=== PATIENT | female | born 1940 | race Caucasian/White ===

== ENCOUNTER → 2018-05-08 10:16 | Outpatient (CLI) | payer OTHER, SELFPAY ==
--- NOTE | 2018-05-08 | DI.MG.S_ITS ---
BILATERAL DIGITAL SCREENING MAMMOGRAM 3D/2D WITH CAD: 05/08/2018 CLINICAL: Routine screening. Comparison is made to exams dated: 04/05/2017 mammogram, 02/11/2016 mammogram, and 01/26/2016 mammogram - . The tissue of both breasts is heterogeneously dense. This may lower the sensitivity of mammography. Current study was also evaluated with a Computer Aided Detection (CAD) system. No significant masses, calcifications, or other findings are seen in either breast. There has been no significant interval change. IMPRESSION: NEGATIVE There is no mammographic evidence of malignancy. A 1 year screening mammogram is recommended. This exam was interpreted at Station ID: [id number]. NOTE: For mammograms, a report in lay terms will be sent to the patient. Approximately 15% of breast malignancies will not be visualized mammographically. In the management of a palpable breast mass, a negative mammogram must not discourage biopsy of a clinically suspicious lesion. Electronically Signed By: Parveen cabrera/richi:05/08/2018 16:49:49 letter sent: Normal Exam ACR BI-RADS Category 1: Negative [id number]
== END ==
PROVIDERS: PCP Physician Assistant; Visit Provider Physician Assistant
DX: Z12.31 Encounter for screening mammogram for malignant neoplasm of breast (principal)
CPT/HCPCS: 77063; 77067

== ENCOUNTER → 2019-05-15 11:31 | Outpatient (CLI) | payer OTHER, SELFPAY ==
--- NOTE | 2019-05-15 | DI.MG.S_ITS ---
BILATERAL DIGITAL SCREENING MAMMOGRAM 3D/2D WITH CAD: 05/15/2019 CLINICAL: Routine screening. Comparison is made to exams dated: 05/08/2018 mammogram, 04/05/2017 mammogram, 02/11/2016 mammogram, and 01/26/2016 mammogram - [facility]. The tissue of both breasts is heterogeneously dense. This may lower the sensitivity of mammography. Current study was also evaluated with a Computer Aided Detection (CAD) system. No significant masses, calcifications, or other findings are seen in either breast. There has been no significant interval change. IMPRESSION: NEGATIVE There is no mammographic evidence of malignancy. A 1 year screening mammogram is recommended. This exam was interpreted at Station ID: [id number]. NOTE: For mammograms, a report in lay terms will be sent to the patient. Approximately 15% of breast malignancies will not be visualized mammographically. In the management of a palpable breast mass, a negative mammogram must not discourage biopsy of a clinically suspicious lesion. Electronically Signed By: Marquise peterson/richi:05/15/2019 12:22:23 letter sent: Normal Exam ACR BI-RADS Category 1: Negative [id number]
== END ==
PROVIDERS: PCP Physician Assistant; Visit Provider Physician Assistant
DX: Z12.31 Encounter for screening mammogram for malignant neoplasm of breast (principal)
CPT/HCPCS: 77063; 77067

== ENCOUNTER → 2020-06-15 13:09 | Outpatient (CLI) | payer OTHER, SELFPAY | PROVIDERS: PCP Registered Nurse; Referring Provider Registered Nurse; Visit Provider Registered Nurse | DX: M85.851 Other specified disorders of bone density and structure, right thigh (principal); Z78.0 Asymptomatic menopausal state | CPT/HCPCS: 77080 ==

== ENCOUNTER → 2020-06-16 16:12 | Outpatient (CLI) | payer OTHER, SELFPAY ==
--- NOTE | 2020-06-16 16:15 | DI.MG.S_ITS ---
BILATERAL DIGITAL SCREENING MAMMOGRAM 3D/2D WITH CAD: 06/16/2020 CLINICAL: Routine screening. Comparison is made to exams dated: 05/15/2019 mammogram, 05/08/2018 mammogram, and 04/05/2017 mammogram - [facility]. There are scattered fibroglandular elements in both breasts. Current study was also evaluated with a Computer Aided Detection (CAD) system. No significant masses, calcifications, or other findings are seen in either breast. There has been no significant interval change. IMPRESSION: NEGATIVE There is no mammographic evidence of malignancy. A 1 year screening mammogram is recommended. This exam was interpreted at Station ID: [id number]. NOTE: For mammograms, a report in lay terms will be sent to the patient. Approximately 15% of breast malignancies will not be visualized mammographically. In the management of a palpable breast mass, a negative mammogram must not discourage biopsy of a clinically suspicious lesion. Electronically Signed By: Parveen cabrera/richi:06/16/2020 16:56:21 letter sent: Normal Exam ACR BI-RADS Category 1: Negative [id number]
== END ==
PROVIDERS: PCP Registered Nurse; Referring Provider Registered Nurse; Visit Provider Nurse Practitioner
DX: Z12.31 Encounter for screening mammogram for malignant neoplasm of breast (principal)
CPT/HCPCS: 77063; 77067

== ENCOUNTER → 2020-06-17 09:41 | Outpatient (CLI) | payer OTHER, SELFPAY ==
[2020-06-17 11:03] LABS: Add Manual Diff / Slide Review NO; Basophils Absolute Auto 100 /uL (0-100); Eosinophils Absolute Auto 300 /uL (0-450); Eosinophils Percent Auto 4.9 % (2-4); Hematocrit 40.2 % (36-46); Hemoglobin 13.8 g/dL (12.0-16.0); Lymphocytes Absolute Auto 1200 /uL (1100-4500); Lymphocytes Percent Auto 19.8 % (25-40); Mean Corpuscular HGB Conc 34.4 % (30-36); Mean Corpuscular Hemoglobin 30.3 PG (26-34); Monocytes Absolute Auto 500 /uL (0-900); Monocytes Percent Auto 8.4 % (3-14); Neutrophils Absolute Auto 4100 /uL (1500-7000); Neutrophils Percent Auto 65.9 % (50-75); Platelet Count 235 X10^3/uL (150-400); Red Blood Cell Count 4.56 X10^6/uL (4.0-5.2); Red Cell Distribution Width 13.5 % (11.6-14.8); White Blood Cell Count 6.2 X10^3/uL (4.5-11.0)
[2020-06-17 11:16] LABS: Alanine Aminotransferase 17 IU/L (<35); Albumin 4.2 g/dL (3.5-5.0); Albumin Globulin Ratio 1.3 (1.0-2.8); Alkaline Phosphatase 62 U/L (38-126); Aspartate Aminotransferase 25 IU/L (14-36); BUN Creatinine Ratio 19.2 (6-22); Bilirubin Total 0.5 mg/dL (0.2-1.3); Blood Urea Nitrogen 14 mg/dL (7-17); Carbon Dioxide 29 mmol/L (22-32); Chloride 104 mmol/L (98-107); Cholesterol 222 mg/dL (140-199); Estimated Glomerular Filt Rate > 60.0 mL/min (>60); Globulin 3.2 g/dL (1.7-4.1); Glucose 90 mg/dL (80-110); HDL Cholesterol 45 mg/dL (40-60); HEMOLYSIS < 15 (0-50); LDL Cholesterol Calculated 154 mg/dL (<100); Potassium 3.9 mmol/L (3.4-5.1); Sodium 140 mmol/L (137-145); Total Protein 7.4 g/dL (6.3-8.2); Triglycerides 114 mg/dL (35-150)
[2020-06-17 12:02] LABS: Vitamin D 25 Hydroxy (D3) 23.5 ng/mL (30.0-100.0)
[2020-06-17 16:47] LABS: Appearance Urine UA SL CLOUDY; Bilirubin Urine UA NEGATIVE (NEGATIVE); Color Urine UA YELLOW; Glucose Urine UA NEGATIVE (Negative); Ketones Urine UA NEGATIVE (NEGATIVE); Leukocyte Esterase Urine UA TRACE (NEGATIVE); Nitrite Urine UA NEGATIVE (Negative); Occult Blood Urine UA NEGATIVE (Negative); Protein Urine UA NEGATIVE (Negative); Specific Gravity Urine UA 1.015 (1.000-1.035); Urobilinogen Urine UA 0.2 E.U./dL (0.2)
[2020-06-17 16:49] LABS: pH Urine UA 7.5 (4.5-8.0)
[2020-06-17 17:00] LABS: Bacteria Urine Moderate (10-30); Culture Indicated Urine Specimen Cultured; RBC Urine 0-1/HPF (0-5/HPF); Squamous Epithelial Cell Urine 0-1 /HPF (0-5/HPF); WBC Urine 10-30/HPF (0-5/HPF)
== END ==
PROVIDERS: PCP Registered Nurse; Referring Provider Registered Nurse; Visit Provider Registered Nurse
DX: Z00.00 Encounter for general adult medical examination without abnormal findings (principal)
CPT/HCPCS: 36415; 80053; 80061; 81003; 81015; 82306; 85025; 87077; 87086

== ENCOUNTER → 2020-06-21 14:39 | Outpatient (CLI) | payer OTHER, SELFPAY ==
[2020-06-22 14:12] LABS: Fecal Immunochemical Test Negative (Negative)
== END ==
PROVIDERS: PCP Registered Nurse; Referring Provider Registered Nurse; Visit Provider Registered Nurse
DX: Z12.11 Encounter for screening for malignant neoplasm of colon (principal)
CPT/HCPCS: 82274

== ENCOUNTER → 2020-07-24 14:32 | Outpatient (CLI) | payer OTHER, SELFPAY ==
[2020-07-26 02:22] LABS: COVID19 Sendout Not Detected (Not Detect)
== END ==
PROVIDERS: PCP Registered Nurse; Visit Provider Nurse Practitioner
DX: Z11.59 Encounter for screening for other viral diseases (principal)
CPT/HCPCS: 87635

== ENCOUNTER 2020-07-27 06:58 | Day surgery (SDC) | payer OTHER, SELFPAY ==
[2020-07-27] MEDS: PROPARACAINE 0.5% OPHTH SOL 2 DROPS EYE-OP (07:30)
[2020-07-27 07:39] VITALS: BP 135/77; PULSE 75; RESP 14; TEMP 36.4; O2SAT 99; BMI 25.3
[2020-07-27] MEDS: CATARACT EYE COMPOUND (10 DROPS/SYRINGE) 3 DROPS EYE-OP (07:47)
--- NOTE | 2020-07-27 08:35 | P.OP_ITS ---
Operative Date/Time/Diagnoses Pre-op diagnosis: Nuclear Cataract Left eye Post-op diagnosis: same Procedure & Clinicians Same procedure as scheduled: Yes Surgeon: Rod Alaniz Anesthesia Type: MAC +/- and Sedation Operative Notes Procedure in detail: Patient brought to the operating suite. Tetracaine drops placed in the left eye. Patient was prepped and draped in sterile manner. Wire lid speculum was placed in the eye. Betadine drops were placed on the eye. This was irrigated. Lidocaine jelly was placed on the eye. A paracentesis port was created with a side-port blade. 0.1 mL 1% preservative free lidocaine was injected into the anterior chamber. The anterior chamber was deepened with viscoelastic. 2.6 mm keratome was used to create a temporal clear corneal incision. Cystotome and Utrata forceps were used to create continuous tear capsulorrhexis. Balanced salt solution was used to hydro dissect the nucleus. The phacoemulsification handpiece was inserted and the nucleus was removed using the stop and chop technique. The irrigation aspiration handpiece was inserted and the remaining cortex was removed. Anterior chamber was deepened with viscoe lastic. An Lin ZCB00 intraocular lens with a power of 24.0 was injected into the capsular bag. Irrigation aspiration handpiece was inserted and the remaining viscoelastic was removed. Incision was hydrated with balanced salt solution and found to be leak free with pressure with Weck-Sandy sponges. 0.1 mL Vigamox injected anterior chamber. 0.3 mL Kenalog 10 mg was injected subconjunctivally. Lid speculum was removed. The patient left the operating room in excellent condition. Complications: none Post-operative Condition: stable Disposition: same day surgery
--- NOTE | 2020-07-27 08:35 | PM.PREOP ---
Pre-operative Note Interval Note History & Physical reviewed/Exam performed by Physician: Yes Changes to H&P: No
--- NOTE | 2020-07-27 08:39 | SUR.OPER ---
Supine on eye stretcher, head on extension cradle secured with tape. Arms tucked at sides with blanket. Pillow under knees.
[2020-07-27] MEDS: BALANCED SALT IRRIG SOLN NO.2 500 ML, EPINEPHrine 1 MG IRR (08:45)
[2020-07-27] MEDS: TETRACAINE 0.5% OPHTH DROPS 4 ML 2 DROPS EYE-OP (08:46)
[2020-07-27] MEDS: LIDOCAINE JELLY 2% 5 ML 1 APPLIC TOP (08:47)
[2020-07-27] MEDS: CHONDROIDTIN/SOD HYALURONATE 1.05 ML SYRINGE INTRAOCULA (08:48)
[2020-07-27] MEDS: TRIAMCINOLONE 50 MG/5 ML VIAL INJ (08:48)
[2020-07-27] MEDS: MOXIFLOXACIN INJ 5 MG/ML VIAL EYE-OP (08:49)
[2020-07-27] MEDS: PHENYLEPHRINE/LIDOCAINE VIAL (OR) 0.2 ML EYE-OP (08:49)
[2020-07-27 09:06] VITALS: BP 114/68; PULSE 67; RESP 16; TEMP 36.3; O2SAT 98
[2020-07-27 09:20] VITALS: BP 122/68; PULSE 66; RESP 16; TEMP 36.6; O2SAT 96
== END 2020-07-27 09:30 | disposition home or self-care (01) ==
PROVIDERS: PCP Registered Nurse; Referring Provider Registered Nurse; Visit Provider Ophthalmology
PROC: (CPT 66984; principal; 2020-07-27 08:45)
DX: H25.12 Age-related nuclear cataract, left eye (principal)
CPT/HCPCS: 66984; J0171; J2250; J3301

== ENCOUNTER → 2020-08-07 09:42 | Outpatient (CLI) | payer OTHER, SELFPAY ==
[2020-08-07 10:39] LABS: COVID19 -Nasal RAPID Negative (Negative)
== END ==
PROVIDERS: PCP Registered Nurse; Visit Provider Physician Assistant
DX: Z11.59 Encounter for screening for other viral diseases (principal)
CPT/HCPCS: 87635

== ENCOUNTER 2020-08-10 08:03 | Day surgery (SDC) | payer OTHER, SELFPAY ==
[2020-08-10 08:29] VITALS: BP 148/74; PULSE 73; RESP 16; TEMP 36.1; O2SAT 95; BMI 25.7
[2020-08-10] MEDS: PROPARACAINE 0.5% OPHTH SOL 2 DROPS EYE-OP (08:35)
[2020-08-10] MEDS: CATARACT EYE COMPOUND (10 DROPS/SYRINGE) 3 DROPS EYE-OP (08:36)
--- NOTE | 2020-08-10 09:26 | PM.PREOP ---
Pre-operative Note Interval Note History & Physical reviewed/Exam performed by Physician: Yes Changes to H&P: No
--- NOTE | 2020-08-10 09:26 | PM.OP.1 ---
Operative Date/Time/Diagnoses Pre-op diagnosis: Nuclear cataract right eye Procedure & Clinicians Procedure: Cataract Surgery Same procedure as scheduled: Yes Surgeon: Rod Alaniz Anesthesia Type: MAC +/- and Sedation Operative Notes Procedure in detail: Patient brought to the operating suite. Tetracaine drops placed in the right eye. Patient was prepped and draped in sterile manner. Wire lid speculum was placed in the eye. Betadine drops were placed on the eye. This was irrigated. Lidocaine jelly was placed on the eye. A paracentesis port was created with a side-port blade. 0.1 mL 1% preservative free lidocaine was injected into the anterior chamber. The anterior chamber was deepened with viscoelastic. 2.6 mm keratome was used to create a temporal clear corneal incision. Cystotome and Utrata forceps were used to create continuous tear capsulorrhexis. Balanced salt solution was used to hydro dissect the nucleus. The phacoemulsification handpiece was inserted and the nucleus was removed using the stop and chop technique. The irrigation aspiration handpiece was inserted and the remaining cortex was removed. Anterior chamber was deepened with viscoelastic. An Lin ZCB00 intraocular lens with a power of 23.0 was injected into the capsular bag. Irrigation aspiration handpiece was inserted and the remaining viscoelastic was removed. Incision was hydrated with balanced salt solution and found to be leak free with pressure with Weck-Sandy sponges. 0.1 mL Vigamox injected anterior chamber. 0.3 mL Kenalog 10 mg was injected subconjunctivally. Lid speculum was removed. The patient left the operating room in excellent condition. Complications: none Post-operative Condition: stable Disposition: same day surgery
[2020-08-10] MEDS: PHENYLEPHRINE/LIDOCAINE VIAL (OR) 0.2 ML EYE-OP (09:46)
[2020-08-10] MEDS: LIDOCAINE JELLY 2% 5 ML 1 APPLIC TOP (09:47)
[2020-08-10] MEDS: CHONDROIDTIN/SOD HYALURONATE 1.05 ML SYRINGE INTRAOCULA (09:47)
[2020-08-10] MEDS: TRIAMCINOLONE 50 MG/5 ML VIAL INJ (09:47)
[2020-08-10] MEDS: MOXIFLOXACIN INJ 5 MG/ML VIAL EYE-OP (09:47)
[2020-08-10] MEDS: BALANCED SALT IRRIG SOLN NO.2 500 ML, EPINEPHrine 1 MG IRR (09:48)
[2020-08-10] MEDS: TETRACAINE 0.5% OPHTH DROPS 4 ML 2 DROPS EYE-OP (09:48)
[2020-08-10 10:00] VITALS: BP 123/76; PULSE 68; RESP 15; TEMP 36.2; O2SAT 96
[2020-08-10 10:19] VITALS: BP 122/72; PULSE 65; RESP 17; TEMP 36.1; O2SAT 95
== END 2020-08-10 10:20 | disposition home or self-care (01) ==
PROVIDERS: PCP Registered Nurse; Referring Provider Registered Nurse; Visit Provider Ophthalmology
PROC: (CPT 66984; principal; 2020-08-10 09:45)
DX: H25.11 Age-related nuclear cataract, right eye (principal)
CPT/HCPCS: 66984; J0171; J2250; J3301

== ENCOUNTER 2020-12-04 18:19 | Observation (INO) | payer OTHER, SELFPAY ==
[2020-12-04] VITALS (11 sets, daily range): BP systolic 124–215; BP diastolic 60–97; PULSE 63–74; RESP 14–28; TEMP 36.1; O2SAT 94–97; BMI 24.3
--- NOTE | 2020-12-04 18:31 | DI.CT.S_ITS ---
PROCEDURE: CT HEAD/BRAIN WO CON INDICATIONS: new onset confusion TECHNIQUE: Noncontrast 4.5 mm thick angled axial sections acquired from the foramen magnum to the vertex, with coronal and sagittal reformats. For radiation dose reduction, the following was used: automated exposure control, adjustment of mA and/or kV according to patient size. COMPARISON: [facility], CT, HEAD WITHOUT CONTRAST, 10/10/2017, 11:50. FINDINGS: Image quality: Excellent. CSF spaces: Basal cisterns are patent. No extra-axial fluid collections. The ventricles are symmetric in size and shape. Brain: No intracranial bleeds or masses. There is cerebral volume loss for age, with resultant ventricular and sulcal prominence. There are periventricular and deep white matter chronic small vessel ischemic changes. There is intracranial internal carotid artery atherosclerosis. Skull and face: Calvarium and visualized facial bones appear intact, without suspicious lesions. Sinuses: Visualized sinuses demonstrate minimal right maxillary sinus mucosal thickening. IMPRESSION: 1. No acute intracranial process. 2. Moderate atrophy and chronic microvascular ischemic changes. Dictated by: Leonie Luna M.D. on 12/04/2020 at 19:01 Approved by: Leonie Luna M.D. on 12/04/2020 at 19:02
--- NOTE | 2020-12-04 18:34 | DI.RAD.S_ITS ---
PROCEDURE: XR CHEST 1V INDICATIONS: altered mental status TECHNIQUE: One view of the chest was acquired. COMPARISON: None. FINDINGS: Surgical changes and devices: None. Lungs and pleura: Minimal appearance of increased vascularity. No pleural effusions or pneumothorax. Mediastinum: Mediastinal contours appear normal. Heart size is mildly prominent. Bones and chest wall: No suspicious bony lesions. Overlying soft tissues appear unremarkable. IMPRESSION: Minimal appearance of increased vascularity suggestive of edema. No consolidations. Dictated by: Leonie Luna M.D. on 12/04/2020 at 19:00 Approved by: Leonie Luna M.D. on 12/04/2020 at 19:01
[2020-12-04 18:48] LABS: Bacteria Urine None Seen; WBC Urine None Seen (0-5/HPF)
[2020-12-04 18:53] LABS: Appearance Urine UA CLEAR; Bilirubin Urine UA NEGATIVE (NEGATIVE); Color Urine UA YELLOW; Glucose Urine UA NEGATIVE (Negative); Ketones Urine UA NEGATIVE (NEGATIVE); Leukocyte Esterase Urine UA NEGATIVE (NEGATIVE); Nitrite Urine UA NEGATIVE (Negative); Occult Blood Urine UA TRACE-LYSED (Negative); Protein Urine UA NEGATIVE (Negative); Specific Gravity Urine UA 1.015 (1.000-1.035); Urobilinogen Urine UA 0.2 E.U./dL (0.2)
[2020-12-04 18:58] LABS: Add Manual Diff / Slide Review NO; Basophils Absolute Auto 100 /uL (0-100); Basophils Percent Auto 1.4 % (0-2); Eosinophils Absolute Auto 500 /uL (0-450); Eosinophils Percent Auto 7.2 % (2-4); Hematocrit 41.2 % (36-46); Hemoglobin 13.9 g/dL (12.0-16.0); Lymphocytes Absolute Auto 1900 /uL (1100-4500); Lymphocytes Percent Auto 28.3 % (25-40); Mean Corpuscular HGB Conc 33.9 % (30-36); Mean Corpuscular Hemoglobin 30.1 PG (26-34); Monocytes Absolute Auto 700 /uL (0-900); Monocytes Percent Auto 10.3 % (3-14); Neutrophils Absolute Auto 3500 /uL (1500-7000); Neutrophils Percent Auto 52.8 % (50-75); Platelet Count 254 X10^3/uL (150-400); Red Blood Cell Count 4.63 X10^6/uL (4.0-5.2); Red Cell Distribution Width 13.1 % (11.6-14.8); White Blood Cell Count 6.6 X10^3/uL (4.5-11.0)
[2020-12-04 19:02] LABS: Culture Indicated Urine Cult Not Indicated; RBC Urine 0-1/HPF (0-5/HPF); Ur Creatinine Normal (Normal); Ur Specific Gravity Normal (Normal); Urine pH Normal (Normal); pH Urine UA 6.5 (4.5-8.0)
[2020-12-04 19:03] LABS: UR Morphine/Opiate cutoff 300 Negative (Negative); Urine Amphetamines Negative (Negative); Urine Barbiturates Negative (Negative); Urine Benzodiazepines Negative (Negative); Urine Cocaine Negative (Negative); Urine MDMA Negative (Negative); Urine Methadone Negative (Negative); Urine Methamphetamines Negative (Negative); Urine Oxycodone Negative (Negative); Urine Phencyclidine Negative (Negative); Urine Tetrahydrocannabinol Negative (Negative); Urine Tricyclic Antidepressant Negative (Negative)
[2020-12-04 19:14] LABS: Alanine Aminotransferase 23 IU/L (<35); Albumin 4.8 g/dL (3.5-5.0); Albumin Globulin Ratio 1.5 (1.0-2.8); Alkaline Phosphatase 60 U/L (38-126); Ammonia (NH3) < 9 umol/L (9-30); Aspartate Aminotransferase 38 IU/L (14-36); Bilirubin Total 0.3 mg/dL (0.2-1.3); Blood Urea Nitrogen 17 mg/dL (7-17); Calcium 9.4 mg/dL (8.4-10.2); Carbon Dioxide 28 mmol/L (22-32); Chloride 105 mmol/L (98-107); Estimated Glomerular Filt Rate > 60.0 mL/min (>60); Globulin 3.2 g/dL (1.7-4.1); Glucose 99 mg/dL (80-110); Potassium 3.9 mmol/L (3.4-5.1); Sodium 138 mmol/L (137-145)
[2020-12-04 19:17] LABS: HEMOLYSIS 53 (0-50)
--- NOTE | 2020-12-04 19:41 | ED.GENADULT ---
HPI - General Adult General Chief complaint: Altered Mental Status Stated complaint: new onset confusion, nausea Time Seen by Provider: 12/04/20 19:41 History of Present Illness HPI narrative: 80-year-old remarkably healthy woman recently started on atorvastatin was working in her garden not using any chemicals this evening and came and sat in the living room and was acutely disoriented. There is no stroke-like findings, no fever no cough, no chills, no chest pain no abdominal pain, no headache. She is able to move and walk without difficulty or limitation. She has significant retrograde amnesia was unable to remember her name the date or the president but had no difficulty at all with distant events. She has never had similar findings and has been in her excellent health until this event. Related Data Home Medications Medication Instructions Recorded Confirmed [Calcium] 2 tab PO QDAY #0 06/20/11 08/10/20 [Vitamin D3] PO QDAY #0 06/20/11 05/24/20 multivitamin [Multiple Vitamins] 1 tab PO QDAY #0 05/15/17 08/10/20 [CRANBERRY] 2 tab PO QDAY #0 10/10/17 08/10/20 Previous Rx's Medication Instructions Recorded varicella-zoster [id number] (PF) 0.5 ml IM X1 #1 ea 01/08/18 [Shingrix (PF)] atorvastatin 20 mg tablet See Rx Instructions .ROUTE 11/23/20 .COMPLEX #30 tab Allergies Allergy/AdvReac Type Severity Reaction Status Date / Time Sulfa (Sulfonamide Allergy Mild SENSITIVITY Verified 07/27/20 07:36 Antibiotics) TO MED/ Nausea Review of Systems Review of Systems ROS Unobtainable: All systems reviewed & are unremarkable except as noted in HPI and below Patient History Medical History Eczema Hyperlipidemia Impaired hearing Urinary incontinence Surgical History History of History of cataract surgery History of cholecystectomy History of ureter stent Family History Father No significant medical problems Mother No significant medical problems Brother Cancer Sister No significant medical problems Social History household members: spouse Smoking Status: Never smoker Smoking Status: Never smoker alcohol intake frequency: holidays/special occasions only Substance Use Type: does not use Exam Narrative Exam Narrative: General: Healthy appearing, in no acute distress. Able to give a complete and coherent history. Well-nourished well-developed HEENT: Moist mucous membranes, normal sclera with reactive pupils, Neck: No JVD, supple Respiratory: Lungs are clear to auscultation, no wheezing no rales no rhonchi. Full and symmetrical air movement Cardiac: Regular rate and rhythm no murmurs no bruits Abdomen: Soft, nontender, good bowel tones, no flank pain Skin: Warm and dry, no rashes Neurologic: Minor retrograde amnesia and some perseverating questions but otherwise Grossly neurologically intact with no obvious asymmetries or abnormalities Extremities: No trauma, well perfused Psych: Cooperative, appropriate affect, fluent speech Initial Vital Signs Initial Vital Signs: Vital Signs Temperature 96.9 F L 12/04/20 18:24 Pulse Rate 73 12/04/20 18:24 Respiratory Rate 16 12/04/20 18:24 Blood Pressure 215/97 H 12/04/20 18:24 Pulse Oximetry 97 12/04/20 18:24 Course Orders Ordered: Acetaminophen (Acetaminophen 325 Mg Tablet) 650 mg PO Q6HR PRN PRN Reason: Fever/Mild Pain (1-3) Al Hydrox/Mg Hydrox/Simethicone (Mag Hydrox/Alum/Simeth 30 Ml Udc) 30 ml PO Q6HR PRN PRN Reason: Dyspepsia Aspirin (Aspirin Ec 81 Mg Tablet) 81 mg PO DAILY [facility] Atorvastatin Calcium (Atorvastatin 20 Mg Tablet) 20 mg PO BEDTIME PRISCILA Calcium Carbonate (Calcium Carbonate 500 Mg Tab) 1,000 mg PO Q4HR PRN PRN Reason: Dyspepsia Naloxone HCl (Naloxone 0.4 Mg/Ml Vial) 0.2 mg IV Q2MIN PRN PRN Reason: Opiate Reversal Ondansetron HCl (Ondansetron 4 Mg/2 Ml Inj) 4 mg IV Q8HR PRN PRN Reason: Nausea And Vomiting Sodium Chloride (Sodium Chloride 0.9% Flush) 10 ml IV PRN PRN PRN Reason: Flush Sodium Chloride (Sodium Chloride 0.9% Flush) 10 ml IV BID PRISCILA Discontinued Medications Methylprednisolone (Methylprednisolone 125 Mg/2 Ml Vial) 60 mg IV NOW ONE Stop: 12/04/20 19:56 Last Admin: 12/04/20 20:48 Dose: 60 mg Documented by: RUBY Ondansetron HCl (Ondansetron 4 Mg/2 Ml Inj) 4 mg IV NOW ONE Stop: 12/04/20 20:30 Last Admin: 12/04/20 20:48 Dose: 4 mg Documented by: RUBY Vital Signs Vital signs: Vital Signs - 8 hr 12/04/20 23:00 12/04/20 23:30 12/05/20 00:00 Pulse Rate 66 70 68 Respiratory Rate 23 17 20 Blood Pressure 124/60 137/72 139/67 Pulse Oximetry 94 94 93 Medical Decision Making Medical Records Medical records reviewed: Yes I reviewed the patient's medical records. Lab Data Lab results reviewed: Yes I reviewed the patient's lab results. Result diagrams: 12/04/20 18:45 12/05/20 04:35 Labs: Lab Results 12/04/20 12/04/20 12/04/20 Range/Units 18:42 18:42 18:45 WBC 6.6 (4.5-11.0) X10^3/uL RBC 4.63 (4.0-5.2) X10^6/uL Hgb 13.9 (12.0-16.0) g/dL Hct 41.2 (36-46) % MCV 89.0 (80-100) fL MCH 30.1 (26-34) PG MCHC 33.9 (30-36) % RDW 13.1 (11.6-14.8) % Plt Count 254 (150-400) X10^3/uL Neut % (Auto) 52.8 (50-75) % Lymph % (Auto) 28.3 (25-40) % Trego % (Auto) 10.3 (3-14) % Eos % (Auto) 7.2 H (2-4) % Baso % (Auto) 1.4 (0-2) % Neut # (Auto) 3500 (6243-9436) /uL Lymph # (Auto) 1900 (1496-5427) /uL Trego # (Auto) 700 (0-900) /uL Eos # (Auto) 500 H (0-450) /uL Baso # (Auto) 100 (0-100) /uL Sodium (137-145) mmol/L Potassium (3.4-5.1) mmol/L Chloride (98-107) mmol/L Carbon Dioxide (22-32) mmol/L BUN (7-17) mg/dL Creatinine (0.52-1.04) mg/dL Estimated GFR (>60) mL/min BUN/Creatinine Ratio (6-22) Glucose (80-110) mg/dL Calcium (8.4-10.2) mg/dL Magnesium (1.6-2.3) mg/dL Total Bilirubin (0.2-1.3) mg/dL AST (14-36) IU/L ALT (<35) IU/L Alkaline Phosphatase (38-126) U/L Ammonia (9-30) umol/L NT-Pro-B Natriuret Pep (<450) pg/mL Total Protein (6.3-8.2) g/dL Albumin (3.5-5.0) g/dL Globulin (1.7-4.1) g/dL Albumin/Globulin Ratio (1.0-2.8) Urine Color Yellow Urine Appearance Clear Urine pH 6.5 (4.5-8.0) Ur Specific Limestone 1.015 (1.000-1.035) Urine Protein Negative (Negative) Urine Glucose (UA) Negative (Negative) g/dL Urine Ketones Negative (NEGATIVE) Urine Occult Blood Trace-lysed (Negative) Urine Nitrate Negative (Negative) Urine Bilirubin Negative (NEGATIVE) Urine Urobilinogen 0.2 (0.2) E.U./dL Ur Leukocyte Esterase Negative (NEGATIVE) Urine RBC 0-1/hpf (0-5/HPF) Urine WBC None seen (0-5/HPF) Urine Bacteria None seen (None) Ur Culture Indicated? Cult not indicated U Opiates 300ng/mL cut Negative (Negative) Ur Oxycodone Screen Negative (Negative) Urine Methadone Screen Negative (Negative) Ur Barbiturates Screen Negative (Negative) U Tricyclic Antidepress Negative (Negative) Ur Phencyclidine Scrn Negative (Negative) Ur Amphetamines Screen Negative (Negative) U Methamphetamines Scrn Negative (Negative) Ur MDMA Scrn (Ecstasy) Negative (Negative) U Benzodiazepines Scrn Negative (Negative) Urine Cocaine Screen Negative (Negative) U Marijuana (THC) Screen Negative (Negative) SARS-CoV-2 (PCR) (Negative) 12/04/20 12/04/20 12/04/20 Range/Units 18:45 18:45 18:45 WBC (4.5-11.0) X10^3/uL RBC (4.0-5.2) X10^6/uL Hgb (12.0-16.0) g/dL Hct (36-46) % MCV (80-100) fL MCH (26-34) PG MCHC (30-36) % RDW (11.6-14.8) % Plt Count (150-400) X10^3/uL Neut % (Auto) (50-75) % Lymph % (Auto) (25-40) % Trego % (Auto) (3-14) % Eos % (Auto) (2-4) % Baso % (Auto) (0-2) % Neut # (Auto) (3219-9265) /uL Lymph # (Auto) (7652-2258) /uL Trego # (Auto) (0-900) /uL Eos # (Auto) (0-450) /uL Baso # (Auto) (0-100) /uL Sodium 138 (137-145) mmol/L Potassium 3.9 (3.4-5.1) mmol/L Chloride 105 (98-107) mmol/L Carbon Dioxide 28 (22-32) mmol/L BUN 17 (7-17) mg/dL Creatinine 0.74 (0.52-1.04) mg/dL Estimated GFR > 60.0 (>60) mL/min BUN/Creatinine Ratio 23.0 H (6-22) Glucose 99 (80-110) mg/dL Calcium 9.4 (8.4-10.2) mg/dL Magnesium 2.4 H (1.6-2.3) mg/dL Total Bilirubin 0.3 (0.2-1.3) mg/dL AST 38 H (14-36) IU/L ALT 23 (<35) IU/L Alkaline Phosphatase 60 (38-126) U/L Ammonia < 9 L (9-30) umol/L NT-Pro-B Natriuret Pep (<450) pg/mL Total Protein 8.0 (6.3-8.2) g/dL Albumin 4.8 (3.5-5.0) g/dL Globulin 3.2 (1.7-4.1) g/dL Albumin/Globulin Ratio 1.5 (1.0-2.8) Urine Color Urine Appearance Urine pH (4.5-8.0) Ur Specific Limestone (1.000-1.035) Urine Protein (Negative) Urine Glucose (UA) (Negative) g/dL Urine Ketones (NEGATIVE) Urine Occult Blood (Negative) Urine Nitrate (Negative) Urine Bilirubin (NEGATIVE) Urine Urobilinogen (0.2) E.U./dL Ur Leukocyte Esterase (NEGATIVE) Urine RBC (0-5/HPF) Urine WBC (0-5/HPF) Urine Bacteria (None) Ur Culture Indicated? U Opiates 300ng/mL cut (Negative) Ur Oxycodone Screen (Negative) Urine Methadone Screen (Negative) Ur Barbiturates Screen (Negative) U Tricyclic Antidepress (Negative) Ur Phencyclidine Scrn (Negative) Ur Amphetamines Screen (Negative) U Methamphetamines Scrn (Negative) Ur MDMA Scrn (Ecstasy) (Negative) U Benzodiazepines Scrn (Negative) Urine Cocaine Screen (Negative) U Marijuana (THC) Screen (Negative) SARS-CoV-2 (PCR) (Negative) 12/04/20 12/04/20 Range/Units 18:45 20:47 WBC (4.5-11.0) X10^3/uL RBC (4.0-5.2) X10^6/uL Hgb (12.0-16.0) g/dL Hct (36-46) % MCV (80-100) fL MCH (26-34) PG MCHC (30-36) % RDW (11.6-14.8) % Plt Count (150-400) X10^3/uL Neut % (Auto) (50-75) % Lymph % (Auto) (25-40) % Trego % (Auto) (3-14) % Eos % (Auto) (2-4) % Baso % (Auto) (0-2) % Neut # (Auto) (6117-0934) /uL Lymph # (Auto) (7114-1086) /uL Trego # (Auto) (0-900) /uL Eos # (Auto) (0-450) /uL Baso # (Auto) (0-100) /uL Sodium (137-145) mmol/L Potassium (3.4-5.1) mmol/L Chloride (98-107) mmol/L Carbon Dioxide (22-32) mmol/L BUN (7-17) mg/dL Creatinine (0.52-1.04) mg/dL Estimated GFR (>60) mL/min BUN/Creatinine Ratio (6-22) Glucose (80-110) mg/dL Calcium (8.4-10.2) mg/dL Magnesium (1.6-2.3) mg/dL Total Bilirubin (0.2-1.3) mg/dL AST (14-36) IU/L ALT (<35) IU/L Alkaline Phosphatase (38-126) U/L Ammonia (9-30) umol/L NT-Pro-B Natriuret Pep 88 (<450) pg/mL Total Protein (6.3-8.2) g/dL Albumin (3.5-5.0) g/dL Globulin (1.7-4.1) g/dL Albumin/Globulin Ratio (1.0-2.8) Urine Color Urine Appearance Urine pH (4.5-8.0) Ur Specific Limestone (1.000-1.035) Urine Protein (Negative) Urine Glucose (UA) (Negative) g/dL Urine Ketones (NEGATIVE) Urine Occult Blood (Negative) Urine Nitrate (Negative) Urine Bilirubin (NEGATIVE) Urine Urobilinogen (0.2) E.U./dL Ur Leukocyte Esterase (NEGATIVE) Urine RBC (0-5/HPF) Urine WBC (0-5/HPF) Urine Bacteria (None) Ur Culture Indicated? U Opiates 300ng/mL cut (Negative) Ur Oxycodone Screen (Negative) Urine Methadone Screen (Negative) Ur Barbiturates Screen (Negative) U Tricyclic Antidepress (Negative) Ur Phencyclidine Scrn (Negative) Ur Amphetamines Screen (Negative) U Methamphetamines Scrn (Negative) Ur MDMA Scrn (Ecstasy) (Negative) U Benzodiazepines Scrn (Negative) Urine Cocaine Screen (Negative) U Marijuana (THC) Screen (Negative) SARS-CoV-2 (PCR) Negative (Negative) Imaging Data CT scan - head: Radiologist's Impression: FINDINGS: Image quality: Excellent. CSF spaces: Basal cisterns are patent. No extra-axial fluid collections. The ventricles are symmetric in size and shape. Brain: No intracranial bleeds or masses. There is cerebral volume loss for age, with resultant ventricular and sulcal prominence. There are periventricular and deep white matter chronic small vessel ischemic changes. There is intracranial internal carotid artery atherosclerosis. Skull and face: Calvarium and visualized facial bones appear intact, without suspicious lesions. Sinuses: Visualized sinuses demonstrate minimal right maxillary sinus mucosal thickening. IMPRESSION: 1. No acute intracranial process. 2. Moderate atrophy and chronic microvascular ischemic changes. Dictated by: Leonie Luna M.D. on 12/04/2020 at 19:01 Chest x-ray: Radiologist's Impression: FINDINGS: Surgical changes and devices: None. Lungs and pleura: Minimal appearance of increased vascularity. No pleural effusions or pneumothorax. Mediastinum: Mediastinal contours appear normal. Heart size is mildly prominent. Bones and chest wall: No suspicious bony lesions. Overlying soft tissues appear unremarkable. IMPRESSION: Minimal appearance of increased vascularity suggestive of edema. No consolidations. Dictated by: Leonie Luna M.D. on 12/04/2020 at 19:00 ECG Data Interpretation: Sinus rhythm at a rate of 72 Slight left axis deviation Right bundle branch block No acute ischemic changes MDM Narrative Medical decision making narrative: Pleasant 80-year-old woman with acute onset amnesia. No other focal neurologic findings. CT scan is unremarkable, lab workup is reassuring COVID testing is negative. There is no evidence of toxidrome or other exposure concerns. No obvious trauma and no suggestion of infection. Most likely explanation at this point is transient global amnesia however possibility of TIA is entertained. In discussion with patient and her daughter both were agreeable hospital admission overnight given her age and acute findings of unexplained altered mental status. Midnight: Patient is re-examined. Still some minor amnesia issues but clearly improving. Will contact hospitalist service. Discharge Plan Departure Patient Disposition: Admitted as Observation Clinical Impression: Acute alteration in mental status Admit Date/Time: 12/05/20 00:22 Admit Provider: Garry Bermeo
[2020-12-04] MEDS: methylPREDNISolone 125 MG/2 ML VIAL 60 MG IV (20:48)
[2020-12-04] MEDS: ONDANSETRON 4 MG/2 ML INJ IV (20:48)
--- NOTE | 2020-12-04 22:55 | PC.NURSE ---
Pt resting in room with daughter. appears to be more talkative. not as confused as when assessed at triage. aware of person place and time. no complaints at this time. states her nausea is resolved. thirsty--given water to drink without issue.
[2020-12-04 23:05] LABS: COVID19 - ADMIT (NP swab/PCR) Negative (Negative)
[2020-12-05] VITALS: BP 139/67; PULSE 68; RESP 20; O2SAT 93
[2020-12-05 00:30] VITALS: BP 132/70; PULSE 72; RESP 20; O2SAT 93
--- NOTE | 2020-12-05 01:16 | DI.MRI.S_ITS ---
PROCEDURE: MR STROKE Pre- and post-contrast brain MRI, non-contrast brain MR angiogram, pre- and postcontrast neck MR angiogram INDICATIONS: Acute altered mental status TECHNIQUE: Brain: Noncontrast axial T1 spin echo, axial T2 fast spin echo, sagittal and axial FLAIR, coronal T2 fast spin echo, axial gradient echo, axial diffusion and ADC through the brain. After the administration of contrast, axial 3D VIBE of the cranial vasculature and brain. Brain MRA: Non-contrast 3-D time of flight MR angiogram, with multiple tymcbbq-zrjozmkug-uulvymwtdr (MIP) reformats performed. Neck MRA: Axial and sagittal TruFISP through the neck. Coronal dynamic MR angiogram during administration of contrast in the arterial and venous phases, with 3-dimenstional afhcajc-jemmovzru-suxiyyguuu (MIP) reformats constructed from subtraction images. COMPARISON: [facility], CT, CT HEAD/BRAIN WO CON, 12/04/2020, 18:38. FINDINGS: Image quality: Excellent. BRAIN: CSF spaces: Ventricles are normal in size and shape. Basal cisterns are patent. No extra-axial fluid collections. Brain: No intracranial bleeds or mass effects. Leiva-white matter interface is normal. Age-related volume loss and moderate small vessel ischemic change. Diffusion weighted images show no acute ischemic insults. Brainstem appears normal. Normal intravascular flow voids are present. No abnormal intracranial enhancement. Skull and face: Calvarial marrow signal is normal. Orbits appear normal. Sinuses: Sinuses and mastoids are clear. BRAIN MR ANGIOGRAM: Anterior circulation: Intracranial internal carotid arteries are normal in size and enhancement. The flow within the paired anterior cerebral arteries is normal and symmetric. The flow within the middle cerebral arteries is normal and symmetric. The anterior communicating artery is seen. No stenoses, occlusions, or aneurysms. There is origin of the right posterior cerebral artery off the anterior circulation. Posterior circulation: The visualized portions of the vertebral arteries demonstrate normal caliber, and join to form a normal appearing basilar artery. The flow within the posterior cerebral arteries is normal and symmetric. No stenoses, occlusions, or aneurysms. NECK MR ANGIOGRAM: Carotids: Great vessels demonstrate a conventional anatomy as they arise from the aortic arch. The origins of the common carotid arteries appear patent. The calibers and courses of both common carotid arteries are normal. The bifurcation regions appear normal bilaterally. The internal carotid arteries demonstrate normal course and caliber. Posterior circulation: The origins of the vertebral arteries appear patent. More superior portions of both vertebral arteries demonstrate normal course and caliber, and join to form a normal appearing basilar artery. Miscellaneous: Subclavian arteries appear patent. Pre-contrast images through the neck show no soft tissue abnormalities. IMPRESSION: BRAIN MRI: 1. Age-related volume loss and small vessel ischemic change. 2. No evidence acute stroke, hemorrhage, mass. BRAIN MR ANGIOGRAM: Unremarkable. No stenosis, occlusion, or aneurysm. NECK MR ANGIOGRAM: Unremarkable. Widely patent internal carotids. Dictated by: Quang Khalil M.D. on 12/05/2020 at 7:58 Approved by: Quang Khalil M.D. on 12/05/2020 at 8:03
[2020-12-05 01:24] VITALS: BMI 24.3
--- NOTE | 2020-12-05 01:32 | PM.HP.1 ---
History of Present Illness History of Present Illness Date Patient Seen: 12/05/20 Time Patient Seen: 01:10 Chief complaint: new onset confusion, nausea Narrative: Ms. Nara Candelario is an 80-year-old female with a past medical history only eczema, urinary incontinence and hearing loss who presents to the ER with acutely altered mentation and disorientation. The patient was in her yard gardening, reaching up in trimming bushes. Apparently the family found the patient sitting endorse disoriented and confused. The patient has had no previous episodes of neurologic problems has had no seizure activity or antecedent complaints. She has had no toxic exposures or trauma. The patient brought to the ER by family and upon arrival the patient could not recall her name date or the president but could recall remote events including the fact that the ER provider was previously in her primary care physician. The patient denies complaints of headaches or dizziness, reports no visual changes. She denies numbness and tingling or extremity weakness and presents with a steady gait. She has had no recent fevers or chills, denies chest pain or palpitations, no shortness of breath cough or wheezing. She denies epigastric or abdominal pain. She does endorse mild nausea but denies vomiting. She reports no changes in bowel habits and has a history urinary incontinence but no complaints of hematuria, urgency, frequency or burning. The patient is normally active and independent in ADLs. Upon arrival to the ER patient is afebrile with a temperature 96.9? his heart rate of 65. Blood pressure is markedly elevated to 115/97, her respiratory rate of 16 saturating 97% on room air. A CT of the head was obtained which finds no acute intracranial processes, moderate atrophy with chronic microvascular ischemic changes. Chest x-ray notes increased vascularity without consolidation. Twelve lead EKG reveals sinus rhythm with Marjan axis deviation and right bundle branch block, no ectopy, ST or T-wave changes. On laboratory analysis her CBC is unremarkable as well as her chemistries with a BUN of 17 and creatinine 0.74 and a nonfasting glucose 99. She has a total bilirubin 0.3 and slightly elevated AST at 38, ALT of 23 and alkaline phosphatase of 60. Ammonia is less than 9. Her urinalysis is unremarkable in COVID-19 screening is negative. In the ER the patient received methylprednisolone 60 mg IV and Zofran. The patient is admitted to the medicine service for acute alteration in mentation of unclear etiology. Patient History Medical History (Updated 12/05/20 @ 01:49 by HAYDEE Machado) Eczema Hyperlipidemia Impaired hearing Urinary incontinence Surgical History (Updated 12/05/20 @ 01:49 by HAYEDE Machado) History of History of cataract surgery History of cholecystectomy History of ureter stent Family & Social History Family History (Updated 12/05/20 @ 01:50 by HAYDEE Machado) Father No significant medical problems Mother No significant medical problems Brother Cancer Sister No significant medical problems Social History: household members spouse Safety & Behavioral: Feels Safe in Current Yes Environment Been Physically Hurt or No Threatened By a Person Tobacco & Substance use: Smoking Status Never smoker alcohol intake frequency holiday/special occasion Substance Use Type does not use Meds Home Medications and Allergies Home Medications Medication Instructions Recorded Confirmed Type [Calcium] 2 tab PO QDAY #0 06/20/11 08/10/20 History [Vitamin D3] PO QDAY #0 06/20/11 05/24/20 History multivitamin [Multiple Vitamins] 1 tab PO QDAY #0 05/15/17 08/10/20 History [CRANBERRY] 2 tab PO QDAY #0 10/10/17 08/10/20 History varicella-zoster [id number] (PF) 0.5 ml IM X1 #1 ea 01/08/18 05/24/20 Rx [Shingrix (PF)] atorvastatin 20 mg tablet See Rx Instructions .ROUTE 11/23/20 Rx .COMPLEX #30 tab Allergies Allergy/AdvReac Type Severity Reaction Status Date / Time Sulfa (Sulfonamide Allergy Mild SENSITIVITY Verified 07/27/20 07:36 Antibiotics) TO MED/ Nausea Review of Systems Review of Systems ROS: Yes All systems reviewed with the patient and are negative except as otherwise documented Exam Vital Signs (past 8 hours): - 12/04/20 18:24 12/04/20 19:03 12/04/20 19:30 Temperature 96.9 F L Pulse Rate 73 74 71 Respiratory Rate 16 19 23 Blood Pressure 215/97 H 180/84 H Pulse Oximetry 97 96 95 12/04/20 20:00 12/04/20 20:30 12/04/20 21:00 Temperature Pulse Rate 70 67 64 Respiratory Rate 14 17 19 Blood Pressure 167/79 H 152/79 H 141/65 H Pulse Oximetry 96 94 94 12/04/20 21:30 12/04/20 22:00 12/04/20 22:30 Temperature Pulse Rate 63 65 66 Respiratory Rate 28 H 14 17 Blood Pressure 132/66 136/65 135/67 Pulse Oximetry 96 95 95 12/04/20 23:00 12/04/20 23:30 12/05/20 00:00 Temperature Pulse Rate 66 70 68 Respiratory Rate 23 17 20 Blood Pressure 124/60 137/72 139/67 Pulse Oximetry 94 94 93 12/05/20 00:30 Temperature Pulse Rate 72 Respiratory Rate 20 Blood Pressure 132/70 Pulse Oximetry 93 Oxygen Delivery Method Room Air Narrative Exam Narrative: GENERAL APPEARANCE: well developed, well nourished, sitting up in bed in no acute distress. HEENT: Atraumatic, symmetrical facies, PERRLA, conjunctiva clear, sclera anicteric, EOMs intact without nystagmus, no sinus tenderness to percussion, no rhinorrhea, mucous membranes are moist and pink without lesions or exudate. NECK/THYROID: neck supple, no JVD, no carotid bruit, no thyromegaly, trachea midline. LYMPH NODES: no cervical or supraclavicular lymphadenopathy. SKIN: [place], warm and dry, flat red rash on back HEART: regular rate and rhythm, S1-S2, no murmur, no rubs or gallops, brisk capillary refill, no edema LUNGS: clear to auscultation bilaterally, no coarseness crackles or wheezing, no cough present CHEST: Symmetrical movement, no accessory muscle use, good tidal volume, no pain on AP lateral compression. ABDOMEN: Soft, no distention, no abdominal tenderness, no guarding or peritoneal signs, no organomegaly, no flank or suprapubic tenderness, active bowel tones. BACK: Normal curvature, nontender to palpation. EXTREMITIES: moves all extremities, strength is 5/5 and symmetrical, no deformities or joint effusions, no cyanosis or clubbing. NEUROLOGIC: AAO x4, patient does recall gardening in the ER but does not recall coming into the house, she recalls events in the ER, NIH score is 0, cranial nerves II-XII grossly intact, sensation intact to light touch, impaired hearing using hearing aids. PSYCH: Alert and briskly responsive, linear thought processes, cooperative, stable behavior. Objective Labs Result Diagrams: 12/04/20 18:45 12/04/20 18:45 Labs: Laboratory Results - last 24 hr 12/04/20 12/04/20 12/04/20 18:42 18:42 18:45 WBC 6.6 RBC 4.63 Hgb 13.9 Hct 41.2 MCV 89.0 MCH 30.1 MCHC 33.9 RDW 13.1 Plt Count 254 Neut % (Auto) 52.8 Lymph % (Auto) 28.3 [place] % (Auto) 10.3 Eos % (Auto) 7.2 H Baso % (Auto) 1.4 Neut # (Auto) 3500 Lymph # (Auto) 1900 [place] # (Auto) 700 Eos # (Auto) 500 H Baso # (Auto) 100 Sodium Potassium Chloride Carbon Dioxide BUN Creatinine Estimated GFR BUN/Creatinine Ratio Glucose Calcium Total Bilirubin AST ALT Alkaline Phosphatase Ammonia Total Protein Albumin Globulin Albumin/Globulin Ratio Urine Color Yellow Urine Appearance Clear Urine pH 6.5 Ur Specific [place] 1.015 Urine Protein Negative Urine Glucose (UA) Negative Urine Ketones Negative Urine Occult Blood Trace-lysed Urine Nitrate Negative Urine Bilirubin Negative Urine Urobilinogen 0.2 Ur Leukocyte Esterase Negative Urine RBC 0-1/hpf Urine WBC None seen Urine Bacteria None seen Ur Culture Indicated? Cult not indicated U Opiates 300ng/mL cut Negative Ur Oxycodone Screen Negative Urine Methadone Screen Negative Ur Barbiturates Screen Negative U Tricyclic Antidepress Negative Ur Phencyclidine Scrn Negative Ur Amphetamines Screen Negative U Methamphetamines Scrn Negative Ur MDMA Scrn (Ecstasy) Negative U Benzodiazepines Scrn Negative Urine Cocaine Screen Negative U Marijuana (THC) Screen Negative SARS-CoV-2 (PCR) 12/04/20 12/04/20 12/04/20 18:45 18:45 20:47 WBC RBC Hgb Hct MCV MCH MCHC RDW Plt Count Neut % (Auto) Lymph % (Auto) [place] % (Auto) Eos % (Auto) Baso % (Auto) Neut # (Auto) Lymph # (Auto) [place] # (Auto) Eos # (Auto) Baso # (Auto) Sodium 138 Potassium 3.9 Chloride 105 Carbon Dioxide 28 BUN 17 Creatinine 0.74 Estimated GFR > 60.0 BUN/Creatinine Ratio 23.0 H Glucose 99 Calcium 9.4 Total Bilirubin 0.3 AST 38 H ALT 23 Alkaline Phosphatase 60 Ammonia < 9 L Total Protein 8.0 Albumin 4.8 Globulin 3.2 Albumin/Globulin Ratio 1.5 Urine Color Urine Appearance Urine pH Ur Specific [place] Urine Protein Urine Glucose (UA) Urine Ketones Urine Occult Blood Urine Nitrate Urine Bilirubin Urine Urobilinogen Ur Leukocyte Esterase Urine RBC Urine WBC Urine Bacteria Ur Culture Indicated? U Opiates 300ng/mL cut Ur Oxycodone Screen Urine Methadone Screen Ur Barbiturates Screen U Tricyclic Antidepress Ur Phencyclidine Scrn Ur Amphetamines Screen U Methamphetamines Scrn Ur MDMA Scrn (Ecstasy) U Benzodiazepines Scrn Urine Cocaine Screen U Marijuana (THC) Screen SARS-CoV-2 (PCR) Negative Assessment & Plan Assessment & Plan narrative: This is an 80-year-old female with a benign past medical history only for hearing loss, urinary incontinence and eczema presents with an acute onset of confusion and disorientation and impaired recall following gardening in the ER. The patient has had no antecedent complaints, seizure activity, toxic exposures or trauma. 1. Acute altered status with acute disorientation and impaired recall present upon arrival, active. -patient has experienced no prior neurological deficits and at baseline is alert communicative and oriented. -CT of the head finds no acute processes, laboratory studies are unremarkable. -differential diagnosis: Hypertensive cephalopathy-blood pressure upon arrival is 215/97 clearing with reduced blood pressure of 171/79 on admission to acute care TIA-abrupt in onset, impaired cognition without aphasia or lateralizing symptoms. Global transient amnesia-retrograde, without antecedent precipitating events. Seizure-no abnormal motor activity, no nystagmus, no incontinence, bruising or oral trauma, prolonged confusional state less likely postictal. -upon admission to the acute care, the patient is a AAOx3 with no identified neurological deficits, she still cannot recall coming into the house and has scattered recall events prior to and in the ER. -ordered aspirin 81 mg daily. -neurochecks every 4 hours -telemetry -MRI stroke protocol in the morning. -consult to PT and OT to evaluate and treat. 2. Hyperlipidemia, stable. -patient was started on atorvastatin 20 mg 3 months ago. There are case reports and small studies identifying cognitive impairment with delayed onset following initiation of statin therapy and appears to be dose dependent. -this time will continue atorvastatin 20 mg daily. -will obtain lipid panel VTE prophylaxis: Enoxaparin IV fluid: Saline lock Diet: Heart healthy Code status: Full code. Patient designates her daughter to be her surrogate decision maker The patient is admitted to the hospital due to the severity of her impairment requiring further monitoring and evaluation. The patient is admitted to the hospital as observation status with expected length of stay to be less than 2 midnights. COVID-19 COVID-19 status: Negative Result date/Date tested (Pos, Neg/Pending): 12/05/20 Scores ABCD2 Age >= 60 years: yes Initial BP. Either SBP >= 140 or DBP >= 90.: yes Clinical features of the TIA: other symptoms (Confusion disorientation) Duration of symptoms: 10-59 minutes History of diabetes: no ABCD2 Score: 3 NIHSS Level of Conciousness: Alert, keenly responsive Ask month/age: Answers both questions correctly. Open/close eyes, close hand: Performs both tasks correctly Best gaze horizontal: Normal Visual up: No visual loss Facial palsy: Normal symetrical movement Left arm drift: No drift for full 10 sec Right arm drift: No drift for full 10 sec Left leg drift: No drift for full 5 sec Right leg drift: No drift for full 5 sec Limb ataxia: Absent Sensory on face/arms/legs: Normal, no sensory loss Best language: No aphasia, normal Dysarthria: Normal Extinction or inattention: No abnormality Total NIH Stroke scale score: 0
[2020-12-05 01:35] VITALS: BP 171/79; PULSE 77; RESP 20; TEMP 36.3; O2SAT 93
--- NOTE | 2020-12-05 01:45 | PC.NURSE ---
0100- Admit to room 226. Patient MRSA swab sent. Patient is [facility] uses hearing aides which are charging at bedside. Patient is alert and cooperative with care. Flu vaccine and Covid vaccine current. No distress. Oriented to room and verbalizes understanding. Advised to call for assist to bathroom. Tele box 1 applied per order. Neuro checks WNL at time of admit. REYNOLD Bermeo has seen patient and written orders. Will monitor.
[2020-12-05 03:11] LABS: Magnesium 2.4 mg/dL (1.6-2.3)
[2020-12-05 03:20] LABS: NT-proBNP (BNP-Adult 18+) 88 pg/mL (<450)
[2020-12-05 05:21] VITALS: BP 115/59; PULSE 79; RESP 16; TEMP 35.9; O2SAT 93
[2020-12-05 05:34] LABS: Alanine Aminotransferase 21 IU/L (<35); Albumin 4.3 g/dL (3.5-5.0); Albumin Globulin Ratio 1.5 (1.0-2.8); Alkaline Phosphatase 55 U/L (38-126); Aspartate Aminotransferase 27 IU/L (14-36); BUN Creatinine Ratio 21.1 (6-22); Bilirubin Total 0.2 mg/dL (0.2-1.3); Blood Urea Nitrogen 15 mg/dL (7-17); Calcium 9.2 mg/dL (8.4-10.2); Carbon Dioxide 27 mmol/L (22-32); Chloride 107 mmol/L (98-107); Cholesterol 151 mg/dL (140-199); Estimated Glomerular Filt Rate > 60.0 mL/min (>60); Globulin 2.9 g/dL (1.7-4.1); Glucose 186 mg/dL (80-110); HDL Cholesterol 54 mg/dL (40-60); HEMOLYSIS < 15 (0-50); LDL Cholesterol Calculated 91 mg/dL (<100); Potassium 3.7 mmol/L (3.4-5.1); Sodium 138 mmol/L (137-145); Total Protein 7.2 g/dL (6.3-8.2); Triglycerides 28 mg/dL (35-150)
--- NOTE | 2020-12-05 08:44 | CM.DANOTE ---
DCP: Case received, EMR reviewed and met with patient. Introduced self and role. Was able to obtain information from patient regarding her baseline activity status prior to hospitalization, as well as her current living situation. DCP assessment completed with information currently available. Patient is an 80 year old female who admitted early this morning to the care of the hospitalist team. PCP: HAYDEE Garza. Payer: confirmed: [facility]. Patient came to the hospital via private vehicle secondary to having a lapse in memory loss. She had been gardening outside, and became disoriented. She was diagnosed with acute onset amnesia. Patient currently holds diagnosis of TIA, but having MRI. Met with patient in her room. She is pleasant. She was sitting up in bed having breakfast. She resides here in [place] with her spouse, Jason. She also indicated that her daughter, Arleth, also is living with them, she is a nurse. Patient stated, she was gardening, didn't remember much after that, she found herself in the house, didn't remember how she got there. Patient indicated, she is feeling better now.Patient is independent at her baseline, drives, and uses no DME. P: DCP to continue to follow. Patient should be able to go home when she is medically stable, and after all her testing is complete. Nazia Nick RN/Wireline Operator
[2020-12-05 09:00] VITALS: BP 126/62; PULSE 76; RESP 18; TEMP 36.4; O2SAT 93
--- NOTE | 2020-12-05 10:10 | PM.DS.1 ---
History of Present Illness History of Present Illness Chief complaint: new onset confusion, nausea Narrative: Ms. Nara Candelario is an 80-year-old female with a past medical history only eczema, urinary incontinence and hearing loss who presents to the ER with acutely altered mentation and disorientation. The patient was in her yard gardening, reaching up in trimming bushes. Apparently the family found the patient sitting endorse disoriented and confused. The patient has had no previous episodes of neurologic problems has had no seizure activity or antecedent complaints. She has had no toxic exposures or trauma. The patient brought to the ER by family and upon arrival the patient could not recall her name date or the president but could recall remote events including the fact that the ER provider was previously in her primary care physician. The patient denies complaints of headaches or dizziness, reports no visual changes. She denies numbness and tingling or extremity weakness and presents with a steady gait. She has had no recent fevers or chills, denies chest pain or palpitations, no shortness of breath cough or wheezing. She denies epigastric or abdominal pain. She does endorse mild nausea but denies vomiting. She reports no changes in bowel habits and has a history urinary incontinence but no complaints of hematuria, urgency, frequency or burning. The patient is normally active and independent in ADLs. Upon arrival to the ER patient is afebrile with a temperature 96.9? his heart rate of 65. Blood pressure is markedly elevated to 115/97, her respiratory rate of 16 saturating 97% on room air. A CT of the head was obtained which finds no acute intracranial processes, moderate atrophy with chronic microvascular ischemic changes. Chest x-ray notes increased vascularity without consolidation. Twelve lead EKG reveals sinus rhythm with Marjan axis deviation and right bundle branch block, no ectopy, ST or T-wave changes. On laboratory analysis her CBC is unremarkable as well as her chemistries with a BUN of 17 and creatinine 0.74 and a nonfasting glucose 99. She has a total bilirubin 0.3 and slightly elevated AST at 38, ALT of 23 and alkaline phosphatase of 60. Ammonia is less than 9. Her urinalysis is unremarkable in COVID-19 screening is negative. In the ER the patient received methylprednisolone 60 mg IV and Zofran for unclear reason. The patient is admitted to the medicine service for acute alteration in mentation of unclear etiology. Discharge Providers Provider Date of admission: 12/05/20 00:22 Discharge Date: 12/05/20 Primary care physician: HAYDEE Waldron Consults: 12/05/20 01:16 Consult to Discharge Planning Routine Comment: Discharge provider: Gabriele Owens MD Summary Hospital Course Discharge Diagnosis: 1. Transient global amnesia 2. Acute hypertension, resolved Patient was admitted for overnight observation due to sudden onset anterograde amnesia. Symptoms have fully resolved. MRI stroke protocol showed no evidence of acute stroke, old stroke, brain lesions and MRA portion showed no narrowing of the cerebral or carotid vasculature. Her presentation is consistent with transient global amnesia. She was initially severely hypertensive but blood pressures have come down to normal range without specific intervention and she has no history of chronic hypertension. I do not think symptoms are related to hypertensive encephalopathy. Status at Discharge Cognitive/behavioral status at discharge: oriented Functional status at discharge: independent ambulation Overall status at discharge: patient is back to baseline Exam Vital Signs (past 8 hours): - 12/05/20 01:35 12/05/20 05:21 12/05/20 09:00 Temperature 97.4 F L 96.6 F L 97.5 F L Pulse Rate 77 79 76 Respiratory Rate 20 16 18 Blood Pressure 171/79 H 115/59 L 126/62 Pulse Oximetry 93 93 93 Oxygen Delivery Method Room Air Objective Labs Result Diagrams: 12/04/20 18:45 12/05/20 04:35 Labs: Laboratory Results - last 24 hr 12/04/20 12/04/20 12/04/20 18:42 18:42 18:45 WBC 6.6 RBC 4.63 Hgb 13.9 Hct 41.2 MCV 89.0 MCH 30.1 MCHC 33.9 RDW 13.1 Plt Count 254 Neut % (Auto) 52.8 Lymph % (Auto) 28.3 [place] % (Auto) 10.3 Eos % (Auto) 7.2 H Baso % (Auto) 1.4 Neut # (Auto) 3500 Lymph # (Auto) 1900 [place] # (Auto) 700 Eos # (Auto) 500 H Baso # (Auto) 100 Sodium Potassium Chloride Carbon Dioxide BUN Creatinine Estimated GFR BUN/Creatinine Ratio Glucose Calcium Magnesium Total Bilirubin AST ALT Alkaline Phosphatase Ammonia NT-Pro-B Natriuret Pep Total Protein Albumin Globulin Albumin/Globulin Ratio Triglycerides Cholesterol LDL Cholesterol, Calc HDL Cholesterol Urine Color Yellow Urine Appearance Clear Urine pH 6.5 Ur Specific [place] 1.015 Urine Protein Negative Urine Glucose (UA) Negative Urine Ketones Negative Urine Occult Blood Trace-lysed Urine Nitrate Negative Urine Bilirubin Negative Urine Urobilinogen 0.2 Ur Leukocyte Esterase Negative Urine RBC 0-1/hpf Urine WBC None seen Urine Bacteria None seen Ur Culture Indicated? Cult not indicated Nasal Screen MRSA (PCR) U Opiates 300ng/mL cut Negative Ur Oxycodone Screen Negative Urine Methadone Screen Negative Ur Barbiturates Screen Negative U Tricyclic Antidepress Negative Ur Phencyclidine Scrn Negative Ur Amphetamines Screen Negative U Methamphetamines Scrn Negative Ur MDMA Scrn (Ecstasy) Negative U Benzodiazepines Scrn Negative Urine Cocaine Screen Negative U Marijuana (THC) Screen Negative SARS-CoV-2 (PCR) 12/04/20 12/04/20 12/04/20 18:45 18:45 18:45 WBC RBC Hgb Hct MCV MCH MCHC RDW Plt Count Neut % (Auto) Lymph % (Auto) [place] % (Auto) Eos % (Auto) Baso % (Auto) Neut # (Auto) Lymph # (Auto) [place] # (Auto) Eos # (Auto) Baso # (Auto) Sodium 138 Potassium 3.9 Chloride 105 Carbon Dioxide 28 BUN 17 Creatinine 0.74 Estimated GFR > 60.0 BUN/Creatinine Ratio 23.0 H Glucose 99 Calcium 9.4 Magnesium 2.4 H Total Bilirubin 0.3 AST 38 H ALT 23 Alkaline Phosphatase 60 Ammonia < 9 L NT-Pro-B Natriuret Pep Total Protein 8.0 Albumin 4.8 Globulin 3.2 Albumin/Globulin Ratio 1.5 Triglycerides Cholesterol LDL Cholesterol, Calc HDL Cholesterol Urine Color Urine Appearance Urine pH Ur Specific [place] Urine Protein Urine Glucose (UA) Urine Ketones Urine Occult Blood Urine Nitrate Urine Bilirubin Urine Urobilinogen Ur Leukocyte Esterase Urine RBC Urine WBC Urine Bacteria Ur Culture Indicated? Nasal Screen MRSA (PCR) U Opiates 300ng/mL cut Ur Oxycodone Screen Urine Methadone Screen Ur Barbiturates Screen U Tricyclic Antidepress Ur Phencyclidine Scrn Ur Amphetamines Screen U Methamphetamines Scrn Ur MDMA Scrn (Ecstasy) U Benzodiazepines Scrn Urine Cocaine Screen U Marijuana (THC) Screen SARS-CoV-2 (PCR) 12/04/20 12/04/20 12/05/20 18:45 20:47 01:00 WBC RBC Hgb Hct MCV MCH MCHC RDW Plt Count Neut % (Auto) Lymph % (Auto) [place] % (Auto) Eos % (Auto) Baso % (Auto) Neut # (Auto) Lymph # (Auto) [place] # (Auto) Eos # (Auto) Baso # (Auto) Sodium Potassium Chloride Carbon Dioxide BUN Creatinine Estimated GFR BUN/Creatinine Ratio Glucose Calcium Magnesium Total Bilirubin AST ALT Alkaline Phosphatase Ammonia NT-Pro-B Natriuret Pep 88 Total Protein Albumin Globulin Albumin/Globulin Ratio Triglycerides Cholesterol LDL Cholesterol, Calc HDL Cholesterol Urine Color Urine Appearance Urine pH Ur Specific [place] Urine Protein Urine Glucose (UA) Urine Ketones Urine Occult Blood Urine Nitrate Urine Bilirubin Urine Urobilinogen Ur Leukocyte Esterase Urine RBC Urine WBC Urine Bacteria Ur Culture Indicated? Nasal Screen MRSA (PCR) Negative for mrsa U Opiates 300ng/mL cut Ur Oxycodone Screen Urine Methadone Screen Ur Barbiturates Screen U Tricyclic Antidepress Ur Phencyclidine Scrn Ur Amphetamines Screen U Methamphetamines Scrn Ur MDMA Scrn (Ecstasy) U Benzodiazepines Scrn Urine Cocaine Screen U Marijuana (THC) Screen SARS-CoV-2 (PCR) Negative 12/05/20 04:35 WBC RBC Hgb Hct MCV MCH MCHC RDW Plt Count Neut % (Auto) Lymph % (Auto) [place] % (Auto) Eos % (Auto) Baso % (Auto) Neut # (Auto) Lymph # (Auto) [place] # (Auto) Eos # (Auto) Baso # (Auto) Sodium 138 Potassium 3.7 Chloride 107 Carbon Dioxide 27 BUN 15 Creatinine 0.71 Estimated GFR > 60.0 BUN/Creatinine Ratio 21.1 Glucose 186 H Calcium 9.2 Magnesium Total Bilirubin 0.2 AST 27 ALT 21 Alkaline Phosphatase 55 Ammonia NT-Pro-B Natriuret Pep Total Protein 7.2 Albumin 4.3 Globulin 2.9 Albumin/Globulin Ratio 1.5 Triglycerides 28 L Cholesterol 151 LDL Cholesterol, Calc 91 HDL Cholesterol 54 Urine Color Urine Appearance Urine pH Ur Specific [place] Urine Protein Urine Glucose (UA) Urine Ketones Urine Occult Blood Urine Nitrate Urine Bilirubin Urine Urobilinogen Ur Leukocyte Esterase Urine RBC Urine WBC Urine Bacteria Ur Culture Indicated? Nasal Screen MRSA (PCR) U Opiates 300ng/mL cut Ur Oxycodone Screen Urine Methadone Screen Ur Barbiturates Screen U Tricyclic Antidepress Ur Phencyclidine Scrn Ur Amphetamines Screen U Methamphetamines Scrn Ur MDMA Scrn (Ecstasy) U Benzodiazepines Scrn Urine Cocaine Screen U Marijuana (THC) Screen SARS-CoV-2 (PCR) PFSH Medical History Eczema Hyperlipidemia Impaired hearing Urinary incontinence Surgical History History of History of cataract surgery History of cholecystectomy History of ureter stent Family History Father No significant medical problems Mother No significant medical problems Brother Cancer Sister No significant medical problems Social History household members: spouse Smoking Status: Never smoker Discharge Plan Discharge Plan Patient Disposition: Home Provider Discharge Comment: Your presentation is most consistent with Transient Global Amnesia. There was no evidence of stroke on MRI. We do not know what causes this syndrome but symptoms resolve within 24 hours and there is a low chance of recurrence. You do not need further work up but see neurologist if symptoms recur. Discharge orders & Medications Prescriptions: Continued [Calcium] 2 tab PO QDAY Qty: 0 RF: 0 [Vitamin D3] PO QDAY Qty: 0 RF: 0 multivitamin [Multiple Vitamins] 1 EACH tablet 1 tab PO QDAY Qty: 0 RF: 0 [CRANBERRY] 2 tab PO QDAY Qty: 0 RF: 0 varicella-zoster [id number] (PF) [Shingrix (PF)] 50 MCG/0.5 ML suspension for reconstitution 0.5 ml IM X1 Qty: 1 RF: 1 atorvastatin 20 mg tablet See Rx Instructions .ROUTE .COMPLEX Qty: 30 RF: 1 Follow up/Referrals: Janes Mark ARNP [Primary Care Provider] - Diet/Activity/Treatments Diet: Regular Visit Report/Discharge Packet Instructions: DI for Transient Global Amnesia Discharge Data Primary Care Provider: Janes Mark Attending Provider: Garry Bermeo
--- NOTE | 2020-12-05 11:07 | PC.NURSE ---
PT DENIES PAIN AND NO REMAINING SYMPTOMS OF PREVIOUS DAY- ASSESSMENT NEGATIVE - NO ECTOPY PER TELE AND SHOWS NSR - NO EDEMA, MRI NEGATIVE FOR CVA- DISCHARGED AT THIS TIME TO HOME NO NEW RX
== END 2020-12-05 11:09 | disposition home or self-care (01) ==
LOC: ED 12-05 00:02 → AC 12-05 00:23 → ICU 12-05 01:09
PROVIDERS: Admitting Provider Nurse Practitioner Adult Health; Emergency Provider Emergency Medicine; PCP Registered Nurse; Referring Provider Emergency Medicine; Visit Provider Nurse Practitioner Adult Health
DX: G45.4 Transient global amnesia (principal); R41.82 Altered mental status, unspecified; Z20.822 Contact with and (suspected) exposure to COVID-19; R11.0 Nausea; R32 Unspecified urinary incontinence; E78.5 Hyperlipidemia, unspecified; I10 Essential (primary) hypertension
CPT/HCPCS: 36415; 70450; 70548; 70553; 71045; 80053; 80061; 80305; 81001; 82140; 83735; 83880; 85025; 87635; 87797; 93005; 96374; 96375; 99284; G0378; A9579; J2405; J2930

== ENCOUNTER → 2020-12-14 15:58 | Outpatient (CLI) | payer OTHER, SELFPAY ==
[2020-12-14 15:51] VITALS: BMI 24.3
[2020-12-14 17:22] LABS: Free T3, Triiodothyronine Free 3.03 pg/mL (2.77-5.27); Free T4, Direct Thyroxine 0.88 ng/dL (0.78-2.19)
[2020-12-14 17:36] LABS: Thyroid Stimulating Hormone 2.17 uIU/mL (0.47-4.68)
== END ==
PROVIDERS: PCP Registered Nurse; Referring Provider Nurse Practitioner; Visit Provider Nurse Practitioner
DX: E78.5 Hyperlipidemia, unspecified (principal); R03.0 Elevated blood-pressure reading, without diagnosis of hypertension; R53.83 Other fatigue
CPT/HCPCS: 36415; 84439; 84443; 84481

== ENCOUNTER → 2021-04-01 10:13 | Outpatient (CLI) | payer OTHER, SELFPAY ==
[2020-12-14 15:51] VITALS: BMI 24.3
[2021-04-01 12:21] LABS: Cholesterol 201 mg/dL (140-199); HDL Cholesterol 43 mg/dL (40-60); LDL Cholesterol Calculated 135 mg/dL (<100); Triglycerides 115 mg/dL (35-150)
== END ==
PROVIDERS: PCP Registered Nurse; Referring Provider Nurse Practitioner; Visit Provider Nurse Practitioner
DX: E78.41 Elevated Lipoprotein(a) (principal)
CPT/HCPCS: 36415; 80061

== ENCOUNTER → 2021-06-17 16:49 | Outpatient (CLI) | payer OTHER, SELFPAY ==
[2020-12-14 15:51] VITALS: BMI 24.3
--- NOTE | 2021-06-17 | DI.MG.S_ITS ---
BILATERAL DIGITAL SCREENING MAMMOGRAM 3D/2D WITH CAD: 06/17/2021 CLINICAL: Routine screening. Comparison is made to exams dated: 06/16/2020 mammogram, 05/15/2019 mammogram, and 05/08/2018 mammogram - [facility]. There are scattered fibroglandular elements in both breasts. Current study was also evaluated with a Computer Aided Detection (CAD) system. No significant masses, calcifications, or other findings are seen in either breast. There has been no significant interval change. IMPRESSION: NEGATIVE There is no mammographic evidence of malignancy. A 1 year screening mammogram is recommended. This exam was interpreted at Station ID: [id number]. NOTE: For mammograms, a report in lay terms will be sent to the patient. Approximately 15% of breast malignancies will not be visualized mammographically. In the management of a palpable breast mass, a negative mammogram must not discourage biopsy of a clinically suspicious lesion. Electronically Signed By: Parveen cabrera/richi:06/29/2021 08:08:35 letter sent: Normal Exam ACR BI-RADS Category 1: Negative 3341F
== END ==
PROVIDERS: PCP Nurse Practitioner; Referring Provider Nurse Practitioner; Visit Provider Nurse Practitioner
CPT/HCPCS: 77063; 77067

== ENCOUNTER → 2022-05-30 10:17 | Outpatient (CLI) | payer OTHER, SELFPAY ==
[2020-12-14 15:51] VITALS: BMI 24.3
[2022-05-30 11:20] LABS: Hemoglobin A1C% w Est Avg Glu 5.3 % (4.0-6.0)
[2022-05-30 11:24] LABS: Alanine Aminotransferase 15 IU/L (<35); Albumin 4.1 g/dL (3.5-5.0); Albumin Globulin Ratio 1.2 (1.0-2.8); Alkaline Phosphatase 53 U/L (38-126); Aspartate Aminotransferase 26 IU/L (14-36); BUN Creatinine Ratio 23.9 (6-22); Bilirubin Total 0.5 mg/dL (0.2-1.3); Blood Urea Nitrogen 17 mg/dL (7-17); Calcium 8.9 mg/dL (8.4-10.2); Carbon Dioxide 28 mmol/L (22-32); Chloride 104 mmol/L (98-107); Cholesterol 218 mg/dL (140-199); Estimated Glomerular Filt Rate > 60 mL/min (>60); Globulin 3.3 g/dL (1.7-4.1); Glucose 88 mg/dL (80-110); HDL Cholesterol 42 mg/dL (40-60); HEMOLYSIS < 15 (0-50); LDL Cholesterol Calculated 156 mg/dL (<100); Potassium 4.2 mmol/L (3.4-5.1); Sodium 138 mmol/L (137-145); Total Protein 7.4 g/dL (6.3-8.2); Triglycerides 99 mg/dL (35-150)
== END ==
PROVIDERS: PCP Nurse Practitioner; Referring Provider Nurse Practitioner; Visit Provider Nurse Practitioner
DX: R73.01 Impaired fasting glucose (principal); E78.41 Elevated Lipoprotein(a)
CPT/HCPCS: 36415; 80053; 80061; 83036

== ENCOUNTER 2022-06-07 22:17 | Emergency (ER) | payer OTHER, SELFPAY ==
[2020-12-14 15:51] VITALS: BMI 24.3
[2022-06-07 22:26] VITALS: BP 175/84; PULSE 73; RESP 18; TEMP 36.4; O2SAT 99
--- NOTE | 2022-06-07 22:41 | DI.RAD.S_ITS ---
PROCEDURE: XR CHEST 1V INDICATIONS: chest pain TECHNIQUE: One view of the chest was acquired. COMPARISON: [facility], CR, XR CHEST 1V, 12/04/2020, 18:47. FINDINGS: Surgical changes and devices: None. Lungs and pleura: Lungs are clear. No pleural effusions or pneumothorax. Mediastinum: Mediastinal contours appear normal. Heart size is normal. Bones and chest wall: No suspicious bony lesions. Overlying soft tissues appear unremarkable. IMPRESSION: 1. No acute cardiopulmonary disease. Dictated by: Parveen Hidalgo M.D. on 06/08/2022 at 0:44 Approved by: Parveen Hidalgo M.D. on 06/08/2022 at 0:44
[2022-06-07] MEDS: diphenhydrAMINE 50 MG/ML VIAL 25 MG IV (22:57)
[2022-06-07] MEDS: methylPREDNISolone 125 MG/2 ML VIAL IV (22:57)
[2022-06-07 23:19] LABS: Alanine Aminotransferase 17 IU/L (<35); Albumin 4.7 g/dL (3.5-5.0); Albumin Globulin Ratio 1.4 (1.0-2.8); Alkaline Phosphatase 62 U/L (38-126); Aspartate Aminotransferase 26 IU/L (14-36); BUN Creatinine Ratio 21.3 (6-22); Bilirubin Total 0.7 mg/dL (0.2-1.3); Blood Urea Nitrogen 16 mg/dL (7-17); Calcium 10.3 mg/dL (8.4-10.2); Carbon Dioxide 28 mmol/L (22-32); Chloride 101 mmol/L (98-107); Creatine Kinase 84 U/L (30-135); Estimated Glomerular Filt Rate > 60 mL/min (>60); Globulin 3.3 g/dL (1.7-4.1); Glucose 110 mg/dL (80-110); HEMOLYSIS < 15 (0-50); Lipase 238 U/L (23-300); Magnesium 2.4 mg/dL (1.6-2.3); Potassium 3.7 mmol/L (3.4-5.1); Sodium 141 mmol/L (137-145)
[2022-06-07 23:26] LABS: Add Manual Diff / Slide Review NO; Basophils Absolute Auto 100 /uL (0-100); Basophils Percent Auto 0.7 % (0-2); Eosinophils Absolute Auto 200 /uL (0-450); Eosinophils Percent Auto 2.3 % (2-4); Hematocrit 41.2 % (36-46); Hemoglobin 14.3 g/dL (12.0-16.0); Lymphocytes Absolute Auto 2000 /uL (1100-4500); Lymphocytes Percent Auto 21.6 % (25-40); Mean Corpuscular HGB Conc 34.7 % (30-36); Mean Corpuscular Hemoglobin 30.3 PG (26-34); Mean Corpuscular Volume 87.3 fL (80-100); Monocytes Absolute Auto 700 /uL (0-900); Monocytes Percent Auto 7.4 % (3-14); Neutrophils Absolute Auto 6400 /uL (1500-7000); Platelet Count 239 X10^3/uL (150-400); Red Blood Cell Count 4.71 X10^6/uL (4.0-5.2); Red Cell Distribution Width 13.5 % (11.6-14.8); White Blood Cell Count 9.4 X10^3/uL (4.5-11.0)
[2022-06-07 23:30] LABS: Troponin I < 0.012 ng/mL (0.01-0.034)
--- NOTE | 2022-06-08 01:34 | ED.ALLEREA ---
HPI - Allergic Reaction General Chief complaint: Allergic Reaction Stated complaint: Allergic reaction to pills Time Seen by Provider: 06/08/22 01:34 Source: patient Mode of arrival: Ambulatory History of Present Illness HPI narrative: This is a pleasant 81-year-old with history of elevated blood pressure, dyslipidemia. Patient took her 2nd dose of niacin today. She became red and flushed, she was not sweaty, she got chest pressure felt little short of breath she states symptoms resolved after she received Benadryl and Solu-Medrol here in the emergency department over about 20 minutes. Patient states she would appreciate swelling of her lips or airway. She did not have any syncope. No vomiting but she is nauseated. Patient denies any other GI or urinary symptoms. She is allergic to statins which cause ?memory lost? and sulfa. Related Data Home Medications Medication Instructions Recorded Confirmed [Calcium] 2 tab PO QDAY ##0 06/20/11 12/27/20 [Vitamin D3] PO QDAY ##0 06/20/11 12/27/20 multivitamin (Multiple Vitamins 1 tab PO QDAY ##0 05/15/17 12/27/20 tablet) Previous Rx's Medication Instructions Recorded betamethasone dipropionate 0.05 % 1 applic topical BID PRN skin 06/05/22 topical cream irritation #15 grams niacin 500 mg tablet 500 mg PO BEDTIME #90 tabs 06/05/22 Allergies Allergy/AdvReac Type Severity Reaction Status Date / Time Sulfa (Sulfonamide Allergy Mild SENSITIVITY Verified 06/05/22 09:18 Antibiotics) TO MED/ Nausea Yerpezj-[id number] Reductase AdvReac Intermediate memory loss Verified 06/05/22 09:18 Inhibitor [Rbchreu-Fiz-Dlz Reductase Inhibitor] Review of Systems Review of Systems ROS Unobtainable: All systems reviewed & are unremarkable except as noted in HPI and below Patient History Medical History Altered level of consciousness Anterograde amnesia Eczema Elevated fasting glucose Hyperlipidemia Impaired hearing Urinary incontinence Surgical History History of History of cataract surgery History of cholecystectomy History of ureter stent Family History Father No significant medical problems Mother No significant medical problems Brother Cancer Sister No significant medical problems Social History household members: spouse Smoking Status: Never smoker Smoking Status: Never smoker alcohol intake frequency: holidays/special occasions only Substance Use Type: does not use Exam Narrative Exam Narrative: GEN: well nourished, well appearing female, alert and oriented x 3, patient appears to be in mild distress. HEENT: Atraumatic, pupils are equal round reactive to light, extraocular movements are intact, nares are clear, Throat is clear without any exudates, erythema, tonsillar enlargement or uvular deviation HEART: Regular rate and rhythm without murmur, clicks, rubs. LUNGS:Lungs clear to auscultation, no wheezes, rales, crackles, chest moves symmetrically ABD:bowel sounds normal, soft, non-tender, no guarding, rebound, rigidity, no masses noted, no hepatosplenomegaly :No CVA tenderness MSCL: Non-tender, no muscle atrophy, muscles strength 5/5 upper and lower extremities, full range of motion, normal gait NEURO:CN 2-12 intact, sensation normal SKIN: No erythema, hives or skin changes currently. Patient seen sometime after receiving medications Initial Vital Signs Initial Vital Signs: Vital Signs Temperature 97.6 F 06/07/22 22:26 Pulse Rate 73 06/07/22 22:26 Respiratory Rate 18 06/07/22 22:26 Blood Pressure 175/84 H 06/07/22 22:26 Pulse Oximetry 99 06/07/22 22:26 Oxygen Delivery Method 06/07/22 22:26 Course Orders Ordered: ED Orders 06/07/22 22:41 XR chest 1V Stat 06/07/22 22:55 Complete Blood Count AUTO DIFF Stat Comprehensive Metabolic Panel Stat Lipase Stat Magnesium Stat Troponin & CK Cardiac Panel Stat 06/07/22 23:12 EKG-12 Lead Stat Discontinued Medications Diphenhydramine HCl (Diphenhydramine 50 Mg/Ml Vial) 25 mg IV NOW ONE Stop: 06/07/22 22:38 Last Admin: 06/07/22 22:57 Dose: 25 mg Documented By: MARI Methylprednisolone (Methylprednisolone 125 Mg/2 Ml Vial) 125 mg IV NOW ONE Stop: 06/07/22 22:38 Last Admin: 06/07/22 22:57 Dose: 125 mg Documented By: ADK Vital Signs Vital signs: Vital Signs - 8 hr 06/07/22 22:26 06/08/22 01:57 Temperature 97.6 F Pulse Rate 73 75 Respiratory Rate 18 18 Blood Pressure 175/84 H 149/81 H Pulse Oximetry 99 98 Oxygen Delivery Method Room Air Room Air MDM - Allergic Reaction Lab Data Result diagrams: 06/07/22 22:55 06/07/22 22:55 Labs: Lab Results 06/07/22 06/07/22 Range/Units 22:55 22:55 WBC 9.4 (4.5-11.0) X10^3/uL RBC 4.71 (4.0-5.2) X10^6/uL Hgb 14.3 (12.0-16.0) g/dL Hct 41.2 (36-46) % MCV 87.3 (80-100) fL MCH 30.3 (26-34) PG MCHC 34.7 (30-36) % RDW 13.5 (11.6-14.8) % Plt Count 239 (150-400) X10^3/uL Neut % (Auto) 68.0 (50-75) % Lymph % (Auto) 21.6 L (25-40) % [place] % (Auto) 7.4 (3-14) % Eos % (Auto) 2.3 (2-4) % Baso % (Auto) 0.7 (0-2) % Neut # (Auto) 6400 (2002-7785) /uL Lymph # (Auto) 2000 (6273-8638) /uL [place] # (Auto) 700 (0-900) /uL Eos # (Auto) 200 (0-450) /uL Baso # (Auto) 100 (0-100) /uL Sodium 141 (137-145) mmol/L Potassium 3.7 (3.4-5.1) mmol/L Chloride 101 (98-107) mmol/L Carbon Dioxide 28 (22-32) mmol/L BUN 16 (7-17) mg/dL Creatinine 0.75 (0.52-1.04) mg/dL Estimated GFR > 60 (>60) mL/min BUN/Creatinine Ratio 21.3 (6-22) Glucose 110 (80-110) mg/dL Calcium 10.3 H (8.4-10.2) mg/dL Magnesium 2.4 H (1.6-2.3) mg/dL Total Bilirubin 0.7 (0.2-1.3) mg/dL AST 26 (14-36) IU/L ALT 17 (<35) IU/L Alkaline Phosphatase 62 (38-126) U/L Total Creatine Kinase 84 (30-135) U/L CK-MB (CK-2) TNP CK-MB (CK-2) Rel Index TNP Troponin I < 0.012 (0.01-0.034) ng/mL Total Protein 8.0 (6.3-8.2) g/dL Albumin 4.7 (3.5-5.0) g/dL Globulin 3.3 (1.7-4.1) g/dL Albumin/Globulin Ratio 1.4 (1.0-2.8) Lipase 238 (23-300) U/L Imaging Data Chest x-ray: Radiologist's Impression: [address] [address] XRay Report Signed Patient: Nara Candelario MR#: [id number] : 1940 Acct:[id number] Age/Sex: 81 / F Date of Service: 06/07/22 Loc: ED Accession Number: [id number] ?? Procedure: XR chest 1V Ordering Provider: Dory Diamond D.O. PROCEDURE:? XR CHEST 1V ? INDICATIONS:? chest pain ? TECHNIQUE:? One view of the chest was acquired.? ? COMPARISON:? [facility], , XR CHEST 1V, 12/04/2020, 18:47. ? FINDINGS:? ? Surgical changes and devices:? None.? ? Lungs and pleura:? Lungs are clear.? No pleural effusions or pneumothorax.? ? Mediastinum:? Mediastinal contours appear normal.? Heart size is normal.? ? Bones and chest wall:? No suspicious bony lesions.? Overlying soft tissues appear unremarkable.? ? IMPRESSION:? ? 1.? No acute cardiopulmonary disease. ? ? ? Dictated by: Parveen Hidalgo M.D. on 06/08/2022 at 0:44 ? ? Approved by: Parveen Hidalgo M.D. on 06/08/2022 at 0:44?? ECG Data Attestation: I personally reviewed and interpreted this ECG as follows: Prior ECG tracings: available for review Interpretation: Sinus rhythm, right bundle-branch block, rate of 64 UT 146 QRS of [address] QTC 451[address] No acute ST changes. Patient has prior from 12/04/2020 which appears similar. MDM Narrative Medical decision making narrative: This is an 81-year-old female who presents with complaint of flushing, redness, chest pain shortness of breath after taking her 2nd dose of niacin. Discussed some patients can have flushing quite frequently with niacin. Chest pressure and shortness of breath seems less likely. EKG shows no change on comparison to prior and labs show no acute change today. Patient's symptoms resolve 20 minutes after Benadryl and Solu-Medrol. Discussed possible adverse reaction, normal flushing versus allergic reaction to discuss with her physician about whether not she needs to continue this medication. Discharge Plan Departure Patient Disposition: Home Clinical Impression: Adverse reaction to niacin Instructions: DI for Adverse Drug Reaction -- Allergic Activity Restrictions/Additional Instructions: Follow-up with your physician to see if you should continue your niacin. Niacin can cause flushing and redness but should not cause chest pain or shortness of breath. Hold your niacin for the short term until you talk with your physician about whether or not to continue this medication. You can take Benadryl 1-2 tabs every 6 hours as needed. Please return for new or worsening symptoms, recurrent rash, shortness of breath, swelling of your airway, tongue, lips, passing out, new chest pain or shortness of breath or other new or concerning symptoms. Prescriptions: No Action [Calcium] 2 tab PO QDAY Qty: 0 [Vitamin D3] PO QDAY Qty: 0 multivitamin [Multiple Vitamins] 1 EACH tablet 1 tab PO QDAY Qty: 0 niacin 500 mg tablet 500 mg PO BEDTIME Qty: 90 1RF Rx Instructions: Take 1 tab at bedtime daily betamethasone dipropionate 0.05 % cream 1 applic topical BID PRN (Reason: skin irritation) Qty: 15 3RF Rx Instructions: Apply to areas of psoriasis on scalp twice daily as needed. Referrals: Edyta Miller ARNP [Primary Care Provider] - Visit Report Forms: Patient Portal/API
[2022-06-08 01:57] VITALS: BP 149/81; PULSE 75; RESP 18; O2SAT 98
== END 2022-06-08 01:57 | disposition home or self-care (01) ==
PROVIDERS: Emergency Provider Emergency Medicine; PCP Nurse Practitioner
DX: R07.9 Chest pain, unspecified (principal); R06.02 Shortness of breath; T46.7X5A Adverse effect of peripheral vasodilators, initial encounter
CPT/HCPCS: 71045; 80053; 82550; 82553; 83690; 83735; 84484; 85025; 93005; 96374; 96375; 99283; 99284; J1200; J2930

== ENCOUNTER → 2022-06-20 11:47 | Outpatient (CLI) | payer OTHER, SELFPAY ==
[2020-12-14 15:51] VITALS: BMI 24.3
--- NOTE | 2022-06-20 11:48 | DI.MG.S_ITS ---
BILATERAL DIGITAL SCREENING MAMMOGRAM 3D/2D WITH CAD: 06/20/2022 CLINICAL: Routine screening. Comparison is made to exams dated: 06/17/2021 mammogram, 06/16/2020 mammogram, 05/15/2019 mammogram, 05/08/2018 mammogram, and 04/05/2017 mammogram - [facility]. There are scattered areas of fibroglandular density in both breasts (category b / 25%-50% glandular tissue). Current study was also evaluated with a Computer Aided Detection (CAD) system. No significant masses, calcifications, or other findings are seen in either breast. There has been no significant interval change. IMPRESSION: NEGATIVE There is no mammographic evidence of malignancy. A 1 year screening mammogram is recommended. Based on the Tyrer Cuzick model (a risk assessment model) the patient's lifetime risk is 1.0% and her 10 year risk is 0.0%. According to the ACR, ACS, and NCCN guidelines, an annual breast MRI exam along with mammogram is recommended if the patient's lifetime risk is 20% or greater. This exam was interpreted at Station ID: [id number]. NOTE: For mammograms, a report in lay terms will be sent to the patient. Approximately 15% of breast malignancies will not be visualized mammographically. In the management of a palpable breast mass, a negative mammogram must not discourage biopsy of a clinically suspicious lesion. Electronically Signed By: Valdemar roberts/richi:06/20/2022 14:29:12 letter sent: Normal Exam ACR BI-RADS Category 1: Negative 3341F
== END ==
PROVIDERS: PCP Nurse Practitioner; Referring Provider Nurse Practitioner; Visit Provider Nurse Practitioner
DX: Z12.31 Encounter for screening mammogram for malignant neoplasm of breast; Z13.820 Encounter for screening for osteoporosis; Z78.0 Asymptomatic menopausal state; M85.851 Other specified disorders of bone density and structure, right thigh
CPT/HCPCS: 77063; 77067; 77080

== ENCOUNTER → 2022-09-21 09:44 | Outpatient (CLI) | payer OTHER, SELFPAY ==
[2020-12-14 15:51] VITALS: BMI 24.3
[2022-09-21 11:08] LABS: Cholesterol 204 mg/dL (140-199); HDL Cholesterol 59 mg/dL (40-60); LDL Cholesterol Calculated 118 mg/dL (<100); Triglycerides 135 mg/dL (35-150)
== END ==
PROVIDERS: PCP Nurse Practitioner; Referring Provider Nurse Practitioner; Visit Provider Nurse Practitioner
DX: E78.41 Elevated Lipoprotein(a) (principal); Z79.899 Other long term (current) drug therapy
CPT/HCPCS: 36415; 80061

== ENCOUNTER 2022-12-28 10:21 | Emergency (ER) | payer OTHER, SELFPAY ==
[2020-12-14 15:51] VITALS: BMI 24.3
[2022-12-28 10:22] VITALS: BP 164/78; PULSE 89; RESP 15; TEMP 36.7; O2SAT 98; BMI 25.0
--- NOTE | 2022-12-28 10:54 | ED.SKABFB ---
HPI - Skin/Abscess/Foreign Bdy General Chief complaint: Skin/Abscess/Foreign Body Stated complaint: sent from [facility] lump on LT side of face Time Seen by Provider: 12/28/22 10:53 Source: patient Mode of arrival: Ambulatory Limitations: no limitations History of Present Illness HPI narrative: This is a 82 year old female with history of dyslipidemia with complaint of a lump on the left side of her face over the mandible for 3 weeks. Patient states she had a fall she landed on the side she developed swelling immediately thereafter. She states she had difficulty opening her mouth and had to take very small bites. This is about 3 weeks ago. She denies any other injury she states it was red afterwards but she never appreciate a lot of bruising or other skin changes. It has not enlarged has not gotten more red or had any other new skin changes. Patient states pain has been improving is still present she can not open her mouth and eat normally. She did see the dentist she states they did not really comment on it that was for regular dental cleaning. Patient denies fevers or chills. No ear pain, no neck pain, note swelling or pain in other areas. No difficulty with breathing. Patient states she takes medication for cholesterol, denies any other daily medications. She is accompanied by her daughter. Edyta miller as her primary care. Related Data Home Medications Medication Instructions Recorded Confirmed [Calcium] 2 tab PO QDAY ##0 06/20/11 09/26/22 [Vitamin D3] PO QDAY ##0 06/20/11 09/26/22 multivitamin (Multiple Vitamins 1 tab PO QDAY ##0 05/15/17 09/26/22 tablet) Previous Rx's Medication Instructions Recorded betamethasone dipropionate 0.05 % 1 applic topical BID PRN skin 06/05/22 topical cream irritation #15 grams ezetimibe 10 mg tablet 10 mg PO DAILY #90 tabs 09/26/22 nirmatrelvir 300 mg (150 mg See Rx Instructions PO .COMPLEX 11/15/22 x2)-ritonavir 100 mg tablet,dose #30 ea pack(EUA) (Paxlovid) Allergies Allergy/AdvReac Type Severity Reaction Status Date / Time inositol niacinate Allergy Severe SOB Verified 12/28/22 10:27 [From Niacin No Flush] niacin [From Niacin No Flush] Allergy Severe SOB Verified 12/28/22 10:27 Sulfa (Sulfonamide Allergy Mild SENSITIVITY Verified 12/28/22 10:27 Antibiotics) TO MED/ Nausea [id number]-[id number] Reductase AdvReac Intermediate memory loss Verified 12/28/22 10:27 Inhibitor [Zftpzln-Rgr-Xir Reductase Inhibitor] Review of Systems Review of Systems ROS Unobtainable: All systems reviewed & are unremarkable except as noted in HPI and below Patient History Medical History Altered level of consciousness Anterograde amnesia Eczema Elevated fasting glucose Hyperlipidemia Impaired hearing Osteopenia Urinary incontinence Surgical History History of History of cataract surgery History of cholecystectomy History of ureter stent Family History Father No significant medical problems Mother No significant medical problems Brother Cancer Sister No significant medical problems Social History household members: spouse Smoking Status: Never smoker Smoking Status: Never smoker alcohol intake frequency: holidays/special occasions only Substance Use Type: does not use Exam Narrative Exam Narrative: GEN: well nourished, well appearing female, alert and oriented x 3, patient appears to be in mild distress. HEENT: Atraumatic, pupils are equal round reactive to light, extraocular movements are intact, nares are clear, there is no conjunctival pallor. Throat is clear without any exudates, erythema, tonsillar enlargement or uvular deviation, patient does not have any facial bony tenderness. She has full range of motion she is able to open her mouth fully. I am able to see swelling in the inside of the mouth but the tissue is pink without any changes. Dentition appears intact, no cracks or injury appreciated. HEART: Regular rate and rhythm without murmur, clicks, rubs. No carotid bruits, pulses are equal in upper and lower extremities LUNGS:Lungs clear to auscultation, no wheezes, rales, crackles, chest moves symmetrically ABD:bowel sounds normal, soft, non-tender, no guarding, rebound, rigidity, no masses noted, no hepatosplenomegaly MSCL: Non-tender, no muscle atrophy, muscles strength 5/5 upper and lower extremities, full range of motion, normal gait NEURO:CN 2-12 intact, sensation normal SKIN: There is some slight erythema over the left mandible. No ecchymosis. No discoloration otherwise extending beyond the site. Initial Vital Signs Initial Vital Signs: Vital Signs Temperature 98.0 F 12/28/22 10:22 Pulse Rate 89 12/28/22 10:22 Respiratory Rate 15 12/28/22 10:22 Blood Pressure 164/78 H 12/28/22 10:22 Pulse Oximetry 98 12/28/22 10:22 Oxygen Delivery Method Room Air 12/28/22 10:22 Course Orders Ordered: ED Orders 12/28/22 12:01 CT facial bones wo con Stat Vital Signs Vital signs: Vital Signs - 8 hr 12/28/22 10:22 12/28/22 12:52 Temperature 98.0 F Pulse Rate 89 76 Respiratory Rate 15 Blood Pressure 164/78 H 146/69 H Pulse Oximetry 98 94 Oxygen Delivery Method Room Air Room Air MDM - Skin/Abscess/Foreign Bdy MDM Narrative Medical decision making narrative: This is an 82-year-old female suspected to have a hematoma secondary to recent traumatic injury although there is not significant ecchymosis there is some slight erythema but does not appear infected appears hard. Patient had quite a bit of pain and difficulty with opening her mouth initially I suspect that she may have had fracture of the bone. Spoke with the I will try to get CT facial bones with soft tissue windows to more fully evaluate the area. Patient has not had any changes that would be consistent with spreading cellulitis or infection currently. CT facial bones does not show any fracture. Initial read as no change to the soft tissue but I spoke with Dr. Escobar, radiology who reviewed films who does not appreciate change most likely consistent with hematoma. He will contact Dr. Dietz for addendum. Patient and I discussed if it is growing in size or becoming more painful than repeat imaging with contrast would be appropriate next steps but is felt to be hematoma at this point based on history, examination and imaging. Discharge Plan Departure Patient Disposition: Home Clinical Impression: Traumatic hematoma of face Instructions: DI for Hematoma (Bruise) Activity Restrictions/Additional Instructions: Your imaging today does not show any breaks or fractures in the bones of her face. The changes they are most consistent with a hematoma underneath the skin. If you develop increasing redness, swelling, pain if it continues to persist for several more weeks or you are having any other new changes please return or follow-up with your physician for repeat evaluation and CT imaging with contrast. You can try warm compresses to the area to see if this is helpful. Please return to the ER if you are having fevers, increasing swelling, redness, difficulty swallowing, changes to your voice, or other new or concerning changes. Prescriptions: No Action [Calcium] 2 tab PO QDAY Qty: 0 [Vitamin D3] PO QDAY Qty: 0 multivitamin [Multiple Vitamins] 1 EACH tablet 1 tab PO QDAY Qty: 0 Paxlovid (EUA) 300 mg (150 mg x 2)-100 mg tablets,dose pack See Rx Instructions PO .COMPLEX Qty: 30 0RF Rx Instructions: take TWO 150 mg tablets of nirmatrelvir with ONE 100 mg tablet of ritonavir twice daily for 5 days PO betamethasone dipropionate 0.05 % cream 1 applic topical BID PRN (Reason: skin irritation) Qty: 15 3RF Rx Instructions: Apply to areas of psoriasis on scalp twice daily as needed. ezetimibe 10 mg tablet 10 mg PO DAILY Qty: 90 3RF Rx Instructions: Take 1 tab at bedtime daily Referrals: Edyta Miller ARNP [Primary Care Provider] - Stand Alone Forms: Patient Portal/API
--- NOTE | 2022-12-28 12:01 | DI.CT.S_ITS ---
PROCEDURE: CT FACIAL BONES WO CON INDICATIONS: fall, pain and lump left mandible x 3 weeks. TECHNIQUE: Noncontrast 2.5 mm thick axial images acquired from the mandible through the frontal sinuses, with coronal and sagittal reformatting. For radiation dose reduction, the following was used: automated exposure control, adjustment of mA and/or kV according to patient size. COMPARISON: None. FINDINGS: Image quality: Excellent. Bones and teeth: Orbital colbert are intact. Sinus colbert show no fracture or deformity. Nasal bones and septum are intact. Visualized portions of the mandible demonstrate no fractures or subluxation. Zygomatic arches are intact. Pterygoid plates are intact. Visualized portions of the skull base and auditory canals are intact. Sinuses: Paranasal sinuses are aerated, without fluid levels. Left sphenoid sinus mucosal thickening. Bilateral maxillary sinus mucous retention cyst. Mild bilateral maxillary sinus mucosal thickening. Mastoid air cells are aerated. Soft tissues: No edema, masses, or fluid collections. No enlarged lymph nodes. No soft tissue lacerations or debris. Vascular: Visualized vascular structures appear normal in the absence of contrast. Bony vascular foramina and canals are intact. IMPRESSION: No evidence of displaced facial bone fracture or mandibular fracture. Mild chronic sinus disease. Dictated by: Quang Khalil M.D. on 12/28/2022 at 12:22 Approved by: Quang Khalil M.D. on 12/28/2022 at 12:25
[2022-12-28 12:52] VITALS: BP 146/69; PULSE 76; O2SAT 94
== END 2022-12-28 12:53 | disposition home or self-care (01) ==
PROVIDERS: Emergency Provider Emergency Medicine; PCP Nurse Practitioner
DX: S00.83XA Contusion of other part of head, initial encounter (principal); W18.30XA Fall on same level, unspecified, initial encounter
CPT/HCPCS: 70486; 99281; 99284

== ENCOUNTER → 2023-06-26 12:44 | Outpatient (CLI) | payer OTHER, SELFPAY ==
[2020-12-14 15:51] VITALS: BMI 24.3
--- NOTE | 2023-06-26 | DI.MG.S_ITS ---
BILATERAL DIGITAL SCREENING MAMMOGRAM 3D/2D WITH CAD: 06/26/2023 CLINICAL: Routine screening. Comparison is made to exams dated: 06/20/2022 mammogram, 06/17/2021 mammogram, and 06/16/2020 mammogram - [facility]. There are scattered areas of fibroglandular density in both breasts (category b / 25%-50% glandular tissue). Current study was also evaluated with a Computer Aided Detection (CAD) system. No significant masses, calcifications, or other findings are seen in either breast. There has been no significant interval change. IMPRESSION: NEGATIVE There is no mammographic evidence of malignancy. A 1 year screening mammogram is recommended. Based on the Tyrer Cuzick model (a risk assessment model) the patient's lifetime risk is 0.8% and her 10 year risk is 0.0%. According to the ACR, ACS, and NCCN guidelines, an annual breast MRI exam along with mammogram is recommended if the patient's lifetime risk is 20% or greater. This exam was interpreted at Station ID: [id number]. NOTE: For mammograms, a report in lay terms will be sent to the patient. Approximately 15% of breast malignancies will not be visualized mammographically. In the management of a palpable breast mass, a negative mammogram must not discourage biopsy of a clinically suspicious lesion. Electronically Signed By: Gege pagan/richi:06/26/2023 17:24:14 letter sent: Normal Exam ACR BI-RADS Category 1: Negative [id number]
== END ==
PROVIDERS: PCP Nurse Practitioner; Referring Provider Nurse Practitioner; Visit Provider Nurse Practitioner
DX: Z12.31 Encounter for screening mammogram for malignant neoplasm of breast (principal)
CPT/HCPCS: 77063; 77067

== ENCOUNTER → 2023-08-17 08:07 | Outpatient (CLI) | payer OTHER, SELFPAY ==
[2020-12-14 15:51] VITALS: BMI 24.3
[2023-08-17 10:16] LABS: Alanine Aminotransferase 22 IU/L (<35); Albumin 4.1 g/dL (3.5-5.0); Albumin Globulin Ratio 1.5 (1.0-2.8); Alkaline Phosphatase 48 U/L (38-126); Aspartate Aminotransferase 27 IU/L (14-36); BUN Creatinine Ratio 18.6 (6-22); Bilirubin Total 0.4 mg/dL (0.2-1.3); Blood Urea Nitrogen 13 mg/dL (7-17); Calcium 9.3 mg/dL (8.4-10.2); Carbon Dioxide 28 mmol/L (22-32); Chloride 104 mmol/L (98-107); Cholesterol 152 mg/dL (140-199); Estimated Glomerular Filt Rate > 60 mL/min (>60); Globulin 2.7 g/dL (1.7-4.1); Glucose 95 mg/dL (80-110); HDL Cholesterol 51 mg/dL (40-60); HEMOLYSIS < 15 (0-50); LDL Cholesterol Calculated 89 mg/dL (<100); Potassium 4.4 mmol/L (3.4-5.1); Sodium 138 mmol/L (137-145); Total Protein 6.8 g/dL (6.3-8.2); Triglycerides 61 mg/dL (35-150)
[2023-08-17 10:29] LABS: Free T3, Triiodothyronine Free 2.78 pg/mL (2.77-5.27); Free T4, Direct Thyroxine 0.91 ng/dL (0.78-2.19)
[2023-08-17 10:43] LABS: Thyroid Stimulating Hormone 2.56 uIU/mL (0.47-4.68)
== END ==
PROVIDERS: PCP Nurse Practitioner; Referring Provider Nurse Practitioner; Visit Provider Nurse Practitioner
DX: E78.41 Elevated Lipoprotein(a) (principal); M85.851 Other specified disorders of bone density and structure, right thigh; Z79.899 Other long term (current) drug therapy
CPT/HCPCS: 36415; 80053; 80061; 84439; 84443; 84481

== ENCOUNTER → 2023-08-28 15:10 | Outpatient (CLI) | payer OTHER, SELFPAY ==
[2020-12-14 15:51] VITALS: BMI 24.3
--- NOTE | 2023-08-28 15:11 | DI.RAD.S_ITS ---
PROCEDURE: XR KNEE LT 3V INDICATIONS: left medial knee pain TECHNIQUE: 3 views of the knee were acquired. COMPARISON: None. FINDINGS: Bones: No fractures or dislocations. The tricompartmental osteoarthritic changes of the left knee with tricompartmental spurring and moderate medial joint space narrowing. No suspicious bony lesions. Soft tissues: Small joint effusion. No suspicious soft tissue calcifications. 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 Dictated by: Martinez Buckner M.D. on 08/28/2023 at 17:19 Approved by: Martinez Buckner M.D. on 08/28/2023 at 17:20
== END ==
PROVIDERS: PCP Nurse Practitioner; Referring Provider Nurse Practitioner; Visit Provider Nurse Practitioner
DX: M25.562 Pain in left knee (principal)
CPT/HCPCS: 73562

== ENCOUNTER 2024-01-14 19:38 | Emergency (ER) | payer OTHER, SELFPAY ==
[2020-12-14 15:51] VITALS: BMI 24.3
[2024-01-14 19:42] VITALS: BP 156/76; PULSE 80; RESP 20; TEMP 36.6; O2SAT 96; BMI 24.3
--- NOTE | 2024-01-14 20:14 | DI.CT.S_ITS ---
PROCEDURE: CT SOFT TISSUE NECK W CON INDICATIONS: Swelling post dental work TECHNIQUE: After the administration of intravenous contrast, 3.0 mm axial sections acquired from the sella to the aortic arch. Additional oblique axial 3.0 mm sections acquired through the pharynx. 3 mm thick coronal and sagittal reformats were generated. For radiation dose reduction, the following was used: automated exposure control. COMPARISON: None. FINDINGS: Image quality: Diagnostic Lymph nodes: No enlarged lymph nodes seen throughout the neck. Vessels: Visualized vasculature appears patent. Neck spaces: The oropharynx, nasopharynx, and pharynx demonstrate no mucosal lesions. The vocal cords, false vocal cords, pyriform sinuses, epiglottis, vallecula, and tongue base all appear normal. Extramucosal spaces appear unremarkable. Glands: The parotid and submandibular glands appear normal. Thyroid gland is unremarkable without suspicious thyroid nodules meeting consensus criteria for further evaluation. Miscellaneous: Visualized brain and orbits appear normal. Lung apices appear clear. Superficial soft tissues appear normal. Bilateral maxillary sinus mucosal thickening. No air-fluid levels identified. Bones: No suspicious bony lesions. Visualized sinuses and mastoids appear unremarkable. No acute fractures or dislocations. No acute compression fractures of the vertebral bodies. Craniocervical junction is intact. C1-C2 relationship is preserved. Visualized superior ribs are intact. Multilevel cervical spondylosis most severe at C5-6 through C7-T1. There are extensive metallic hardware from dental procedures which causes significant beam hardening artifact and limits evaluation of the adjacent osseous and soft tissue structures. There is loss of the premolar teeth of the left mandible. No osseous erosion. No surrounding fluid collections identified there is however, left perimandibular soft tissue edema. Findings are likely related to tooth extraction. IMPRESSION: Extensive dental hardware resulting in moderate beam hardening artifact which limits evaluation of the adjacent osseous and soft tissue structures. Within these limitations, there appears to be soft tissue swelling in the left perimandibular region without evidence for organized fluid collection seen. There is adjacent missing teeth of the left mandibular premolars likely related to tooth extraction. Otherwise, no acute abnormalities identified in the imaged neck. Dictated by: Marquise Radford M.D. on 01/14/2024 at 22:20 Approved by: Marquise Radford M.D. on 01/14/2024 at 22:27
[2024-01-14 20:35] LABS: Add Manual Diff / Slide Review NO; Basophils Absolute Auto 0 /uL (0-100); Basophils Percent Auto 0.7 % (0-2); Eosinophils Absolute Auto 400 /uL (0-450); Eosinophils Percent Auto 6.3 % (2-4); Hematocrit 36.2 % (36-46); Hemoglobin 12.4 g/dL (12.0-16.0); Lymphocytes Absolute Auto 1700 /uL (1100-4500); Mean Corpuscular HGB Conc 34.4 % (30-36); Mean Corpuscular Hemoglobin 30.5 PG (26-34); Mean Corpuscular Volume 88.6 fL (80-100); Monocytes Absolute Auto 800 /uL (0-900); Monocytes Percent Auto 11.6 % (3-14); Neutrophils Absolute Auto 3800 /uL (1500-7000); Neutrophils Percent Auto 56.4 % (50-75); Platelet Count 267 X10^3/uL (150-400); Red Blood Cell Count 4.09 X10^6/uL (4.0-5.2); Red Cell Distribution Width 13.2 % (11.6-14.8); White Blood Cell Count 6.7 X10^3/uL (4.5-11.0)
[2024-01-14 20:45] LABS: HEMOLYSIS < 15 (0-50); INR 1.1 (0.9-1.3)
[2024-01-14 20:47] LABS: PTT Partial Thromboplastin Tim 39 SECONDS (25.1-36.5)
[2024-01-14 20:50] LABS: Lactate (Lactic Acid) 1.5 mmol/L (0.7-2.1)
[2024-01-14 20:51] LABS: Alanine Aminotransferase 23 IU/L (<35); Albumin 4.5 g/dL (3.5-5.0); Albumin Globulin Ratio 1.7 (1.0-2.8); Alkaline Phosphatase 57 U/L (38-126); Aspartate Aminotransferase 29 IU/L (14-36); Bilirubin Total 0.4 mg/dL (0.2-1.3); Blood Urea Nitrogen 13 mg/dL (7-17); Calcium 9.3 mg/dL (8.4-10.2); Carbon Dioxide 26 mmol/L (22-32); Chloride 103 mmol/L (98-107); Estimated Glomerular Filt Rate > 60 mL/min (>60); Globulin 2.7 g/dL (1.7-4.1); Glucose 108 mg/dL (80-110); Lipase 181 U/L (23-300); Potassium 3.9 mmol/L (3.4-5.1); Sodium 135 mmol/L (137-145); Total Protein 7.2 g/dL (6.3-8.2)
[2024-01-14 21:09] LABS: Procalcitonin 0.05 ng/mL (<0.5)
[2024-01-14 22:01] VITALS: BP 184/85; PULSE 71; RESP 20; O2SAT 98
[2024-01-14 22:30] VITALS: PULSE 69; O2SAT 96
[2024-01-14 22:31] VITALS: BP 157/75; PULSE 69; O2SAT 96
--- NOTE | 2024-01-14 22:45 | ED.DENTAL ---
HPI - Dental/Oral General Chief complaint: Dental/Oral Stated complaint: indira infection, sent by Dr Dong Time Seen by Provider: 01/14/24 22:00 Source: patient Mode of arrival: Ambulatory History of Present Illness HPI Narrative: 83-year-old female presents for evaluation left-sided facial swelling. Patient had a dental filling on 12/31. She was experiencing pain and 2 days ago the patient had a left mandibular tooth pulled by her dentist. Patient has been on Augmentin for the last 2 days. She was advised by her ENT doctor to go to the emergency department for IV antibiotics and possible imaging. Patient states that the left side of her face is swollen compared to the right side. Earlier in the day she felt like the swelling had progressed to her neck, however that has decreased since she has arrived to the emergency department. Reports redness of the neck earlier in the day as well. Denies fevers. Related Data Home Medications Medication Instructions Recorded Confirmed [Calcium] 2 tab PO QDAY ##0 06/20/11 08/28/23 [Vitamin D3] PO QDAY ##0 06/20/11 08/28/23 multivitamin (Multiple Vitamins 1 tab PO QDAY ##0 05/15/17 08/28/23 tablet) Previous Rx's Medication Instructions Recorded betamethasone dipropionate 0.05 % 1 applic topical BID PRN skin 06/05/22 topical cream irritation #15 grams ezetimibe 10 mg tablet 10 mg PO DAILY #90 tabs 08/28/23 salon pas #1 ea 08/28/23 clindamycin HCl 150 mg capsule 450 mg (3 x 150 mg) PO TID 10 days 01/14/24 #90 caps hydrocodone 5 mg-acetaminophen 325 1 tab PO Q8H PRN pain #10 tabs 01/14/24 mg tablet Allergies Allergy/AdvReac Type Severity Reaction Status Date / Time inositol niacinate Allergy Severe SOB Verified 01/14/24 19:49 [From Niacin No Flush] niacin [From Niacin No Flush] Allergy Severe SOB Verified 01/14/24 19:49 Sulfa (Sulfonamide Allergy Mild SENSITIVITY Verified 01/14/24 19:49 Antibiotics) TO MED/ Nausea Xrlcdep-CTZ-DxH Reductase AdvReac Intermediate memory loss Verified 01/14/24 19:49 Inhibitor [Ysghjav-Vzl-Pce Reductase Inhibitor] Review of Systems Review of Systems Narrative: see HPI Patient History Medical History Osteopenia Elevated fasting glucose Altered level of consciousness Anterograde amnesia Eczema Impaired hearing Urinary incontinence Hyperlipidemia Surgical History History of ureter stent History of cholecystectomy History of History of cataract surgery Family History Father No significant medical problems Mother No significant medical problems Brother Cancer Sister No significant medical problems Social History household members: spouse Smoking Status: Never smoker Smoking Status: Never smoker alcohol intake frequency: holidays/special occasions only Substance Use Type: does not use Exam Initial Vital Signs Initial Vital Signs: Vital Signs Temperature 97.8 F 01/14/24 19:42 Pulse Rate 80 01/14/24 19:42 Respiratory Rate 20 01/14/24 19:42 Blood Pressure 156/76 H 01/14/24 19:42 Pulse Oximetry 96 01/14/24 19:42 Oxygen Delivery Method Room Air 01/14/24 19:42 Const: Awake, alert, no acute distress, nontoxic appearing Mouth: patent, no trismus, pulled L mandibular tooth. Quarter-sized area of induration on L mandible Cardiac: regular rate, regular rhythm RESP: unlabored, clear bilaterally, no wheezing Skin: Warm, Dry, intact, no rashes, no erythema Neuro: AO x3, CN II-XII grossly intact, moves all extremities Course Orders Ordered: ED Orders 01/14/24 22:46 Blood Culture Stat Discontinued Medications Hydrocodone Bitart/Acetaminophen (Hydrocodone/Acet 5/325 Prepack) 1 bottle MISC DIRECTED ONE Stop: 01/14/24 23:59 Last Admin: 01/15/24 00:17 Dose: 1 bottle Documented By: AB Ampicillin Sodium/Sulbactam (Sodium 3 gm/ Sodium Chloride) 100 mls @ 200 mls/hr IV NOW ONE Stop: 01/14/24 22:46 Last Infusion: 01/14/24 23:56 Dose: Infused Documented By: Admin: 01/14/24 23:16 Dose: 200 mls/hr Documented By: OW Morphine Sulfate (Morphine 4 Mg/Ml Inj) 4 mg IV NOW ONE Stop: 01/14/24 22:49 Last Admin: 01/14/24 23:16 Dose: 4 mg Documented By: OW Ondansetron HCl (Ondansetron 4 Mg/2 Ml Inj) 4 mg IV NOW PRN PRN Reason: Nausea And Vomiting Last Admin: 01/14/24 23:11 Dose: 4 mg Documented By: OW Ondansetron HCl (Ondansetron 4 Mg Odt) 4 mg SL NOW PRN PRN Reason: Nausea And Vomiting Vital Signs Vital signs: Vital Signs - 8 hr 01/14/24 22:01 01/14/24 22:30 01/14/24 22:31 Pulse Rate 71 69 69 Respiratory Rate 20 Blood Pressure 184/85 H Pulse Oximetry 98 96 96 Oxygen Delivery Method Room Air 01/14/24 22:31 01/14/24 23:00 01/14/24 23:00 Pulse Rate 69 Respiratory Rate Blood Pressure 157/75 H 175/85 H Pulse Oximetry 95 Oxygen Delivery Method 01/14/24 23:59 01/15/24 00:00 01/15/24 00:02 Pulse Rate 72 72 69 Respiratory Rate Blood Pressure Pulse Oximetry 97 98 97 Oxygen Delivery Method 01/15/24 00:02 Pulse Rate Respiratory Rate Blood Pressure 152/73 H Pulse Oximetry Oxygen Delivery Method MDM - Dental/Oral Differential Diagnosis Differential diagnosis: Likely gingival abscess, dental caries and toothache Lab Data 01/14/24 20:25 01/14/24 20:25 Labs: Lab Results 01/14/24 Range/Units 20:25 WBC 6.7 (4.5-11.0) X10^3/uL RBC 4.09 (4.0-5.2) X10^6/uL Hgb 12.4 (12.0-16.0) g/dL Hct 36.2 (36-46) % MCV 88.6 (80-100) fL MCH 30.5 (26-34) PG MCHC 34.4 (30-36) % RDW 13.2 (11.6-14.8) % Plt Count 267 (150-400) X10^3/uL Neut % (Auto) 56.4 (50-75) % Lymph % (Auto) 25.0 (25-40) % Williamson % (Auto) 11.6 (3-14) % Eos % (Auto) 6.3 H (2-4) % Baso % (Auto) 0.7 (0-2) % Neut # (Auto) 3800 (5315-7277) /uL Lymph # (Auto) 1700 (6725-4717) /uL Williamson # (Auto) 800 (0-900) /uL Eos # (Auto) 400 (0-450) /uL Baso # (Auto) 0 (0-100) /uL PT 13.0 H (9.4-12.5) SECONDS INR 1.1 (0.9-1.3) APTT 39 H (25.1-36.5) SECONDS Sodium 135 L (137-145) mmol/L Potassium 3.9 (3.4-5.1) mmol/L Chloride 103 (98-107) mmol/L Carbon Dioxide 26 (22-32) mmol/L BUN 13 (7-17) mg/dL Creatinine 0.59 (0.52-1.04) mg/dL Estimated GFR > 60 (>60) mL/min BUN/Creatinine Ratio 22.0 (6-22) Glucose 108 (80-110) mg/dL Lactate 1.5 (0.7-2.1) mmol/L Calcium 9.3 (8.4-10.2) mg/dL Total Bilirubin 0.4 (0.2-1.3) mg/dL AST 29 (14-36) IU/L ALT 23 (<35) IU/L Alkaline Phosphatase 57 (38-126) U/L Total Protein 7.2 (6.3-8.2) g/dL Albumin 4.5 (3.5-5.0) g/dL Globulin 2.7 (1.7-4.1) g/dL Albumin/Globulin Ratio 1.7 (1.0-2.8) Lipase 181 (23-300) U/L Procalcitonin 0.05 (<0.5) ng/mL Urine Dip Bedside Urine Glucose Negative Bedside Urine Bilirubin - Negative Bedside Urine Ketone - Negative Urine Specific [place] 1.010 Bedside Urine Occult Blood - Negative Bedside Urine pH 6.5 Bedside Urine Protein - Negative Bedside Urine Urobilinogen - Negative Bedside Urine Nitrite - Negative Bedside Urine Leukocytes - Negative Esterase Imaging Data CT - cervical spine: Radiologist's Impression: PROCEDURE: CT SOFT TISSUE NECK W CON INDICATIONS: Swelling post dental work TECHNIQUE: After the administration of intravenous contrast, 3.0 mm axial sections acquired from the sella to the aortic arch. Additional oblique axial 3.0 mm sections acquired through the pharynx. 3 mm thick coronal and sagittal reformats were generated. For radiation dose reduction, the following was used: automated exposure control. COMPARISON: None. FINDINGS: Image quality: Diagnostic Lymph nodes: No enlarged lymph nodes seen throughout the neck. Vessels: Visualized vasculature appears patent. Neck spaces: The oropharynx, nasopharynx, and pharynx demonstrate no mucosal lesions. The vocal cords, false vocal cords, pyriform sinuses, epiglottis, vallecula, and tongue base all appear normal. Extramucosal spaces appear unremarkable. Glands: The parotid and submandibular glands appear normal. Thyroid gland is unremarkable without suspicious thyroid nodules meeting consensus criteria for further evaluation. Miscellaneous: Visualized brain and orbits appear normal. Lung apices appear clear. Superficial soft tissues appear normal. Bilateral maxillary sinus mucosal thickening. No air-fluid levels identified. Bones: No suspicious bony lesions. Visualized sinuses and mastoids appear unremarkable. No acute fractures or dislocations. No acute compression fractures of the vertebral bodies. Craniocervical junction is intact. C1-C2 relationship is preserved. Visualized superior ribs are intact. Multilevel cervical spondylosis most severe at C5-6 through C7-T1. There are extensive metallic hardware from dental procedures which causes significant beam hardening artifact and limits evaluation of the adjacent osseous and soft tissue structures. There is loss of the premolar teeth of the left mandible. No osseous erosion. No surrounding fluid collections identified there is however, left perimandibular soft tissue edema. Findings are likely related to tooth extraction. IMPRESSION: Extensive dental hardware resulting in moderate beam hardening artifact which limits evaluation of the adjacent osseous and soft tissue structures. Within these limitations, there appears to be soft tissue swelling in the left perimandibular region without evidence for organized fluid collection seen. There is adjacent missing teeth of the left mandibular premolars likely related to tooth extraction. Otherwise, no acute abnormalities identified in the imaged neck. Dictated by: Marquise Radford M.D. on 01/14/2024 at 22:20 Approved by: Marquise Radford M.D. on 01/14/2024 at 22:27 [facility] Narrative Medical decision making narrative: Sent in by ENT for worsening dental infection despite being on 2 days of antibiotic therapy. Patient states that the front of her neck seemed red and slightly swollen earlier in the day, on my exam I see absolutely no erythema, induration, warmth, or swelling of the anterior neck. No evidence of Reid's angina. There is a minimal amount of swelling on the left lateral mandible, no fluctuance to indicate abscess. Laboratory work is reviewed, no acute abnormalities identified. CT neck soft tissue shows some soft tissue swelling without evidence of abscess. With normal labs and fairly unremarkable CT I do not see strong evidence that patient absolutely must be admitted for IV antibiotics at this time. Shared decision-making was performed with patient and her daughter at bedside, I offered to admit the patient for IV antibiotics or we could try to change the antibiotics to clindamycin and trial an outpatient basis. Patient and her daughter stated that they would prefer to try treating this at home. Patient was given a dose of Unasyn in the emergency department and discharged on clindamycin. Strict ED return precautions discussed at bedside. Patient and her daughter state that they will return immediately if they notice worsening of her symptoms. Discharge Plan Departure Patient Disposition: Home Clinical Impression: Dental infection Instructions: Tooth Abscess Activity Restrictions/Additional Instructions: Please return to the emergency department if you notice worsening in your swelling. Stopped taking the Augmentin and take the clindamycin instead. Prescriptions: New clindamycin HCl 150 mg capsule 450 mg PO TID 10 Days Qty: 90 0RF hydrocodone-acetaminophen 5-325 mg tablet 1 tab PO Q8H PRN (Reason: pain) Qty: 10 0RF No Action [Calcium] 2 tab PO QDAY Qty: 0 [Vitamin D3] PO QDAY Qty: 0 multivitamin [Multiple Vitamins] 1 EACH tablet 1 tab PO QDAY Qty: 0 betamethasone dipropionate 0.05 % cream 1 applic topical BID PRN (Reason: skin irritation) Qty: 15 3RF Rx Instructions: Apply to areas of psoriasis on scalp twice daily as needed. (DME) salon pas patch See Rx Instructions .ROUTE .MEDSUPPLY Qty: 1 0RF Rx Instructions: Apply to knee over painful area daily x12 hours, remove x12 hours PRN; ezetimibe 10 mg tablet 10 mg PO DAILY Qty: 90 3RF Rx Instructions: Take 1 tab at bedtime daily Referrals: Edyta Miller ARNP [Primary Care Provider] - Stand Alone Forms: Patient Portal/API
[2024-01-14 23:00] VITALS: BP 175/85; PULSE 69; O2SAT 95
[2024-01-14] MEDS: ONDANSETRON 4 MG/2 ML INJ IV (23:11)
[2024-01-14] MEDS: MORPHINE 4 MG/ML INJ IV (23:16)
[2024-01-14] MEDS: AMPICILLIN/SULBACTAM 3 GM 3 GM in SODIUM CHLORIDE 0.9% 100 ML IV (23:16)
[2024-01-14 23:59] VITALS: PULSE 72; O2SAT 97
[2024-01-15] VITALS: PULSE 72; O2SAT 98
[2024-01-15 00:02] VITALS: BP 152/73; PULSE 69; O2SAT 97
[2024-01-15] MEDS: HYDROCODONE/ACET 5/325 PREPACK 1 BOTTLE MISC (00:17)
--- NOTE | 2024-01-15 00:26 | PC.NURSE ---
Pt seen by ENT today and was sent to ER for CT scan and IV antibiotic therapy.
== END 2024-01-15 00:30 | disposition home or self-care (01) ==
PROVIDERS: Emergency Provider Emergency Medicine; Family Provider Nurse Practitioner; PCP Nurse Practitioner
DX: K04.7 Periapical abscess without sinus (principal)
CPT/HCPCS: 36415; 70491; 80053; 81003; 83605; 83690; 84145; 85025; 85610; 85730; 87040; 96365; 96375; 99284; J0295; J2270; J2405; Q9967

== ENCOUNTER 2024-06-24 09:00 | Outpatient (RCR) | payer OTHER, SELFPAY ==
[2020-12-14 15:51] VITALS: BMI 24.3
--- NOTE | 2024-03-13 16:33 | PT.OIE ---
Current Diagnoses Unilateral primary osteoarthritis, left knee (03/13/24) Encounter for other preprocedural examination (03/13/24) Past Medical History (Last Reviewed 01/15/24 @ 01:16 by Dory Batista MD) Altered level of consciousness Anterograde amnesia Eczema Elevated fasting glucose Hyperlipidemia Impaired hearing Osteopenia Urinary incontinence Past Surgical History (Last Reviewed 01/15/24 @ 01:16 by Dory Batista MD) History of History of cataract surgery History of cholecystectomy History of ureter stent Visit Care Team Role Provider Type HAYDEE Beckford Family Provider Advanced Publicity Writer Primary Care Provider Specialty: Family Practice Address: [address] [place] [address], [id number] Email: [email or web address] Jose Castillo DO Attending Provider Non-Staff Referring Provider Specialty: Orthopedics Address: [address] [place] [address], [id number] Email: Physical Therapy Initial Evaluation PT-OP-A Visit Information Start: 03/07/24 18:38 Freq: Status: Active Protocol: Document 03/13/24 08:16 LRN (Rec: 03/13/24 09:37 LRN [id number]) Out-Patient Physical Therapy Visit Information Visit Information Visit Type Initial Evaluation Visit Start Time 08:16 Visit Stop Time 09:10 Visit Number 1 Evaluation Information Evaluation Date 03/13/24 Precautions Precautions Back surgery (for ruptured disc) -30 yrs ago, hand surgery (carpal tunnel and trigger finger bilaterallly) 10 yrs ago. PT-OP-B Current Condition Start: 03/07/24 18:38 Freq: Status: Active Protocol: Document 03/13/24 08:16 LRN (Rec: 03/13/24 09:37 LRN [id number]) Current Condition History of Current Condition Onset Date Aug 2023 Current Complaints Needing pre-op instructions, pain in L medial knee History of Current Condition Pt is being seen pre- operatively for an elective L partial medial knee replacement on 03/18/24. Referral is for PT, and rehab starting 1 wk post-op. Pt has several appts currently scheduled. Gets out of bed on the R side at home. Will be using bedroom on entry level drafter ( bed is normally on the 2nd level). Pt has several steps going into home. Pt brings in a borrowed front wheeled walker, stating she has never used a walker before. Lives with spouse who can help and DA who is a nurse will be able to stay with her a few days after surgery. Treatment Goals Patient/Caregiver Goals Pt goal is I/S in how to use walker, get in/out of bathtub and amb stairs when getting home. Current Functional Impairments (Reported) Functional Limitations- ADL's Walks [place], soft ground daily ~40 minutes. Personal Factors Other Personal Factors That May Effect 3 steps to get in/out of Therapy/Recovery house. PT-OP-C Subjective Start: 03/07/24 18:38 Freq: Status: Active Protocol: Document 03/13/24 08:16 LRN (Rec: 03/13/24 09:37 LRN [id number]) Patient Questionnaires Lower Extremity Functional Scale LEFS Score 59 LEFS Impairment 20 to 39% Impaired (Score 48- 62) OP-PT Pain Assessment Pain Assessment Grid Paper Pain Assessment Grid Completed Yes Location Medial L knee Pain Location Details Medial side of L knee Intensity 4 Scale Used Numeric (0 - 10) PT-OP-E Functional Tests Start: 03/07/24 18:38 Freq: Status: Active Protocol: Document 03/13/24 08:16 LRN (Rec: 03/13/24 09:37 LRN [id number]) Functional Tests Timed Up and Go (TUG) Score 13 Comments Webbed chair, no use of hands TUG Impairment Rating 20 to <40% Impaired (Score 12- 13) PT-OP-G Mobility & Gait Start: 03/07/24 18:38 Freq: Status: Active Protocol: Document 03/13/24 08:16 LRN (Rec: 03/13/24 09:37 LRN [id number]) OP Mobility Evaluation Bed Mobility Supine to and from Sit Independent Transfers Sit to Stand Independent w/o use of hands OP Gait Assessment Gait Gait Assistance Required: Independent Assistive Devices Assistive Device None Gait Deviations General Gait Pattern Flexed Trunk,Lateral Trunk Lean Comments Gait Comments Mild antalgic gait, postural trunk lean Stair Climbing Evaluation Evaluation Level of Assist On Stairs Independent Devices Stair Climbing Assistive Devices Left Railing,Right Railing Technique/Endurance Stair Climbing Direction Ascend and Descend Stair Climbing Technique Step Over Step PT-OP-J Posture/Palpation/Skin Start: 03/07/24 18:38 Freq: Status: Active Protocol: Document 03/13/24 08:16 LRN (Rec: 03/13/24 09:37 LRN [id number]) Posture Evaluation Position Standing Head/C-Spine Posture Forward Head T-Spine Posture Increased Kyphosis L-Spine Posture Decreased Lordosis Shoulder Posture (L) Elevated Scapula Posture (L) Elevated Arm Posture (L) Internally Rotated,(R) Internally Rotated Pelvis Posture Anteriorly Tilted Weight Distribution Balanced Hip Posture (L) Flexed,(R) Flexed Knee Posture (L) Genu Varus,(L) Excess Flexion,(R) Excess Flexion Comments Posture Comments Hips/knees flexed 15 degs. C-curve of spine with apex on left. Palpation Assessment Location L knee Palpation Location Pain at medial left knee Palpation Findings Tenderness PT-OP-K Range of Motion Start: 03/07/24 18:38 Freq: Status: Active Protocol: Document 03/13/24 08:16 LRN (Rec: 03/13/24 09:37 LRN [id number]) Knee Goniometric Range of Motion Knee Right Patient Position Supine Flexion Active (degrees) 112 Extension Active (degrees) 12 Comments Sitting knee ext is 10 deg's Left Patient Position Supine Flexion Active (degrees) 105 Extension Active (degrees) 10 Comments Sitting knee ext is 10 deg's PT-OP-M Strength Start: 03/07/24 18:38 Freq: Status: Active Protocol: Document 03/13/24 08:16 LRN (Rec: 03/13/24 09:37 LRN [id number]) Knee Strength Knee Manual Muscle Testing Right Flexion (S2) 5 Normal Extension (L3) 5 Normal Left Flexion (S2) 4 Good Extension (L3) 5 Normal PT-OP-Q Treatments Start: 03/07/24 18:38 Freq: Status: Active Protocol: Document 03/13/24 08:16 LRN (Rec: 03/13/24 09:37 LRN [id number]) Therapeutic Exercises Supine Exercises SLR Side left Reps/Minutes 3-4x Comments Review for HEP Glut set Side bilateral Reps/Minutes 3x Comments Review for HEP QS Side left Reps/Minutes 3 SH x 3 Comments Review for HEP heel slides Side left Reps/Minutes 3x Comments Review for HEP ankle pumps Side left Reps/Minutes 3x Comments Review for HEP Sitting Exercises Knee ext Sitting Exercise Name Active knee flex/ext Side left Reps/Minutes 3x Comments Review for HEP Therapeutic Activity Therapeutic Activity Transfer training Name Transfer in/out of bed from right/left side. Reps/Minutes 6' Comments Pt bed is set up to enter/exit on R side, but it was encouraged to switch head placement to end of bed to be able to exit/enter from left side. Gait Training Gait Activity Stair ambuation Description Stair ambulation Device Used 2 railing Level of Assistance Much verbal cuing Distance/Duration 3' Treatment Focus Correct gait as if s/p surgery . Walker use Description Gait training with FWW after correct adjustment for posture . Device Used FWW Level of Assistance Much verbal and physical cuing Surface Level Distance/Duration 8' Treatment Focus Correct use of walker as if s/ p surgery. Comments Handout issued & reviewed Self-Care/Home Management Treatment Education Other Education Discussed results of evaluation, goals, and plan of care (POC) with pt, discussed attendance/cx/dns policy; pt agreeable to goals, attendance /cx/dns policy and POC. Activities Self-Care/Home Management Activities Issued HEP of knee ex's after surgery and for proper gait on level and stairs. PT-OP-T Assessment and Plan Start: 03/07/24 18:38 Freq: Status: Active Protocol: Document 03/13/24 08:16 LRN (Rec: 03/13/24 09:37 LRN [id number]) Physical Therapy Assessment Rehab Potential Rehabilitation Potential Good Evaluation Complexity Number of Personal Factors/Comorbidities 1-2 Number of Body Systems Impaired 4 or More Clinical Presentation at Evaluation Evolving Impairments Impairments Edema,Gait,Pain,Posture,ROM, Strength,Transfers Goals Five Impairment Decreased L knee AROM Impairment L knee AROM: sup is lacking 10-105 deg's; sitting ext is lacking 10 deg's. R knee AROM: sup is lacking 12 -112 deg's Short Term Goal (STG) Pt will improve L knee AROM to pre-surgical range. STG Duration 4 wks-04/10/24 Senior Care Goal (LTG) Pt will improve L knee AROM to minimal 10 - 112 deg's with pt able to ambulate stairs with use of railing and step over step gait. LTG Duration 9 wks-05/15/24 Four Impairment Decreased function per TUG score 13 Impairment TUG 13 (20<40% impaired, score 12-13) Continuous Churn Buttermaker Goal (LTG) Improve stability of gait per improved TUG score of 11-12 or less. LTG Duration 9 wks-05/15/24 Three Impairment Decreased L knee strength Impairment L knee flex 4/5, ext 5/5 R knee flex/ext is 5/5. Continuous Churn Buttermaker Goal (LTG) Improve L knee strength to 5/5 with pt able to return to walking trails 30 min/day. LTG Duration 9 wks-05/15/24 Two Impairment Lacks knowledge for proper use of FWW and stair amb if painful L knee Short Term Goal (STG) Pt will be educated in proper use of walker and stair ambulation with use of railing and transfers getting in/out of bed as if s/p surgery. STG Duration 03/13/24 (03/13/24: MET GOAL) Senior Care Goal (LTG) Pt will be able to demonstrate proper use of FWW with gait. 03/13/24: Pt walker adjusted for posture and gait training given with phys & v cuing needed. LTG Duration 4 wks-04/10/24 progressed One Impairment Pt lacks appropriate self care HEP. Impairment Pt will be educated in log roll transfers, proper body mechanics for ADLs, proper sitting/standing posture. LTG : Pt will be independent in an effective self care HEP for core/hip strengthening and mobility ex's. Short Term Goal (STG) Pt will be educated and be able to perform L knee post op TKA ex's. STG Duration 03/13/24 (03/13/24: MET GOAL) Senior Care Goal (LTG) Pt will be independent in self care HEP of L knee ROM and strengthening ex's to promote functional use of the L knee and return her to trail walking with use of assist device for pain. LTG Duration 9 wks-05/15/24 Assessment Summary Assessment Pt is an 83 yo female who presents with L knee mechanical joint pain and soft tissue pain on palpation, who is waiting for an elective partial L medial knee arthroplasty, planned 03/18/24 . Pt primary goal today is to be trained in use of the walker and for post op care. The pt was been given a HEP to progress L knee ROM and strength for pre and post op care, educated in proper use of a FWW and stair ambulation that will be applicable to post op care. The pt will benefit from skilled physical therapy to achieve the above stated goals, pre and post operatively. Physical Therapy Plan Frequency and Duration Frequency of Treatment 2x/Week Duration of treatment (weeks) 9 Plan of Care Start Date 03/13/24 Plan of Care End Date 05/15/24 Therapeutic Interventions Therapeutic Interventions Balance Training,Gait Training ,Home Exercise Program,Joint Mobilizations,Manual Therapy, Neuromuscular Re-education, Self-Care/Home Management,Soft Tissue Mobilization,Taping, Therapeutic Activities, Therapeutic Exercises Modalities Cold Pack/Ice Massage,Electric Stimulation,Hot Packs Next Visit Focus/Plan Next Note Type Treatment Note Next Visit Plan Next: Re-evaluation for updated POC, post-op care, update of goals as needed. POC: s/p L partial knee arthroplasty; Edema management, ROM, strengthening , gait & stair training progressing to gait without assistive device and balance training for stability/safety with gait.
--- NOTE | 2024-03-13 16:34 | PT.OPPOC ---
Physical, Occupational & Speech Therapy At [facility] Current Diagnoses Unilateral primary osteoarthritis, left knee (03/13/24) Encounter for other preprocedural examination (03/13/24) Visit Care Team Role Provider Type HAYDEE Beckford Family Provider Advanced Classification Officer Primary Care Provider Specialty: Family Practice Address: [address] [place] [address], [id number] Email: [email or web address] Jose Castillo DO Attending Provider Non-Staff Referring Provider Specialty: Orthopedics Address: [address] [place] [address], [id number] Email: Plan Of Care PT-OP-T Assessment and Plan Start: 03/07/24 18:38 Freq: Status: Active Protocol: Document 03/13/24 08:16 LRN (Rec: 03/13/24 09:37 LRN [id number]) Physical Therapy Assessment Rehab Potential Rehabilitation Potential Good Evaluation Complexity Number of Personal Factors/Comorbidities 1-2 Number of Body Systems Impaired 4 or More Clinical Presentation at Evaluation Evolving Impairments Impairments Edema,Gait,Pain,Posture,ROM, Strength,Transfers Goals Five Impairment Decreased L knee AROM Impairment L knee AROM: sup is lacking 10-105 deg's; sitting ext is lacking 10 deg's. R knee AROM: sup is lacking 12 -112 deg's Short Term Goal (STG) Pt will improve L knee AROM to pre-surgical range. STG Duration 4 wks-04/10/24 Procurement Accountant Goal (LTG) Pt will improve L knee AROM to minimal 10 - 112 deg's with pt able to ambulate stairs with use of railing and step over step gait. LTG Duration 9 wks-05/15/24 Four Impairment Decreased function per TUG score 13 Impairment TUG 13 (20<40% impaired, score 12-13) Procurement Accountant Goal (LTG) Improve stability of gait per improved TUG score of 11-12 or less. LTG Duration 9 wks-05/15/24 Three Impairment Decreased L knee strength Impairment L knee flex 4/5, ext 5/5 R knee flex/ext is 5/5. Fdc Goal (LTG) Improve L knee strength to 5/5 with pt able to return to walking trails 30 min/day. LTG Duration 9 wks-05/15/24 Two Impairment Lacks knowledge for proper use of FWW and stair amb if painful L knee Short Term Goal (STG) Pt will be educated in proper use of walker and stair ambulation with use of railing and transfers getting in/out of bed as if s/p surgery. STG Duration 03/13/24 (03/13/24: MET GOAL) Procurement Accountant Goal (LTG) Pt will be able to demonstrate proper use of FWW with gait. 03/13/24: Pt walker adjusted for posture and gait training given with phys & v cuing needed. LTG Duration 4 wks-04/10/24 progressed One Impairment Pt lacks appropriate self care HEP. Impairment Pt will be educated in log roll transfers, proper body mechanics for ADLs, proper sitting/standing posture. LTG : Pt will be independent in an effective self care HEP for core/hip strengthening and mobility ex's. Short Term Goal (STG) Pt will be educated and be able to perform L knee post op TKA ex's. STG Duration 03/13/24 (03/13/24: MET GOAL) Fdc Goal (LTG) Pt will be independent in self care HEP of L knee ROM and strengthening ex's to promote functional use of the L knee and return her to trail walking with use of assist device for pain. LTG Duration 9 wks-05/15/24 Assessment Summary Assessment Pt is an 83 yo female who presents with L knee mechanical joint pain and soft tissue pain on palpation, who is waiting for an elective partial L medial knee arthroplasty, planned 03/18/24 . Pt primary goal today is to be trained in use of the walker and for post op care. The pt was been given a HEP to progress L knee ROM and strength for pre and post op care, educated in proper use of a FWW and stair ambulation that will be applicable to post op care. The pt will benefit from skilled physical therapy to achieve the above stated goals, pre and post operatively. Physical Therapy Plan Frequency and Duration Frequency of Treatment 2x/Week Duration of treatment (weeks) 9 Plan of Care Start Date 03/13/24 Plan of Care End Date 05/15/24 Therapeutic Interventions Therapeutic Interventions Balance Training,Gait Training ,Home Exercise Program,Joint Mobilizations,Manual Therapy, Neuromuscular Re-education, Self-Care/Home Management,Soft Tissue Mobilization,Taping, Therapeutic Activities, Therapeutic Exercises Modalities Cold Pack/Ice Massage,Electric Stimulation,Hot Packs Next Visit Focus/Plan Next Note Type Treatment Note Next Visit Plan Next: Re-evaluation for updated POC, post-op care, update of goals as needed. POC: s/p L partial knee arthroplasty; Edema management, ROM, strengthening , gait & stair training progressing to gait without assistive device and balance training for stability/safety with gait. Plan of Care Dates Plan of Care Start Date 03/13/24 Plan of Care End Date 05/15/24 Electronically Signed by: Hollie Harmon, PT 03/13/24 1957 If you are in agreement with this Plan of Care, please return a signed and dated copy. I have reviewed this Plan of Care and certify that the skilled therapy services above are required to meet the patient?s needs. Physician Signature Date Printed Name and Credentials Clinical Instructor Signature Printed Name and Credentials
--- NOTE | 2024-03-24 16:31 | PT-OP ANOTE ---
Phoned patient and left message with clinic phone number regarding patient is scheduled for a treatment and if she did have the surgery scheduled for 03/18/2024 she needs to be seen for and evaluation.
--- NOTE | 2024-03-25 18:30 | PT.OTRE ---
Current Diagnoses Unilateral primary osteoarthritis, left knee (03/25/24) Pain in left knee (03/25/24) Muscle weakness (generalized) (03/25/24) Other abnormalities of gait and mobility (03/25/24) Encounter for other preprocedural examination (03/25/24) Past Medical History (Last Reviewed 01/15/24 @ 01:16 by Dory Batista MD) Altered level of consciousness Anterograde amnesia Eczema Elevated fasting glucose Hyperlipidemia Impaired hearing Osteopenia Urinary incontinence Surgical History (Last Reviewed 01/15/24 @ 01:16 by Dory Batista MD) History of History of cataract surgery History of cholecystectomy History of ureter stent Visit Care Team Role Provider Type HAYDEE Beckford Family Provider Advanced Assistant Producer Primary Care Provider Specialty: Family Practice Address: [address] [place] [address], [id number] Email: [email or web address] Jose Castillo DO Attending Provider Non-Staff Referring Provider Specialty: Orthopedics Address: [address] [place] [address], [id number] Email: Physical Therapy Re-Evaluation PT-OP-A Visit Information Start: 03/07/24 18:38 Freq: Status: Active Protocol: Document 03/25/24 09:54 LRN (Rec: 03/25/24 10:39 LRN [id number]) Out-Patient Physical Therapy Visit Information Visit Information Visit Type Re-Evaluation Visit Note Parial L knee arthroplasty . Pt daughter was present throughout therapy. Visit Start Time 09:54 Visit Stop Time 10:34 Visit Number 2 Evaluation Information Evaluation Date 03/13/24 Precautions Precautions Back surgery (for ruptured disc) -30 yrs ago, hand surgery (carpal tunnel and trigger finger bilaterallly) 10 yrs ago. PT-OP-B Current Condition Start: 03/07/24 18:38 Freq: Status: Active Protocol: Document 03/25/24 09:54 LRN (Rec: 03/25/24 17:35 LRN [id number]) Current Condition History of Current Condition Onset Date 03/18/24 Current Complaints L knee pain, not able to walk on trails, using walker to walk History of Current Condition Pt returns after having an elective L medial knee arthroplasty 03/18/24. The pt has been home 1 wk and has been doing her HEP with her daughter, who is a PACU nurse at . Pt walks in with FWW. Transfer on/off plinth with a little help to her LLE, but is mostly independent. Pt reports she needs help getting her stockings and shoes on, which her daughter or helps her with. Prior Treatments and Tests Pre-op physical therapy visit 03/13/24. Treatment Goals Patient/Caregiver Goals Pt goal is: - to be able to walk w/o a walker, -to be able to return to walking on [place] as previously, 30-40 minutes, - to be able to ambulate stairs with a normal gait. Personal Factors Other Personal Factors That May Effect 3 steps to get in/out of Therapy/Recovery house. PT-OP-C Subjective Start: 03/07/24 18:38 Freq: Status: Active Protocol: Document 03/25/24 09:54 LRN (Rec: 03/25/24 10:39 LRN [id number]) OP-PT Subjective Patient Comments Patient Comments Pt surgery 03/18/24, partial L knee. Has been home 1 wk and has been doing HEP with daughter who is a PACU nurse at . Pt walks in with FWW. Transfer independently. A little help lifting leg and icing. Needs help getting stockings on and shoes. Patient Questionnaires Lower Extremity Functional Scale LEFS Score 13 LEFS Impairment 80 to 99% Impaired (Score 1-16 ) OP-PT Pain Assessment Pain Assessment Grid Paper Pain Assessment Grid Completed Yes Location Medial L knee Pain Location Details Medial side of L knee Intensity 5 Scale Used Numeric (0 - 10) PT-OP-E Functional Tests Start: 03/07/24 18:38 Freq: Status: Active Protocol: Document 03/13/24 08:16 LRN (Rec: 03/13/24 09:37 LRN [id number]) Functional Tests Timed Up and Go (TUG) Score 13 Comments Webbed chair, no use of hands TUG Impairment Rating 20 to <40% Impaired (Score 12- 13) PT-OP-G Mobility & Gait Start: 03/07/24 18:38 Freq: Status: Active Protocol: Document 03/25/24 09:54 LRN (Rec: 03/25/24 17:41 LRN [id number]) OP Mobility Evaluation Bed Mobility Supine to and from Sit Pt transfer by partially sidelying onto plinth. SBA transfer with a little help to LLE. Transfers Sit to Stand Independent. Daughter reports she sometimes needs help. OP Gait Assessment Gait Gait Assistance Required: Independent Distance (Feet) 70 Assistive Devices Assistive Device Front Wheeled Walker Gait Deviations General Gait Pattern Antalgic,Decreased Stride Length,Flexed Trunk,Narrow Based Gait Comments Gait Comments Pt mildly unsteady with intial start of gait; therefore not yet appropriate for single point cane. Stair Climbing Evaluation Evaluation Level of Assist On Stairs Standby Assistance Devices Stair Climbing Assistive Devices Straight Cane,Left Railing, Right Railing Technique/Endurance Stair Climbing Direction Ascend and Descend Stair Climbing Technique Step to Step Number of Steps Climbed 4 Stair Climbing Set # Repetitions (reps) 1 PT-OP-J Posture/Palpation/Skin Start: 03/07/24 18:38 Freq: Status: Active Protocol: Document 03/25/24 09:54 LRN (Rec: 03/25/24 17:46 LRN [id number]) Posture Evaluation Position Standing Head/C-Spine Posture Forward Head T-Spine Posture Increased Kyphosis L-Spine Posture Decreased Lordosis Arm Posture (L) Internally Rotated,(R) Internally Rotated Pelvis Posture Anteriorly Tilted Weight Distribution Weight Shifted Right Hip Posture (L) Flexed,(R) Flexed Knee Posture (L) Excess Flexion,(R) Excess Flexion Palpation Assessment Location L knee Palpation Location Pain at medial left knee Palpation Findings Tenderness Palpation Details Palpation over support hose. Bandage covering incision. PT-OP-K Range of Motion Start: 03/07/24 18:38 Freq: Status: Active Protocol: Document 03/25/24 09:54 LRN (Rec: 03/25/24 10:39 LRN [id number]) Knee Goniometric Range of Motion Knee Measured in Degrees Right Knee ROM WFL Yes Patient Position Sitting Flexion Active (degrees) 113 Extension Active (degrees) 3 Comments Sitting knee AROM: 3-113 Left Knee ROM WFL No Patient Position Sitting Flexion Active (degrees) 88 Extension Active (degrees) 20 Comments Sitting knee AROM: 20-88 PT-OP-M Strength Start: 03/07/24 18:38 Freq: Status: Active Protocol: Document 03/25/24 09:54 LRN (Rec: 03/25/24 17:41 LRN [id number]) Knee Strength Knee Manual Muscle Testing Right Flexion (S2) 5 Normal Extension (L3) 5 Normal Left Flexion (S2) 2+ Poor+ Extension (L3) 2+ Poor+ Comments Quad lag of 20 deg's PT-OP-Q Treatments Start: 03/07/24 18:38 Freq: Status: Active Protocol: Document 03/25/24 09:54 LRN (Rec: 03/25/24 10:39 LRN [id number]) Therapeutic Exercises Supine Exercises SAQ Side left Reps/Minutes 5 SH x 10 SLR Side left Reps/Minutes 10x Comments Review of HEP Glut set Side bilateral Reps/Minutes 5 SH x 10 Comments Review for HEP QS Side left Equipment Used Folded towel under knee for proprioception to blind escort knee Reps/Minutes 5 SH x 10 Comments Review for HEP heel slides Side left Reps/Minutes 15x Comments Review for HEP ankle pumps Side left Reps/Minutes 15x Comments Review of HEP Therapeutic Activity Therapeutic Activity Transfer training Name Transfer in/out of bed from right side. Reps/Minutes 12' Comments Pt bed set to enter/exit from R side. Gait Training Gait Activity Stair ambuation Description Stair ambulation Device Used 1 railing/cane Level of Assistance Much verbal cuing Distance/Duration 5' Treatment Focus Correct Step to gait with railing/cane Walker use Description Gait training with FWW after correct adjustment for posture . Device Used FWW Level of Assistance Much verbal and physical cuing Surface Level Distance/Duration 3' Treatment Focus Correct Step to gait with railing/cane Self-Care/Home Management Treatment Activities Self-Care/Home Management Activities I/S pt to continue using FWW for now with gait. Pt can start sitting knee flexion AROM. Encouraged pt to focus on improving ROM vs walking endurance and distance. PT-OP-T Assessment and Plan Start: 03/07/24 18:38 Freq: Status: Active Protocol: Document 03/25/24 09:54 LRN (Rec: 03/25/24 10:39 LRN [id number]) Physical Therapy Assessment Rehab Potential Rehabilitation Potential Good Evaluation Complexity Number of Personal Factors/Comorbidities 1-2 Number of Body Systems Impaired 4 or More Clinical Presentation at Evaluation Evolving Impairments Impairments Activity Tolerance,Balance, Edema,Functional Mobility,Gait ,Pain,Posture,ROM,Soft Tissue Mobility,Strength,Transfers Other Impairments Functional mobility-dressing socks and shoes Goals Five Impairment Decreased L knee AROM Impairment L knee AROM (pre-op): sup is lacking 10-105 deg's; sitting ext is lacking 10 deg's. L knee AROM (post-op): sitting is 20-88 deg's R knee AROM: sup is lacking 12 -112 deg's Short Term Goal (STG) Pt will improve L knee AROM to pre-surgical range (10-105 deg's) to improve sitting tolerance with L leg dependent w/o increased knee pain. STG Duration 6 wks-05/09/24 Wildland Fire Fighter Goal (LTG) Pt will improve L knee AROM to minimal 3 - 120 deg's with pt able to ambulate stairs with use of 1 railing and step over step gait. LTG Duration 12 wks-06/20/24 Four Impairment Decreased function per TUG score 13 Impairment TUG 13 (20<40% impaired, score 12-13) Wildland Fire Fighter Goal (LTG) Improve stability of gait per improved TUG score of 11-12 or less. LTG Duration 12 wks-06/20/24 Three Impairment Decreased L knee strength Impairment L knee (pre-op) flex 4/5, ext 5/5 L knee (post-op) flex 2+/5, ext 2+/5 R knee flex/ext is 5/5. Short Term Goal (STG) Improve L knee strength 1/2 grade with pt able to safely walk w/o walker. STG Duration 6 wks-05/09/24 Care Home Goal (LTG) Improve L knee strength to 5/5 with pt able to return to walking trails 30-40 min/day. LTG Duration 12 wks-06/20/24 Two Impairment L knee pain and assist needed for transfers sit<>supine Care Home Goal (LTG) Improve function with pt able to transfer sit<>supine w/on pain and independently. LTG Duration 12 wks-06/20/24 One Impairment Pt lacks appropriate self care HEP. Short Term Goal (STG) Pt will be educated and be able to perform L knee post op TKA ex's independently. STG Duration 2 wks-04/11/24 Care Home Goal (LTG) Pt will be independent in self care HEP of L knee ROM and strengthening ex's to promote functional use of the L knee and return her to trail walking. LTG Duration 12 wks-06/20/24 Assessment Summary Assessment Pt is an 83 yo female who is 7 days post-op L partial medial knee arthroplasty on 03/18/24. She presents with L knee mechanical and soft tissue pain with ROM and palpation. The pt attends with daughter, who is a PACU nurse, present throughout therapy. The pt has been doing her previously issued HEP and shows good tolerance to exercise, and appears to have a high pain tolerance. She might have difficulty performing PROM ex at home due to pain, but she has help of her daughter and is expected to do well, although pre surgery she was limted with AROM of the knee. She shows good use of FWW with ambulation, but is not ready to walk with just a cane at this time due to visible pain presentation with gait with walker. She is functionally limited with stair ambulation due to lack of ROM and pain. The pt is expected to do well with therapy, but because one of her goal's is to be able to walk the local trails 30-40 minutes, her rehab time is expected to be prolonged. The pt will benefit from skilled physical therapy to achieve the above stated goals. Physical Therapy Plan Frequency and Duration Frequency of Treatment 2x/Week Duration of treatment (weeks) 12 Plan of Care Start Date 03/25/24 Plan of Care End Date 06/20/24 Therapeutic Interventions Therapeutic Interventions Balance Training,Gait Training ,Home Exercise Program,Joint Mobilizations,Manual Therapy, Neuromuscular Re-education, Self-Care/Home Management,Soft Tissue Mobilization, Therapeutic Activities, Therapeutic Exercises Modalities Cold Pack/Ice Massage,Hot Packs Next Visit Focus/Plan Next Note Type Treatment Note Next Visit Plan Next: Assess TUG and if bandages of L knee removed, assess scar and edema. Progress L knee ROM and might try recumbent bike or stepper if it appears pt could tolerate. POC: s/p L partial knee arthroplasty; Edema management, ROM, strengthening , gait & stair training progressing to gait without assistive device and balance training for stability/safety with gait on level and for trail walking.
--- NOTE | 2024-04-01 11:24 | PT.OTN ---
Current Diagnoses Unilateral primary osteoarthritis, left knee (04/01/24) Pain in left knee (04/01/24) Muscle weakness (generalized) (04/01/24) Other abnormalities of gait and mobility (04/01/24) Encounter for other preprocedural examination (04/01/24) Physical Therapy Treatment Note PT-OP-A Visit Information Start: 03/07/24 18:38 Freq: Status: Active Protocol: Document 04/01/24 10:36 SP (Rec: 04/01/24 16:13 SP [id number]) Out-Patient Physical Therapy Visit Information Visit Information Visit Type Treatment Note Visit Note Parial L knee arthroplasty . Visit Start Time 10:36 Visit Stop Time 11:24 Visit Number 3 Number of OWNER MANAGER Visits 1 Evaluation Information Evaluation Date 03/13/24 Precautions Precautions Back surgery (for ruptured disc) -30 yrs ago, hand surgery (carpal tunnel and trigger finger bilaterallly) 10 yrs ago. PT-OP-B Current Condition Start: 03/07/24 18:38 Freq: Status: Active Protocol: Document 03/25/24 09:54 LRN (Rec: 03/25/24 17:35 LRN [id number]) Current Condition History of Current Condition Onset Date 03/18/24 Current Complaints L knee pain, not able to walk on trails, using walker to walk History of Current Condition Pt returns after having an elective L medial knee arthroplasty 03/18/24. The pt has been home 1 wk and has been doing her HEP with her daughter, who is a PACU nurse at . Pt walks in with FWW. Transfer on/off plinth with a little help to her LLE, but is mostly independent. Pt reports she needs help getting her stockings and shoes on, which her daughter or helps her with. Prior Treatments and Tests Pre-op physical therapy visit 03/13/24. Treatment Goals Patient/Caregiver Goals Pt goal is: - to be able to walk w/o a walker, -to be able to return to [place], 30-40 minutes, - to be able to ambulate stairs with a normal gait. Personal Factors Other Personal Factors That May Effect 3 steps to get in/out of Therapy/Recovery house. PT-OP-C Subjective Start: 03/07/24 18:38 Freq: Status: Active Protocol: Document 04/01/24 10:36 SP (Rec: 04/01/24 16:13 SP [id number]) OP-PT Subjective Patient Comments Patient Comments Pt reports Ortho pleased with ROM L knee. Arrived using FWW, L hip hike,limited knee ROM, Brian PHILIP stockings donned /c gauze under stockenette reduce friction. PT-OP-E Functional Tests Start: 03/07/24 18:38 Freq: Status: Active Protocol: Document 03/13/24 08:16 LRN (Rec: 03/13/24 09:37 LRN [id number]) Functional Tests Timed Up and Go (TUG) Score 13 Comments Webbed chair, no use of hands TUG Impairment Rating 20 to <40% Impaired (Score 12- 13) PT-OP-G Mobility & Gait Start: 03/07/24 18:38 Freq: Status: Active Protocol: Document 03/25/24 09:54 LRN (Rec: 03/25/24 17:41 LRN [id number]) OP Mobility Evaluation Bed Mobility Supine to and from Sit Pt transfer by partially sidelying onto plinth. SBA transfer with a little help to LLE. Transfers Sit to Stand Independent. Daughter reports she sometimes needs help. OP Gait Assessment Gait Gait Assistance Required: Independent Distance (Feet) 70 Assistive Devices Assistive Device Front Wheeled Walker Gait Deviations General Gait Pattern Antalgic,Decreased Stride Length,Flexed Trunk,Narrow Based Gait Comments Gait Comments Pt mildly unsteady with intial start of gait; therefore not yet appropriate for single point cane. Stair Climbing Evaluation Evaluation Level of Assist On Stairs Standby Assistance Devices Stair Climbing Assistive Devices Straight Cane,Left Railing, Right Railing Technique/Endurance Stair Climbing Direction Ascend and Descend Stair Climbing Technique Step to Step Number of Steps Climbed 4 Stair Climbing Set # Repetitions (reps) 1 PT-OP-J Posture/Palpation/Skin Start: 03/07/24 18:38 Freq: Status: Active Protocol: Document 03/25/24 09:54 LRN (Rec: 03/25/24 17:46 LRN [id number]) Posture Evaluation Position Standing Head/C-Spine Posture Forward Head T-Spine Posture Increased Kyphosis L-Spine Posture Decreased Lordosis Arm Posture (L) Internally Rotated,(R) Internally Rotated Pelvis Posture Anteriorly Tilted Weight Distribution Weight Shifted Right Hip Posture (L) Flexed,(R) Flexed Knee Posture (L) Excess Flexion,(R) Excess Flexion Palpation Assessment Location L knee Palpation Location Pain at medial left knee Palpation Findings Tenderness Palpation Details Palpation over support hose. Bandage covering incision. PT-OP-K Range of Motion Start: 03/07/24 18:38 Freq: Status: Active Protocol: Document 03/25/24 09:54 LRN (Rec: 03/25/24 10:39 LRN [id number]) Knee Goniometric Range of Motion Knee Right Knee ROM WFL Yes Patient Position Sitting Flexion Active (degrees) 113 Extension Active (degrees) 3 Comments Sitting knee AROM: 3-113 Left Knee ROM WFL No Patient Position Sitting Flexion Active (degrees) 88 Extension Active (degrees) 20 Comments Sitting knee AROM: 20-88 PT-OP-M Strength Start: 03/07/24 18:38 Freq: Status: Active Protocol: Document 03/25/24 09:54 LRN (Rec: 03/25/24 17:41 LRN [id number]) Knee Strength Knee Manual Muscle Testing Right Flexion (S2) 5 Normal Extension (L3) 5 Normal Left Flexion (S2) 2+ Poor+ Extension (L3) 2+ Poor+ Comments Quad lag of 20 deg's PT-OP-Q Treatments Start: 03/07/24 18:38 Freq: Status: Active Protocol: Document 04/01/24 10:36 SP (Rec: 04/01/24 16:13 SP [id number]) Cardio Equipment Recumbent Elliptical ([employer]) Duration (Minutes) 6 Resistance 1 Seat Position see 7 Other BUEs& BLEs Therapeutic Exercises Supine Exercises SLR Supine Exercise Name Review of HEP Side left Reps/Minutes 8 reps, small lag Comments cued TKE each rep QS Supine Exercise Name Review for HEP Side left Equipment Used Folded towel under knee for proprioception to tube station attendant knee Reps/Minutes 5 SH x 10 heel slides Supine Exercise Name Review for HEP Side left Resistance 9-99 deg AROM Reps/Minutes 15x Comments 1. AROM assess ROM, 2. use strap then AROM reassess 103 deg Sitting Exercises Knee ext Sitting Exercise Name Active knee flex/ext Side left Resistance AROM Reps/Minutes 8 reps Comments Review for HEP Therapeutic Activity Therapeutic Activity Transfer training Name Transfer in/out of bed from right side. Reps/Minutes 2 reps Comments Pt bed set to enter/exit from R side. Gait Training Gait Activity Walker use Description Gait training with FWW after correct adjustment for posture . Device Used FWW Level of Assistance Much verbal and physical cuing Surface Level Distance/Duration across clinic 80 ft, 5 9ft, 80 ft Treatment Focus increase stride, heel toe, knee& hip flexion Comments cued increase L hip flexion, TA /c level pelvis improved ed and post bike and HEP. Manual Therapy Treatment Soft Tissue Mobilization scar mobility Body Location L knee Mobilization Type Other Body Position Supine Comments fair mobility, still few francisco scabs left. Self-Care/Home Management Treatment Education Other Education GOod use of Philip hose for edema mgt, continues to use circulating cryocuff home borrowed, and HEP. Making gains in ROM. PT-OP-R Modalities Start: 03/07/24 18:38 Freq: Status: Active Protocol: Document 04/01/24 10:36 SP (Rec: 04/01/24 16:13 SP [id number]) Hot Pack/Cold Pack Treatment CP L knee Location L knee Patient Position Supine Patient Tolerance Good Comments ant/post knee PT-OP-T Assessment and Plan Start: 03/07/24 18:38 Freq: Status: Active Protocol: Document 04/01/24 10:36 SP (Rec: 04/01/24 16:13 SP [id number]) Physical Therapy Assessment Goals Five Impairment Decreased L knee AROM Impairment L knee AROM (pre-op): sup is lacking 10-105 deg's; sitting ext is lacking 10 deg's. L knee AROM (post-op): sitting is 20-88 deg's R knee AROM: sup is lacking 12 -112 deg's Short Term Goal (STG) Pt will improve L knee AROM to pre-surgical range (10-105 deg's) to improve sitting tolerance with L leg dependent w/o increased knee pain. 04/01/24: progressin-99 deg AROM, 103 /c strap assist after heel slide. STG Duration 6 wks-05/09/24 progressing 04/01 Care Home Goal (LTG) Pt will improve L knee AROM to minimal 3 - 120 deg's with pt able to ambulate stairs with use of 1 railing and step over step gait. 04/01/24: progressin-99 deg AROM, 103 /c strap assist after heel slide. LTG Duration 12 wks-06/20/24 progressing 04/01/24 Four Impairment Decreased function per TUG score 13 Impairment TUG 13 (20<40% impaired, score 12-13) Care Home Goal (LTG) Improve stability of gait per improved TUG score of 11-12 or less. LTG Duration 12 wks-06/20/24 Three Impairment Decreased L knee strength Impairment L knee (pre-op) flex 4/5, ext 5/5 L knee (post-op) flex 2+/5, ext 2+/5 R knee flex/ext is 5/5. Short Term Goal (STG) Improve L knee strength 1/2 grade with pt able to safely walk w/o walker. STG Duration 6 wks-05/09/24 Tail Dogger Goal (LTG) Improve L knee strength to 5/5 with pt able to return to walking trails 30-40 min/day. LTG Duration 12 wks-06/20/24 Two Impairment L knee pain and assist needed for transfers sit<>supine Care Home Goal (LTG) Improve function with pt able to transfer sit<>supine w/on pain and independently. LTG Duration 12 wks-06/20/24 One Impairment Pt lacks appropriate self care HEP. Impairment Pt will be educated in log roll transfers, proper body mechanics for ADLs, proper sitting/standing posture. LTG : Pt will be independent in an effective self care HEP for core/hip strengthening and mobility ex's. Short Term Goal (STG) Pt will be educated and be able to perform L knee post op TKA ex's independently. STG Duration 2 wks-04/11/24 Tail Dogger Goal (LTG) Pt will be independent in self care HEP of L knee ROM and strengthening ex's to promote functional use of the L knee and return her to trail walking. LTG Duration 12 wks-06/20/24 Assessment Summary Assessment Pt making gains in AROM 9-99 post bike, 103 deg post assisted heel slides. Improved quad contraction, cues for TKE pre each LE SLR to minimize lag. Improved L knee & hip flexion mechanics post ed during gait and ROM with ther ex. Better performance by end tx. Physical Therapy Plan Frequency and Duration Frequency of Treatment 2x/Week Duration of treatment (weeks) 12 Plan of Care Start Date 03/25/24 Plan of Care End Date 06/20/24 Therapeutic Interventions Therapeutic Interventions Balance Training,Gait Training ,Home Exercise Program,Joint Mobilizations,Manual Therapy, Neuromuscular Re-education, Self-Care/Home Management,Soft Tissue Mobilization, Therapeutic Activities, Therapeutic Exercises Modalities Cold Pack/Ice Massage,Hot Packs Next Visit Focus/Plan Next Note Type Treatment Note Next Visit Plan Next: Assess TUG, retro grade and assess scar mobility ed self performance self instruction and edema. Progress L knee ROM, biodex at this time then progress to recumbent bike. POC: s/p L partial knee arthroplasty; Edema management, ROM, strengthening , gait & stair training progressing to gait without assistive device and balance training for stability/safety with gait on level and for trail walking.
--- NOTE | 2024-04-03 09:27 | PT.OTN ---
Current Diagnoses Unilateral primary osteoarthritis, left knee (04/03/24) Pain in left knee (04/03/24) Muscle weakness (generalized) (04/03/24) Other abnormalities of gait and mobility (04/03/24) Encounter for other preprocedural examination (04/03/24) Physical Therapy Treatment Note PT-OP-A Visit Information Start: 03/07/24 18:38 Freq: Status: Active Protocol: Document 04/03/24 08:09 AB (Rec: 04/03/24 09:27 AB [id number]) Out-Patient Physical Therapy Visit Information Visit Information Visit Type Treatment Note Visit Note Parial L knee arthroplasty . Visit Start Time 08:18 Visit Stop Time 09:05 Visit Number 4 Number of ASSEMBLY LINE WORKER Visits 2 Evaluation Information Evaluation Date 03/13/24 Precautions Precautions Back surgery (for ruptured disc) -30 yrs ago, hand surgery (carpal tunnel and trigger finger bilaterallly) 10 yrs ago. PT-OP-B Current Condition Start: 03/07/24 18:38 Freq: Status: Active Protocol: Document 03/25/24 09:54 LRN (Rec: 03/25/24 17:35 LRN [id number]) Current Condition History of Current Condition Onset Date 03/18/24 Current Complaints L knee pain, not able to walk on trails, using walker to walk History of Current Condition Pt returns after having an elective L medial knee arthroplasty 03/18/24. The pt has been home 1 wk and has been doing her HEP with her daughter, who is a PACU nurse at . Pt walks in with FWW. Transfer on/off plinth with a little help to her LLE, but is mostly independent. Pt reports she needs help getting her stockings and shoes on, which her daughter or helps her with. Prior Treatments and Tests Pre-op physical therapy visit 03/13/24. Treatment Goals Patient/Caregiver Goals Pt goal is: - to be able to walk w/o a walker, -to be able to return to [place], 30-40 minutes, - to be able to ambulate stairs with a normal gait. Personal Factors Other Personal Factors That May Effect 3 steps to get in/out of Therapy/Recovery house. PT-OP-C Subjective Start: 03/07/24 18:38 Freq: Status: Active Protocol: Document 04/03/24 08:09 AB (Rec: 04/03/24 09:27 AB [id number]) OP-PT Subjective Patient Comments Patient Comments Patient reports she has no pain right now, comments sometimes she gets a sharp pain. Patient reports she doesn't always use the FWW in the kitchen and sometimes she forgets. Bandage is now off, but patient has gauze covering incision. SLS without UE use 1 sec left LE with reports of a little pain. TUG performed with FWW. Stand to sit with UE use and extends left. TUG 31 .86 sec with one UE for sit to stand 2 for stand to sit and uses FWW. Incision healing well, no redness, few small scabs left knee. lacking 10 deg ext to 101 deg flexion AROM left knee start of session. PT-OP-E Functional Tests Start: 03/07/24 18:38 Freq: Status: Active Protocol: Document 03/13/24 08:16 LRN (Rec: 03/13/24 09:37 LRN [id number]) Functional Tests Timed Up and Go (TUG) Score 13 Comments Webbed chair, no use of hands TUG Impairment Rating 20 to <40% Impaired (Score 12- 13) PT-OP-G Mobility & Gait Start: 03/07/24 18:38 Freq: Status: Active Protocol: Document 03/25/24 09:54 LRN (Rec: 03/25/24 17:41 LRN [id number]) OP Mobility Evaluation Bed Mobility Supine to and from Sit Pt transfer by partially sidelying onto plinth. SBA transfer with a little help to LLE. Transfers Sit to Stand Independent. Daughter reports she sometimes needs help. OP Gait Assessment Gait Gait Assistance Required: Independent Distance (Feet) 70 Assistive Devices Assistive Device Front Wheeled Walker Gait Deviations General Gait Pattern Antalgic,Decreased Stride Length,Flexed Trunk,Narrow Based Gait Comments Gait Comments Pt mildly unsteady with intial start of gait; therefore not yet appropriate for single point cane. Stair Climbing Evaluation Evaluation Level of Assist On Stairs Standby Assistance Devices Stair Climbing Assistive Devices Straight Cane,Left Railing, Right Railing Technique/Endurance Stair Climbing Direction Ascend and Descend Stair Climbing Technique Step to Step Number of Steps Climbed 4 Stair Climbing Set # Repetitions (reps) 1 PT-OP-J Posture/Palpation/Skin Start: 03/07/24 18:38 Freq: Status: Active Protocol: Document 03/25/24 09:54 LRN (Rec: 03/25/24 17:46 LRN [id number]) Posture Evaluation Position Standing Head/C-Spine Posture Forward Head T-Spine Posture Increased Kyphosis L-Spine Posture Decreased Lordosis Arm Posture (L) Internally Rotated,(R) Internally Rotated Pelvis Posture Anteriorly Tilted Weight Distribution Weight Shifted Right Hip Posture (L) Flexed,(R) Flexed Knee Posture (L) Excess Flexion,(R) Excess Flexion Palpation Assessment Location L knee Palpation Location Pain at medial left knee Palpation Findings Tenderness Palpation Details Palpation over support hose. Bandage covering incision. PT-OP-K Range of Motion Start: 03/07/24 18:38 Freq: Status: Active Protocol: Document 03/25/24 09:54 LRN (Rec: 03/25/24 10:39 LRN [id number]) Knee Goniometric Range of Motion Knee Right Knee ROM WFL Yes Patient Position Sitting Flexion Active (degrees) 113 Extension Active (degrees) 3 Comments Sitting knee AROM: 3-113 Left Knee ROM WFL No Patient Position Sitting Flexion Active (degrees) 88 Extension Active (degrees) 20 Comments Sitting knee AROM: 20-88 PT-OP-M Strength Start: 03/07/24 18:38 Freq: Status: Active Protocol: Document 03/25/24 09:54 LRN (Rec: 03/25/24 17:41 LRN [id number]) Knee Strength Knee Manual Muscle Testing Right Flexion (S2) 5 Normal Extension (L3) 5 Normal Left Flexion (S2) 2+ Poor+ Extension (L3) 2+ Poor+ Comments Quad lag of 20 deg's PT-OP-Q Treatments Start: 03/07/24 18:38 Freq: Status: Active Protocol: Document 04/03/24 08:09 AB (Rec: 04/03/24 09:27 AB [id number]) Therapeutic Exercises Supine Exercises knee flexion with feet on ball Side bilateral Reps/Minutes 2 min Comments verbal cues to fully flex and extend hamstring stretch from hooklying Supine Exercise Name holding behind knee with a towel Side left Reps/Minutes one minute X 2 Comments verbal cues SAQ Side left Reps/Minutes X10 Comments post manual therapy SLR Supine Exercise Name Review of HEP Comments post manual QS Side left Reps/Minutes X5 Comments tactile cues heel slides Supine Exercise Name Review for HEP AROM Side left Reps/Minutes X8 Comments post manual Sitting Exercises Knee ext Sitting Exercise Name LAQ Side left Resistance AROM Reps/Minutes X15 Therapeutic Activity Therapeutic Activity sit to stand Name with UE use Reps/Minutes X3 throughout session Comments Patient ed mechanics of sit to stand/importance of knee just past 90 deg to decrease forces on lumbar spine ie excessive momentum Manual Therapy Treatment Soft Tissue Mobilization left knee Body Location for swelling and Hamstring stiffness Mobilization Type Cross-Friction,Rolling,Other Intensity/Depth Moderate Body Position Hooklying Comments upward strokes to back and sides of knee, patient ed to perform seated prior to exercise, cross friction and rolling to HS scar mobility Body Location L knee Mobilization Type Myofascial Release Body Position Hooklying Comments avoiding directly over incision and scabs Self-Care/Home Management Treatment Education Other Education Patient ed use of upward strokes to sides and back of knee to decrease swelling and to perform pre exercise. PT-OP-R Modalities Start: 03/07/24 18:38 Freq: Status: Active Protocol: Document 04/01/24 10:36 SP (Rec: 04/01/24 16:13 SP [id number]) Hot Pack/Cold Pack Treatment CP L knee Location L knee Patient Position Supine Patient Tolerance Good Comments ant/post knee PT-OP-T Assessment and Plan Start: 03/07/24 18:38 Freq: Status: Active Protocol: Document 04/03/24 08:09 AB (Rec: 04/03/24 09:27 AB [id number]) Physical Therapy Assessment Goals Five Impairment Decreased L knee AROM Impairment L knee AROM (pre-op): sup is lacking 10-105 deg's; sitting ext is lacking 10 deg's. L knee AROM (post-op): sitting is 20-88 deg's R knee AROM: sup is lacking 12 -112 deg's Short Term Goal (STG) Pt will improve L knee AROM to pre-surgical range (10-105 deg's) to improve sitting tolerance with L leg dependent w/o increased knee pain. 04/01/24: progressin-99 deg AROM, 103 /c strap assist after heel slide. 04/03/2024 AROM left knee lacking 8 to 104 deg post manual therapy and exercise. STG Duration 6 wks-05/09/24 progressing 04/01 Surveillance Operator Goal (LTG) Pt will improve L knee AROM to minimal 3 - 120 deg's with pt able to ambulate stairs with use of 1 railing and step over step gait. 04/01/24: progressin-99 deg AROM, 103 /c strap assist after heel slide. LTG Duration 12 wks-06/20/24 progressing 04/01/24 Four Impairment Decreased function per TUG score 13 Impairment TUG 13 (20<40% impaired, score 12-13) Surveillance Operator Goal (LTG) Improve stability of gait per improved TUG score of 11-12 or less. 04/03/2024 TUG with FWW, UE use for sit to and from stand 31. 86 sec. ( FWW use due to 1 sec single leg stance left LE without UE use and reports of some increase in pain with trial ) LTG Duration 12 wks-06/20/24 Three Impairment Decreased L knee strength Impairment L knee (pre-op) flex 4/5, ext 5/5 L knee (post-op) flex 2+/5, ext 2+/5 R knee flex/ext is 5/5. Short Term Goal (STG) Improve L knee strength 1/2 grade with pt able to safely walk w/o walker. STG Duration 6 wks-05/09/24 [facility] Goal (LTG) Improve L knee strength to 5/5 with pt able to return to walking trails 30-40 min/day. LTG Duration 12 wks-06/20/24 Two Impairment L knee pain and assist needed for transfers sit<>supine [facility] Goal (LTG) Improve function with pt able to transfer sit<>supine w/on pain and independently. LTG Duration 12 wks-06/20/24 One Impairment Pt lacks appropriate self care HEP. Impairment Pt will be educated in log roll transfers, proper body mechanics for ADLs, proper sitting/standing posture. LTG : Pt will be independent in an effective self care HEP for core/hip strengthening and mobility ex's. Short Term Goal (STG) Pt will be educated and be able to perform L knee post op TKA ex's independently. STG Duration 2 wks-04/11/24 Surveillance Operator Goal (LTG) Pt will be independent in self care HEP of L knee ROM and strengthening ex's to promote functional use of the L knee and return her to trail walking. LTG Duration 12 wks-06/20/24 Assessment Summary Assessment Patient 2 weeks and 2 days post op. End of session lacking 8 deg extension to 104 deg flexion AROM left knee. No new exercises to HEP this session; patient ed upward strokes to back and sides of knee for swelling and improved mechanics with sit to stand with patient transferring sit to stand with increased left knee flexion end of session compared to start of session ( performed with UE use.) Physical Therapy Plan Frequency and Duration Frequency of Treatment 2x/Week Duration of treatment (weeks) 12 Plan of Care Start Date 03/25/24 Plan of Care End Date 06/20/24 Next Visit Focus/Plan Next Note Type Treatment Note Next Visit Plan Next: Assess retro grade Progress L knee ROM, biodex at this time then progress to recumbent bike. POC: s/p L partial knee arthroplasty; Edema management, ROM, strengthening , gait & stair training progressing to gait without assistive device and balance training for stability/safety with gait on level and for trail walking.
--- NOTE | 2024-04-08 16:04 | PT.OTN ---
Current Diagnoses Unilateral primary osteoarthritis, left knee (04/08/24) Pain in left knee (04/08/24) Muscle weakness (generalized) (04/08/24) Other abnormalities of gait and mobility (04/08/24) Encounter for other preprocedural examination (04/08/24) Physical Therapy Treatment Note PT-OP-A Visit Information Start: 03/07/24 18:38 Freq: Status: Active Protocol: Document 04/08/24 08:08 AB (Rec: 04/08/24 09:47 AB [id number]) Out-Patient Physical Therapy Visit Information Visit Information Visit Type Treatment Note Visit Note Parial L knee arthroplasty . Visit [email or web address] Access Code: [email or web address] Visit Start Time 09:02 Visit Stop Time 09:46 Visit Number 5 Number of FIREFIGHTER Visits 3 Evaluation Information Evaluation Date 03/13/24 Precautions Precautions Back surgery (for ruptured disc) -30 yrs ago, hand surgery (carpal tunnel and trigger finger bilaterallly) 10 yrs ago. PT-OP-B Current Condition Start: 03/07/24 18:38 Freq: Status: Active Protocol: Document 03/25/24 09:54 LRN (Rec: 03/25/24 17:35 LRN [id number]) Current Condition History of Current Condition Onset Date 03/18/24 Current Complaints L knee pain, not able to walk on trails, using walker to walk History of Current Condition Pt returns after having an elective L medial knee arthroplasty 03/18/24. The pt has been home 1 wk and has been doing her HEP with her daughter, who is a PACU nurse at . Pt walks in with FWW. Transfer on/off plinth with a little help to her LLE, but is mostly independent. Pt reports she needs help getting her stockings and shoes on, which her daughter or helps her with. Prior Treatments and Tests Pre-op physical therapy visit 03/13/24. Treatment Goals Patient/Caregiver Goals Pt goal is: - to be able to walk w/o a walker, -to be able to return to [place] previously, 30-40 minutes, - to be able to ambulate stairs with a normal gait. Personal Factors Other Personal Factors That May Effect 3 steps to get in/out of Therapy/Recovery house. PT-OP-C Subjective Start: 03/07/24 18:38 Freq: Status: Active Protocol: Document 04/08/24 08:08 AB (Rec: 04/08/24 09:47 AB [id number]) OP-PT Subjective Patient Comments Patient Comments Patient reports she is doing the exercies, c/o pain with bending the knee . Lacking 15 deg extension to 101 deg flexion start of session. PT-OP-E Functional Tests Start: 03/07/24 18:38 Freq: Status: Active Protocol: Document 03/13/24 08:16 LRN (Rec: 03/13/24 09:37 LRN [id number]) Functional Tests Timed Up and Go (TUG) Score 13 Comments Webbed chair, no use of hands TUG Impairment Rating 20 to <40% Impaired (Score 12- 13) PT-OP-G Mobility & Gait Start: 03/07/24 18:38 Freq: Status: Active Protocol: Document 03/25/24 09:54 LRN (Rec: 03/25/24 17:41 LRN [id number]) OP Mobility Evaluation Bed Mobility Supine to and from Sit Pt transfer by partially sidelying onto plinth. SBA transfer with a little help to LLE. Transfers Sit to Stand Independent. Daughter reports she sometimes needs help. OP Gait Assessment Gait Gait Assistance Required: Independent Distance (Feet) 70 Assistive Devices Assistive Device Front Wheeled Walker Gait Deviations General Gait Pattern Antalgic,Decreased Stride Length,Flexed Trunk,Narrow Based Gait Comments Gait Comments Pt mildly unsteady with intial start of gait; therefore not yet appropriate for single point cane. Stair Climbing Evaluation Evaluation Level of Assist On Stairs Standby Assistance Devices Stair Climbing Assistive Devices Straight Cane,Left Railing, Right Railing Technique/Endurance Stair Climbing Direction Ascend and Descend Stair Climbing Technique Step to Step Number of Steps Climbed 4 Stair Climbing Set # Repetitions (reps) 1 PT-OP-J Posture/Palpation/Skin Start: 03/07/24 18:38 Freq: Status: Active Protocol: Document 03/25/24 09:54 LRN (Rec: 03/25/24 17:46 LRN [id number]) Posture Evaluation Position Standing Head/C-Spine Posture Forward Head T-Spine Posture Increased Kyphosis L-Spine Posture Decreased Lordosis Arm Posture (L) Internally Rotated,(R) Internally Rotated Pelvis Posture Anteriorly Tilted Weight Distribution Weight Shifted Right Hip Posture (L) Flexed,(R) Flexed Knee Posture (L) Excess Flexion,(R) Excess Flexion Palpation Assessment Location L knee Palpation Location Pain at medial left knee Palpation Findings Tenderness Palpation Details Palpation over support hose. Bandage covering incision. PT-OP-K Range of Motion Start: 03/07/24 18:38 Freq: Status: Active Protocol: Document 03/25/24 09:54 LRN (Rec: 03/25/24 10:39 LRN [id number]) Knee Goniometric Range of Motion Knee Right Knee ROM WFL Yes Patient Position Sitting Flexion Active (degrees) 113 Extension Active (degrees) 3 Comments Sitting knee AROM: 3-113 Left Knee ROM WFL No Patient Position Sitting Flexion Active (degrees) 88 Extension Active (degrees) 20 Comments Sitting knee AROM: 20-88 PT-OP-M Strength Start: 03/07/24 18:38 Freq: Status: Active Protocol: Document 03/25/24 09:54 LRN (Rec: 03/25/24 17:41 LRN [id number]) Knee Strength Knee Manual Muscle Testing Right Flexion (S2) 5 Normal Extension (L3) 5 Normal Left Flexion (S2) 2+ Poor+ Extension (L3) 2+ Poor+ Comments Quad lag of 20 deg's PT-OP-Q Treatments Start: 03/07/24 18:38 Freq: Status: Active Protocol: Document 04/08/24 08:08 AB (Rec: 04/08/24 09:47 AB [id number]) Therapeutic Exercises Supine Exercises knee flexion with feet on ball Side bilateral Reps/Minutes 2 min Comments verbal cues to fully flex and extend Sitting Exercises quad sets Sitting Exercise Name in knee extension stretch seated and with heel on floor Side left Reps/Minutes X10 X 2 Knee ext Sitting Exercise Name 1. Seated knee ext stretch ( initiated supine) 2. LAQ HEP Side left Resistance AROM Reps/Minutes 1. 1 min and 4 min(seated) 2. X 15 Standing Exercises terminal knee extension Standing Exercise Name Pt holding FWW Side left Resistance level 2 band Reps/Minutes X10 Comments FWW standing quad set with FWW Side bilateral Reps/Minutes X5 alternating ie X 5 each Comments verbal cues sit to stand Standing Exercise Name HEP Side bilateral Reps/Minutes X1 X 2 then X 10 Comments VC for foot pos, weight shift, and to increase knee ext when upright Manual Therapy Treatment Soft Tissue Mobilization left knee Body Location for swelling and Hamstring stiffness Mobilization Type Cross-Friction,Rolling,Other Intensity/Depth Moderate Body Position Hooklying Comments upward strokes to back and sides of knee, cross friction and rolling to hamstring Self-Care/Home Management Treatment Education Other Education Patient ed to avoid sleeping with pillow under the knee due to AROM knee ext lacking 15 deg compared to previous session of lacking 10 and patient reports sleeping with pillow under LE when questioned. PT-OP-R Modalities Start: 03/07/24 18:38 Freq: Status: Active Protocol: Document 04/01/24 10:36 SP (Rec: 04/01/24 16:13 SP [id number]) Hot Pack/Cold Pack Treatment CP L knee Location L knee Patient Position Supine Patient Tolerance Good Comments ant/post knee PT-OP-T Assessment and Plan Start: 03/07/24 18:38 Freq: Status: Active Protocol: Document 04/08/24 08:08 AB (Rec: 04/08/24 09:47 AB [id number]) Physical Therapy Assessment Goals Five Impairment Decreased L knee AROM Impairment L knee AROM (pre-op): sup is lacking 10-105 deg's; sitting ext is lacking 10 deg's. L knee AROM (post-op): sitting is 20-88 deg's R knee AROM: sup is lacking 12 -112 deg's Short Term Goal (STG) Pt will improve L knee AROM to pre-surgical range (10-105 deg's) to improve sitting tolerance with L leg dependent w/o increased knee pain. 04/01/24: progressin-99 deg AROM, 103 /c strap assist after heel slide. 04/03/2024 AROM left knee lacking 8 to 104 deg post manual therapy and exercise. 04/08/2024 Patient ed to avoid sleeping with pillow under the knee due to AROM knee ext lacking 15 deg compared to previous session of lacking 10 and patient reports sleeping with pillow under LE when questioned. STG Duration 6 wks-05/09/24 progressing 04/01 Chief Deputy Coroner Goal (LTG) Pt will improve L knee AROM to minimal 3 - 120 deg's with pt able to ambulate stairs with use of 1 railing and step over step gait. 04/01/24: progressin-99 deg AROM, 103 /c strap assist after heel slide. LTG Duration 12 wks-06/20/24 progressing 04/01/24 Four Impairment Decreased function per TUG score 13 Impairment TUG 13 (20<40% impaired, score 12-13) Shelter Goal (LTG) Improve stability of gait per improved TUG score of 11-12 or less. 04/03/2024 TUG with FWW, UE use for sit to and from stand 31. 86 sec. ( FWW use due to 1 sec single leg stance left LE without UE use and reports of some increase in pain with trial ) LTG Duration 12 wks-06/20/24 Three Impairment Decreased L knee strength Impairment L knee (pre-op) flex 4/5, ext 5/5 L knee (post-op) flex 2+/5, ext 2+/5 R knee flex/ext is 5/5. Short Term Goal (STG) Improve L knee strength 1/2 grade with pt able to safely walk w/o walker. STG Duration 6 wks-05/09/24 Chief Deputy Coroner Goal (LTG) Improve L knee strength to 5/5 with pt able to return to walking trails 30-40 min/day. LTG Duration 12 wks-06/20/24 Two Impairment L knee pain and assist needed for transfers sit<>supine Shelter Goal (LTG) Improve function with pt able to transfer sit<>supine w/on pain and independently. 04/08/2024 Patient transfers supine to and from sit without UE use in clinic this session LTG Duration 12 wks-06/20/24 One Impairment Pt lacks appropriate self care HEP. Impairment Pt will be educated in log roll transfers, proper body mechanics for ADLs, proper sitting/standing posture. LTG : Pt will be independent in an effective self care HEP for core/hip strengthening and mobility ex's. Short Term Goal (STG) Pt will be educated and be able to perform L knee post op TKA ex's independent 04/08/2024 1. Patient ed rationale of seated knee ext stretch one hour over course of day for functional outcome ( 10 min X 6 or 15 min X 4)2. Pt ed to avoid positioning a pillow under LE when sleeping. 3. LAQ and sit to stand with focus on equal weight shift, LE position prior to sit to stand and to stand with knee straight prior to sitting dowl slowly. STG Duration 2 wks-04/11/24 Shelter Goal (LTG) Pt will be independent in self care HEP of L knee ROM and strengthening ex's to promote functional use of the L knee and return her to trail walking. LTG Duration 12 wks-06/20/24 Assessment Summary Assessment Nara into session lacking 15 deg extension left knee AROM, possibly due to sleeping with pillow under LE. AROM left knee lacking 10 deg extension end of session. Increased emphasis on knee extension this session due to significant decrease in extension compared to previous session. Physical Therapy Plan Frequency and Duration Frequency of Treatment 2x/Week Duration of treatment (weeks) 12 Plan of Care Start Date 03/25/24 Plan of Care End Date 06/20/24 Next Visit Focus/Plan Next Note Type Treatment Note Next Visit Plan Next: Assess retro grade Progress L knee ROM, biodex at this time then progress to recumbent bike. POC: s/p L partial knee arthroplasty; Edema management, ROM, strengthening , gait & stair training progressing to gait without assistive device and balance training for stability/safety with gait on level and for trail walking. Next session: assess knee extension.
--- NOTE | 2024-04-10 15:23 | PT.OTN ---
Current Diagnoses Unilateral primary osteoarthritis, left knee (04/10/24) Pain in left knee (04/10/24) Muscle weakness (generalized) (04/10/24) Other abnormalities of gait and mobility (04/10/24) Encounter for other preprocedural examination (04/10/24) Physical Therapy Treatment Note PT-OP-A Visit Information Start: 03/07/24 18:38 Freq: Status: Active Protocol: Document 04/10/24 14:32 NM (Rec: 04/10/24 15:23 NM [id number]) Out-Patient Physical Therapy Visit Information Visit Information Visit Type Treatment Note Visit Note Partial L knee arthroplasty . Visit Start Time 14:32 Visit Stop Time 15:15 Visit Number 6 Evaluation Information Evaluation Date 03/13/24 Precautions Precautions Back surgery (for ruptured disc) -30 yrs ago, hand surgery (carpal tunnel and trigger finger bilaterallly) 10 yrs ago. PT-OP-B Current Condition Start: 03/07/24 18:38 Freq: Status: Active Protocol: Document 03/25/24 09:54 LRN (Rec: 03/25/24 17:35 LRN [id number]) Current Condition History of Current Condition Onset Date 03/18/24 Current Complaints L knee pain, not able to walk on trails, using walker to walk History of Current Condition Pt returns after having an elective L medial knee arthroplasty 03/18/24. The pt has been home 1 wk and has been doing her HEP with her daughter, who is a PACU nurse at . Pt walks in with FWW. Transfer on/off plinth with a little help to her LLE, but is mostly independent. Pt reports she needs help getting her stockings and shoes on, which her daughter or helps her with. Prior Treatments and Tests Pre-op physical therapy visit 03/13/24. Treatment Goals Patient/Caregiver Goals Pt goal is: - to be able to walk w/o a walker, -to be able to return to [place], 30-40 minutes, - to be able to ambulate stairs with a normal gait. Personal Factors Other Personal Factors That May Effect 3 steps to get in/out of Therapy/Recovery house. PT-OP-C Subjective Start: 03/07/24 18:38 Freq: Status: Active Protocol: Document 04/10/24 14:32 NM (Rec: 04/10/24 15:23 NM [id number]) OP-PT Subjective Patient Comments Patient Comments Pt reports that her L knee feels pretty good today, states the hardest exercise is to bend the knee. She reports both painful and challenging. Has been trying to keep her knee straighter when walking PT-OP-E Functional Tests Start: 03/07/24 18:38 Freq: Status: Active Protocol: Document 03/13/24 08:16 LRN (Rec: 03/13/24 09:37 LRN [id number]) Functional Tests Timed Up and Go (TUG) Score 13 Comments Webbed chair, no use of hands TUG Impairment Rating 20 to <40% Impaired (Score 12- 13) PT-OP-G Mobility & Gait Start: 03/07/24 18:38 Freq: Status: Active Protocol: Document 03/25/24 09:54 LRN (Rec: 03/25/24 17:41 LRN [id number]) OP Mobility Evaluation Bed Mobility Supine to and from Sit Pt transfer by partially sidelying onto plinth. SBA transfer with a little help to LLE. Transfers Sit to Stand Independent. Daughter reports she sometimes needs help. OP Gait Assessment Gait Gait Assistance Required: Independent Distance (Feet) 70 Assistive Devices Assistive Device Front Wheeled Walker Gait Deviations General Gait Pattern Antalgic,Decreased Stride Length,Flexed Trunk,Narrow Based Gait Comments Gait Comments Pt mildly unsteady with intial start of gait; therefore not yet appropriate for single point cane. Stair Climbing Evaluation Evaluation Level of Assist On Stairs Standby Assistance Devices Stair Climbing Assistive Devices Straight Cane,Left Railing, Right Railing Technique/Endurance Stair Climbing Direction Ascend and Descend Stair Climbing Technique Step to Step Number of Steps Climbed 4 Stair Climbing Set # Repetitions (reps) 1 PT-OP-J Posture/Palpation/Skin Start: 03/07/24 18:38 Freq: Status: Active Protocol: Document 03/25/24 09:54 LRN (Rec: 03/25/24 17:46 LRN [id number]) Posture Evaluation Position Standing Head/C-Spine Posture Forward Head T-Spine Posture Increased Kyphosis L-Spine Posture Decreased Lordosis Arm Posture (L) Internally Rotated,(R) Internally Rotated Pelvis Posture Anteriorly Tilted Weight Distribution Weight Shifted Right Hip Posture (L) Flexed,(R) Flexed Knee Posture (L) Excess Flexion,(R) Excess Flexion Palpation Assessment Location L knee Palpation Location Pain at medial left knee Palpation Findings Tenderness Palpation Details Palpation over support hose. Bandage covering incision. PT-OP-K Range of Motion Start: 03/07/24 18:38 Freq: Status: Active Protocol: Document 03/25/24 09:54 LRN (Rec: 03/25/24 10:39 LRN [id number]) Knee Goniometric Range of Motion Knee Right Knee ROM WFL Yes Patient Position Sitting Flexion Active (degrees) 113 Extension Active (degrees) 3 Comments Sitting knee AROM: 3-113 Left Knee ROM WFL No Patient Position Sitting Flexion Active (degrees) 88 Extension Active (degrees) 20 Comments Sitting knee AROM: 20-88 PT-OP-M Strength Start: 03/07/24 18:38 Freq: Status: Active Protocol: Document 03/25/24 09:54 LRN (Rec: 03/25/24 17:41 LRN [id number]) Knee Strength Knee Manual Muscle Testing Right Flexion (S2) 5 Normal Extension (L3) 5 Normal Left Flexion (S2) 2+ Poor+ Extension (L3) 2+ Poor+ Comments Quad lag of 20 deg's PT-OP-Q Treatments Start: 03/07/24 18:38 Freq: Status: Active Protocol: Document 04/10/24 14:32 NM (Rec: 04/10/24 15:23 NM [id number]) Cardio Equipment Recumbent Bicycle Resistance 0 Seat Position 4 minutes Other warm up; 1/2 cycles Therapeutic Exercises Supine Exercises knee flexion with feet on ball Side bilateral Reps/Minutes 2 min Comments verbal cues to fully flex and extend; 106> 110 deg flex SAQ Side left Reps/Minutes 10x3 Comments following manual tx QS Side left Reps/Minutes 10x3 Sitting Exercises Knee ext Sitting Exercise Name 1. Seated knee ext stretch ( initiated supine) 2. LAQ (HEP review) Side left Reps/Minutes 1. 2 minutes supine, 2. 2x10 to PT hand, w/ facilitation @ quad Comments pain free Standing Exercises side steps Side bilateral Resistance AROM Equipment Used no hand support Reps/Minutes 2x10 ft Comments close SBA for balance sit to stand Standing Exercise Name HEP review Side bilateral Reps/Minutes 2x10 Comments cues for weight shift, eccentric control, TKE Manual Therapy Treatment Consent Patient gave verbal consent for manual Yes treatment Soft Tissue Mobilization left knee Body Location for swelling and Hamstring stiffness Mobilization Type Cross-Friction,Rolling,Other Intensity/Depth Moderate Body Position Hooklying Comments upward strokes to back and sides of knee, cross friction and rolling to hamstring scar mobility Body Location L knee Mobilization Type Myofascial Release Body Position Hooklying Comments avoiding directly over incision and scabs PT-OP-R Modalities Start: 03/07/24 18:38 Freq: Status: Active Protocol: Document 04/01/24 10:36 SP (Rec: 04/01/24 16:13 SP [id number]) Hot Pack/Cold Pack Treatment CP L knee Location L knee Patient Position Supine Patient Tolerance Good Comments ant/post knee PT-OP-T Assessment and Plan Start: 03/07/24 18:38 Freq: Status: Active Protocol: Document 04/10/24 14:32 NM (Rec: 04/10/24 15:23 NM [id number]) Physical Therapy Assessment Goals Five Impairment Decreased L knee AROM Impairment L knee AROM (pre-op): sup is lacking 10-105 deg's; sitting ext is lacking 10 deg's. L knee AROM (post-op): sitting is 20-88 deg's R knee AROM: sup is lacking 12 -112 deg's Short Term Goal (STG) Pt will improve L knee AROM to pre-surgical range (10-105 deg's) to improve sitting tolerance with L leg dependent w/o increased knee pain. 04/01/24: progressin-99 deg AROM, 103 /c strap assist after heel slide. 04/03/2024 AROM left knee lacking 8 to 104 deg post manual therapy and exercise. 04/08/2024 Patient ed to avoid sleeping with pillow under the knee due to AROM knee ext lacking 15 deg compared to previous session of lacking 10 and patient reports sleeping with pillow under LE when questioned. STG Duration 6 wks-05/09/24 progressing 04/01 Communications Professor Goal (LTG) Pt will improve L knee AROM to minimal 3 - 120 deg's with pt able to ambulate stairs with use of 1 railing and step over step gait. 04/01/24: progressin-99 deg AROM, 103 /c strap assist after heel slide. LTG Duration 12 wks-06/20/24 progressing 04/01/24 Four Impairment Decreased function per TUG score 13 Impairment TUG 13 (20<40% impaired, score 12-13) Communications Professor Goal (LTG) Improve stability of gait per improved TUG score of 11-12 or less. 04/03/2024 TUG with FWW, UE use for sit to and from stand 31. 86 sec. ( FWW use due to 1 sec single leg stance left LE without UE use and reports of some increase in pain with trial ) LTG Duration 12 wks-06/20/24 Three Impairment Decreased L knee strength Impairment L knee (pre-op) flex 4/5, ext 5/5 L knee (post-op) flex 2+/5, ext 2+/5 R knee flex/ext is 5/5. Short Term Goal (STG) Improve L knee strength 1/2 grade with pt able to safely walk w/o walker. STG Duration 6 wks-05/09/24 Snf Goal (LTG) Improve L knee strength to 5/5 with pt able to return to walking trails 30-40 min/day. LTG Duration 12 wks-06/20/24 Two Impairment L knee pain and assist needed for transfers sit<>supine Snf Goal (LTG) Improve function with pt able to transfer sit<>supine w/on pain and independently. 04/08/2024 Patient transfers supine to and from sit without UE use in clinic this session LTG Duration 12 wks-06/20/24 One Impairment Pt lacks appropriate self care HEP. Impairment Pt will be educated in log roll transfers, proper body mechanics for ADLs, proper sitting/standing posture. LTG : Pt will be independent in an effective self care HEP for core/hip strengthening and mobility ex's. Short Term Goal (STG) Pt will be educated and be able to perform L knee post op TKA ex's independent 04/08/2024 1. Patient ed rationale of seated knee ext stretch one hour over course of day for functional outcome ( 10 min X 6 or 15 min X 4)2. Pt ed to avoid positioning a pillow under LE when sleeping. 3. LAQ and sit to stand with focus on equal weight shift, LE position prior to sit to stand and to stand with knee straight prior to sitting dowl slowly. STG Duration 2 wks-04/11/24 Snf Goal (LTG) Pt will be independent in self care HEP of L knee ROM and strengthening ex's to promote functional use of the L knee and return her to trail walking. LTG Duration 12 wks-06/20/24 Assessment Summary Assessment Pt tolerated session well. Currently 3 weeks 2 days post- op. Pt has medial knee pain over incision with exercise as she fatigues. Currently 106 deg L knee flexion at start of session, 110 deg flexion at end of session; lacking 8 deg of extension at start of session, lacking 5 deg at end of session. Emphasis today on restoring knee AROM. Pt unable to perform full cycles on recumbent bike due to knee flex restrictions. Cued for TKE during stance, gait, and LAQ/SAQ/STS. Pt requires moderate cues for form with STS for control with eccentric lowering, weight shift, and TKE. She is able to perform well from elevated plinth with control during descent when cued to maintain weight shift anterior. Pt would benefit from skilled PT for L knee mobility and strength in order to improve gait, balance, and activity tolerance. Physical Therapy Plan Frequency and Duration Frequency of Treatment 2x/Week Duration of treatment (weeks) 12 Plan of Care Start Date 03/25/24 Plan of Care End Date 06/20/24 Therapeutic Interventions Therapeutic Interventions Balance Training,Gait Training ,Home Exercise Program,Joint Mobilizations,Manual Therapy, Neuromuscular Re-education, Self-Care/Home Management,Soft Tissue Mobilization, Therapeutic Activities, Therapeutic Exercises Modalities Cold Pack/Ice Massage,Hot Packs Next Visit Focus/Plan Next Note Type Treatment Note Next Visit Plan Next: biodex, knee flex on wall or ball, minisquat, STS, TKE wall, side steps/ resistance Progress L knee ROM, biodex at this time then progress to recumbent bike. POC: s/p L partial knee arthroplasty; Edema management, ROM, strengthening , gait & stair training progressing to gait without assistive device and balance training for stability/safety with gait on level and for trail walking. Next session: assess knee extension.
--- NOTE | 2024-04-15 12:47 | PT.OTN ---
Current Diagnoses Unilateral primary osteoarthritis, left knee (04/15/24) Pain in left knee (04/15/24) Muscle weakness (generalized) (04/15/24) Other abnormalities of gait and mobility (04/15/24) Encounter for other preprocedural examination (04/15/24) Physical Therapy Treatment Note PT-OP-A Visit Information Start: 03/07/24 18:38 Freq: Status: Active Protocol: Document 04/15/24 07:25 NM (Rec: 04/15/24 08:18 NM [id number]) Out-Patient Physical Therapy Visit Information Visit Information Visit Type Treatment Note Visit Note Partial L knee arthroplasty . Visit Start Time 07:33 Visit Stop Time 08:15 Visit Number 7 Evaluation Information Evaluation Date 03/13/24 Precautions Precautions Back surgery (for ruptured disc) -30 yrs ago, hand surgery (carpal tunnel and trigger finger bilaterallly) 10 yrs ago. PT-OP-B Current Condition Start: 03/07/24 18:38 Freq: Status: Active Protocol: Document 03/25/24 09:54 LRN (Rec: 03/25/24 17:35 LRN [id number]) Current Condition History of Current Condition Onset Date 03/18/24 Current Complaints L knee pain, not able to walk on trails, using walker to walk History of Current Condition Pt returns after having an elective L medial knee arthroplasty 03/18/24. The pt has been home 1 wk and has been doing her HEP with her daughter, who is a PACU nurse at . Pt walks in with FWW. Transfer on/off plinth with a little help to her LLE, but is mostly independent. Pt reports she needs help getting her stockings and shoes on, which her daughter or helps her with. Prior Treatments and Tests Pre-op physical therapy visit 03/13/24. Treatment Goals Patient/Caregiver Goals Pt goal is: - to be able to walk w/o a walker, -to be able to return to walking [place] previously, 30-40 minutes, - to be able to ambulate stairs with a normal gait. Personal Factors Other Personal Factors That May Effect 3 steps to get in/out of Therapy/Recovery house. PT-OP-C Subjective Start: 03/07/24 18:38 Freq: Status: Active Protocol: Document 04/15/24 07:25 NM (Rec: 04/15/24 08:18 NM [id number]) OP-PT Subjective Patient Comments Patient Comments Pt reports occasional knee pain. States that she was walking outside, states felt so good that she walked too much. Now has a little medial knee pain. Exercises going ok. Not sleeping with pillow under leg PT-OP-E Functional Tests Start: 03/07/24 18:38 Freq: Status: Active Protocol: Document 03/13/24 08:16 LRN (Rec: 03/13/24 09:37 LRN [id number]) Functional Tests Timed Up and Go (TUG) Score 13 Comments Webbed chair, no use of hands TUG Impairment Rating 20 to <40% Impaired (Score 12- 13) PT-OP-G Mobility & Gait Start: 03/07/24 18:38 Freq: Status: Active Protocol: Document 03/25/24 09:54 LRN (Rec: 03/25/24 17:41 LRN [id number]) OP Mobility Evaluation Bed Mobility Supine to and from Sit Pt transfer by partially sidelying onto plinth. SBA transfer with a little help to LLE. Transfers Sit to Stand Independent. Daughter reports she sometimes needs help. OP Gait Assessment Gait Gait Assistance Required: Independent Distance (Feet) 70 Assistive Devices Assistive Device Front Wheeled Walker Gait Deviations General Gait Pattern Antalgic,Decreased Stride Length,Flexed Trunk,Narrow Based Gait Comments Gait Comments Pt mildly unsteady with intial start of gait; therefore not yet appropriate for single point cane. Stair Climbing Evaluation Evaluation Level of Assist On Stairs Standby Assistance Devices Stair Climbing Assistive Devices Straight Cane,Left Railing, Right Railing Technique/Endurance Stair Climbing Direction Ascend and Descend Stair Climbing Technique Step to Step Number of Steps Climbed 4 Stair Climbing Set # Repetitions (reps) 1 PT-OP-J Posture/Palpation/Skin Start: 03/07/24 18:38 Freq: Status: Active Protocol: Document 03/25/24 09:54 LRN (Rec: 03/25/24 17:46 LRN [id number]) Posture Evaluation Position Standing Head/C-Spine Posture Forward Head T-Spine Posture Increased Kyphosis L-Spine Posture Decreased Lordosis Arm Posture (L) Internally Rotated,(R) Internally Rotated Pelvis Posture Anteriorly Tilted Weight Distribution Weight Shifted Right Hip Posture (L) Flexed,(R) Flexed Knee Posture (L) Excess Flexion,(R) Excess Flexion Palpation Assessment Location L knee Palpation Location Pain at medial left knee Palpation Findings Tenderness Palpation Details Palpation over support hose. Bandage covering incision. PT-OP-K Range of Motion Start: 03/07/24 18:38 Freq: Status: Active Protocol: Document 03/25/24 09:54 LRN (Rec: 03/25/24 10:39 LRN [id number]) Knee Goniometric Range of Motion Knee Right Knee ROM WFL Yes Patient Position Sitting Flexion Active (degrees) 113 Extension Active (degrees) 3 Comments Sitting knee AROM: 3-113 Left Knee ROM WFL No Patient Position Sitting Flexion Active (degrees) 88 Extension Active (degrees) 20 Comments Sitting knee AROM: 20-88 PT-OP-M Strength Start: 03/07/24 18:38 Freq: Status: Active Protocol: Document 03/25/24 09:54 LRN (Rec: 03/25/24 17:41 LRN [id number]) Knee Strength Knee Manual Muscle Testing Right Flexion (S2) 5 Normal Extension (L3) 5 Normal Left Flexion (S2) 2+ Poor+ Extension (L3) 2+ Poor+ Comments Quad lag of 20 deg's PT-OP-Q Treatments Start: 03/07/24 18:38 Freq: Status: Active Protocol: Document 04/15/24 07:25 NM (Rec: 04/15/24 08:18 NM [id number]) Cardio Equipment Recumbent Stepper (Sci-Fit) Duration (Minutes) 8 Resistance 0 Seat Position 10>9 Other feels stretch, denies pain Therapeutic Exercises Supine Exercises hamstring stretch from hooklying Supine Exercise Name holding behind knee with a strap Side left Reps/Minutes 2x30 Comments following manual tx SLR Supine Exercise Name Review of HEP Reps/Minutes 10 Comments post manual; feels in glute due to quad lag but good quad contraction QS Side left Equipment Used on 09/25 foam roller Reps/Minutes 5x5 Comments following manual tx; btwn HS stretch; small heel lift Sitting Exercises Knee ext Sitting Exercise Name 1. Seated knee ext stretch ( supine today) 2. LAQ Side left Reps/Minutes 1. 2 minutes supine, 2. 2x10 to PT hand Comments pain free Standing Exercises side steps Comments close SBA for balance terminal knee extension Standing Exercise Name Pt holding FWW Side left Resistance level 2 band Reps/Minutes 2x10 with 3 hold (HEP) Comments FWW; cued quad facilitation sit to stand Side bilateral Reps/Minutes 2x10 with level 2 band at thighs Manual Therapy Treatment Consent Patient gave verbal consent for manual Yes treatment Soft Tissue Mobilization left knee Body Location for swelling and Hamstring stiffness, quad Mobilization Type Cross-Friction,Rolling,Other Intensity/Depth Moderate Body Position Hooklying Comments upward strokes to back and sides of knee, cross friction and rolling to hamstring and quad in addition to peripatellar scar mobility Body Location L knee Mobilization Type Myofascial Release Body Position Hooklying Comments avoiding directly over incision and scabs at distal scar Joint Mobilizations L patellar Direction sup, inf, med, lat Grade II Reps/Duration 10 ea direction Comments limited patellar mobility due to swelling, PT-OP-R Modalities Start: 03/07/24 18:38 Freq: Status: Active Protocol: Document 04/01/24 10:36 SP (Rec: 04/01/24 16:13 SP [id number]) Hot Pack/Cold Pack Treatment CP L knee Location L knee Patient Position Supine Patient Tolerance Good Comments ant/post knee PT-OP-T Assessment and Plan Start: 03/07/24 18:38 Freq: Status: Active Protocol: Document 04/15/24 07:25 NM (Rec: 04/15/24 08:18 NM [id number]) Physical Therapy Assessment Goals Five Impairment Decreased L knee AROM Impairment L knee AROM (pre-op): sup is lacking 10-105 deg's; sitting ext is lacking 10 deg's. L knee AROM (post-op): sitting is 20-88 deg's R knee AROM: sup is lacking 12 -112 deg's Short Term Goal (STG) Pt will improve L knee AROM to pre-surgical range (10-105 deg's) to improve sitting tolerance with L leg dependent w/o increased knee pain. 04/01/24: progressin-99 deg AROM, 103 /c strap assist after heel slide. 04/03/2024 AROM left knee lacking 8 to 104 deg post manual therapy and exercise. 04/08/2024 Patient ed to avoid sleeping with pillow under the knee due to AROM knee ext lacking 15 deg compared to previous session of lacking 10 and patient reports sleeping with pillow under LE when questioned. STG Duration 6 wks-05/09/24 progressing 04/01 Fdc Goal (LTG) Pt will improve L knee AROM to minimal 3 - 120 deg's with pt able to ambulate stairs with use of 1 railing and step over step gait. 04/01/24: progressin-99 deg AROM, 103 /c strap assist after heel slide. LTG Duration 12 wks-06/20/24 progressing 04/01/24 Four Impairment Decreased function per TUG score 13 Impairment TUG 13 (20<40% impaired, score 12-13) Test Analyst Goal (LTG) Improve stability of gait per improved TUG score of 11-12 or less. 04/03/2024 TUG with FWW, UE use for sit to and from stand 31. 86 sec. ( FWW use due to 1 sec single leg stance left LE without UE use and reports of some increase in pain with trial ) LTG Duration 12 wks-06/20/24 Three Impairment Decreased L knee strength Impairment L knee (pre-op) flex 4/5, ext 5/5 L knee (post-op) flex 2+/5, ext 2+/5 R knee flex/ext is 5/5. Short Term Goal (STG) Improve L knee strength 1/2 grade with pt able to safely walk w/o walker. STG Duration 6 wks-05/09/24 Fdc Goal (LTG) Improve L knee strength to 5/5 with pt able to return to walking trails 30-40 min/day. LTG Duration 12 wks-06/20/24 Two Impairment L knee pain and assist needed for transfers sit<>supine Fdc Goal (LTG) Improve function with pt able to transfer sit<>supine w/on pain and independently. 04/08/2024 Patient transfers supine to and from sit without UE use in clinic this session LTG Duration 12 wks-06/20/24 One Impairment Pt lacks appropriate self care HEP. Impairment Pt will be educated in log roll transfers, proper body mechanics for ADLs, proper sitting/standing posture. LTG : Pt will be independent in an effective self care HEP for core/hip strengthening and mobility ex's. Short Term Goal (STG) Pt will be educated and be able to perform L knee post op TKA ex's independent 04/08/2024 1. Patient ed rationale of seated knee ext stretch one hour over course of day for functional outcome ( 10 min X 6 or 15 min X 4)2. Pt ed to avoid positioning a pillow under LE when sleeping. 3. LAQ and sit to stand with focus on equal weight shift, LE position prior to sit to stand and to stand with knee straight prior to sitting dowl slowly. STG Duration 2 wks-04/11/24 Fdc Goal (LTG) Pt will be independent in self care HEP of L knee ROM and strengthening ex's to promote functional use of the L knee and return her to trail walking. LTG Duration 12 wks-06/20/24 Assessment Summary Assessment Pt tolerated session well. Currently 4 weeks post op. Lacking 5 deg extension at end of session in L knee. Educated on heel<>toe mechanics with gait to encourage TKE and improve mechanics. Continued to recommend AD use for balance as pt attempting to discard to side during session when ambulating to biodex or table. Emphasis on TKE during session with gait, STS. Trialed TKE with band and issued to HEP. Improved quad activation during sit to stand , but still lacking end range extension. Pt with 108 deg knee flexion, continues to make progress but reports tightness along anterior knee . Continues to have good response to soft tissue mobilization. Initiated patellar mobilizations to improve patellar mobility during knee flexion/extension; pt lacking patellar mobility in all directions. Pt would benefit from skilled PT for L knee mobility and strengthening in order to normalize mechanics and return to PLOF. Physical Therapy Plan Frequency and Duration Frequency of Treatment 2x/Week Duration of treatment (weeks) 12 Plan of Care Start Date 03/25/24 Plan of Care End Date 06/20/24 Therapeutic Interventions Therapeutic Interventions Balance Training,Gait Training ,Home Exercise Program,Joint Mobilizations,Manual Therapy, Neuromuscular Re-education, Self-Care/Home Management,Soft Tissue Mobilization, Therapeutic Activities, Therapeutic Exercises Modalities Cold Pack/Ice Massage,Hot Packs Next Visit Focus/Plan Next Note Type Treatment Note Next Visit Plan E stim to quad; cont TKE and knee flex; squat with hand support Next: biodex, knee flex on wall or ball, minisquat, STS, TKE wall, side steps/ resistance Progress L knee ROM, biodex at this time then progress to recumbent bike. POC: s/p L partial knee arthroplasty; Edema management, ROM, strengthening , gait & stair training progressing to gait without assistive device and balance training for stability/safety with gait on level and for trail walking. Next session: assess knee extension.
--- NOTE | 2024-04-17 12:49 | PT.OTN ---
Current Diagnoses Unilateral primary osteoarthritis, left knee (04/17/24) Pain in left knee (04/17/24) Muscle weakness (generalized) (04/17/24) Other abnormalities of gait and mobility (04/17/24) Encounter for other preprocedural examination (04/17/24) Physical Therapy Treatment Note PT-OP-A Visit Information Start: 03/07/24 18:38 Freq: Status: Active Protocol: Document 04/17/24 09:36 AB (Rec: 04/17/24 10:12 AB [id number]) Out-Patient Physical Therapy Visit Information Visit Information Visit Type Treatment Note Visit Note Partial L knee arthroplasty . Visit [email or web address] Access Code: [email or web address] Visit Start Time 09:48 Visit Stop Time 10:32 Visit Number 8 Number of NETSUITE DEVELOPER Visits 1 Evaluation Information Evaluation Date 03/13/24 Precautions Precautions Back surgery (for ruptured disc) -30 yrs ago, hand surgery (carpal tunnel and trigger finger bilaterallly) 10 yrs ago. PT-OP-B Current Condition Start: 03/07/24 18:38 Freq: Status: Active Protocol: Document 03/25/24 09:54 LRN (Rec: 03/25/24 17:35 LRN [id number]) Current Condition History of Current Condition Onset Date 03/18/24 Current Complaints L knee pain, not able to walk on trails, using walker to walk History of Current Condition Pt returns after having an elective L medial knee arthroplasty 03/18/24. The pt has been home 1 wk and has been doing her HEP with her daughter, who is a PACU nurse at . Pt walks in with FWW. Transfer on/off plinth with a little help to her LLE, but is mostly independent. Pt reports she needs help getting her stockings and shoes on, which her daughter or helps her with. Prior Treatments and Tests Pre-op physical therapy visit 03/13/24. Treatment Goals Patient/Caregiver Goals Pt goal is: - to be able to walk w/o a walker, -to be able to return to [place], 30-40 minutes, - to be able to ambulate stairs with a normal gait. Personal Factors Other Personal Factors That May Effect 3 steps to get in/out of Therapy/Recovery house. PT-OP-C Subjective Start: 03/07/24 18:38 Freq: Status: Active Protocol: Document 04/17/24 09:36 AB (Rec: 04/17/24 10:12 AB [id number]) OP-PT Subjective Patient Comments Patient Comments Patient reports she has more energy and is walking more. Left quad with decreased activation during quad set start of session. lacking 11 deg extension to 100 deg flexion PT-OP-E Functional Tests Start: 03/07/24 18:38 Freq: Status: Active Protocol: Document 03/13/24 08:16 LRN (Rec: 03/13/24 09:37 LRN [id number]) Functional Tests Timed Up and Go (TUG) Score 13 Comments Webbed chair, no use of hands TUG Impairment Rating 20 to <40% Impaired (Score 12- 13) PT-OP-G Mobility & Gait Start: 03/07/24 18:38 Freq: Status: Active Protocol: Document 03/25/24 09:54 LRN (Rec: 03/25/24 17:41 LRN [id number]) OP Mobility Evaluation Bed Mobility Supine to and from Sit Pt transfer by partially sidelying onto plinth. SBA transfer with a little help to LLE. Transfers Sit to Stand Independent. Daughter reports she sometimes needs help. OP Gait Assessment Gait Gait Assistance Required: Independent Distance (Feet) 70 Assistive Devices Assistive Device Front Wheeled Walker Gait Deviations General Gait Pattern Antalgic,Decreased Stride Length,Flexed Trunk,Narrow Based Gait Comments Gait Comments Pt mildly unsteady with intial start of gait; therefore not yet appropriate for single point cane. Stair Climbing Evaluation Evaluation Level of Assist On Stairs Standby Assistance Devices Stair Climbing Assistive Devices Straight Cane,Left Railing, Right Railing Technique/Endurance Stair Climbing Direction Ascend and Descend Stair Climbing Technique Step to Step Number of Steps Climbed 4 Stair Climbing Set # Repetitions (reps) 1 PT-OP-J Posture/Palpation/Skin Start: 03/07/24 18:38 Freq: Status: Active Protocol: Document 03/25/24 09:54 LRN (Rec: 03/25/24 17:46 LRN [id number]) Posture Evaluation Position Standing Head/C-Spine Posture Forward Head T-Spine Posture Increased Kyphosis L-Spine Posture Decreased Lordosis Arm Posture (L) Internally Rotated,(R) Internally Rotated Pelvis Posture Anteriorly Tilted Weight Distribution Weight Shifted Right Hip Posture (L) Flexed,(R) Flexed Knee Posture (L) Excess Flexion,(R) Excess Flexion Palpation Assessment Location L knee Palpation Location Pain at medial left knee Palpation Findings Tenderness Palpation Details Palpation over support hose. Bandage covering incision. PT-OP-K Range of Motion Start: 03/07/24 18:38 Freq: Status: Active Protocol: Document 03/25/24 09:54 LRN (Rec: 03/25/24 10:39 LRN [id number]) Knee Goniometric Range of Motion Knee Right Knee ROM WFL Yes Patient Position Sitting Flexion Active (degrees) 113 Extension Active (degrees) 3 Comments Sitting knee AROM: 3-113 Left Knee ROM WFL No Patient Position Sitting Flexion Active (degrees) 88 Extension Active (degrees) 20 Comments Sitting knee AROM: 20-88 PT-OP-M Strength Start: 03/07/24 18:38 Freq: Status: Active Protocol: Document 03/25/24 09:54 LRN (Rec: 03/25/24 17:41 LRN [id number]) Knee Strength Knee Manual Muscle Testing Right Flexion (S2) 5 Normal Extension (L3) 5 Normal Left Flexion (S2) 2+ Poor+ Extension (L3) 2+ Poor+ Comments Quad lag of 20 deg's PT-OP-Q Treatments Start: 03/07/24 18:38 Freq: Status: Active Protocol: Document 04/17/24 09:36 AB (Rec: 04/17/24 10:12 AB [id number]) Cardio Equipment Recumbent Elliptical (BiodDomino) Duration (Minutes) 5 Resistance 1 Seat Position seat 7 then 8 Other BUEs& BLEs Therapeutic Exercises Supine Exercises hamstring stretch from hooklying Supine Exercise Name holding behind knee with a strap Side left Reps/Minutes 2x60 Comments following manual tx SLR Supine Exercise Name Review of HEP Reps/Minutes 10 Comments VC to keep knee straight when raising and lowering QS Side left Equipment Used towel roll Reps/Minutes X10x5 Comments following manual tx; btwn HS stretch; Standing Exercises terminal knee extension Standing Exercise Name Pt holding FWW Resistance with ball behind knee Reps/Minutes X15 Manual Therapy Treatment Soft Tissue Mobilization left knee Body Location for swelling and Hamstring stiffness, quad Mobilization Type Cross-Friction,Rolling,Other Intensity/Depth Moderate Body Position Hooklying Comments upward strokes to back and sides of knee, cross friction and rolling to hamstring and quad in addition to peripatellar scar mobility Body Location L knee distal quad areas of dec mobility increased density Mobilization Type Cross-Friction,Myofascial Release Body Position Hooklying Comments avoiding directly over incision and scabs at distal scar Joint Mobilizations L patellar Direction sup, inf, med, lat,CW and CCW Grade III Reps/Duration 16 ea direction Neuro Re-Education Treatment Other Activities tapping to facilitate quad followed by seated QS Details HEP Reps/Duration X10 Comments Verbal and visual cues Self-Care/Home Management Treatment Activities Self-Care/Home Management Activities Patient ed to perform seated knee extension stretch 15 min X 4 a day or 10 min X 6 X a day PT-OP-R Modalities Start: 03/07/24 18:38 Freq: Status: Active Protocol: Document 04/01/24 10:36 SP (Rec: 04/01/24 16:13 SP [id number]) Hot Pack/Cold Pack Treatment CP L knee Location L knee Patient Position Supine Patient Tolerance Good Comments ant/post knee PT-OP-T Assessment and Plan Start: 03/07/24 18:38 Freq: Status: Active Protocol: Document 04/17/24 09:36 AB (Rec: 04/17/24 10:12 AB [id number]) Physical Therapy Assessment Goals Five Impairment Decreased L knee AROM Impairment L knee AROM (pre-op): sup is lacking 10-105 deg's; sitting ext is lacking 10 deg's. L knee AROM (post-op): sitting is 20-88 deg's R knee AROM: sup is lacking 12 -112 deg's Short Term Goal (STG) Pt will improve L knee AROM to pre-surgical range (10-105 deg's) to improve sitting tolerance with L leg dependent w/o increased knee pain. 04/01/24: progressin-99 deg AROM, 103 /c strap assist after heel slide. 04/03/2024 AROM left knee lacking 8 to 104 deg post manual therapy and exercise. 04/08/2024 Patient ed to avoid sleeping with pillow under the knee due to AROM knee ext lacking 15 deg compared to previous session of lacking 10 and patient reports sleeping with pillow under LE when questioned. STG Duration 6 wks-05/09/24 progressing 04/01 Venue Coordinator Goal (LTG) Pt will improve L knee AROM to minimal 3 - 120 deg's with pt able to ambulate stairs with use of 1 railing and step over step gait. 04/01/24: progressin-99 deg AROM, 103 /c strap assist after heel slide. LTG Duration 12 wks-06/20/24 progressing 04/01/24 Four Impairment Decreased function per TUG score 13 Impairment TUG 13 (20<40% impaired, score 12-13) Assisted Goal (LTG) Improve stability of gait per improved TUG score of 11-12 or less. 04/03/2024 TUG with FWW, UE use for sit to and from stand 31. 86 sec. ( FWW use due to 1 sec single leg stance left LE without UE use and reports of some increase in pain with trial ) LTG Duration 12 wks-06/20/24 Three Impairment Decreased L knee strength Impairment L knee (pre-op) flex 4/5, ext 5/5 L knee (post-op) flex 2+/5, ext 2+/5 R knee flex/ext is 5/5. Short Term Goal (STG) Improve L knee strength 1/2 grade with pt able to safely walk w/o walker. STG Duration 6 wks-05/09/24 Venue Coordinator Goal (LTG) Improve L knee strength to 5/5 with pt able to return to walking trails 30-40 min/day. LTG Duration 12 wks-06/20/24 Two Impairment L knee pain and assist needed for transfers sit<>supine Assisted Goal (LTG) Improve function with pt able to transfer sit<>supine w/on pain and independently. 04/08/2024 Patient transfers supine to and from sit without UE use in clinic this session LTG Duration 12 wks-06/20/24 One Impairment Pt lacks appropriate self care HEP. Impairment Pt will be educated in log roll transfers, proper body mechanics for ADLs, proper sitting/standing posture. LTG : Pt will be independent in an effective self care HEP for core/hip strengthening and mobility ex's. Short Term Goal (STG) Pt will be educated and be able to perform L knee post op TKA ex's independent 04/08/2024 1. Patient ed rationale of seated knee ext stretch one hour over course of day for functional outcome ( 10 min X 6 or 15 min X 4)2. Pt ed to avoid positioning a pillow under LE when sleeping. 3. LAQ and sit to stand with focus on equal weight shift, LE position prior to sit to stand and to stand with knee straight prior to sitting dowl slowly. STG Duration 2 wks-04/11/24 Venue Coordinator Goal (LTG) Pt will be independent in self care HEP of L knee ROM and strengthening ex's to promote functional use of the L knee and return her to trail walking. LTG Duration 12 wks-06/20/24 Assessment Summary Assessment AROM left knee post manual therapy and some exercise lacking 9 deg ext to 102 deg flexion. Good return demonstration for tapping to faclitate quad with increased quad activation noted. Physical Therapy Plan Frequency and Duration Frequency of Treatment 2x/Week Duration of treatment (weeks) 12 Plan of Care Start Date 03/25/24 Plan of Care End Date 06/20/24 Therapeutic Interventions Therapeutic Interventions Balance Training,Gait Training ,Home Exercise Program,Joint Mobilizations,Manual Therapy, Neuromuscular Re-education, Self-Care/Home Management,Soft Tissue Mobilization, Therapeutic Activities, Therapeutic Exercises Modalities Cold Pack/Ice Massage,Hot Packs Next Visit Focus/Plan Next Note Type Treatment Note Next Visit Plan cont TKE and knee flex; squat with hand support, revisit tapping to facilitate quad with seated quad set Next: biodex, knee flex on wall or ball, minisquat, STS, TKE wall, side steps/ resistance Progress L knee ROM, biodex at this time then progress to recumbent bike. POC: s/p L partial knee arthroplasty; Edema management, ROM, strengthening , gait & stair training progressing to gait without assistive device and balance training for stability/safety with gait on level and for trail walking. Next session: assess knee extension.
--- NOTE | 2024-04-21 13:00 | PT.OTN ---
Current Diagnoses Unilateral primary osteoarthritis, left knee (04/21/24) Pain in left knee (04/21/24) Muscle weakness (generalized) (04/21/24) Other abnormalities of gait and mobility (04/21/24) Encounter for other preprocedural examination (04/21/24) Physical Therapy Treatment Note PT-OP-A Visit Information Start: 03/07/24 18:38 Freq: Status: Active Protocol: Document 04/21/24 08:07 AB (Rec: 04/21/24 09:50 AB [id number]) Out-Patient Physical Therapy Visit Information Visit Information Visit Type Treatment Note Visit Note Partial L knee arthroplasty . Visit [email or web address] Access Code: [email or web address] Visit Start Time 08:16 Visit Stop Time 09:01 Visit Number 9 Number of CONSTRUCTION SERVICES TECHNICIAN Visits 1 Evaluation Information Evaluation Date 03/13/24 Precautions Precautions Back surgery (for ruptured disc) -30 yrs ago, hand surgery (carpal tunnel and trigger finger bilaterallly) 10 yrs ago. 3 PT-OP-B Current Condition Start: 03/07/24 18:38 Freq: Status: Active Protocol: Document 03/25/24 09:54 LRN (Rec: 03/25/24 17:35 LRN [id number]) Current Condition History of Current Condition Onset Date 03/18/24 Current Complaints L knee pain, not able to walk on trails, using walker to walk History of Current Condition Pt returns after having an elective L medial knee arthroplasty 03/18/24. The pt has been home 1 wk and has been doing her HEP with her daughter, who is a PACU nurse at . Pt walks in with FWW. Transfer on/off plinth with a little help to her LLE, but is mostly independent. Pt reports she needs help getting her stockings and shoes on, which her daughter or helps her with. Prior Treatments and Tests Pre-op physical therapy visit 03/13/24. Treatment Goals Patient/Caregiver Goals Pt goal is: - to be able to walk w/o a walker, -to be able to return to [place], 30-40 minutes, - to be able to ambulate stairs with a normal gait. Personal Factors Other Personal Factors That May Effect 3 steps to get in/out of Therapy/Recovery house. PT-OP-C Subjective Start: 03/07/24 18:38 Freq: Status: Active Protocol: Document 04/21/24 08:07 AB (Rec: 04/21/24 09:50 AB [id number]) OP-PT Subjective Patient Comments Patient Comments Patient reports having medial knee pain this morning left knee, reports she still has this sometimes. AROM lacking 12 deg extension to 102 deg flexion. SLS without UE use left LE 3,3,3 seconds PT-OP-E Functional Tests Start: 03/07/24 18:38 Freq: Status: Active Protocol: Document 03/13/24 08:16 LRN (Rec: 03/13/24 09:37 LRN [id number]) Functional Tests Timed Up and Go (TUG) Score 13 Comments Webbed chair, no use of hands TUG Impairment Rating 20 to <40% Impaired (Score 12- 13) PT-OP-G Mobility & Gait Start: 03/07/24 18:38 Freq: Status: Active Protocol: Document 03/25/24 09:54 LRN (Rec: 03/25/24 17:41 LRN [id number]) OP Mobility Evaluation Bed Mobility Supine to and from Sit Pt transfer by partially sidelying onto plinth. SBA transfer with a little help to LLE. Transfers Sit to Stand Independent. Daughter reports she sometimes needs help. OP Gait Assessment Gait Gait Assistance Required: Independent Distance (Feet) 70 Assistive Devices Assistive Device Front Wheeled Walker Gait Deviations General Gait Pattern Antalgic,Decreased Stride Length,Flexed Trunk,Narrow Based Gait Comments Gait Comments Pt mildly unsteady with intial start of gait; therefore not yet appropriate for single point cane. Stair Climbing Evaluation Evaluation Level of Assist On Stairs Standby Assistance Devices Stair Climbing Assistive Devices Straight Cane,Left Railing, Right Railing Technique/Endurance Stair Climbing Direction Ascend and Descend Stair Climbing Technique Step to Step Number of Steps Climbed 4 Stair Climbing Set # Repetitions (reps) 1 PT-OP-J Posture/Palpation/Skin Start: 03/07/24 18:38 Freq: Status: Active Protocol: Document 03/25/24 09:54 LRN (Rec: 03/25/24 17:46 LRN [id number]) Posture Evaluation Position Standing Head/C-Spine Posture Forward Head T-Spine Posture Increased Kyphosis L-Spine Posture Decreased Lordosis Arm Posture (L) Internally Rotated,(R) Internally Rotated Pelvis Posture Anteriorly Tilted Weight Distribution Weight Shifted Right Hip Posture (L) Flexed,(R) Flexed Knee Posture (L) Excess Flexion,(R) Excess Flexion Palpation Assessment Location L knee Palpation Location Pain at medial left knee Palpation Findings Tenderness Palpation Details Palpation over support hose. Bandage covering incision. PT-OP-K Range of Motion Start: 03/07/24 18:38 Freq: Status: Active Protocol: Document 03/25/24 09:54 LRN (Rec: 03/25/24 10:39 LRN [id number]) Knee Goniometric Range of Motion Knee Right Knee ROM WFL Yes Patient Position Sitting Flexion Active (degrees) 113 Extension Active (degrees) 3 Comments Sitting knee AROM: 3-113 Left Knee ROM WFL No Patient Position Sitting Flexion Active (degrees) 88 Extension Active (degrees) 20 Comments Sitting knee AROM: 20-88 PT-OP-M Strength Start: 03/07/24 18:38 Freq: Status: Active Protocol: Document 03/25/24 09:54 LRN (Rec: 03/25/24 17:41 LRN [id number]) Knee Strength Knee Manual Muscle Testing Right Flexion (S2) 5 Normal Extension (L3) 5 Normal Left Flexion (S2) 2+ Poor+ Extension (L3) 2+ Poor+ Comments Quad lag of 20 deg's PT-OP-Q Treatments Start: 03/07/24 18:38 Freq: Status: Active Protocol: Document 04/21/24 08:07 AB (Rec: 04/21/24 09:50 AB [id number]) Cardio Equipment Recumbent Elliptical (Biodex) Resistance 3 Seat Position 8 Other UE and LE's Therapeutic Exercises Supine Exercises knee flexion with feet on ball Side bilateral Reps/Minutes 2 min Comments verbal cues to fully flex and extend; 106> 110 deg flex hamstring stretch from hooklying Supine Exercise Name holding behind knee with a strap Side left Reps/Minutes 3x60 Comments following manual tx SAQ Side left Reps/Minutes 10 Comments following manual tx, post HS stretch QS Side left Equipment Used towel roll Reps/Minutes X10x5 Comments following manual tx; btwn HS stretch; Sitting Exercises seated hip abd with band Side bilateral Resistance level 3 band Reps/Minutes one min X 1 Manual Therapy Treatment Consent Patient gave verbal consent for manual Yes treatment Soft Tissue Mobilization left knee Body Location for swelling and Hamstring stiffness, quad Mobilization Type Cross-Friction,Rolling,Other Intensity/Depth Moderate Body Position Hooklying Comments increased focus on medial knee , hamstring and area of swelling distal quad scar mobility Body Location L knee distal quad areas of dec mobility increased density Mobilization Type Cross-Friction,Myofascial Release Body Position Hooklying Joint Mobilizations left knee Joint tibia on femur PA Direction PA Grade III Body Position Hooklying Reps/Duration X10 X 3 L patellar Direction sup, inf, med, lat,CW and CCW Grade III Reps/Duration 8 each direction PT-OP-R Modalities Start: 03/07/24 18:38 Freq: Status: Active Protocol: Document 04/01/24 10:36 SP (Rec: 04/01/24 16:13 SP [id number]) Hot Pack/Cold Pack Treatment CP L knee Location L knee Patient Position Supine Patient Tolerance Good Comments ant/post knee PT-OP-T Assessment and Plan Start: 03/07/24 18:38 Freq: Status: Active Protocol: Document 04/21/24 08:07 AB (Rec: 04/21/24 09:50 AB [id number]) Physical Therapy Assessment Goals Five Impairment Decreased L knee AROM Impairment L knee AROM (pre-op): sup is lacking 10-105 deg's; sitting ext is lacking 10 deg's. L knee AROM (post-op): sitting is 20-88 deg's R knee AROM: sup is lacking 12 -112 deg's Short Term Goal (STG) Pt will improve L knee AROM to pre-surgical range (10-105 deg's) to improve sitting tolerance with L leg dependent w/o increased knee pain. 04/01/24: progressin-99 deg AROM, 103 /c strap assist after heel slide. 04/03/2024 AROM left knee lacking 8 to 104 deg post manual therapy and exercise. 04/08/2024 Patient ed to avoid sleeping with pillow under the knee due to AROM knee ext lacking 15 deg compared to previous session of lacking 10 and patient reports sleeping with pillow under LE when questioned. STG Duration 6 wks-05/09/24 progressing 04/01 Senior Capital Markets Specialist Goal (LTG) Pt will improve L knee AROM to minimal 3 - 120 deg's with pt able to ambulate stairs with use of 1 railing and step over step gait. 04/01/24: progressin-99 deg AROM, 103 /c strap assist after heel slide. LTG Duration 12 wks-06/20/24 progressing 04/01/24 Four Impairment Decreased function per TUG score 13 Impairment TUG 13 (20<40% impaired, score 12-13) Group Home Goal (LTG) Improve stability of gait per improved TUG score of 11-12 or less. 04/03/2024 TUG with FWW, UE use for sit to and from stand 31. 86 sec. ( FWW use due to 1 sec single leg stance left LE without UE use and reports of some increase in pain with trial ) LTG Duration 12 wks-06/20/24 Three Impairment Decreased L knee strength Impairment L knee (pre-op) flex 4/5, ext 5/5 L knee (post-op) flex 2+/5, ext 2+/5 R knee flex/ext is 5/5. Short Term Goal (STG) Improve L knee strength 1/2 grade with pt able to safely walk w/o walker. STG Duration 6 wks-05/09/24 Senior Capital Markets Specialist Goal (LTG) Improve L knee strength to 5/5 with pt able to return to walking trails 30-40 min/day. LTG Duration 12 wks-06/20/24 Two Impairment L knee pain and assist needed for transfers sit<>supine Group Home Goal (LTG) Improve function with pt able to transfer sit<>supine w/on pain and independently. 04/08/2024 Patient transfers supine to and from sit without UE use in clinic this session LTG Duration 12 wks-06/20/24 One Impairment Pt lacks appropriate self care HEP. Impairment Pt will be educated in log roll transfers, proper body mechanics for ADLs, proper sitting/standing posture. LTG : Pt will be independent in an effective self care HEP for core/hip strengthening and mobility ex's. Short Term Goal (STG) Pt will be educated and be able to perform L knee post op TKA ex's independent 04/08/2024 1. Patient ed rationale of seated knee ext stretch one hour over course of day for functional outcome ( 10 min X 6 or 15 min X 4)2. Pt ed to avoid positioning a pillow under LE when sleeping. 3. LAQ and sit to stand with focus on equal weight shift, LE position prior to sit to stand and to stand with knee straight prior to sitting dowl slowly. STG Duration 2 wks-04/11/24 Group Home Goal (LTG) Pt will be independent in self care HEP of L knee ROM and strengthening ex's to promote functional use of the L knee and return her to trail walking. LTG Duration 12 wks-06/20/24 Assessment Summary Assessment AROM left knee lacking 10 deg ext to 110 deg flexion post manual therapy and exercise. Patient rates pain 12/01 Physical Therapy Plan Frequency and Duration Frequency of Treatment 2x/Week Duration of treatment (weeks) 12 Plan of Care Start Date 03/25/24 Plan of Care End Date 06/20/24 Next Visit Focus/Plan Next Note Type Treatment Note Next Visit Plan cont TKE and knee flex; squat with hand support, revisit tapping to facilitate quad with seated quad set Next: biodex, knee flex on wall or ball, minisquat, STS, TKE wall, side steps/ resistance Progress L knee ROM, biodex at this time then progress to recumbent bike. POC: s/p L partial knee arthroplasty; Edema management, ROM, strengthening , gait & stair training progressing to gait without assistive device and balance training for stability/safety with gait on level and for trail walking. Next session: assess knee extension.
--- NOTE | 2024-04-25 15:39 | PT.OTN ---
Current Diagnoses Unilateral primary osteoarthritis, left knee (04/25/24) Pain in left knee (04/25/24) Muscle weakness (generalized) (04/25/24) Other abnormalities of gait and mobility (04/25/24) Encounter for other preprocedural examination (04/25/24) Physical Therapy Treatment Note PT-OP-A Visit Information Start: 03/07/24 18:38 Freq: Status: Active Protocol: Document 04/25/24 08:16 NM (Rec: 04/25/24 09:02 NM [id number]) Out-Patient Physical Therapy Visit Information Visit Information Visit Type Progress Note Visit Note Partial L knee arthroplasty . Visit Start Time 08:17 Visit Stop Time 09:00 Visit Number 10 PT-OP-B Current Condition Start: 03/07/24 18:38 Freq: Status: Active Protocol: Document 03/25/24 09:54 LRN (Rec: 03/25/24 17:35 LRN [id number]) Current Condition History of Current Condition Onset Date 03/18/24 Current Complaints L knee pain, not able to walk on trails, using walker to walk History of Current Condition Pt returns after having an elective L medial knee arthroplasty 03/18/24. The pt has been home 1 wk and has been doing her HEP with her daughter, who is a PACU nurse at . Pt walks in with FWW. Transfer on/off plinth with a little help to her LLE, but is mostly independent. Pt reports she needs help getting her stockings and shoes on, which her daughter or helps her with. Prior Treatments and Tests Pre-op physical therapy visit 03/13/24. Treatment Goals Patient/Caregiver Goals Pt goal is: - to be able to walk w/o a walker, -to be able to return to walking [place] previously, 30-40 minutes, - to be able to ambulate stairs with a normal gait. Personal Factors Other Personal Factors That May Effect 3 steps to get in/out of Therapy/Recovery house. PT-OP-C Subjective Start: 03/07/24 18:38 Freq: Status: Active Protocol: Document 04/25/24 08:16 NM (Rec: 04/25/24 09:02 NM [id number]) OP-PT Subjective Patient Comments Patient Comments Pt reports occasional medial L knee pain, sometimes a sharp pain. No pain when ambulating, has been going on walks. Has been compliant with exercises, reports difficulty with knee flexion. PT-OP-E Functional Tests Start: 03/07/24 18:38 Freq: Status: Active Protocol: Document 03/13/24 08:16 LRN (Rec: 03/13/24 09:37 LRN [id number]) Functional Tests Timed Up and Go (TUG) Score 13 Comments Webbed chair, no use of hands TUG Impairment Rating 20 to <40% Impaired (Score 12- 13) PT-OP-G Mobility & Gait Start: 03/07/24 18:38 Freq: Status: Active Protocol: Document 03/25/24 09:54 LRN (Rec: 03/25/24 17:41 LRN [id number]) OP Mobility Evaluation Bed Mobility Supine to and from Sit Pt transfer by partially sidelying onto plinth. SBA transfer with a little help to LLE. Transfers Sit to Stand Independent. Daughter reports she sometimes needs help. OP Gait Assessment Gait Gait Assistance Required: Independent Distance (Feet) 70 Assistive Devices Assistive Device Front Wheeled Walker Gait Deviations General Gait Pattern Antalgic,Decreased Stride Length,Flexed Trunk,Narrow Based Gait Comments Gait Comments Pt mildly unsteady with intial start of gait; therefore not yet appropriate for single point cane. Stair Climbing Evaluation Evaluation Level of Assist On Stairs Standby Assistance Devices Stair Climbing Assistive Devices Straight Cane,Left Railing, Right Railing Technique/Endurance Stair Climbing Direction Ascend and Descend Stair Climbing Technique Step to Step Number of Steps Climbed 4 Stair Climbing Set # Repetitions (reps) 1 PT-OP-J Posture/Palpation/Skin Start: 03/07/24 18:38 Freq: Status: Active Protocol: Document 03/25/24 09:54 LRN (Rec: 03/25/24 17:46 LRN [id number]) Posture Evaluation Position Standing Head/C-Spine Posture Forward Head T-Spine Posture Increased Kyphosis L-Spine Posture Decreased Lordosis Arm Posture (L) Internally Rotated,(R) Internally Rotated Pelvis Posture Anteriorly Tilted Weight Distribution Weight Shifted Right Hip Posture (L) Flexed,(R) Flexed Knee Posture (L) Excess Flexion,(R) Excess Flexion Palpation Assessment Location L knee Palpation Location Pain at medial left knee Palpation Findings Tenderness Palpation Details Palpation over support hose. Bandage covering incision. PT-OP-K Range of Motion Start: 03/07/24 18:38 Freq: Status: Active Protocol: Document 04/25/24 08:16 NM (Rec: 04/25/24 09:02 NM [id number]) Knee Goniometric Range of Motion Knee Left Knee ROM WFL No Patient Position Sitting Flexion Active (degrees) 110 Extension Active (degrees) 5 Comments Sitting knee AROM: 20-88 04/25/24: lacking 5 deg of ext; 110 deg flex PT-OP-M Strength Start: 03/07/24 18:38 Freq: Status: Active Protocol: Document 04/25/24 08:16 NM (Rec: 04/25/24 09:02 NM [id number]) Knee Strength Knee Manual Muscle Testing Left Flexion (S2) 4- Good- Extension (L3) 4- Good- Comments RE: 2+/5 for both; Quad lag of 20 deg's 04/25/24: 4-/5 PT-OP-Q Treatments Start: 03/07/24 18:38 Freq: Status: Active Protocol: Document 04/25/24 08:16 NM (Rec: 04/25/24 09:02 NM [id number]) Therapeutic Exercises Supine Exercises hamstring stretch from hooklying Supine Exercise Name holding behind knee with a strap Side left Reps/Minutes 2x60 Comments following manual tx QS Side left Equipment Used towel roll Reps/Minutes [id number] Comments following manual tx; following HS stretch Sitting Exercises Knee ext Sitting Exercise Name 1. Seated knee ext stretch w/ QS 2. LAQ (HEP w/ band) Side left Reps/Minutes 1. 2 minutes w/ 5 QS throughout, 2. 2x10 w/ lvl 1 band Comments pain free; improved TKE Standing Exercises terminal knee extension Standing Exercise Name PT holding band Resistance level 2 band Reps/Minutes 15 Comments improved TKE Gait Training Gait Activity spc Device Used spc Level of Assistance CGA > close SBA Surface stable Distance/Duration 8 minutes Treatment Focus heel <>toe, sequencing and placement of AD, TKE Comments Initiated gait training with spc today. Fit for AD and educated on fit at home ( recommended pt bring spc to clinic prior to attempting at home). Pt cued for spc placement and sequencing with 2 pt pattern with spc in R hand. Improved sequencing with reps but moderate cues to maintain spc closer to body for stability. Emphasis on heel > toe mechanics, TKE with foot flat and maintain longer stance time. No increased instability of trunk or LLE Manual Therapy Treatment Consent Patient gave verbal consent for manual Yes treatment Soft Tissue Mobilization left knee Body Location for swelling and Hamstring stiffness, quad, adductors Mobilization Type Cross-Friction,Rolling,Other Intensity/Depth Moderate Body Position Hooklying Comments increased focus on adductors and medial knee, hamstring and area of swelling distal quad. Demos slight tenderness along adductors scar mobility Body Location L knee distal quad areas of dec mobility increased density Mobilization Type Cross-Friction,Myofascial Release Body Position Hooklying Comments educated on performing at home . demos slight adhesions to skin especially closer to patella Neuro Re-Education Treatment Balance Activities TUG Comments spc 17 FWW 16 PT-OP-R Modalities Start: 03/07/24 18:38 Freq: Status: Active Protocol: Document 04/01/24 10:36 SP (Rec: 04/01/24 16:13 SP [id number]) Hot Pack/Cold Pack Treatment CP L knee Location L knee Patient Position Supine Patient Tolerance Good Comments ant/post knee PT-OP-T Assessment and Plan Start: 03/07/24 18:38 Freq: Status: Active Protocol: Document 04/25/24 08:16 NM (Rec: 04/25/24 09:02 NM [id number]) Physical Therapy Assessment Goals Five Impairment Decreased L knee AROM Impairment L knee AROM (pre-op): sup is lacking 10-105 deg's; sitting ext is lacking 10 deg's. L knee AROM (post-op): sitting is 20-88 deg's R knee AROM: sup is lacking 12 -112 deg's Short Term Goal (STG) Pt will improve L knee AROM to pre-surgical range (10-105 deg's) to improve sitting tolerance with L leg dependent w/o increased knee pain. 04/01/24: progressin-99 deg AROM, 103 /c strap assist after heel slide. 04/03/2024 AROM left knee lacking 8 to 104 deg post manual therapy and exercise. 04/08/2024 Patient ed to avoid sleeping with pillow under the knee due to AROM knee ext lacking 15 deg compared to previous session of lacking 10 and patient reports sleeping with pillow under LE when questioned. 04/25/24: 5 to 110 AROM STG Duration 6 wks-08/16/24 MET 04/25/24 [facility] Goal (LTG) Pt will improve L knee AROM to minimal 3 - 120 deg's with pt able to ambulate stairs with use of 1 railing and step over step gait. 04/01/24: progressin-99 deg AROM, 103 /c strap assist after heel slide. 04/25/24: 5 to 110 AROM LTG Duration 12 wks-06/20/24 progressing 04/25/24 Four Impairment Decreased function per TUG score 13 Impairment TUG 13 (20<40% impaired, score 12-13) Sweater Designer Goal (LTG) Improve stability of gait per improved TUG score of 11-12 or less. 04/03/2024 TUG with FWW, UE use for sit to and from stand 31. 86 sec. ( FWW use due to 1 sec single leg stance left LE without UE use and reports of some increase in pain with trial ) 04/25/24: 16 sec with FWW, 17 sec with spc LTG Duration 12 wk-06/20/24 Three Impairment Decreased L knee strength Impairment L knee (pre-op) flex 4/5, ext 5/5 L knee (post-op) flex 2+/5, ext 2+/5 R knee flex/ext is 5/5. Short Term Goal (STG) Improve L knee strength 1/2 grade with pt able to safely walk w/o walker. 04/25/24: 4-/5 MMT for both knee flex and ext STG Duration 6 wks-05/09/24 MET [facility] Goal (LTG) Improve L knee strength to 5/5 with pt able to return to walking trails 30-40 min/day. LTG Duration 12 wks-06/20/24 Two Impairment L knee pain and assist needed for transfers sit<>supine [facility] Goal (LTG) Improve function with pt able to transfer sit<>supine w/on pain and independently. 04/08/2024 Patient transfers supine to and from sit without UE use in clinic this session LTG Duration 12 wk-06/20/24 One Impairment Pt lacks appropriate self care HEP. Impairment Pt will be educated in log roll transfers, proper body mechanics for ADLs, proper sitting/standing posture. LTG : Pt will be independent in an effective self care HEP for core/hip strengthening and mobility ex's. Short Term Goal (STG) Pt will be educated and be able to perform L knee post op TKA ex's independent 04/08/2024 1. Patient ed rationale of seated knee ext stretch one hour over course of day for functional outcome ( 10 min X 6 or 15 min X 4)2. Pt ed to avoid positioning a pillow under LE when sleeping. 3. LAQ and sit to stand with focus on equal weight shift, LE position prior to sit to stand and to stand with knee straight prior to sitting dowl slowly. STG Duration 2 wks-04/11/24 Sweater Designer Goal (LTG) Pt will be independent in self care HEP of L knee ROM and strengthening ex's to promote functional use of the L knee and return her to trail walking. LTG Duration 12 wks-06/20/24 Progress Towards Goals Progress Towards Goals Progressing Toward Goals,Slow Progress due to Activity Tolerance,Slow Progress due to Medical Issues Assessment Summary Assessment Pt tolerated session well. Demonstrates improved L knee ROM, ranging from 5-110 deg. Pt continues to have limitations with terminal knee extension, but demos improved LAQ today. Still has increased tightness of L hamstring, improved with soft tissue mobilization and stretching. PT educated pt on scar mobilization as part of daily routine to decrease adhesions and feelings of tightness along anterior knee. Trialed spc today for gait. Pt requires cues initially for sequencing and placement. Initially pt had difficulty with coordinating spc and L foot; however, improved with reps. Educated to bring spc into clinic for fitting and prior to attempting at home. Pt demos no signs of instability while using spc, but her TUG time with spc ( first/only attempt) is 17 sec. Pt's TUG time with FWW is 16 seconds. Pt would benefit from L knee mobility and strengthening in order to improve activity tolerance, balance, and normalize gait mechanics. Physical Therapy Plan Frequency and Duration Frequency of Treatment 2x/Week Duration of treatment (weeks) 12 Plan of Care Start Date 03/25/24 Plan of Care End Date 06/20/24 Therapeutic Interventions Therapeutic Interventions Balance Training,Gait Training ,Home Exercise Program,Joint Mobilizations,Manual Therapy, Neuromuscular Re-education, Self-Care/Home Management,Soft Tissue Mobilization, Therapeutic Activities, Therapeutic Exercises Modalities Cold Pack/Ice Massage,Hot Packs Next Visit Focus/Plan Next Note Type Treatment Note Next Visit Plan Gait train spc. Focus TKE and knee flex; squat with hand support, side steps, step up 4 , hip 3 way. Manual prn to improve ROM. Next: biodex Progress L knee ROM, biodex at this time then progress to recumbent bike. POC: s/p L partial knee arthroplasty; Edema management, ROM, strengthening , gait & stair training progressing to gait without assistive device and balance training for stability/safety with gait on level and for trail walking. Next session: assess knee extension.
--- NOTE | 2024-04-28 12:47 | PT.OTN ---
Current Diagnoses Unilateral primary osteoarthritis, left knee (04/28/24) Pain in left knee (04/28/24) Muscle weakness (generalized) (04/28/24) Other abnormalities of gait and mobility (04/28/24) Encounter for other preprocedural examination (04/28/24) Physical Therapy Treatment Note PT-OP-A Visit Information Start: 03/07/24 18:38 Freq: Status: Active Protocol: Document 04/28/24 08:35 AB (Rec: 04/28/24 09:03 AB [id number]) Out-Patient Physical Therapy Visit Information Visit Information Visit Type Progress Note Visit Note Partial L knee arthroplasty . Visit [email or web address] Access Code: [email or web address] Visit Start Time 08:15 Visit Stop Time 09:00 Visit Number 11 Number of COLORING CHECKER Visits 1 Evaluation Information Evaluation Date 03/13/24 Precautions Precautions Back surgery (for ruptured disc) -30 yrs ago, hand surgery (carpal tunnel and trigger finger bilaterallly) 10 yrs ago. 3 PT-OP-B Current Condition Start: 03/07/24 18:38 Freq: Status: Active Protocol: Document 03/25/24 09:54 LRN (Rec: 03/25/24 17:35 LRN [id number]) Current Condition History of Current Condition Onset Date 03/18/24 Current Complaints L knee pain, not able to walk on trails, using walker to walk History of Current Condition Pt returns after having an elective L medial knee arthroplasty 03/18/24. The pt has been home 1 wk and has been doing her HEP with her daughter, who is a PACU nurse at . Pt walks in with FWW. Transfer on/off plinth with a little help to her LLE, but is mostly independent. Pt reports she needs help getting her stockings and shoes on, which her daughter or helps her with. Prior Treatments and Tests Pre-op physical therapy visit 03/13/24. Treatment Goals Patient/Caregiver Goals Pt goal is: - to be able to walk w/o a walker, -to be able to return to [place], 30-40 minutes, - to be able to ambulate stairs with a normal gait. Personal Factors Other Personal Factors That May Effect 3 steps to get in/out of Therapy/Recovery house. PT-OP-C Subjective Start: 03/07/24 18:38 Freq: Status: Active Protocol: Document 04/28/24 08:35 AB (Rec: 04/28/24 09:03 AB [id number]) OP-PT Subjective Patient Comments Patient Comments Patient reports the knee hurts less and less. AROM left knee lacking 10 deg ext to 105 deg flexion start of session PT-OP-E Functional Tests Start: 03/07/24 18:38 Freq: Status: Active Protocol: Document 03/13/24 08:16 LRN (Rec: 03/13/24 09:37 LRN [id number]) Functional Tests Timed Up and Go (TUG) Score 13 Comments Webbed chair, no use of hands TUG Impairment Rating 20 to <40% Impaired (Score 12- 13) PT-OP-G Mobility & Gait Start: 03/07/24 18:38 Freq: Status: Active Protocol: Document 03/25/24 09:54 LRN (Rec: 03/25/24 17:41 LRN [id number]) OP Mobility Evaluation Bed Mobility Supine to and from Sit Pt transfer by partially sidelying onto plinth. SBA transfer with a little help to LLE. Transfers Sit to Stand Independent. Daughter reports she sometimes needs help. OP Gait Assessment Gait Gait Assistance Required: Independent Distance (Feet) 70 Assistive Devices Assistive Device Front Wheeled Walker Gait Deviations General Gait Pattern Antalgic,Decreased Stride Length,Flexed Trunk,Narrow Based Gait Comments Gait Comments Pt mildly unsteady with intial start of gait; therefore not yet appropriate for single point cane. Stair Climbing Evaluation Evaluation Level of Assist On Stairs Standby Assistance Devices Stair Climbing Assistive Devices Straight Cane,Left Railing, Right Railing Technique/Endurance Stair Climbing Direction Ascend and Descend Stair Climbing Technique Step to Step Number of Steps Climbed 4 Stair Climbing Set # Repetitions (reps) 1 PT-OP-J Posture/Palpation/Skin Start: 03/07/24 18:38 Freq: Status: Active Protocol: Document 03/25/24 09:54 LRN (Rec: 03/25/24 17:46 LRN [id number]) Posture Evaluation Position Standing Head/C-Spine Posture Forward Head T-Spine Posture Increased Kyphosis L-Spine Posture Decreased Lordosis Arm Posture (L) Internally Rotated,(R) Internally Rotated Pelvis Posture Anteriorly Tilted Weight Distribution Weight Shifted Right Hip Posture (L) Flexed,(R) Flexed Knee Posture (L) Excess Flexion,(R) Excess Flexion Palpation Assessment Location L knee Palpation Location Pain at medial left knee Palpation Findings Tenderness Palpation Details Palpation over support hose. Bandage covering incision. PT-OP-K Range of Motion Start: 03/07/24 18:38 Freq: Status: Active Protocol: Document 04/25/24 08:16 NM (Rec: 04/25/24 09:02 NM [id number]) Knee Goniometric Range of Motion Knee Left Knee ROM WFL No Patient Position Sitting Flexion Active (degrees) 110 Extension Active (degrees) 5 Comments Sitting knee AROM: 20-88 04/25/24: lacking 5 deg of ext; 110 deg flex PT-OP-M Strength Start: 03/07/24 18:38 Freq: Status: Active Protocol: Document 04/25/24 08:16 NM (Rec: 04/25/24 09:02 NM [id number]) Knee Strength Knee Manual Muscle Testing Left Flexion (S2) 4- Good- Extension (L3) 4- Good- Comments RE: 2+/5 for both; Quad lag of 20 deg's 04/25/24: 4-/5 PT-OP-Q Treatments Start: 03/07/24 18:38 Freq: Status: Active Protocol: Document 04/28/24 08:35 AB (Rec: 04/28/24 09:03 AB [id number]) Cardio Equipment Recumbent Elliptical (Biodex) Duration (Minutes) 5 Resistance 4 Seat Position 8 Other UE and LE's Gym Equipment Shuttle Balance RED Details normal MANPREET Comments CGA Therapeutic Exercises Supine Exercises hamstring stretch from hooklying Supine Exercise Name holding behind knee with a strap Side left Reps/Minutes 2x60 Comments following manual tx SLR Supine Exercise Name Review of HEP Reps/Minutes 10 Comments VC to keep knee straight when raising and lowering heel slides Supine Exercise Name Review for HEP AROM Side left Reps/Minutes X8 Comments post manual Other Exercises step up Reps/Minutes 2X10 Therapeutic Activity Therapeutic Activity stair training with SPC Name rail and SPC the SPC only Reps/Minutes 4 steps X 2 Manual Therapy Treatment Soft Tissue Mobilization left knee Body Location for swelling and Hamstring stiffness, quad, adductors Mobilization Type Cross-Friction,Rolling,Other Intensity/Depth Moderate Body Position Hooklying Comments increased focus on adductors and medial knee, hamstring and area of swelling distal quad. Demos slight tenderness along adductors scar mobility Body Location L knee distal quad areas of dec mobility increased density Mobilization Type Cross-Friction,Myofascial Release Body Position Hooklying Comments educated on performing at home . demos slight adhesions to skin especially closer to patella Joint Mobilizations L patellar Direction sup, inf, med, lat,CW and CCW Grade III Reps/Duration 8 each direction Neuro Re-Education Treatment Balance Activities marching Equipment blue pad/cushion Reps/Duration X15 Comments CGA hands above bars step up taps Reps/Duration X12 Comments CGA hands above bars tandem stepping Reps/Duration 10 feet X 4 Comments CGA hands above bars PT-OP-R Modalities Start: 03/07/24 18:38 Freq: Status: Active Protocol: Document 04/01/24 10:36 SP (Rec: 04/01/24 16:13 SP [id number]) Hot Pack/Cold Pack Treatment CP L knee Location L knee Patient Position Supine Patient Tolerance Good Comments ant/post knee PT-OP-T Assessment and Plan Start: 03/07/24 18:38 Freq: Status: Active Protocol: Document 04/28/24 08:35 AB (Rec: 04/28/24 09:03 AB [id number]) Physical Therapy Assessment Goals Five Impairment Decreased L knee AROM Impairment L knee AROM (pre-op): sup is lacking 10-105 deg's; sitting ext is lacking 10 deg's. L knee AROM (post-op): sitting is 20-88 deg's R knee AROM: sup is lacking 12 -112 deg's Short Term Goal (STG) Pt will improve L knee AROM to pre-surgical range (10-105 deg's) to improve sitting tolerance with L leg dependent w/o increased knee pain. 04/01/24: progressin-99 deg AROM, 103 /c strap assist after heel slide. 04/03/2024 AROM left knee lacking 8 to 104 deg post manual therapy and exercise. 04/08/2024 Patient ed to avoid sleeping with pillow under the knee due to AROM knee ext lacking 15 deg compared to previous session of lacking 10 and patient reports sleeping with pillow under LE when questioned. 04/25/24: 5 to 110 AROM STG Duration 6 wks-05/09/24 MET 04/25/24 Snf Goal (LTG) Pt will improve L knee AROM to minimal 3 - 120 deg's with pt able to ambulate stairs with use of 1 railing and step over step gait. 04/01/24: progressin-99 deg AROM, 103 /c strap assist after heel slide. 04/25/24: 5 to 110 AROM LTG Duration 12 wks-06/20/24 progressing 04/25/24 Four Impairment Decreased function per TUG score 13 Impairment TUG 13 (20<40% impaired, score 12-13) Director Of Mobile Marketing Goal (LTG) Improve stability of gait per improved TUG score of 11-12 or less. 04/03/2024 TUG with FWW, UE use for sit to and from stand 31. 86 sec. ( FWW use due to 1 sec single leg stance left LE without UE use and reports of some increase in pain with trial ) 04/25/24: 16 sec with FWW, 17 sec with spc LTG Duration 12 wks-06/20/24 Three Impairment Decreased L knee strength Impairment L knee (pre-op) flex 4/5, ext 5/5 L knee (post-op) flex 2+/5, ext 2+/5 R knee flex/ext is 5/5. Short Term Goal (STG) Improve L knee strength 1/2 grade with pt able to safely walk w/o walker. 04/25/24: 4-/5 MMT for both knee flex and ext STG Duration 6 wks-05/09/24 MET Director Of Mobile Marketing Goal (LTG) Improve L knee strength to 5/5 with pt able to return to walking trails 30-40 min/day. LTG Duration 12 wks-06/20/24 Two Impairment L knee pain and assist needed for transfers sit<>supine Snf Goal (LTG) Improve function with pt able to transfer sit<>supine w/on pain and independently. 04/08/2024 Patient transfers supine to and from sit without UE use in clinic this session LTG Duration 12 wks-06/20/24 One Impairment Pt lacks appropriate self care HEP. Impairment Pt will be educated in log roll transfers, proper body mechanics for ADLs, proper sitting/standing posture. LTG : Pt will be independent in an effective self care HEP for core/hip strengthening and mobility ex's. Short Term Goal (STG) Pt will be educated and be able to perform L knee post op TKA ex's independent 04/08/2024 1. Patient ed rationale of seated knee ext stretch one hour over course of day for functional outcome ( 10 min X 6 or 15 min X 4)2. Pt ed to avoid positioning a pillow under LE when sleeping. 3. LAQ and sit to stand with focus on equal weight shift, LE position prior to sit to stand and to stand with knee straight prior to sitting dowl slowly. STG Duration 2 wks-04/11/24 Director Of Mobile Marketing Goal (LTG) Pt will be independent in self care HEP of L knee ROM and strengthening ex's to promote functional use of the L knee and return her to trail walking. LTG Duration 12 wks-06/20/24 Assessment Summary Assessment No pain just tired. Lacking 8 deg ext to 110 deg flexion post manual therapy and exercise. Physical Therapy Plan Frequency and Duration Frequency of Treatment 2x/Week Duration of treatment (weeks) 12 Plan of Care Start Date 03/25/24 Plan of Care End Date 06/20/24 Next Visit Focus/Plan Next Note Type Treatment Note Next Visit Plan Gait train spc/outdoors Focus TKE and knee flex; squat with hand support, side steps, step up 4, hip 3 way. Manual prn to improve ROM. Next: biodex Progress L knee ROM, biodex at this time then progress to recumbent bike. POC: s/p L partial knee arthroplasty; Edema management, ROM, strengthening , gait & stair training progressing to gait without assistive device and balance training for stability/safety with gait on level and for trail walking. Next session: assess knee extension.
--- NOTE | 2024-04-30 13:57 | PT.OTN ---
Current Diagnoses Unilateral primary osteoarthritis, left knee (04/30/24) Pain in left knee (04/30/24) Muscle weakness (generalized) (04/30/24) Other abnormalities of gait and mobility (04/30/24) Encounter for other preprocedural examination (04/30/24) Physical Therapy Treatment Note PT-OP-A Visit Information Start: 03/07/24 18:38 Freq: Status: Active Protocol: Document 04/30/24 12:54 AB (Rec: 04/30/24 13:57 AB [id number]) Out-Patient Physical Therapy Visit Information Visit Information Visit Type Treatment Note Visit Note Partial L knee arthroplasty . Visit [email or web address] Access Code: [email or web address] Visit Start Time 13:03 Visit Stop Time 13:47 Visit Number 12 Number of AS400 OPERATOR Visits 2 Evaluation Information Evaluation Date 03/13/24 Precautions Precautions Back surgery (for ruptured disc) -30 yrs ago, hand surgery (carpal tunnel and trigger finger bilaterallly) 10 yrs ago. 3 PT-OP-B Current Condition Start: 03/07/24 18:38 Freq: Status: Active Protocol: Document 03/25/24 09:54 LRN (Rec: 03/25/24 17:35 LRN [id number]) Current Condition History of Current Condition Onset Date 03/18/24 Current Complaints L knee pain, not able to walk on trails, using walker to walk History of Current Condition Pt returns after having an elective L medial knee arthroplasty 03/18/24. The pt has been home 1 wk and has been doing her HEP with her daughter, who is a PACU nurse at . Pt walks in with FWW. Transfer on/off plinth with a little help to her LLE, but is mostly independent. Pt reports she needs help getting her stockings and shoes on, which her daughter or helps her with. Prior Treatments and Tests Pre-op physical therapy visit 03/13/24. Treatment Goals Patient/Caregiver Goals Pt goal is: - to be able to walk w/o a walker, -to be able to return to [place], 30-40 minutes, - to be able to ambulate stairs with a normal gait. Personal Factors Other Personal Factors That May Effect 3 steps to get in/out of Therapy/Recovery house. PT-OP-C Subjective Start: 03/07/24 18:38 Freq: Status: Active Protocol: Document 04/30/24 12:54 AB (Rec: 04/30/24 13:57 AB [id number]) OP-PT Subjective Patient Comments Patient Comments Nara reports increased soreness medial left knee day after previous sesssion, some soreness persists today. Patient rates pain 2/10 medial left knee now, was 7-8/10 yesterday. Lacking 11 deg extension to 114 deg flexion AROM left knee. PT-OP-E Functional Tests Start: 03/07/24 18:38 Freq: Status: Active Protocol: Document 03/13/24 08:16 LRN (Rec: 03/13/24 09:37 LRN [id number]) Functional Tests Timed Up and Go (TUG) Score 13 Comments Webbed chair, no use of hands TUG Impairment Rating 20 to <40% Impaired (Score 12- 13) PT-OP-G Mobility & Gait Start: 03/07/24 18:38 Freq: Status: Active Protocol: Document 03/25/24 09:54 LRN (Rec: 03/25/24 17:41 LRN [id number]) OP Mobility Evaluation Bed Mobility Supine to and from Sit Pt transfer by partially sidelying onto plinth. SBA transfer with a little help to LLE. Transfers Sit to Stand Independent. Daughter reports she sometimes needs help. OP Gait Assessment Gait Gait Assistance Required: Independent Distance (Feet) 70 Assistive Devices Assistive Device Front Wheeled Walker Gait Deviations General Gait Pattern Antalgic,Decreased Stride Length,Flexed Trunk,Narrow Based Gait Comments Gait Comments Pt mildly unsteady with intial start of gait; therefore not yet appropriate for single point cane. Stair Climbing Evaluation Evaluation Level of Assist On Stairs Standby Assistance Devices Stair Climbing Assistive Devices Straight Cane,Left Railing, Right Railing Technique/Endurance Stair Climbing Direction Ascend and Descend Stair Climbing Technique Step to Step Number of Steps Climbed 4 Stair Climbing Set # Repetitions (reps) 1 PT-OP-J Posture/Palpation/Skin Start: 03/07/24 18:38 Freq: Status: Active Protocol: Document 03/25/24 09:54 LRN (Rec: 03/25/24 17:46 LRN [id number]) Posture Evaluation Position Standing Head/C-Spine Posture Forward Head T-Spine Posture Increased Kyphosis L-Spine Posture Decreased Lordosis Arm Posture (L) Internally Rotated,(R) Internally Rotated Pelvis Posture Anteriorly Tilted Weight Distribution Weight Shifted Right Hip Posture (L) Flexed,(R) Flexed Knee Posture (L) Excess Flexion,(R) Excess Flexion Palpation Assessment Location L knee Palpation Location Pain at medial left knee Palpation Findings Tenderness Palpation Details Palpation over support hose. Bandage covering incision. PT-OP-K Range of Motion Start: 03/07/24 18:38 Freq: Status: Active Protocol: Document 04/25/24 08:16 NM (Rec: 04/25/24 09:02 NM [id number]) Knee Goniometric Range of Motion Knee Left Knee ROM WFL No Patient Position Sitting Flexion Active (degrees) 110 Extension Active (degrees) 5 Comments Sitting knee AROM: 20-88 04/25/24: lacking 5 deg of ext; 110 deg flex PT-OP-M Strength Start: 03/07/24 18:38 Freq: Status: Active Protocol: Document 04/25/24 08:16 NM (Rec: 04/25/24 09:02 NM [id number]) Knee Strength Knee Manual Muscle Testing Left Flexion (S2) 4- Good- Extension (L3) 4- Good- Comments RE: 2+/5 for both; Quad lag of 20 deg's 04/25/24: 4-/5 PT-OP-Q Treatments Start: 03/07/24 18:38 Freq: Status: Active Protocol: Document 04/30/24 12:54 AB (Rec: 04/30/24 13:57 AB [id number]) Therapeutic Exercises Supine Exercises hip and knee extension with band Side left Resistance Level 5 band Reps/Minutes X10 Comments Assist with band hamstring stretch from hooklying Supine Exercise Name holding behind knee with a strap Side left Reps/Minutes 2x60 Comments following manual tx SLR Supine Exercise Name Review of HEP Reps/Minutes 10 Comments VC to keep knee straight when raising and lowering Standing Exercises terminal knee extension Standing Exercise Name PT holding band Resistance level 2 band Reps/Minutes 15 Comments improved TKE Therapeutic Activity Therapeutic Activity outdoor ambulation Reps/Minutes 14 min Comments curbs, 6 stairs with rail and cane desc x 2 asce X 1, 2 steps without rail ( SPC only) desc X 1, uneven surfaces, grass, inclines and declines. CGA for stairs and curbs. VC to use SPC through turns ie holds SPC in air when turning 180 deg. Manual Therapy Treatment Soft Tissue Mobilization left knee Body Location for swelling and Hamstring stiffness, quad, adductors Mobilization Type Cross-Friction,Rolling,Other Intensity/Depth Moderate Body Position Hooklying Comments increased focus on adductors and medial knee, hamstring and area of swelling distal quad. Demos slight tenderness along adductors scar mobility Body Location L knee distal quad areas of dec mobility increased density Mobilization Type Cross-Friction,Myofascial Release Body Position Hooklying Comments educated on performing at home . demos slight adhesions to skin especially closer to patella Joint Mobilizations L patellar Direction sup, inf, med, lat,CW and CCW Grade III Reps/Duration 8 each direction PT-OP-R Modalities Start: 03/07/24 18:38 Freq: Status: Active Protocol: Document 04/01/24 10:36 SP (Rec: 04/01/24 16:13 SP [id number]) Hot Pack/Cold Pack Treatment CP L knee Location L knee Patient Position Supine Patient Tolerance Good Comments ant/post knee PT-OP-T Assessment and Plan Start: 03/07/24 18:38 Freq: Status: Active Protocol: Document 04/30/24 12:54 AB (Rec: 04/30/24 13:57 AB [id number]) Physical Therapy Assessment Goals Five Impairment Decreased L knee AROM Impairment L knee AROM (pre-op): sup is lacking 10-105 deg's; sitting ext is lacking 10 deg's. L knee AROM (post-op): sitting is 20-88 deg's R knee AROM: sup is lacking 12 -112 deg's Short Term Goal (STG) Pt will improve L knee AROM to pre-surgical range (10-105 deg's) to improve sitting tolerance with L leg dependent w/o increased knee pain. 04/01/24: progressin-99 deg AROM, 103 /c strap assist after heel slide. 04/03/2024 AROM left knee lacking 8 to 104 deg post manual therapy and exercise. 04/08/2024 Patient ed to avoid sleeping with pillow under the knee due to AROM knee ext lacking 15 deg compared to previous session of lacking 10 and patient reports sleeping with pillow under LE when questioned. 04/25/24: 5 to 110 AROM STG Duration 6 wks-08/16/24 MET 04/25/24 Halfway Goal (LTG) Pt will improve L knee AROM to minimal 3 - 120 deg's with pt able to ambulate stairs with use of 1 railing and step over step gait. 04/01/24: progressin-99 deg AROM, 103 /c strap assist after heel slide. 04/25/24: 5 to 110 AROM LTG Duration 12 wks-06/20/24 progressing 04/25/24 Four Impairment Decreased function per TUG score 13 Impairment TUG 13 (20<40% impaired, score 12-13) Internal [employer]er Goal (LTG) Improve stability of gait per improved TUG score of 11-12 or less. 04/03/2024 TUG with FWW, UE use for sit to and from stand 31. 86 sec. ( FWW use due to 1 sec single leg stance left LE without UE use and reports of some increase in pain with trial ) 04/25/24: 16 sec with FWW, 17 sec with spc LTG Duration 12 wk-06/20/24 Three Impairment Decreased L knee strength Impairment L knee (pre-op) flex 4/5, ext 5/5 L knee (post-op) flex 2+/5, ext 2+/5 R knee flex/ext is 5/5. Short Term Goal (STG) Improve L knee strength 1/2 grade with pt able to safely walk w/o walker. 04/25/24: 4-/5 MMT for both knee flex and ext STG Duration 6 wks-05/09/24 MET Internal Combust[employer] Engine Subassembler Goal (LTG) Improve L knee strength to 5/5 with pt able to return to walking trails 30-40 min/day. LTG Duration 12 wks-06/20/24 Two Impairment L knee pain and assist needed for transfers sit<>supine Internal [employer] Engine Sub[employer]er Goal (LTG) Improve function with pt able to transfer sit<>supine w/on pain and independently. 04/08/2024 Patient transfers supine to and from sit without UE use in clinic this session LTG Duration 12 wk-06/20/24 One Impairment Pt lacks appropriate self care HEP. Impairment Pt will be educated in log roll transfers, proper body mechanics for ADLs, proper sitting/standing posture. LTG : Pt will be independent in an effective self care HEP for core/hip strengthening and mobility ex's. Short Term Goal (STG) Pt will be educated and be able to perform L knee post op TKA ex's independent 04/08/2024 1. Patient ed rationale of seated knee ext stretch one hour over course of day for functional outcome ( 10 min X 6 or 15 min X 4)2. Pt ed to avoid positioning a pillow under LE when sleeping. 3. LAQ and sit to stand with focus on equal weight shift, LE position prior to sit to stand and to stand with knee straight prior to sitting dowl slowly. STG Duration 2 wks-04/11/24 Internal [employer] Sub[employer]sembler Goal (LTG) Pt will be independent in self care HEP of L knee ROM and strengthening ex's to promote functional use of the L knee and return her to trail walking. LTG Duration 12 wks-06/20/24 Assessment Summary Assessment Nara reports having no pain end of session. Left knee lacking 7 deg AROM supine quad set AROM end of session. Increased verbal cues for sequence and SPC position descending stairs with a reciprocal pattern. Physical Therapy Plan Frequency and Duration Frequency of Treatment 2x/Week Duration of treatment (weeks) 12 Plan of Care Start Date 03/25/24 Plan of Care End Date 06/20/24 Next Visit Focus/Plan Next Note Type Treatment Note Next Visit Plan Focus on stairs with gaint training intermittently ie every other session. Focus TKE and knee flex; squat with hand support, side steps, step up 4, hip 3 way. Manual prn to improve ROM. Next: biodex Progress L knee ROM, biodex at this time then progress to recumbent bike. POC: s/p L partial knee arthroplasty; Edema management, ROM, strengthening , gait & stair training progressing to gait without assistive device and balance training for stability/safety with gait on level and for trail walking. Next session: assess knee extension.
--- NOTE | 2024-05-07 13:47 | PT.OTN ---
Current Diagnoses Unilateral primary osteoarthritis, left knee (05/07/24) Pain in left knee (05/07/24) Muscle weakness (generalized) (05/07/24) Other abnormalities of gait and mobility (05/07/24) Encounter for other preprocedural examination (05/07/24) Physical Therapy Treatment Note PT-OP-A Visit Information Start: 03/07/24 18:38 Freq: Status: Active Protocol: Document 05/07/24 13:01 AB (Rec: 05/07/24 13:46 AB [id number]) Out-Patient Physical Therapy Visit Information Visit Information Visit Type Treatment Note Visit Note Partial L knee arthroplasty . Visit [email or web address] Access Code: [email or web address] Visit Start Time 13:05 Visit Stop Time 13:47 Visit Number 12 Number of SPEECH LANGUAGE PATHOLOGIST PRN Visits 3 Evaluation Information Evaluation Date 03/13/24 Precautions Precautions Back surgery (for ruptured disc) -30 yrs ago, hand surgery (carpal tunnel and trigger finger bilaterallly) 10 yrs ago. 3 PT-OP-B Current Condition Start: 03/07/24 18:38 Freq: Status: Active Protocol: Document 03/25/24 09:54 LRN (Rec: 03/25/24 17:35 LRN [id number]) Current Condition History of Current Condition Onset Date 03/18/24 Current Complaints L knee pain, not able to walk on trails, using walker to walk History of Current Condition Pt returns after having an elective L medial knee arthroplasty 03/18/24. The pt has been home 1 wk and has been doing her HEP with her daughter, who is a PACU nurse at . Pt walks in with FWW. Transfer on/off plinth with a little help to her LLE, but is mostly independent. Pt reports she needs help getting her stockings and shoes on, which her daughter or helps her with. Prior Treatments and Tests Pre-op physical therapy visit 03/13/24. Treatment Goals Patient/Caregiver Goals Pt goal is: - to be able to walk w/o a walker, -to be able to return to walking [place] previously, 30-40 minutes, - to be able to ambulate stairs with a normal gait. Personal Factors Other Personal Factors That May Effect 3 steps to get in/out of Therapy/Recovery house. PT-OP-C Subjective Start: 03/07/24 18:38 Freq: Status: Active Protocol: Document 05/07/24 13:01 AB (Rec: 05/07/24 13:46 AB [id number]) OP-PT Subjective Patient Comments Patient Comments Patient into session with SPC, reports using no device in home and walker for walking outdoors and grocery stores. Patient rates pain 0/10, comments she got some medication (Meloxicam ) for pain and swelling. Patient ambulates with SPC increased hip and knee. Lacking 10 deg extension to 111 deg flexion AROM left knee PT-OP-E Functional Tests Start: 03/07/24 18:38 Freq: Status: Active Protocol: Document 03/13/24 08:16 LRN (Rec: 03/13/24 09:37 LRN [id number]) Functional Tests Timed Up and Go (TUG) Score 13 Comments Webbed chair, no use of hands TUG Impairment Rating 20 to <40% Impaired (Score 12- 13) PT-OP-G Mobility & Gait Start: 03/07/24 18:38 Freq: Status: Active Protocol: Document 03/25/24 09:54 LRN (Rec: 03/25/24 17:41 LRN [id number]) OP Mobility Evaluation Bed Mobility Supine to and from Sit Pt transfer by partially sidelying onto plinth. SBA transfer with a little help to LLE. Transfers Sit to Stand Independent. Daughter reports she sometimes needs help. OP Gait Assessment Gait Gait Assistance Required: Independent Distance (Feet) 70 Assistive Devices Assistive Device Front Wheeled Walker Gait Deviations General Gait Pattern Antalgic,Decreased Stride Length,Flexed Trunk,Narrow Based Gait Comments Gait Comments Pt mildly unsteady with intial start of gait; therefore not yet appropriate for single point cane. Stair Climbing Evaluation Evaluation Level of Assist On Stairs Standby Assistance Devices Stair Climbing Assistive Devices Straight Cane,Left Railing, Right Railing Technique/Endurance Stair Climbing Direction Ascend and Descend Stair Climbing Technique Step to Step Number of Steps Climbed 4 Stair Climbing Set # Repetitions (reps) 1 PT-OP-J Posture/Palpation/Skin Start: 03/07/24 18:38 Freq: Status: Active Protocol: Document 03/25/24 09:54 LRN (Rec: 03/25/24 17:46 LRN [id number]) Posture Evaluation Position Standing Head/C-Spine Posture Forward Head T-Spine Posture Increased Kyphosis L-Spine Posture Decreased Lordosis Arm Posture (L) Internally Rotated,(R) Internally Rotated Pelvis Posture Anteriorly Tilted Weight Distribution Weight Shifted Right Hip Posture (L) Flexed,(R) Flexed Knee Posture (L) Excess Flexion,(R) Excess Flexion Palpation Assessment Location L knee Palpation Location Pain at medial left knee Palpation Findings Tenderness Palpation Details Palpation over support hose. Bandage covering incision. PT-OP-K Range of Motion Start: 03/07/24 18:38 Freq: Status: Active Protocol: Document 04/25/24 08:16 NM (Rec: 04/25/24 09:02 NM [id number]) Knee Goniometric Range of Motion Knee Left Knee ROM WFL No Patient Position Sitting Flexion Active (degrees) 110 Extension Active (degrees) 5 Comments Sitting knee AROM: 20-88 04/25/24: lacking 5 deg of ext; 110 deg flex PT-OP-M Strength Start: 03/07/24 18:38 Freq: Status: Active Protocol: Document 04/25/24 08:16 NM (Rec: 04/25/24 09:02 NM [id number]) Knee Strength Knee Manual Muscle Testing Left Flexion (S2) 4- Good- Extension (L3) 4- Good- Comments RE: 2+/5 for both; Quad lag of 20 deg's 04/25/24: 4-/5 PT-OP-Q Treatments Start: 03/07/24 18:38 Freq: Status: Active Protocol: Document 05/07/24 13:01 AB (Rec: 05/07/24 13:46 AB [id number]) Cardio Equipment Recumbent Elliptical ([employer]) Duration (Minutes) 5 Resistance 3,4 Seat Position 9 Other UE's and LE's Therapeutic Exercises Supine Exercises Modified Enrique stretch Supine Exercise Name opp knee to chest, performed with AROM knee flexion Side bilateral Reps/Minutes 60 sec L LE X 2, X1 right LE Comments HEP/ verbal cues knee flexion with feet on ball Side bilateral Reps/Minutes 2 min Comments verbal cues to fully flex and extend; 106> 110 deg flex hamstring stretch from hooklying Supine Exercise Name holding behind knee with a strap Reps/Minutes 2x60 Comments following manual tx heel slides Supine Exercise Name post manual therapy Side left Reps/Minutes X10 Comments post manual Standing Exercises hip and knee flexion stretch on step Standing Exercise Name HEP Side bilateral Reps/Minutes 60 seconds each LE Other Exercises step up Other Exercise Name HEP review Side bilateral Reps/Minutes 2X10 Comments Verbal cues to fully extend the knee, reminder of every other day for HEP Manual Therapy Treatment Soft Tissue Mobilization left knee Body Location for swelling and Hamstring stiffness, quad, adductors Mobilization Type Cross-Friction,Rolling,Other Intensity/Depth Moderate Body Position Hooklying Comments increased focus on adductors and medial knee, hamstring and area of swelling distal quad. Demos slight tenderness along adductors scar mobility Body Location L knee distal quad areas of dec mobility increased density Mobilization Type Cross-Friction,Myofascial Release Body Position Hooklying Comments educated on performing at home . demos slight adhesions to skin especially closer to patella Joint Mobilizations left knee Joint tibia on femur PA and AP Direction PA Grade III Body Position Hooklying Reps/Duration X10 X 3 L patellar Direction sup, inf, med, lat,CW and CCW Grade III Reps/Duration 8 each direction PT-OP-R Modalities Start: 03/07/24 18:38 Freq: Status: Active Protocol: Document 04/01/24 10:36 SP (Rec: 04/01/24 16:13 SP [id number]) Hot Pack/Cold Pack Treatment CP L knee Location L knee Patient Position Supine Patient Tolerance Good Comments ant/post knee PT-OP-T Assessment and Plan Start: 03/07/24 18:38 Freq: Status: Active Protocol: Document 05/07/24 13:01 AB (Rec: 05/07/24 13:46 AB [id number]) Physical Therapy Assessment Goals Five Impairment Decreased L knee AROM Impairment L knee AROM (pre-op): sup is lacking 10-105 deg's; sitting ext is lacking 10 deg's. L knee AROM (post-op): sitting is 20-88 deg's R knee AROM: sup is lacking 12 -112 deg's Short Term Goal (STG) Pt will improve L knee AROM to pre-surgical range (10-105 deg's) to improve sitting tolerance with L leg dependent w/o increased knee pain. 04/01/24: progressin-99 deg AROM, 103 /c strap assist after heel slide. 04/03/2024 AROM left knee lacking 8 to 104 deg post manual therapy and exercise. 04/08/2024 Patient ed to avoid sleeping with pillow under the knee due to AROM knee ext lacking 15 deg compared to previous session of lacking 10 and patient reports sleeping with pillow under LE when questioned. 04/25/24: 5 to 110 AROM STG Duration 6 wks-05/09/24 MET 04/25/24 Radiological Metallurgist Goal (LTG) Pt will improve L knee AROM to minimal 3 - 120 deg's with pt able to ambulate stairs with use of 1 railing and step over step gait. 04/01/24: progressin-99 deg AROM, 103 /c strap assist after heel slide. 04/25/24: 5 to 110 AROM LTG Duration 12 wks-06/20/24 progressing 04/25/24 Four Impairment Decreased function per TUG score 13 Impairment TUG 13 (20<40% impaired, score 12-13) Radiological Metallurgist Goal (LTG) Improve stability of gait per improved TUG score of 11-12 or less. 04/03/2024 TUG with FWW, UE use for sit to and from stand 31. 86 sec. ( FWW use due to 1 sec single leg stance left LE without UE use and reports of some increase in pain with trial ) 04/25/24: 16 sec with FWW, 17 sec with spc LTG Duration 12 wks-06/20/24 Three Impairment Decreased L knee strength Impairment L knee (pre-op) flex 4/5, ext 5/5 L knee (post-op) flex 2+/5, ext 2+/5 R knee flex/ext is 5/5. Short Term Goal (STG) Improve L knee strength 1/2 grade with pt able to safely walk w/o walker. 04/25/24: 4-/5 MMT for both knee flex and ext STG Duration 6 wks-05/09/24 MET Radiological Metallurgist Goal (LTG) Improve L knee strength to 5/5 with pt able to return to walking trails 30-40 min/day. LTG Duration 12 wks-06/20/24 Two Impairment L knee pain and assist needed for transfers sit<>supine Shelter Goal (LTG) Improve function with pt able to transfer sit<>supine w/on pain and independently. 04/08/2024 Patient transfers supine to and from sit without UE use in clinic this session LTG Duration 12 wks-06/20/24 One Impairment Pt lacks appropriate self care HEP. Impairment Pt will be educated in log roll transfers, proper body mechanics for ADLs, proper sitting/standing posture. LTG : Pt will be independent in an effective self care HEP for core/hip strengthening and mobility ex's. Short Term Goal (STG) Pt will be educated and be able to perform L knee post op TKA ex's independent 04/08/2024 1. Patient ed rationale of seated knee ext stretch one hour over course of day for functional outcome ( 10 min X 6 or 15 min X 4)2. Pt ed to avoid positioning a pillow under LE when sleeping. 3. LAQ and sit to stand with focus on equal weight shift, LE position prior to sit to stand and to stand with knee straight prior to sitting dowl slowly. STG Duration 2 wks-04/11/24 Shelter Goal (LTG) Pt will be independent in self care HEP of L knee ROM and strengthening ex's to promote functional use of the L knee and return her to trail walking. LTG Duration 12 wks-06/20/24 Assessment Summary Assessment Lacking 9 to 112 deg AROM left knee post manual and exercise . ROM left knee continues to be limited impacting gait pattern. Physical Therapy Plan Frequency and Duration Frequency of Treatment 2x/Week Duration of treatment (weeks) 12 Plan of Care Start Date 03/25/24 Plan of Care End Date 06/20/24 Next Visit Focus/Plan Next Note Type Treatment Note Next Visit Plan Focus on stairs with gaint training intermittently ie every other session. Focus TKE and knee flex; squat with hand support, side steps, step up 4, hip 3 way. Manual prn to improve ROM. Next: biodex Progress L knee ROM, biodex at this time then progress to recumbent bike. POC: s/p L partial knee arthroplasty; Edema management, ROM, strengthening , gait & stair training progressing to gait without assistive device and balance training for stability/safety with gait on level and for trail walking. Next session: assess kenrick to step ups previous session, stair stretch and hip flexor stretch with knee flexion AROM
--- NOTE | 2024-05-09 12:01 | PT.OTN ---
Current Diagnoses Unilateral primary osteoarthritis, left knee (05/09/24) Pain in left knee (05/09/24) Muscle weakness (generalized) (05/09/24) Other abnormalities of gait and mobility (05/09/24) Encounter for other preprocedural examination (05/09/24) Physical Therapy Treatment Note PT-OP-A Visit Information Start: 03/07/24 18:38 Freq: Status: Active Protocol: Document 05/09/24 11:21 SP (Rec: 05/09/24 12:25 SP [id number]) Out-Patient Physical Therapy Visit Information Visit Information Visit Type Treatment Note Visit Start Time 11:21 Visit Stop Time 12:01 Visit Number 13 Number of TIRE FIXER Visits 4 Evaluation Information Evaluation Date 03/13/24 Precautions Precautions 03/18/24 s/p Partial L knee arthroplasty Hx: Back surgery (for ruptured disc) -30 yrs ago, hand surgery (carpal tunnel and trigger finger bilaterallly) 10 yrs ago. PT-OP-B Current Condition Start: 03/07/24 18:38 Freq: Status: Active Protocol: Document 03/25/24 09:54 LRN (Rec: 03/25/24 17:35 LRN [id number]) Current Condition History of Current Condition Onset Date 03/18/24 Current Complaints L knee pain, not able to walk on trails, using walker to walk History of Current Condition Pt returns after having an elective L medial knee arthroplasty 03/18/24. The pt has been home 1 wk and has been doing her HEP with her daughter, who is a PACU nurse at . Pt walks in with FWW. Transfer on/off plinth with a little help to her LLE, but is mostly independent. Pt reports she needs help getting her stockings and shoes on, which her daughter or helps her with. Prior Treatments and Tests Pre-op physical therapy visit 03/13/24. Treatment Goals Patient/Caregiver Goals Pt goal is: - to be able to walk w/o a walker, -to be able to return to walking [place] previously, 30-40 minutes, - to be able to ambulate stairs with a normal gait. Personal Factors Other Personal Factors That May Effect 3 steps to get in/out of Therapy/Recovery house. PT-OP-C Subjective Start: 03/07/24 18:38 Freq: Status: Active Protocol: Document 05/09/24 11:21 SP (Rec: 05/09/24 12:25 SP [id number]) OP-PT Subjective Patient Comments Patient Comments Pt reports she doesn't need use SPC around home, tends to still do step to patterning on stairs because limited L knee bend. PT-OP-E Functional Tests Start: 03/07/24 18:38 Freq: Status: Active Protocol: Document 03/13/24 08:16 LRN (Rec: 03/13/24 09:37 LRN [id number]) Functional Tests Timed Up and Go (TUG) Score 13 Comments Webbed chair, no use of hands TUG Impairment Rating 20 to <40% Impaired (Score 12- 13) PT-OP-G Mobility & Gait Start: 03/07/24 18:38 Freq: Status: Active Protocol: Document 03/25/24 09:54 LRN (Rec: 03/25/24 17:41 LRN [id number]) OP Mobility Evaluation Bed Mobility Supine to and from Sit Pt transfer by partially sidelying onto plinth. SBA transfer with a little help to LLE. Transfers Sit to Stand Independent. Daughter reports she sometimes needs help. OP Gait Assessment Gait Gait Assistance Required: Independent Distance (Feet) 70 Assistive Devices Assistive Device Front Wheeled Walker Gait Deviations General Gait Pattern Antalgic,Decreased Stride Length,Flexed Trunk,Narrow Based Gait Comments Gait Comments Pt mildly unsteady with intial start of gait; therefore not yet appropriate for single point cane. Stair Climbing Evaluation Evaluation Level of Assist On Stairs Standby Assistance Devices Stair Climbing Assistive Devices Straight Cane,Left Railing, Right Railing Technique/Endurance Stair Climbing Direction Ascend and Descend Stair Climbing Technique Step to Step Number of Steps Climbed 4 Stair Climbing Set # Repetitions (reps) 1 PT-OP-J Posture/Palpation/Skin Start: 03/07/24 18:38 Freq: Status: Active Protocol: Document 03/25/24 09:54 LRN (Rec: 03/25/24 17:46 LRN [id number]) Posture Evaluation Position Standing Head/C-Spine Posture Forward Head T-Spine Posture Increased Kyphosis L-Spine Posture Decreased Lordosis Arm Posture (L) Internally Rotated,(R) Internally Rotated Pelvis Posture Anteriorly Tilted Weight Distribution Weight Shifted Right Hip Posture (L) Flexed,(R) Flexed Knee Posture (L) Excess Flexion,(R) Excess Flexion Palpation Assessment Location L knee Palpation Location Pain at medial left knee Palpation Findings Tenderness Palpation Details Palpation over support hose. Bandage covering incision. PT-OP-K Range of Motion Start: 03/07/24 18:38 Freq: Status: Active Protocol: Document 05/09/24 11:21 SP (Rec: 05/09/24 12:25 SP [id number]) Knee Goniometric Range of Motion Knee Left Knee ROM WFL No Patient Position Supine Flexion Active (degrees) 115 Flexion Passive (degrees) 118 Extension Active (degrees) 2 Comments L knee AROM supine: Extension passive relaxed 4 deg, active TKE 2 deg FLexion AROM 109, PROM PT-OP-M Strength Start: 03/07/24 18:38 Freq: Status: Active Protocol: Document 04/25/24 08:16 NM (Rec: 04/25/24 09:02 NM [id number]) Knee Strength Knee Manual Muscle Testing Left Flexion (S2) 4- Good- Extension (L3) 4- Good- Comments RE: 2+/5 for both; Quad lag of 20 deg's 04/25/24: 4-/5 PT-OP-Q Treatments Start: 03/07/24 18:38 Freq: Status: Active Protocol: Document 05/09/24 11:21 SP (Rec: 05/09/24 12:25 SP [id number]) Cardio Equipment Recumbent Elliptical (BiodVeoh) Duration (Minutes) 5 Resistance 4 Seat Position 7 Other LE's only 35-40 RPM, 353 steps Therapeutic Exercises Supine Exercises QS Side left Equipment Used towel roll Reps/Minutes 10 x5 SH Comments following manual tx; following HS stretch heel slides Supine Exercise Name measurement L knee AROM, AAROM /c strap Side left Reps/Minutes X10 Comments AROM 115*, 118* AAROM /c strap and therapist assist Sitting Exercises STS Equipment Used 18 black table, no UE, feet parallel Reps/Minutes x10 Comments cued slower controlled sit, hip hinge little further sit better Standing Exercises hip and knee flexion stretch on step Standing Exercise Name HEP- hip& mobility AAROM Side bilateral Equipment Used B rail support Reps/Minutes 30 seconds each LE x2 - instructed 2x /day Comments 112deg terminal knee extension Standing Exercise Name HEP reviewed, increased TB Resistance level 3 band- anchored on trampoline (leg piano home) Equipment Used contact chair back support Reps/Minutes 5 SH x15 Comments cued tall stationary trunk, only L knee back QS hold, improved TKE Other Exercises step up Other Exercise Name HEP review-for quad/glut strength Side bilateral Resistance rail support as needed Equipment Used 6 step Reps/Minutes 2X10 reps SL repeated slower up and back down Comments cued slow asc/desc ed and return demo lessen momentum support/fluid/fullext Gait Training Gait Activity gait no AD Device Used - Level of Assistance Mod I Treatment Focus midline stability, increase stride, L knee flexion/gait phases Comments cued for L knee flexion and DF with increased to normal stride, mindful of MANPREET needed for balance, goal not wide nor tandem. Stair ambuation Description Stair ambulation Device Used 1 rail> no rail Level of Assistance S Distance/Duration 4 stairs x6 sets Treatment Focus receiprocal stepping, muscle lift ext/control desc flexion rail support PRN Comments Improved less momentum L LE asc /glide 1 hand descend, still limited flexion control descend but improved no pain. Cued scap and posture to allow COG over MANPREET for midline stability Self-Care/Home Management Treatment Education Patient Education Body Mechanics,Posture,Safety Other Education Education, postural corrections, midline stability during gait and stair mgt with less UE support as deem safe needed vs light glide vs none progress toward normalizing PLOF. Ed receiprocal stairs use rail for slow descend flexion at this time. Keep up with flexion based HEP to improved ROM for mobility. PT-OP-R Modalities Start: 03/07/24 18:38 Freq: Status: Active Protocol: Document 04/01/24 10:36 SP (Rec: 04/01/24 16:13 SP [id number]) Hot Pack/Cold Pack Treatment CP L knee Location L knee Patient Position Supine Patient Tolerance Good Comments ant/post knee PT-OP-T Assessment and Plan Start: 03/07/24 18:38 Freq: Status: Active Protocol: Document 05/09/24 11:21 SP (Rec: 05/09/24 12:25 SP [id number]) Physical Therapy Assessment Goals Five Impairment Decreased L knee AROM Impairment L knee AROM (pre-op): sup is lacking 10-105 deg's; sitting ext is lacking 10 deg's. L knee AROM (post-op): sitting is 20-88 deg's R knee AROM: sup is lacking 12 -112 deg's 05/09/24: Short Term Goal (STG) Pt will improve L knee AROM to pre-surgical range (10-105 deg's) to improve sitting tolerance with L leg dependent w/o increased knee pain. 04/01/24: progressin-99 deg AROM, 103 /c strap assist after heel slide. 04/03/2024 AROM left knee lacking 8 to 104 deg post manual therapy and exercise. 04/08/2024 Patient ed to avoid sleeping with pillow under the knee due to AROM knee ext lacking 15 deg compared to previous session of lacking 10 and patient reports sleeping with pillow under LE when questioned. 04/25/24: 5 to 110 AROM STG Duration 6 wks-05/09/24 MET 04/25/24 Correction Goal (LTG) Pt will improve L knee AROM to minimal 3 - 120 deg's with pt able to ambulate stairs with use of 1 railing and step over step gait. 04/01/24: progressin-99 deg AROM, 103 /c strap assist after heel slide. 04/25/24: 5 to 110 AROM 05/09/24: 2-115 deg AROM L knee , passive L knee hand 4 deg, AAROM 118 deg flexion therapist assist. LTG Duration 12 wks-06/20/24 progressing Four Impairment Decreased function per TUG score 13 Impairment TUG 13 (20<40% impaired, score 12-13) Correction Goal (LTG) Improve stability of gait per improved TUG score of 11-12 or less. 04/03/2024 TUG with FWW, UE use for sit to and from stand 31. 86 sec. ( FWW use due to 1 sec single leg stance left LE without UE use and reports of some increase in pain with trial ) 04/25/24: 16 sec with FWW, 17 sec with spc LTG Duration 12 wks-06/20/24 Three Impairment Decreased L knee strength Impairment L knee (pre-op) flex 4/5, ext 5/5 L knee (post-op) flex 2+/5, ext 2+/5 R knee flex/ext is 5/5. Short Term Goal (STG) Improve L knee strength 1/2 grade with pt able to safely walk w/o walker. 04/25/24: 4-/5 MMT for both knee flex and ext STG Duration 6 wks-05/09/24 MET Correction Goal (LTG) Improve L knee strength to 5/5 with pt able to return to walking trails 30-40 min/day. LTG Duration 12 wks-06/20/24 Two Impairment L knee pain and assist needed for transfers sit<>supine Correction Goal (LTG) Improve function with pt able to transfer sit<>supine w/on pain and independently. 04/08/2024 Patient transfers supine to and from sit without UE use in clinic this session LTG Duration 12 wks-06/20/24 One Impairment Pt lacks appropriate self care HEP. Impairment Pt will be educated in log roll transfers, proper body mechanics for ADLs, proper sitting/standing posture. LTG : Pt will be independent in an effective self care HEP for core/hip strengthening and mobility ex's. Short Term Goal (STG) Pt will be educated and be able to perform L knee post op TKA ex's independent 04/08/2024 1. Patient ed rationale of seated knee ext stretch one hour over course of day for functional outcome ( 10 min X 6 or 15 min X 4)2. Pt ed to avoid positioning a pillow under LE when sleeping. 3. LAQ and sit to stand with focus on equal weight shift, LE position prior to sit to stand and to stand with knee straight prior to sitting dowl slowly. STG Duration 2 wks-04/11/24 Correction Goal (LTG) Pt will be independent in self care HEP of L knee ROM and strengthening ex's to promote functional use of the L knee and return her to trail walking. LTG Duration 12 wks-06/20/24 Assessment Summary Assessment Lacking 4 deg passive knee hang supine, 2-115 AROM L knee , AAROM flexion 18 deg. Instructed continue use strap for AAROM flexion laying down. Standing L Knee AAROM 2nd foot on step, HEP reviewed increase to 2x /day. Pt was able to ascend/descend multiple stairs no UE ascend, light glide descend during active L knee flexion dueto lacking range/strength and control for balance need of UE support, improving. Discussed performing in/out house to covered detached room of house to for functional progression . Review gait phases and knee flexion, stride toward normal and awareness of more upright posture, tends to have rounded posture. Pt improved stability increase stride and postural corrections post education Physical Therapy Plan Frequency and Duration Frequency of Treatment 2x/Week Duration of treatment (weeks) 12 Plan of Care Start Date 03/25/24 Plan of Care End Date 06/20/24 Therapeutic Interventions Therapeutic Interventions Balance Training,Gait Training ,Home Exercise Program,Joint Mobilizations,Manual Therapy, Neuromuscular Re-education, Self-Care/Home Management,Soft Tissue Mobilization, Therapeutic Activities, Therapeutic Exercises Modalities Cold Pack/Ice Massage,Hot Packs Next Visit Focus/Plan Next Note Type Treatment Note Next Visit Plan Focus on stairs with gaint training intermittently ie every other session. Focus TKE and knee flex; squat with hand support, side steps, step up 4, hip 3 way. Manual prn to improve ROM. Next: biodex Progress L knee ROM, biodex at this time then progress to recumbent bike. POC: s/p L partial knee arthroplasty; Edema management, ROM, strengthening , gait & stair training progressing to gait without assistive device and balance training for stability/safety with gait on level and for trail walking. Next session: assess kenrick to step ups previous session, stair stretch and hip flexor stretch with knee flexion AROM
--- NOTE | 2024-05-13 11:10 | PT.OTN ---
Current Diagnoses Unilateral primary osteoarthritis, left knee (05/13/24) Pain in left knee (05/13/24) Muscle weakness (generalized) (05/13/24) Other abnormalities of gait and mobility (05/13/24) Encounter for other preprocedural examination (05/13/24) Physical Therapy Treatment Note PT-OP-A Visit Information Start: 03/07/24 18:38 Freq: Status: Active Protocol: Document 05/13/24 09:01 NM (Rec: 05/13/24 09:48 NM [id number]) Out-Patient Physical Therapy Visit Information Visit Information Visit Type Treatment Note Visit Note Partial L knee arthroplasty . Visit Start Time 09:01 Visit Stop Time 09:45 Visit Number 14 Evaluation Information Evaluation Date 03/13/24 Precautions Precautions 03/18/24 s/p Partial L knee arthroplasty Hx: Back surgery (for ruptured disc) -30 yrs ago, hand surgery (carpal tunnel and trigger finger bilaterallly) 10 yrs ago. PT-OP-B Current Condition Start: 03/07/24 18:38 Freq: Status: Active Protocol: Document 03/25/24 09:54 LRN (Rec: 03/25/24 17:35 LRN [id number]) Current Condition History of Current Condition Onset Date 03/18/24 Current Complaints L knee pain, not able to walk on trails, using walker to walk History of Current Condition Pt returns after having an elective L medial knee arthroplasty 03/18/24. The pt has been home 1 wk and has been doing her HEP with her daughter, who is a PACU nurse at . Pt walks in with FWW. Transfer on/off plinth with a little help to her LLE, but is mostly independent. Pt reports she needs help getting her stockings and shoes on, which her daughter or helps her with. Prior Treatments and Tests Pre-op physical therapy visit 03/13/24. Treatment Goals Patient/Caregiver Goals Pt goal is: - to be able to walk w/o a walker, -to be able to return to walking [place] previously, 30-40 minutes, - to be able to ambulate stairs with a normal gait. Personal Factors Other Personal Factors That May Effect 3 steps to get in/out of Therapy/Recovery house. PT-OP-C Subjective Start: 03/07/24 18:38 Freq: Status: Active Protocol: Document 05/13/24 09:01 NM (Rec: 05/13/24 09:48 NM [id number]) OP-PT Subjective Patient Comments Patient Comments Pt reports hardly any knee pain, she is taking a medication for swelling and pain. She states overall pain is going well. She states exercises are going well. PT-OP-E Functional Tests Start: 03/07/24 18:38 Freq: Status: Active Protocol: Document 03/13/24 08:16 LRN (Rec: 03/13/24 09:37 LRN [id number]) Functional Tests Timed Up and Go (TUG) Score 13 Comments Webbed chair, no use of hands TUG Impairment Rating 20 to <40% Impaired (Score 12- 13) PT-OP-G Mobility & Gait Start: 03/07/24 18:38 Freq: Status: Active Protocol: Document 03/25/24 09:54 LRN (Rec: 03/25/24 17:41 LRN [id number]) OP Mobility Evaluation Bed Mobility Supine to and from Sit Pt transfer by partially sidelying onto plinth. SBA transfer with a little help to LLE. Transfers Sit to Stand Independent. Daughter reports she sometimes needs help. OP Gait Assessment Gait Gait Assistance Required: Independent Distance (Feet) 70 Assistive Devices Assistive Device Front Wheeled Walker Gait Deviations General Gait Pattern Antalgic,Decreased Stride Length,Flexed Trunk,Narrow Based Gait Comments Gait Comments Pt mildly unsteady with intial start of gait; therefore not yet appropriate for single point cane. Stair Climbing Evaluation Evaluation Level of Assist On Stairs Standby Assistance Devices Stair Climbing Assistive Devices Straight Cane,Left Railing, Right Railing Technique/Endurance Stair Climbing Direction Ascend and Descend Stair Climbing Technique Step to Step Number of Steps Climbed 4 Stair Climbing Set # Repetitions (reps) 1 PT-OP-J Posture/Palpation/Skin Start: 03/07/24 18:38 Freq: Status: Active Protocol: Document 03/25/24 09:54 LRN (Rec: 03/25/24 17:46 LRN [id number]) Posture Evaluation Position Standing Head/C-Spine Posture Forward Head T-Spine Posture Increased Kyphosis L-Spine Posture Decreased Lordosis Arm Posture (L) Internally Rotated,(R) Internally Rotated Pelvis Posture Anteriorly Tilted Weight Distribution Weight Shifted Right Hip Posture (L) Flexed,(R) Flexed Knee Posture (L) Excess Flexion,(R) Excess Flexion Palpation Assessment Location L knee Palpation Location Pain at medial left knee Palpation Findings Tenderness Palpation Details Palpation over support hose. Bandage covering incision. PT-OP-K Range of Motion Start: 03/07/24 18:38 Freq: Status: Active Protocol: Document 05/09/24 11:21 SP (Rec: 05/09/24 12:25 SP [id number]) Knee Goniometric Range of Motion Knee Left Knee ROM WFL No Patient Position Supine Flexion Active (degrees) 115 Flexion Passive (degrees) 118 Extension Active (degrees) 2 Comments L knee AROM supine: Extension passive relaxed 4 deg, active TKE 2 deg FLexion AROM 109, PROM PT-OP-M Strength Start: 03/07/24 18:38 Freq: Status: Active Protocol: Document 04/25/24 08:16 NM (Rec: 04/25/24 09:02 NM [id number]) Knee Strength Knee Manual Muscle Testing Left Flexion (S2) 4- Good- Extension (L3) 4- Good- Comments RE: 2+/5 for both; Quad lag of 20 deg's 04/25/24: 4-/5 PT-OP-Q Treatments Start: 03/07/24 18:38 Freq: Status: Active Protocol: Document 05/13/24 09:01 NM (Rec: 05/13/24 09:48 NM [id number]) Therapeutic Exercises Standing Exercises lunge Standing Exercise Name mini-lunge (HEP) Side bilateral Equipment Used hand support for balance (1) Reps/Minutes 2x15 ea Comments PT hand for external cue hip and knee flexion stretch on step Standing Exercise Name hip& mobility AAROM: 1. sustained stretch, 2. gentle flex mobilization Side bilateral Equipment Used B rail support Reps/Minutes 1. 2x30 ea, 2. 10 L only w/ 3 hold at end range Comments post manual tx side steps Standing Exercise Name HEP Side bilateral Resistance level 2 band just below knees Equipment Used no balance Reps/Minutes 3x15 ft Other Exercises step up Other Exercise Name for quad/glut strength: 1. fwd 6, 2. lateral (trialed)- 4 Side bilateral Resistance rail support as needed Equipment Used 6 step for fwd, 4 lateral Reps/Minutes 1. 2x15 reps, 2. 10 ea Comments cued slow asc/desc ed and return demo lessen momentum support/fluid/fullext Manual Therapy Treatment Consent Patient gave verbal consent for manual Yes treatment Soft Tissue Mobilization left knee Body Location for swelling and Hamstring stiffness, quad, adductors Mobilization Type Cross-Friction,Rolling,Other Intensity/Depth Moderate Body Position Hooklying Comments Increased tightness in hamstrings, quad, adductors. No soreness, slight swelling. Reduced stiffness and tightness with soft tissue mobilization Joint Mobilizations left knee Joint tibia on femur PA and AP Direction PA Grade III Body Position Hooklying Reps/Duration 2x30 ea direction Comments Flexion ROM 118 deg to 120 deg post manual, Extension ROM 5 deg to 2 deg post manual L patellar Direction sup, inf, med Grade III Reps/Duration 15 ea PT-OP-R Modalities Start: 03/07/24 18:38 Freq: Status: Active Protocol: Document 04/01/24 10:36 SP (Rec: 04/01/24 16:13 SP [id number]) Hot Pack/Cold Pack Treatment CP L knee Location L knee Patient Position Supine Patient Tolerance Good Comments ant/post knee PT-OP-T Assessment and Plan Start: 03/07/24 18:38 Freq: Status: Active Protocol: Document 05/13/24 09:01 NM (Rec: 05/13/24 09:48 NM [id number]) Physical Therapy Assessment Goals Five Impairment Decreased L knee AROM Impairment L knee AROM (pre-op): sup is lacking 10-105 deg's; sitting ext is lacking 10 deg's. L knee AROM (post-op): sitting is 20-88 deg's R knee AROM: sup is lacking 12 -112 deg's 05/09/24: Short Term Goal (STG) Pt will improve L knee AROM to pre-surgical range (10-105 deg's) to improve sitting tolerance with L leg dependent w/o increased knee pain. 04/01/24: progressin-99 deg AROM, 103 /c strap assist after heel slide. 04/03/2024 AROM left knee lacking 8 to 104 deg post manual therapy and exercise. 04/08/2024 Patient ed to avoid sleeping with pillow under the knee due to AROM knee ext lacking 15 deg compared to previous session of lacking 10 and patient reports sleeping with pillow under LE when questioned. 04/25/24: 5 to 110 AROM STG Duration 6 wks-05/09/24 MET 04/25/24 [employer] Goal (LTG) Pt will improve L knee AROM to minimal 3 - 120 deg's with pt able to ambulate stairs with use of 1 railing and step over step gait. 04/01/24: progressin-99 deg AROM, 103 /c strap assist after heel slide. 04/25/24: 5 to 110 AROM 05/09/24: 2-115 deg AROM L knee , passive L knee hand 4 deg, AAROM 118 deg flexion therapist assist. 05/13/24: 5 to 118 deg; 2 to 120 deg post manual tx LTG Duration 12 wks-06/20/24 progressing Four Impairment Decreased function per TUG score 13 Impairment TUG 13 (20<40% impaired, score 12-13) Custodial Goal (LTG) Improve stability of gait per improved TUG score of 11-12 or less. 04/03/2024 TUG with FWW, UE use for sit to and from stand 31. 86 sec. ( FWW use due to 1 sec single leg stance left LE without UE use and reports of some increase in pain with trial ) 04/25/24: 16 sec with FWW, 17 sec with spc LTG Duration 12 wks-06/20/24 Three Impairment Decreased L knee strength Impairment L knee (pre-op) flex 4/5, ext 5/5 L knee (post-op) flex 2+/5, ext 2+/5 R knee flex/ext is 5/5. Short Term Goal (STG) Improve L knee strength 1/2 grade with pt able to safely walk w/o walker. 04/25/24: 4-/5 MMT for both knee flex and ext STG Duration 6 wks-05/09/24 MET Custodial Goal (LTG) Improve L knee strength to 5/5 with pt able to return to walking trails 30-40 min/day. 05/13/24: LTG Duration 12 wks-06/20/24 Two Impairment L knee pain and assist needed for transfers sit<>supine Custodial Goal (LTG) Improve function with pt able to transfer sit<>supine w/on pain and independently. 04/08/2024 Patient transfers supine to and from sit without UE use in clinic this session LTG Duration 12 wks-06/20/24 One Impairment Pt lacks appropriate self care HEP. Impairment Pt will be educated in log roll transfers, proper body mechanics for ADLs, proper sitting/standing posture. LTG : Pt will be independent in an effective self care HEP for core/hip strengthening and mobility ex's. Short Term Goal (STG) Pt will be educated and be able to perform L knee post op TKA ex's independent 04/08/2024 1. Patient ed rationale of seated knee ext stretch one hour over course of day for functional outcome ( 10 min X 6 or 15 min X 4)2. Pt ed to avoid positioning a pillow under LE when sleeping. 3. LAQ and sit to stand with focus on equal weight shift, LE position prior to sit to stand and to stand with knee straight prior to sitting dowl slowly. STG Duration 2 wks-04/11/24 Custodial Goal (LTG) Pt will be independent in self care HEP of L knee ROM and strengthening ex's to promote functional use of the L knee and return her to trail walking. LTG Duration 12 wks-06/20/24 Assessment Summary Assessment Pt tolerated session well. Demonstrates improvement from 5 to 118 deg up to 2 to 120 deg post manual treatment. Pt continues to have restrictions of L hamstring and adductors. Emphasis during session on improving functional mobility and strength, especially into L knee flexion. Continued with step ups to address glute/ quad control. Trialed lateral step up to improve medial- lateral stability at knee, able to perform at 4 step without hand support and without pain in L knee. Progressed to resistance to side steps and decreased hand support. Pt also trialed lunges to improved knee flexion, requires external cue to PT hand for max available knee flexion. Pt would benefit from skilled PT for L knee mobility and strength to improve mobility during gait and ADLs. Physical Therapy Plan Frequency and Duration Frequency of Treatment 2x/Week Duration of treatment (weeks) 12 Plan of Care Start Date 03/25/24 Plan of Care End Date 06/20/24 Therapeutic Interventions Therapeutic Interventions Balance Training,Gait Training ,Home Exercise Program,Joint Mobilizations,Manual Therapy, Neuromuscular Re-education, Self-Care/Home Management,Soft Tissue Mobilization, Therapeutic Activities, Therapeutic Exercises Modalities Cold Pack/Ice Massage,Hot Packs Next Visit Focus/Plan Next Note Type Treatment Note Next Visit Plan Focus on stairs with gait training intermittently ie every other session (trial trek poles vs spc as pt states uses those at home). *PN in 2 visits Biodex/recumbent bike for mobility and warm up Next: trial leg press uni vs B squat, review lunge (focus on knee flex); squat, LAQ, HSC, hip 3 way Manual prn to improve ROM. POC: s/p L partial knee arthroplasty; Edema management, ROM, strengthening , gait & stair training progressing to gait without assistive device and balance training for stability/safety with gait on level and for trail walking. Next session: assess kenrick to step ups previous session, stair stretch and hip flexor stretch with knee flexion AROM
--- NOTE | 2024-05-20 09:02 | PT.OTN ---
Current Diagnoses Unilateral primary osteoarthritis, left knee (05/20/24) Pain in left knee (05/20/24) Muscle weakness (generalized) (05/20/24) Other abnormalities of gait and mobility (05/20/24) Encounter for other preprocedural examination (05/20/24) Physical Therapy Treatment Note PT-OP-A Visit Information Start: 03/07/24 18:38 Freq: Status: Active Protocol: Document 05/20/24 08:17 SP (Rec: 05/20/24 09:03 SP [id number]) Out-Patient Physical Therapy Visit Information Visit Information Visit Type Treatment Note Visit Note Partial L knee arthroplasty . Visit Start Time 08:17 Visit Stop Time 09:02 Visit Number 15 Number of COMMERCIAL [employer] ASSISTANT Visits 1 Evaluation Information Evaluation Date 03/13/24 Precautions Precautions 03/18/24 s/p Partial L knee arthroplasty Hx: Back surgery (for ruptured disc) -30 yrs ago, hand surgery (carpal tunnel and trigger finger bilaterallly) 10 yrs ago. PT-OP-B Current Condition Start: 03/07/24 18:38 Freq: Status: Active Protocol: Document 03/25/24 09:54 LRN (Rec: 03/25/24 17:35 LRN [id number]) Current Condition History of Current Condition Onset Date 03/18/24 Current Complaints L knee pain, not able to walk on trails, using walker to walk History of Current Condition Pt returns after having an elective L medial knee arthroplasty 03/18/24. The pt has been home 1 wk and has been doing her HEP with her daughter, who is a PACU nurse at . Pt walks in with FWW. Transfer on/off plinth with a little help to her LLE, but is mostly independent. Pt reports she needs help getting her stockings and shoes on, which her daughter or helps her with. Prior Treatments and Tests Pre-op physical therapy visit 03/13/24. Treatment Goals Patient/Caregiver Goals Pt goal is: - to be able to walk w/o a walker, -to be able to return to walking [place] previously, 30-40 minutes, - to be able to ambulate stairs with a normal gait. Personal Factors Other Personal Factors That May Effect 3 steps to get in/out of Therapy/Recovery house. PT-OP-C Subjective Start: 03/07/24 18:38 Freq: Status: Active Protocol: Document 05/20/24 08:17 SP (Rec: 05/20/24 09:03 SP [id number]) OP-PT Subjective Patient Comments Patient Comments Pt reports still having pain anterior L knee but mostly now when pivots or turns at times , walking and stairs doing ok no pain but has to use rail for balance. She states doesn' t use SPC in house only outside for safety balance. She states is walking about 3 house down and back on her street now, does use SPC for stability. PT-OP-E Functional Tests Start: 03/07/24 18:38 Freq: Status: Active Protocol: Document 03/13/24 08:16 LRN (Rec: 03/13/24 09:37 LRN [id number]) Functional Tests Timed Up and Go (TUG) Score 13 Comments Webbed chair, no use of hands TUG Impairment Rating 20 to <40% Impaired (Score 12- 13) PT-OP-G Mobility & Gait Start: 03/07/24 18:38 Freq: Status: Active Protocol: Document 03/25/24 09:54 LRN (Rec: 03/25/24 17:41 LRN [id number]) OP Mobility Evaluation Bed Mobility Supine to and from Sit Pt transfer by partially sidelying onto plinth. SBA transfer with a little help to LLE. Transfers Sit to Stand Independent. Daughter reports she sometimes needs help. OP Gait Assessment Gait Gait Assistance Required: Independent Distance (Feet) 70 Assistive Devices Assistive Device Front Wheeled Walker Gait Deviations General Gait Pattern Antalgic,Decreased Stride Length,Flexed Trunk,Narrow Based Gait Comments Gait Comments Pt mildly unsteady with intial start of gait; therefore not yet appropriate for single point cane. Stair Climbing Evaluation Evaluation Level of Assist On Stairs Standby Assistance Devices Stair Climbing Assistive Devices Straight Cane,Left Railing, Right Railing Technique/Endurance Stair Climbing Direction Ascend and Descend Stair Climbing Technique Step to Step Number of Steps Climbed 4 Stair Climbing Set # Repetitions (reps) 1 PT-OP-J Posture/Palpation/Skin Start: 03/07/24 18:38 Freq: Status: Active Protocol: Document 03/25/24 09:54 LRN (Rec: 03/25/24 17:46 LRN [id number]) Posture Evaluation Position Standing Head/C-Spine Posture Forward Head T-Spine Posture Increased Kyphosis L-Spine Posture Decreased Lordosis Arm Posture (L) Internally Rotated,(R) Internally Rotated Pelvis Posture Anteriorly Tilted Weight Distribution Weight Shifted Right Hip Posture (L) Flexed,(R) Flexed Knee Posture (L) Excess Flexion,(R) Excess Flexion Palpation Assessment Location L knee Palpation Location Pain at medial left knee Palpation Findings Tenderness Palpation Details Palpation over support hose. Bandage covering incision. PT-OP-K Range of Motion Start: 03/07/24 18:38 Freq: Status: Active Protocol: Document 05/20/24 08:17 SP (Rec: 05/20/24 09:03 SP [id number]) Knee Goniometric Range of Motion Knee Left Knee ROM WFL No Patient Position Supine Flexion Active (degrees) 116 Flexion Passive (degrees) 120 Extension Active (degrees) 8 Comments L knee AROM supine: Flexion: gained 1 deg, 116deg, gained 2 deg 120deg PROM Extension: loss by 6 deg, 8deg PT-OP-M Strength Start: 03/07/24 18:38 Freq: Status: Active Protocol: Document 04/25/24 08:16 NM (Rec: 04/25/24 09:02 NM [id number]) Knee Strength Knee Manual Muscle Testing Left Flexion (S2) 4- Good- Extension (L3) 4- Good- Comments RE: 2+/5 for both; Quad lag of 20 deg's 04/25/24: 4-/5 PT-OP-Q Treatments Start: 03/07/24 18:38 Freq: Status: Active Protocol: Document 05/20/24 08:17 SP (Rec: 05/20/24 09:03 SP [id number]) Cardio Equipment Recumbent Bicycle Duration (Minutes) 10 Resistance 2 Seat Position 5- 5 min>4-5 min Other slow, focus more ROM Gym Equipment Shuttle Recovery Unilateral squat Details L knee 115 deg Resistance 25# (1navy band) Reps/Time 2x10 bilateral squat Details L knee approx 115 deg Resistance 50# ( 2 navy bands) Reps/Time 2x12 Therapeutic Exercises Standing Exercises hip and knee flexion stretch on step Standing Exercise Name hip& mobility AAROM: 1. sustained stretch, 2. gentle flex mobilization Side bilateral Equipment Used B rail support Reps/Minutes 1. 2x30 ea, 2. 10 L only w/ 3 hold at end range Comments 112deg side steps Standing Exercise Name HEP Side bilateral Resistance level 2 band at ankles Equipment Used near not need use rail Reps/Minutes 2x15 ft Comments cued trail foot clearance R>L standing quad set with FWW Comments verbal cues sit to stand Resistance TB # 2 at thighs Reps/Minutes x12 Comments arms front, cued slower hip hinge eccentric sit last 1 Other Exercises step up Other Exercise Name for quad/glut strength repeated: 1. fwd 6 2. lateral 6 step Side bilateral Resistance rail support as needed Equipment Used 6 step for fwd, 4 lateral Reps/Minutes 1. 2x15 reps, 2. 15 ea Comments cued slow asc/desc ed and return demo lessen momentum support/fluid/fullext Gait Training Gait Activity gait no AD Device Used carrying SPC, not use Distance/Duration 170 ft clinic lap Treatment Focus increase MANPREET, gait phases Comments cues for L knee extension during advancement and TKE midstance. Pt reports uses SPC during walks on her street, approx 3 houses distance worked upto. Manual Therapy Treatment Consent Patient gave verbal consent for manual Yes treatment Neuro Re-Education Treatment Balance Activities retro walking Surface near rail not needed Equipment 10 ft 2 laps Comments occasional cues for increase MANPREET tandem stepping Details tandem walking Reps/Duration 10 feet X2 Comments near rail, contact x2 for bal recovery, improved stability PT-OP-R Modalities Start: 03/07/24 18:38 Freq: Status: Active Protocol: Document 04/01/24 10:36 SP (Rec: 04/01/24 16:13 SP [id number]) Hot Pack/Cold Pack Treatment CP L knee Location L knee Patient Position Supine Patient Tolerance Good Comments ant/post knee PT-OP-T Assessment and Plan Start: 03/07/24 18:38 Freq: Status: Active Protocol: Document 05/20/24 08:17 SP (Rec: 05/20/24 09:03 SP [id number]) Physical Therapy Assessment Goals Five Impairment Decreased L knee AROM Impairment L knee AROM (pre-op): sup is lacking 10-105 deg's; sitting ext is lacking 10 deg's. L knee AROM (post-op): sitting is 20-88 deg's R knee AROM: sup is lacking 12 -112 deg's 05/09/24: Short Term Goal (STG) Pt will improve L knee AROM to pre-surgical range (10-105 deg's) to improve sitting tolerance with L leg dependent w/o increased knee pain. 04/01/24: progressin-99 deg AROM, 103 /c strap assist after heel slide. 04/03/2024 AROM left knee lacking 8 to 104 deg post manual therapy and exercise. 04/08/2024 Patient ed to avoid sleeping with pillow under the knee due to AROM knee ext lacking 15 deg compared to previous session of lacking 10 and patient reports sleeping with pillow under LE when questioned. 04/25/24: 5 to 110 AROM STG Duration 6 wks-05/09/24 MET 04/25/24 Alf Goal (LTG) Pt will improve L knee AROM to minimal 3 - 120 deg's with pt able to ambulate stairs with use of 1 railing and step over step gait. 04/01/24: progressin-99 deg AROM, 103 /c strap assist after heel slide. 04/25/24: 5 to 110 AROM 05/09/24: 2-115 deg AROM L knee , passive L knee hand 4 deg, AAROM 118 deg flexion therapist assist. 05/13/24: 5 to 118 deg; 2 to 120 deg post manual tx LTG Duration 12 wks-06/20/24 progressing Four Impairment Decreased function per TUG score 13 Impairment TUG 13 (20<40% impaired, score 12-13) Postmaster Relief Goal (LTG) Improve stability of gait per improved TUG score of 11-12 or less. 04/03/2024 TUG with FWW, UE use for sit to and from stand 31. 86 sec. ( FWW use due to 1 sec single leg stance left LE without UE use and reports of some increase in pain with trial ) 04/25/24: 16 sec with FWW, 17 sec with spc LTG Duration 12 wks-06/20/24 Three Impairment Decreased L knee strength Impairment L knee (pre-op) flex 4/5, ext 5/5 L knee (post-op) flex 2+/5, ext 2+/5 R knee flex/ext is 5/5. Short Term Goal (STG) Improve L knee strength 1/2 grade with pt able to safely walk w/o walker. 04/25/24: 4-/5 MMT for both knee flex and ext STG Duration 6 wks-05/09/24 MET Postmaster Relief Goal (LTG) Improve L knee strength to 5/5 with pt able to return to walking trails 30-40 min/day. 05/13/24: LTG Duration 12 wks-06/20/24 Two Impairment L knee pain and assist needed for transfers sit<>supine Alf Goal (LTG) Improve function with pt able to transfer sit<>supine w/on pain and independently. 04/08/2024 Patient transfers supine to and from sit without UE use in clinic this session LTG Duration 12 wks-06/20/24 One Impairment Pt lacks appropriate self care HEP. Impairment Pt will be educated in log roll transfers, proper body mechanics for ADLs, proper sitting/standing posture. LTG : Pt will be independent in an effective self care HEP for core/hip strengthening and mobility ex's. Short Term Goal (STG) Pt will be educated and be able to perform L knee post op TKA ex's independent 04/08/2024 1. Patient ed rationale of seated knee ext stretch one hour over course of day for functional outcome ( 10 min X 6 or 15 min X 4)2. Pt ed to avoid positioning a pillow under LE when sleeping. 3. LAQ and sit to stand with focus on equal weight shift, LE position prior to sit to stand and to stand with knee straight prior to sitting dowl slowly. STG Duration 2 wks-04/11/24 Postmaster Relief Goal (LTG) Pt will be independent in self care HEP of L knee ROM and strengthening ex's to promote functional use of the L knee and return her to trail walking. LTG Duration 12 wks-06/20/24 Assessment Summary Assessment Tx focused on functional flexion extension during recumbent bike, step ups TKE cuing, good response to trial shuttle recover for strength and assisted ROM without reports of pain today. Slight increase passive flexion range 120 deg. Pt improved balance during trial retro and fwd tandem walking, only contact x2 for midline correction. Physical Therapy Plan Frequency and Duration Frequency of Treatment 2x/Week Duration of treatment (weeks) 12 Plan of Care Start Date 03/25/24 Plan of Care End Date 06/20/24 Therapeutic Interventions Therapeutic Interventions Balance Training,Gait Training ,Home Exercise Program,Joint Mobilizations,Manual Therapy, Neuromuscular Re-education, Self-Care/Home Management,Soft Tissue Mobilization, Therapeutic Activities, Therapeutic Exercises Modalities Cold Pack/Ice Massage,Hot Packs Next Visit Focus/Plan Next Note Type Treatment Note Next Visit Plan Focus on stairs with gait training intermittently ie every other session (trial trek poles vs spc as pt states uses those at home). *PN in 2 visits Recumbent bike for mobility and warm up Next: Continue shuttle recovery B and Unilateral, review lunge (focus on knee flex); squat, LAQ, HSC, hip 3 way, trial functional squats picking up items to progress ROM. Manual prn to improve ROM. POC: s/p L partial knee arthroplasty; Edema management, ROM, strengthening , gait & stair training progressing to gait without assistive device and balance training for stability/safety with gait on level and for trail walking. Next session: assess kenrick to step ups previous session, stair stretch and hip flexor stretch with knee flexion AROM
--- NOTE | 2024-05-27 15:50 | PT.OTN ---
Current Diagnoses Unilateral primary osteoarthritis, left knee (05/27/24) Pain in left knee (05/27/24) Muscle weakness (generalized) (05/27/24) Other abnormalities of gait and mobility (05/27/24) Encounter for other preprocedural examination (05/27/24) Physical Therapy Treatment Note PT-OP-A Visit Information Start: 03/07/24 18:38 Freq: Status: Active Protocol: Document 05/27/24 11:14 NM (Rec: 05/27/24 12:11 NM [id number]) Out-Patient Physical Therapy Visit Information Visit Information Visit Type Progress Note Visit Note Partial L knee arthroplasty . Visit Start Time 11:16 Visit Stop Time 12:00 Visit Number 16 Number of DRY MILL OPERATOR Visits 0 Evaluation Information Evaluation Date 03/13/24 Precautions Precautions 03/18/24 s/p Partial L knee arthroplasty Hx: Back surgery (for ruptured disc) -30 yrs ago, hand surgery (carpal tunnel and trigger finger bilaterallly) 10 yrs ago. PT-OP-B Current Condition Start: 03/07/24 18:38 Freq: Status: Active Protocol: Document 03/25/24 09:54 LRN (Rec: 03/25/24 17:35 LRN [id number]) Current Condition History of Current Condition Onset Date 03/18/24 Current Complaints L knee pain, not able to walk on trails, using walker to walk History of Current Condition Pt returns after having an elective L medial knee arthroplasty 03/18/24. The pt has been home 1 wk and has been doing her HEP with her daughter, who is a PACU nurse at . Pt walks in with FWW. Transfer on/off plinth with a little help to her LLE, but is mostly independent. Pt reports she needs help getting her stockings and shoes on, which her daughter or helps her with. Prior Treatments and Tests Pre-op physical therapy visit 03/13/24. Treatment Goals Patient/Caregiver Goals Pt goal is: - to be able to walk w/o a walker, -to be able to return to walking [place] as previously, 30-40 minutes, - to be able to ambulate stairs with a normal gait. Personal Factors Other Personal Factors That May Effect 3 steps to get in/out of Therapy/Recovery house. PT-OP-C Subjective Start: 03/07/24 18:38 Freq: Status: Active Protocol: Document 05/27/24 11:14 NM (Rec: 05/27/24 12:11 NM [id number]) OP-PT Subjective Patient Comments Patient Comments Pt reports that she has achy feeling in her knee but denies sharp pain. states that she gets it occasionally but no longer has any sharp pain. Pt reports that she is using trek poles in community ambulation, not spc PT-OP-E Functional Tests Start: 03/07/24 18:38 Freq: Status: Active Protocol: Document 03/13/24 08:16 LRN (Rec: 03/13/24 09:37 LRN [id number]) Functional Tests Timed Up and Go (TUG) Score 13 Comments Webbed chair, no use of hands TUG Impairment Rating 20 to <40% Impaired (Score 12- 13) PT-OP-G Mobility & Gait Start: 03/07/24 18:38 Freq: Status: Active Protocol: Document 03/25/24 09:54 LRN (Rec: 03/25/24 17:41 LRN [id number]) OP Mobility Evaluation Bed Mobility Supine to and from Sit Pt transfer by partially sidelying onto plinth. SBA transfer with a little help to LLE. Transfers Sit to Stand Independent. Daughter reports she sometimes needs help. OP Gait Assessment Gait Gait Assistance Required: Independent Distance (Feet) 70 Assistive Devices Assistive Device Front Wheeled Walker Gait Deviations General Gait Pattern Antalgic,Decreased Stride Length,Flexed Trunk,Narrow Based Gait Comments Gait Comments Pt mildly unsteady with intial start of gait; therefore not yet appropriate for single point cane. Stair Climbing Evaluation Evaluation Level of Assist On Stairs Standby Assistance Devices Stair Climbing Assistive Devices Straight Cane,Left Railing, Right Railing Technique/Endurance Stair Climbing Direction Ascend and Descend Stair Climbing Technique Step to Step Number of Steps Climbed 4 Stair Climbing Set # Repetitions (reps) 1 PT-OP-J Posture/Palpation/Skin Start: 03/07/24 18:38 Freq: Status: Active Protocol: Document 03/25/24 09:54 LRN (Rec: 03/25/24 17:46 LRN [id number]) Posture Evaluation Position Standing Head/C-Spine Posture Forward Head T-Spine Posture Increased Kyphosis L-Spine Posture Decreased Lordosis Arm Posture (L) Internally Rotated,(R) Internally Rotated Pelvis Posture Anteriorly Tilted Weight Distribution Weight Shifted Right Hip Posture (L) Flexed,(R) Flexed Knee Posture (L) Excess Flexion,(R) Excess Flexion Palpation Assessment Location L knee Palpation Location Pain at medial left knee Palpation Findings Tenderness Palpation Details Palpation over support hose. Bandage covering incision. PT-OP-K Range of Motion Start: 03/07/24 18:38 Freq: Status: Active Protocol: Document 05/27/24 11:14 NM (Rec: 05/27/24 12:11 NM [id number]) Knee Goniometric Range of Motion Knee Left Knee ROM WFL No Patient Position Supine Flexion Active (degrees) 116 Flexion Passive (degrees) 120 Extension Active (degrees) 8 Comments L knee AROM supine: Flexion: gained 1 deg, 116deg, gained 2 deg 120deg PROM Extension: loss by 6 deg, 8deg PT-OP-M Strength Start: 03/07/24 18:38 Freq: Status: Active Protocol: Document 05/27/24 11:14 NM (Rec: 05/27/24 12:12 NM [id number]) Knee Strength Knee Manual Muscle Testing Right Flexion (S2) 5 Normal Extension (L3) 5 Normal Left Flexion (S2) 4 Good Extension (L3) 4 Good Comments RE: 2+/5 for both; Quad lag of 20 deg's 04/25/24: 4-/5 05/27/24: 4/5 PT-OP-Q Treatments Start: 03/07/24 18:38 Freq: Status: Active Protocol: Document 05/27/24 11:14 NM (Rec: 05/27/24 12:11 NM [id number]) Cardio Equipment Recumbent Bicycle Duration (Minutes) 3 Resistance 0 Seat Position 5 Other warm up; reports mild knee pain w/ ext, less w/ reps Therapeutic Exercises Standing Exercises lunge Standing Exercise Name 1. mini-lunge (HEP review), 2. knee flex at wall Side bilateral Equipment Used hand support for balance (1) Reps/Minutes 1. 15 ea, 2. 15 w/ 2 hold ( cued heel down) Comments cued inc knee flex over toe Other Exercises step up Other Exercise Name for quad/glut strength: 1. fwd 6 2. lateral 6 step Side bilateral Resistance rail support as needed 1 finger for balance Reps/Minutes 1. 3x10 ea, 2. 2x15 ea Comments cued slower descent and TKE Manual Therapy Treatment Consent Patient gave verbal consent for manual Yes treatment Soft Tissue Mobilization left knee Body Location HS, quad, patellar tendon Mobilization Type Cross-Friction,Rolling,Other Intensity/Depth Moderate Body Position Hooklying Comments Increased tightness in hamstrings, quad. No soreness, slight tenderness over scar and patellar tendon. Reduced stiffness and tightness with soft tissue mobilization Joint Mobilizations left knee Joint tibia on femur PA and AP Direction PA with distraction Grade III Body Position Hooklying Reps/Duration 2x30 ea direction Comments Flexion ROM 118 deg to 122 deg post manual, Extension ROM 5 deg to 2 deg post manual L patellar Direction sup, inf, med Grade III Reps/Duration 15 ea Neuro Re-Education Treatment Balance Activities ambulation on unstable surfaces Details close SBA Surface unstable: grass, gravel, curbs , inclines/declines, stairs, lateral stepping Equipment 1 trek pole Reps/Duration 5 minutes Comments Pt utilizing 1 trek pole for balance while navigating both stable and unstable surfaces in multidirectional manners. No cueing for trek pole use during gait, only for safety while navigating various surfaces in prep for pt possible use on trails bungee Details green level Surface stable Reps/Duration 5 ea Comments 1. fwd w/ B trek poles 2. fwd w/o trek poles 3. lateral w/o trek poles Close SBA with prn CGA to steady TUG Details close SBA Comments w/ spc: 13 sec w/o spc: 11 sec PT-OP-R Modalities Start: 03/07/24 18:38 Freq: Status: Active Protocol: Document 04/01/24 10:36 SP (Rec: 04/01/24 16:13 SP [id number]) Hot Pack/Cold Pack Treatment CP L knee Location L knee Patient Position Supine Patient Tolerance Good Comments ant/post knee PT-OP-T Assessment and Plan Start: 03/07/24 18:38 Freq: Status: Active Protocol: Document 05/27/24 11:14 NM (Rec: 05/27/24 12:11 NM [id number]) Physical Therapy Assessment Goals Five Impairment Decreased L knee AROM Impairment L knee AROM (pre-op): sup is lacking 10-105 deg's; sitting ext is lacking 10 deg's. L knee AROM (post-op): sitting is 20-88 deg's R knee AROM: sup is lacking 12 -112 deg's 05/09/24: Short Term Goal (STG) Pt will improve L knee AROM to pre-surgical range (10-105 deg's) to improve sitting tolerance with L leg dependent w/o increased knee pain. 04/01/24: progressin-99 deg AROM, 103 /c strap assist after heel slide. 04/03/2024 AROM left knee lacking 8 to 104 deg post manual therapy and exercise. 04/08/2024 Patient ed to avoid sleeping with pillow under the knee due to AROM knee ext lacking 15 deg compared to previous session of lacking 10 and patient reports sleeping with pillow under LE when questioned. 04/25/24: 5 to 110 AROM STG Duration 6 wks-05/09/24 MET 04/25/24 Narrow Gauge Operator Goal (LTG) Pt will improve L knee AROM to minimal 3 - 120 deg's with pt able to ambulate stairs with use of 1 railing and step over step gait. 04/01/24: progressin-99 deg AROM, 103 /c strap assist after heel slide. 04/25/24: 5 to 110 AROM 05/09/24: 2-115 deg AROM L knee , passive L knee hand 4 deg, AAROM 118 deg flexion therapist assist. 05/13/24: 5 to 118 deg; 2 to 120 deg post manual tx 05/27/24: 118 deg flex and 122 deg post manual, lacking 4 deg ext and 2 deg lacking post manual LTG Duration 12 wks-06/20/24 progressing 05/27/24 Four Impairment Decreased function per TUG score 13 Impairment TUG 13 (20<40% impaired, score 12-13) Residential Goal (LTG) Improve stability of gait per improved TUG score of 11-12 or less. 04/03/2024 TUG with FWW, UE use for sit to and from stand 31. 86 sec. ( FWW use due to 1 sec single leg stance left LE without UE use and reports of some increase in pain with trial ) 04/25/24: 16 sec with FWW, 17 sec with spc 05/27/24: w/ spc: 13 sec and w/o spc: 11 sec; close SBA LTG Duration 12 wks-06/20/24 PARTIALLY MET Three Impairment Decreased L knee strength Impairment L knee (pre-op) flex 4/5, ext 5/5 L knee (post-op) flex 2+/5, ext 2+/5 R knee flex/ext is 5/5. Short Term Goal (STG) Improve L knee strength 1/2 grade with pt able to safely walk w/o walker. 04/25/24: 4-/5 MMT for both knee flex and ext STG Duration 6 wks-05/09/24 MET Residential Goal (LTG) Improve L knee strength to 5/5 with pt able to return to walking trails 30-40 min/day. 05/27/24: 4/5 for all LTG Duration 12 wks-06/20/24 PROGRESSING Two Impairment L knee pain and assist needed for transfers sit<>supine Residential Goal (LTG) Improve function with pt able to transfer sit<>supine w/on pain and independently. 04/08/2024 Patient transfers supine to and from sit without UE use in clinic this session 05/27/24: pt can transfer supine > sit w/o pain and IND LTG Duration 12 wk-06/20/24 MET One Impairment Pt lacks appropriate self care HEP. Impairment Pt will be educated in log roll transfers, proper body mechanics for ADLs, proper sitting/standing posture. LTG : Pt will be independent in an effective self care HEP for core/hip strengthening and mobility ex's. Short Term Goal (STG) Pt will be educated and be able to perform L knee post op TKA ex's independent 04/08/2024 1. Patient ed rationale of seated knee ext stretch one hour over course of day for functional outcome ( 10 min X 6 or 15 min X 4)2. Pt ed to avoid positioning a pillow under LE when sleeping. 3. LAQ and sit to stand with focus on equal weight shift, LE position prior to sit to stand and to stand with knee straight prior to sitting dowl slowly. STG Duration 2 wks-04/11/24 Residential Goal (LTG) Pt will be independent in self care HEP of L knee ROM and strengthening ex's to promote functional use of the L knee and return her to trail walking. 05/27/24: pt compliant with HEP and planning to trial level trail walking with trek poles LTG Duration 12 wks-06/20/24 PROGRESSING Assessment Summary Assessment Pt tolerated session well. Demonstrates improvements in L knee ROM post manual treatment. Currently 122 deg flex and lacking 2 deg extension post manual treatment. Pt is progressing toward goals. Continues to lack flexion with lunges; cued for more knee flexion over toes with training at wall to improve knee flexion with stairs and gait. Emphasis on balance using trek poles and without AD during ambulation on both even and uneven surfaces to trial return to trail walking with trek pole. Physical Therapy Plan Frequency and Duration Frequency of Treatment 2x/Week Duration of treatment (weeks) 12 Plan of Care Start Date 03/25/24 Plan of Care End Date 06/20/24 Therapeutic Interventions Therapeutic Interventions Balance Training,Gait Training ,Home Exercise Program,Joint Mobilizations,Manual Therapy, Neuromuscular Re-education, Self-Care/Home Management,Soft Tissue Mobilization, Therapeutic Activities, Therapeutic Exercises Modalities Cold Pack/Ice Massage,Hot Packs Next Visit Focus/Plan Next Note Type Treatment Note Next Visit Plan Focus on stairs with gait training intermittently ie every other session (trial trek poles vs spc as pt states uses those at home). Work on balance with unstable surfaces and/or decreased MANPREET Recumbent bike for mobility and warm up Next: Continue shuttle recovery B and Unilateral, review lunge (focus on knee flex); squat, LAQ, HSC, hip 3 way, trial functional squats picking up items to progress ROM. Manual prn to improve ROM. POC: s/p L partial knee arthroplasty; Edema management, ROM, strengthening , gait & stair training progressing to gait without assistive device and balance training for stability/safety with gait on level and for trail walking. Next session: assess kenrick to step ups previous session, stair stretch and hip flexor stretch with knee flexion AROM
--- NOTE | 2024-06-03 13:43 | PT.OTN ---
Current Diagnoses Unilateral primary osteoarthritis, left knee (06/03/24) Pain in left knee (06/03/24) Muscle weakness (generalized) (06/03/24) Other abnormalities of gait and mobility (06/03/24) Encounter for other preprocedural examination (06/03/24) Physical Therapy Treatment Note PT-OP-A Visit Information Start: 03/07/24 18:38 Freq: Status: Active Protocol: Document 06/03/24 13:03 SP (Rec: 06/03/24 14:07 SP [id number]) Out-Patient Physical Therapy Visit Information Visit Information Visit Type Treatment Note Visit Note Partial L knee arthroplasty . Visit Start Time 13:03 Visit Stop Time 13:43 Visit Number 17 Number of TRAINING PERSONNEL SUPERVISOR Visits 1 Evaluation Information Evaluation Date 03/13/24 Precautions Precautions 03/18/24 s/p Partial L knee arthroplasty Hx: Back surgery (for ruptured disc) -30 yrs ago, hand surgery (carpal tunnel and trigger finger bilaterallly) 10 yrs ago. PT-OP-B Current Condition Start: 03/07/24 18:38 Freq: Status: Active Protocol: Document 03/25/24 09:54 LRN (Rec: 03/25/24 17:35 LRN [id number]) Current Condition History of Current Condition Onset Date 03/18/24 Current Complaints L knee pain, not able to walk on trails, using walker to walk History of Current Condition Pt returns after having an elective L medial knee arthroplasty 03/18/24. The pt has been home 1 wk and has been doing her HEP with her daughter, who is a PACU nurse at . Pt walks in with FWW. Transfer on/off plinth with a little help to her LLE, but is mostly independent. Pt reports she needs help getting her stockings and shoes on, which her daughter or helps her with. Prior Treatments and Tests Pre-op physical therapy visit 03/13/24. Treatment Goals Patient/Caregiver Goals Pt goal is: - to be able to walk w/o a walker, -to be able to return to walking [place] previously, 30-40 minutes, - to be able to ambulate stairs with a normal gait. Personal Factors Other Personal Factors That May Effect 3 steps to get in/out of Therapy/Recovery house. PT-OP-C Subjective Start: 03/07/24 18:38 Freq: Status: Active Protocol: Document 06/03/24 13:03 SP (Rec: 06/03/24 14:07 SP [id number]) OP-PT Subjective Patient Comments Patient Comments Pt reports L knee is pretty stiff when gets up. Has started walking in [place] with B trek poles, she states the ground is softer than road on her knees. PT-OP-E Functional Tests Start: 03/07/24 18:38 Freq: Status: Active Protocol: Document 03/13/24 08:16 LRN (Rec: 03/13/24 09:37 LRN [id number]) Functional Tests Timed Up and Go (TUG) Score 13 Comments Webbed chair, no use of hands TUG Impairment Rating 20 to <40% Impaired (Score 12- 13) PT-OP-G Mobility & Gait Start: 03/07/24 18:38 Freq: Status: Active Protocol: Document 03/25/24 09:54 LRN (Rec: 03/25/24 17:41 LRN [id number]) OP Mobility Evaluation Bed Mobility Supine to and from Sit Pt transfer by partially sidelying onto plinth. SBA transfer with a little help to LLE. Transfers Sit to Stand Independent. Daughter reports she sometimes needs help. OP Gait Assessment Gait Gait Assistance Required: Independent Distance (Feet) 70 Assistive Devices Assistive Device Front Wheeled Walker Gait Deviations General Gait Pattern Antalgic,Decreased Stride Length,Flexed Trunk,Narrow Based Gait Comments Gait Comments Pt mildly unsteady with intial start of gait; therefore not yet appropriate for single point cane. Stair Climbing Evaluation Evaluation Level of Assist On Stairs Standby Assistance Devices Stair Climbing Assistive Devices Straight Cane,Left Railing, Right Railing Technique/Endurance Stair Climbing Direction Ascend and Descend Stair Climbing Technique Step to Step Number of Steps Climbed 4 Stair Climbing Set # Repetitions (reps) 1 PT-OP-J Posture/Palpation/Skin Start: 03/07/24 18:38 Freq: Status: Active Protocol: Document 03/25/24 09:54 LRN (Rec: 03/25/24 17:46 LRN [id number]) Posture Evaluation Position Standing Head/C-Spine Posture Forward Head T-Spine Posture Increased Kyphosis L-Spine Posture Decreased Lordosis Arm Posture (L) Internally Rotated,(R) Internally Rotated Pelvis Posture Anteriorly Tilted Weight Distribution Weight Shifted Right Hip Posture (L) Flexed,(R) Flexed Knee Posture (L) Excess Flexion,(R) Excess Flexion Palpation Assessment Location L knee Palpation Location Pain at medial left knee Palpation Findings Tenderness Palpation Details Palpation over support hose. Bandage covering incision. PT-OP-K Range of Motion Start: 03/07/24 18:38 Freq: Status: Active Protocol: Document 05/27/24 11:14 NM (Rec: 05/27/24 12:11 NM [id number]) Knee Goniometric Range of Motion Knee Left Knee ROM WFL No Patient Position Supine Flexion Active (degrees) 116 Flexion Passive (degrees) 120 Extension Active (degrees) 8 Comments L knee AROM supine: Flexion: gained 1 deg, 116deg, gained 2 deg 120deg PROM Extension: loss by 6 deg, 8deg PT-OP-M Strength Start: 03/07/24 18:38 Freq: Status: Active Protocol: Document 05/27/24 11:14 NM (Rec: 05/27/24 12:12 NM [id number]) Knee Strength Knee Manual Muscle Testing Right Flexion (S2) 5 Normal Extension (L3) 5 Normal Left Flexion (S2) 4 Good Extension (L3) 4 Good Comments RE: 2+/5 for both; Quad lag of 20 deg's 04/25/24: 4-/5 05/27/24: 4/5 PT-OP-Q Treatments Start: 03/07/24 18:38 Freq: Status: Active Protocol: Document 06/03/24 13:03 SP (Rec: 06/03/24 14:07 SP [id number]) Cardio Equipment Recumbent Bicycle Duration (Minutes) 2 Resistance 0 Seat Position 5>4 Other reports mild knee pain Bicycle (Upright) Duration (Minutes) 6 Resistance 5 Seat Position 5 (4 min)>4 (1 min) Other cued try keep level pelvis Gym Equipment Shuttle Recovery Unilateral squat Details L knee 122 deg- cued go as full range as can Resistance 25# (1navy band) Reps/Time x12 bilateral squat Details L knee approx 119 deg Resistance 50# ( 2 navy bands) Reps/Time 15, 10 reps Therapeutic Exercises Standing Exercises marching Standing Exercise Name trialed in PT Side bilateral Resistance TB #2 loop at feet Equipment Used near //bars PRN contact Reps/Minutes 2x10 Comments cued WBOS, slower pacing steps , midline stability side steps Standing Exercise Name HEP: fwd, bwd, lateral stepping Side bilateral Resistance level 2 band at ankles Equipment Used near not need use rail Reps/Minutes 2x15 ft Comments cued trail foot clearance R moving L Gait Training Gait Activity Stair ambuation Description Stair ambulation Device Used no rail ascend, finger glide descend 14 steps, no rail 14 steps Level of Assistance S Distance/Duration MAP bldg stairs (14 +14 stairs ) Treatment Focus receiprocal stepping, muscle lift ext/control desc flexion rail support PRN Comments Improved less momentum L LE no UE support ascending, impoved L knee flexion descend not need UE support last 14 of 28 stairs. COG over MANPREET for midline soft step for core and LE muscular control. Neuro Re-Education Treatment Balance Activities uneven sit <> stands Equipment mesh chair, blue foam under feet Comments ascend/descend arms front, cued more hip flexion descend to sit in to chair, no flop uneven obstacle course indoors Details 2 trek poles x2 laps, no AD x2 laps Equipment mat over: discs, wedges, pods Reps/Duration 5 ft x4laps Comments GB for safety: close SBA/CGA. 1 over wt shift, self recovery . ambulation on unstable surfaces Details close SBA Surface unstable: grass incline/ decline, outside landscaping and gravel Equipment 1-2 trek pole Reps/Duration 5 minutes Comments Pt utilizing 1-2 trek pole for balance while navigating both stable and unstable surfaces in multidirectional manners. No cueing for trek pole use during gait, only for safety while navigating various surfaces in prep for more confidence on trails PT-OP-R Modalities Start: 03/07/24 18:38 Freq: Status: Active Protocol: Document 04/01/24 10:36 SP (Rec: 04/01/24 16:13 SP [id number]) Hot Pack/Cold Pack Treatment CP L knee Location L knee Patient Position Supine Patient Tolerance Good Comments ant/post knee PT-OP-T Assessment and Plan Start: 03/07/24 18:38 Freq: Status: Active Protocol: Document 06/03/24 13:03 SP (Rec: 06/03/24 14:07 SP [id number]) Physical Therapy Assessment Goals Five Impairment Decreased L knee AROM Impairment L knee AROM (pre-op): sup is lacking 10-105 deg's; sitting ext is lacking 10 deg's. L knee AROM (post-op): sitting is 20-88 deg's R knee AROM: sup is lacking 12 -112 deg's 05/09/24: Short Term Goal (STG) Pt will improve L knee AROM to pre-surgical range (10-105 deg's) to improve sitting tolerance with L leg dependent w/o increased knee pain. 04/01/24: progressin-99 deg AROM, 103 /c strap assist after heel slide. 04/03/2024 AROM left knee lacking 8 to 104 deg post manual therapy and exercise. 04/08/2024 Patient ed to avoid sleeping with pillow under the knee due to AROM knee ext lacking 15 deg compared to previous session of lacking 10 and patient reports sleeping with pillow under LE when questioned. 04/25/24: 5 to 110 AROM STG Duration 6 wks-05/09/24 MET 04/25/24 Intermediate Goal (LTG) Pt will improve L knee AROM to minimal 3 - 120 deg's with pt able to ambulate stairs with use of 1 railing and step over step gait. 04/01/24: progressin-99 deg AROM, 103 /c strap assist after heel slide. 04/25/24: 5 to 110 AROM 05/09/24: 2-115 deg AROM L knee , passive L knee hand 4 deg, AAROM 118 deg flexion therapist assist. 05/13/24: 5 to 118 deg; 2 to 120 deg post manual tx 05/27/24: 118 deg flex and 122 deg post manual, lacking 4 deg ext and 2 deg lacking post manual LTG Duration 12 wks-06/20/24 progressing 05/27/24 Four Impairment Decreased function per TUG score 13 Impairment TUG 13 (20<40% impaired, score 12-13) Intermediate Goal (LTG) Improve stability of gait per improved TUG score of 11-12 or less. 04/03/2024 TUG with FWW, UE use for sit to and from stand 31. 86 sec. ( FWW use due to 1 sec single leg stance left LE without UE use and reports of some increase in pain with trial ) 04/25/24: 16 sec with FWW, 17 sec with spc 05/27/24: w/ spc: 13 sec and w/o spc: 11 sec; close SBA LTG Duration 12 wks-06/20/24 PARTIALLY MET Three Impairment Decreased L knee strength Impairment L knee (pre-op) flex 4/5, ext 5/5 L knee (post-op) flex 2+/5, ext 2+/5 R knee flex/ext is 5/5. Short Term Goal (STG) Improve L knee strength 1/2 grade with pt able to safely walk w/o walker. 04/25/24: 4-/5 MMT for both knee flex and ext STG Duration 6 wks-05/09/24 MET Family Therapist Goal (LTG) Improve L knee strength to 5/5 with pt able to return to walking trails 30-40 min/day. 05/27/24: 4/5 for all LTG Duration wks-06/20/24 PROGRESSING Two Impairment L knee pain and assist needed for transfers sit<>supine Family Therapist Goal (LTG) Improve function with pt able to transfer sit<>supine w/on pain and independently. 04/08/2024 Patient transfers supine to and from sit without UE use in clinic this session 05/27/24: pt can transfer supine > sit w/o pain and IND LTG Duration 12 wks-06/20/24 MET One Impairment Pt lacks appropriate self care HEP. Impairment Pt will be educated in log roll transfers, proper body mechanics for ADLs, proper sitting/standing posture. LTG : Pt will be independent in an effective self care HEP for core/hip strengthening and mobility ex's. Short Term Goal (STG) Pt will be educated and be able to perform L knee post op TKA ex's independent 04/08/2024 1. Patient ed rationale of seated knee ext stretch one hour over course of day for functional outcome ( 10 min X 6 or 15 min X 4)2. Pt ed to avoid positioning a pillow under LE when sleeping. 3. LAQ and sit to stand with focus on equal weight shift, LE position prior to sit to stand and to stand with knee straight prior to sitting dowl slowly. STG Duration 2 wks-04/11/24 Intermediate Goal (LTG) Pt will be independent in self care HEP of L knee ROM and strengthening ex's to promote functional use of the L knee and return her to trail walking. 05/27/24: pt compliant with HEP and planning to trial level trail walking with trek poles LTG Duration 12 wks-06/20/24 PROGRESSING Assessment Summary Assessment Pt tolerated session well, making small gains in L knee ROM today after warm up on bike seat 4 and shuttle recovery cued deep L knee flexion stretch 122 deg flexion. Pt improved able descend without uE support needed on rail but nearby for stabilty for safety. She was ableto uneven grass and slanted landscaping with 2 trek poles for safety navigate terrain, no pain or instabiltiy/LOB. Physical Therapy Plan Frequency and Duration Frequency of Treatment 2x/Week Duration of treatment (weeks) 12 Plan of Care Start Date 03/25/24 Plan of Care End Date 06/20/24 Therapeutic Interventions Therapeutic Interventions Balance Training,Gait Training ,Home Exercise Program,Joint Mobilizations,Manual Therapy, Neuromuscular Re-education, Self-Care/Home Management,Soft Tissue Mobilization, Therapeutic Activities, Therapeutic Exercises Modalities Cold Pack/Ice Massage,Hot Packs Next Visit Focus/Plan Next Note Type Treatment Note Next Visit Plan Update POC in 2 tx 06/17. SPend time descending stairs with gait training intermittently ie every other session (trial trek poles and uneven terrain) . Work on balance with unstable surfaces and/or decreased MANPREET Continue Recumbent bike for mobility and warm up, shuttle recovery B and Unilateral, review lunge (focus on knee flex); squat, LAQ, HSC, hip 3 way, trial functional squats picking up items to progress ROM. Manual prn to improve ROM. POC: s/p L partial knee arthroplasty; Edema management, ROM, strengthening , gait & stair training progressing to gait without assistive device and balance training for stability/safety with gait on level and for trail walking. Next session: assess kenrick to step ups previous session, stair stretch and hip flexor stretch with knee flexion AROM
--- NOTE | 2024-06-10 09:46 | PT.OTN ---
Current Diagnoses Unilateral primary osteoarthritis, left knee (06/10/24) Pain in left knee (06/10/24) Muscle weakness (generalized) (06/10/24) Other abnormalities of gait and mobility (06/10/24) Encounter for other preprocedural examination (06/10/24) Physical Therapy Treatment Note PT-OP-A Visit Information Start: 03/07/24 18:38 Freq: Status: Active Protocol: Document 06/10/24 09:02 SP (Rec: 06/10/24 09:50 SP [id number]) Out-Patient Physical Therapy Visit Information Visit Information Visit Type Treatment Note Visit Note Partial L knee arthroplasty . KX Modifier in 2 visits Visit Start Time 09:02 Visit Stop Time 09:46 Visit Number 18 Number of MAINTENANCE MILLWR[employer] Visits 2 Evaluation Information Evaluation Date 03/13/24 Precautions Precautions 03/18/24 s/p Partial L knee arthroplasty Hx: Back surgery (for ruptured disc) -30 yrs ago, hand surgery (carpal tunnel and trigger finger bilaterallly) 10 yrs ago. PT-OP-B Current Condition Start: 03/07/24 18:38 Freq: Status: Active Protocol: Document 03/25/24 09:54 LRN (Rec: 03/25/24 17:35 LRN [id number]) Current Condition History of Current Condition Onset Date 03/18/24 Current Complaints L knee pain, not able to walk on trails, using walker to walk History of Current Condition Pt returns after having an elective L medial knee arthroplasty 03/18/24. The pt has been home 1 wk and has been doing her HEP with her daughter, who is a PACU nurse at . Pt walks in with FWW. Transfer on/off plinth with a little help to her LLE, but is mostly independent. Pt reports she needs help getting her stockings and shoes on, which her daughter or helps her with. Prior Treatments and Tests Pre-op physical therapy visit 03/13/24. Treatment Goals Patient/Caregiver Goals Pt goal is: - to be able to walk w/o a walker, -to be able to return to walking [place] previously, 30-40 minutes, - to be able to ambulate stairs with a normal gait. Personal Factors Other Personal Factors That May Effect 3 steps to get in/out of Therapy/Recovery house. PT-OP-C Subjective Start: 03/07/24 18:38 Freq: Status: Active Protocol: Document 06/10/24 09:02 SP (Rec: 06/10/24 09:50 SP [id number]) OP-PT Subjective Patient Comments Patient Comments Pt arrives with no SPC. She reports feels pretty good after last tx. She reported walked about 25 min in [place] using B trek poles since last tx. Pt requests condense HEP to what feel needing to do for HEP at this point. PT-OP-E Functional Tests Start: 03/07/24 18:38 Freq: Status: Active Protocol: Document 03/13/24 08:16 LRN (Rec: 03/13/24 09:37 LRN [id number]) Functional Tests Timed Up and Go (TUG) Score 13 Comments Webbed chair, no use of hands TUG Impairment Rating 20 to <40% Impaired (Score 12- 13) PT-OP-G Mobility & Gait Start: 03/07/24 18:38 Freq: Status: Active Protocol: Document 03/25/24 09:54 LRN (Rec: 03/25/24 17:41 LRN [id number]) OP Mobility Evaluation Bed Mobility Supine to and from Sit Pt transfer by partially sidelying onto plinth. SBA transfer with a little help to LLE. Transfers Sit to Stand Independent. Daughter reports she sometimes needs help. OP Gait Assessment Gait Gait Assistance Required: Independent Distance (Feet) 70 Assistive Devices Assistive Device Front Wheeled Walker Gait Deviations General Gait Pattern Antalgic,Decreased Stride Length,Flexed Trunk,Narrow Based Gait Comments Gait Comments Pt mildly unsteady with intial start of gait; therefore not yet appropriate for single point cane. Stair Climbing Evaluation Evaluation Level of Assist On Stairs Standby Assistance Devices Stair Climbing Assistive Devices Straight Cane,Left Railing, Right Railing Technique/Endurance Stair Climbing Direction Ascend and Descend Stair Climbing Technique Step to Step Number of Steps Climbed 4 Stair Climbing Set # Repetitions (reps) 1 PT-OP-J Posture/Palpation/Skin Start: 03/07/24 18:38 Freq: Status: Active Protocol: Document 03/25/24 09:54 LRN (Rec: 03/25/24 17:46 LRN [id number]) Posture Evaluation Position Standing Head/C-Spine Posture Forward Head T-Spine Posture Increased Kyphosis L-Spine Posture Decreased Lordosis Arm Posture (L) Internally Rotated,(R) Internally Rotated Pelvis Posture Anteriorly Tilted Weight Distribution Weight Shifted Right Hip Posture (L) Flexed,(R) Flexed Knee Posture (L) Excess Flexion,(R) Excess Flexion Palpation Assessment Location L knee Palpation Location Pain at medial left knee Palpation Findings Tenderness Palpation Details Palpation over support hose. Bandage covering incision. PT-OP-K Range of Motion Start: 03/07/24 18:38 Freq: Status: Active Protocol: Document 05/27/24 11:14 NM (Rec: 05/27/24 12:11 NM [id number]) Knee Goniometric Range of Motion Knee Left Knee ROM WFL No Patient Position Supine Flexion Active (degrees) 116 Flexion Passive (degrees) 120 Extension Active (degrees) 8 Comments L knee AROM supine: Flexion: gained 1 deg, 116deg, gained 2 deg 120deg PROM Extension: loss by 6 deg, 8deg PT-OP-M Strength Start: 03/07/24 18:38 Freq: Status: Active Protocol: Document 05/27/24 11:14 NM (Rec: 05/27/24 12:12 NM [id number]) Knee Strength Knee Manual Muscle Testing Right Flexion (S2) 5 Normal Extension (L3) 5 Normal Left Flexion (S2) 4 Good Extension (L3) 4 Good Comments RE: 2+/5 for both; Quad lag of 20 deg's 04/25/24: 4-/5 05/27/24: 4/5 PT-OP-Q Treatments Start: 03/07/24 18:38 Freq: Status: Active Protocol: Document 06/10/24 09:02 SP (Rec: 06/10/24 09:50 SP [id number]) Cardio Equipment Recumbent Bicycle Duration (Minutes) 6 Resistance 4 Seat Position in 5>4 Other reports mild knee pain first few revoluntions then feels fine Therapeutic Exercises Supine Exercises Leg lengthener Supine Exercise Name added to HEP /c HEP for hip flexor flexibility and TKE Modified Enrique stretch Supine Exercise Name Tried0 hip flexor extremely tight- challenge for pt Comments DC knee flexion with feet on ball Supine Exercise Name dC SAQ Supine Exercise Name DC SLR Supine Exercise Name DC Glut set Supine Exercise Name DC QS Supine Exercise Name DC heel slides Supine Exercise Name DC ankle pumps Supine Exercise Name dc Sitting Exercises STS Equipment Used 18 black table, no UE, feet parallel Reps/Minutes x10 Comments cued slower controlled sit, hip hinge little further sit better seated hip abd with band Sitting Exercise Name look at for HEP keep next tx Standing Exercises hip and knee flexion stretch on step Standing Exercise Name hip& mobility AAROM: 1. sustained stretch, 2. gentle flex mobilization Side bilateral Equipment Used B rail support Reps/Minutes 1. 2x30 ea Comments no measurement taken, reviewed for knee flexion AROM and opp LE hip flex st Other Exercises step up Other Exercise Name for quad/glut strength: 1. fwd 6 06/10 2. lateral 6 step Side bilateral Resistance rail support as needed 1 finger for balance Reps/Minutes 1 Fwd/back step Comments cued slower descent and TKE PT-OP-R Modalities Start: 03/07/24 18:38 Freq: Status: Active Protocol: Document 04/01/24 10:36 SP (Rec: 04/01/24 16:13 SP [id number]) Hot Pack/Cold Pack Treatment CP L knee Location L knee Patient Position Supine Patient Tolerance Good Comments ant/post knee PT-OP-T Assessment and Plan Start: 03/07/24 18:38 Freq: Status: Active Protocol: Document 06/10/24 09:02 SP (Rec: 06/10/24 09:50 SP [id number]) Physical Therapy Assessment Goals Five Impairment Decreased L knee AROM Impairment L knee AROM (pre-op): sup is lacking 10-105 deg's; sitting ext is lacking 10 deg's. L knee AROM (post-op): sitting is 20-88 deg's R knee AROM: sup is lacking 12 -112 deg's 05/09/24: Short Term Goal (STG) Pt will improve L knee AROM to pre-surgical range (10-105 deg's) to improve sitting tolerance with L leg dependent w/o increased knee pain. 04/01/24: progressin-99 deg AROM, 103 /c strap assist after heel slide. 04/03/2024 AROM left knee lacking 8 to 104 deg post manual therapy and exercise. 04/08/2024 Patient ed to avoid sleeping with pillow under the knee due to AROM knee ext lacking 15 deg compared to previous session of lacking 10 and patient reports sleeping with pillow under LE when questioned. 04/25/24: 5 to 110 AROM STG Duration 6 wks-05/09/24 MET 04/25/24 Production Sound Mixer Goal (LTG) Pt will improve L knee AROM to minimal 3 - 120 deg's with pt able to ambulate stairs with use of 1 railing and step over step gait. 04/01/24: progressin-99 deg AROM, 103 /c strap assist after heel slide. 04/25/24: 5 to 110 AROM 05/09/24: 2-115 deg AROM L knee , passive L knee hand 4 deg, AAROM 118 deg flexion therapist assist. 05/13/24: 5 to 118 deg; 2 to 120 deg post manual tx 05/27/24: 118 deg flex and 122 deg post manual, lacking 4 deg ext and 2 deg lacking post manual LTG Duration 12 wks-06/20/24 progressing 05/27/24 Four Impairment Decreased function per TUG score 13 Impairment TUG 13 (20<40% impaired, score 12-13) Alf Goal (LTG) Improve stability of gait per improved TUG score of 11-12 or less. 04/03/2024 TUG with FWW, UE use for sit to and from stand 31. 86 sec. ( FWW use due to 1 sec single leg stance left LE without UE use and reports of some increase in pain with trial ) 04/25/24: 16 sec with FWW, 17 sec with spc 05/27/24: w/ spc: 13 sec and w/o spc: 11 sec; close SBA LTG Duration 12 wk-06/20/24 PARTIALLY MET Three Impairment Decreased L knee strength Impairment L knee (pre-op) flex 4/5, ext 5/5 L knee (post-op) flex 2+/5, ext 2+/5 R knee flex/ext is 5/5. Short Term Goal (STG) Improve L knee strength 1/2 grade with pt able to safely walk w/o walker. 04/25/24: 4-/5 MMT for both knee flex and ext STG Duration 6 wks-05/09/24 MET Alf Goal (LTG) Improve L knee strength to 5/5 with pt able to return to walking trails 30-40 min/day. 05/27/24: 4/5 for all LTG Duration 12 wks-06/20/24 PROGRESSING Two Impairment L knee pain and assist needed for transfers sit<>supine Production Sound Mixer Goal (LTG) Improve function with pt able to transfer sit<>supine w/on pain and independently. 04/08/2024 Patient transfers supine to and from sit without UE use in clinic this session 05/27/24: pt can transfer supine > sit w/o pain and IND LTG Duration 12 wks-06/20/24 MET One Impairment Pt lacks appropriate self care HEP. Impairment Pt will be educated in log roll transfers, proper body mechanics for ADLs, proper sitting/standing posture. LTG : Pt will be independent in an effective self care HEP for core/hip strengthening and mobility ex's. Short Term Goal (STG) Pt will be educated and be able to perform L knee post op TKA ex's independent 04/08/2024 1. Patient ed rationale of seated knee ext stretch one hour over course of day for functional outcome ( 10 min X 6 or 15 min X 4)2. Pt ed to avoid positioning a pillow under LE when sleeping. 3. LAQ and sit to stand with focus on equal weight shift, LE position prior to sit to stand and to stand with knee straight prior to sitting dowl slowly. STG Duration 2 wks-04/11/24 Alf Goal (LTG) Pt will be independent in self care HEP of L knee ROM and strengthening ex's to promote functional use of the L knee and return her to trail walking. 05/27/24: pt compliant with HEP and planning to trial level trail walking with trek poles LTG Duration 12 wks-06/20/24 PROGRESSING Assessment Summary Assessment Pt tolerated tx well. Initially L knee is tight on recumbent bike but improved ROM with revolutions. Tx focused on condensing HEP. DC many supine easy HEP. She is challenged with Enrique stretch due to B (L>R) hip flexor tightness, improves hip flexor stretch tolerance during initiated modified to leg lengthener performance combined with knee extension facilitation, provided HO for recall. Pt was able to perform STS from standard 18 height table without UE support. Cues for set up and good response to standing hip flexor stretch for increased hip extension for progress stride and step ups light 1 UE contact for carryover TKE and LE strengthening. Pt would benefit from continue to condense resisted standing HEP and gait over challenging uneven surfaces for carryover safety return to trails PLOF. Physical Therapy Plan Frequency and Duration Frequency of Treatment 2x/Week Duration of treatment (weeks) 12 Plan of Care Start Date 03/25/24 Plan of Care End Date 06/20/24 Therapeutic Interventions Therapeutic Interventions Balance Training,Gait Training ,Home Exercise Program,Joint Mobilizations,Manual Therapy, Neuromuscular Re-education, Self-Care/Home Management,Soft Tissue Mobilization, Therapeutic Activities, Therapeutic Exercises Modalities Cold Pack/Ice Massage,Hot Packs Next Visit Focus/Plan Next Note Type Progress Note Next Visit Plan PT to assess progress next tx. Next tx: SPend time descending stairs with gait training intermittently ie every other session (trial trek poles and uneven terrain). Work on balance with unstable surfaces and/or decreased MANPREET Continue Recumbent bike for mobility and warm up, shuttle recovery B and Unilateral, review lunge (focus on knee flex); squat, LAQ, HSC, hip 3 way, trial functional squats picking up items to progress ROM. Manual prn to improve ROM. POC: s/p L partial knee arthroplasty; Edema management, ROM, strengthening , gait & stair training progressing to gait without assistive device and balance training for stability/safety with gait on level and for trail walking. Next session: assess kenrick to step ups previous session, stair stretch and hip flexor stretch with knee flexion AROM
--- NOTE | 2024-06-24 14:56 | PT.OTN ---
Current Diagnoses Unilateral primary osteoarthritis, left knee (06/24/24) Pain in left knee (06/24/24) Muscle weakness (generalized) (06/24/24) Other abnormalities of gait and mobility (06/24/24) Encounter for other preprocedural examination (06/24/24) Physical Therapy Treatment Note PT-OP-A Visit Information Start: 03/07/24 18:38 Freq: Status: Active Protocol: Document 06/24/24 09:03 NM (Rec: 06/24/24 09:46 NM [id number]) Out-Patient Physical Therapy Visit Information Visit Information Visit Type Progress Note Visit Start Time 09:03 Visit Stop Time 09:43 Visit Number 19 Evaluation Information Evaluation Date 03/13/24 Precautions Precautions 03/18/24 s/p Partial L knee arthroplasty Hx: Back surgery (for ruptured disc) -30 yrs ago, hand surgery (carpal tunnel and trigger finger bilaterallly) 10 yrs ago. PT-OP-B Current Condition Start: 03/07/24 18:38 Freq: Status: Active Protocol: Document 03/25/24 09:54 LRN (Rec: 03/25/24 17:35 LRN [id number]) Current Condition History of Current Condition Onset Date 03/18/24 Current Complaints L knee pain, not able to walk on trails, using walker to walk History of Current Condition Pt returns after having an elective L medial knee arthroplasty 03/18/24. The pt has been home 1 wk and has been doing her HEP with her daughter, who is a PACU nurse at . Pt walks in with FWW. Transfer on/off plinth with a little help to her LLE, but is mostly independent. Pt reports she needs help getting her stockings and shoes on, which her daughter or helps her with. Prior Treatments and Tests Pre-op physical therapy visit 03/13/24. Treatment Goals Patient/Caregiver Goals Pt goal is: - to be able to walk w/o a walker, -to be able to return to walking [place] previously, 30-40 minutes, - to be able to ambulate stairs with a normal gait. Personal Factors Other Personal Factors That May Effect 3 steps to get in/out of Therapy/Recovery house. PT-OP-C Subjective Start: 03/07/24 18:38 Freq: Status: Active Protocol: Document 06/24/24 09:03 NM (Rec: 06/24/24 09:46 NM [id number]) OP-PT Subjective Patient Comments Patient Comments Pt reports no knee pain. Has not had pain for >1.5 weeks. She reports that back to trail walks 25-30 min, no discomofort; uses trek poles. Reports HEP is going well, performing daily without limitations. Pt reports that her L knee is a little stiffer but she reports that she has no limitations with ADLs, household ADLs, errands. She reports that she is wanting to be done wiht PT. PT-OP-E Functional Tests Start: 03/07/24 18:38 Freq: Status: Active Protocol: Document 03/13/24 08:16 LRN (Rec: 03/13/24 09:37 LRN [id number]) Functional Tests Timed Up and Go (TUG) Score 13 Comments Webbed chair, no use of hands TUG Impairment Rating 20 to <40% Impaired (Score 12- 13) PT-OP-G Mobility & Gait Start: 03/07/24 18:38 Freq: Status: Active Protocol: Document 03/25/24 09:54 LRN (Rec: 03/25/24 17:41 LRN [id number]) OP Mobility Evaluation Bed Mobility Supine to and from Sit Pt transfer by partially sidelying onto plinth. SBA transfer with a little help to LLE. Transfers Sit to Stand Independent. Daughter reports she sometimes needs help. OP Gait Assessment Gait Gait Assistance Required: Independent Distance (Feet) 70 Assistive Devices Assistive Device Front Wheeled Walker Gait Deviations General Gait Pattern Antalgic,Decreased Stride Length,Flexed Trunk,Narrow Based Gait Comments Gait Comments Pt mildly unsteady with intial start of gait; therefore not yet appropriate for single point cane. Stair Climbing Evaluation Evaluation Level of Assist On Stairs Standby Assistance Devices Stair Climbing Assistive Devices Straight Cane,Left Railing, Right Railing Technique/Endurance Stair Climbing Direction Ascend and Descend Stair Climbing Technique Step to Step Number of Steps Climbed 4 Stair Climbing Set # Repetitions (reps) 1 PT-OP-J Posture/Palpation/Skin Start: 03/07/24 18:38 Freq: Status: Active Protocol: Document 03/25/24 09:54 LRN (Rec: 03/25/24 17:46 LRN [id number]) Posture Evaluation Position Standing Head/C-Spine Posture Forward Head T-Spine Posture Increased Kyphosis L-Spine Posture Decreased Lordosis Arm Posture (L) Internally Rotated,(R) Internally Rotated Pelvis Posture Anteriorly Tilted Weight Distribution Weight Shifted Right Hip Posture (L) Flexed,(R) Flexed Knee Posture (L) Excess Flexion,(R) Excess Flexion Palpation Assessment Location L knee Palpation Location Pain at medial left knee Palpation Findings Tenderness Palpation Details Palpation over support hose. Bandage covering incision. PT-OP-K Range of Motion Start: 03/07/24 18:38 Freq: Status: Active Protocol: Document 06/24/24 09:03 NM (Rec: 06/24/24 09:46 NM [id number]) Knee Goniometric Range of Motion Knee Right Knee ROM WFL Yes Patient Position Sitting Flexion Active (degrees) 113 Extension Active (degrees) 3 Comments Sitting knee AROM: 3-113 Left Knee ROM WFL No Patient Position Supine Flexion Active (degrees) 115 Flexion Passive (degrees) 120 Extension Active (degrees) 2 Comments L knee AROM supine: Flexion: gained 1 deg, 116deg, gained 2 deg 120deg PROM Extension: loss by 6 deg, 8deg 06/24/24: 115 deg to lacking 2 deg of ext PT-OP-M Strength Start: 03/07/24 18:38 Freq: Status: Active Protocol: Document 06/24/24 09:03 NM (Rec: 06/24/24 09:46 NM [id number]) Knee Strength Knee Manual Muscle Testing Right Flexion (S2) 5 Normal Extension (L3) 5 Normal Left Flexion (S2) 5 Normal Extension (L3) 5 Normal Comments RE: 2+/5 for both; Quad lag of 20 deg's 04/25/24: 4-/5 05/27/24: 4/5 PT-OP-Q Treatments Start: 03/07/24 18:38 Freq: Status: Active Protocol: Document 06/24/24 09:03 NM (Rec: 06/24/24 09:46 NM [id number]) Therapeutic Exercises Supine Exercises Leg lengthener Supine Exercise Name HEP review /c HEP for hip flexor flexibility and TKE Side bilateral Reps/Minutes 10x5 hold Comments cued for correct execution Sitting Exercises STS Sitting Exercise Name buttock tap Resistance level 3 band at thighs Equipment Used 18 black table, no UE, feet parallel Reps/Minutes 20 Comments good controlled descent, no difficulty Knee ext Sitting Exercise Name LAQ Side bilateral Resistance level 2 band at ankles Reps/Minutes 15x5 hold Comments pain free Standing Exercises lunge Side bilateral Equipment Used 1 hand support Reps/Minutes 2x10 ea Comments good trunk posture hip and knee flexion stretch on step Standing Exercise Name hip& mobility AAROM: 1. sustained stretch, 2. gentle flex mobilization Side bilateral Equipment Used B rail support Reps/Minutes 1. 2x30, 2. 10x10 Comments for knee flexion and hip flexor stretch PT-OP-R Modalities Start: 03/07/24 18:38 Freq: Status: Active Protocol: Document 04/01/24 10:36 SP (Rec: 04/01/24 16:13 SP [id number]) Hot Pack/Cold Pack Treatment CP L knee Location L knee Patient Position Supine Patient Tolerance Good Comments ant/post knee PT-OP-T Assessment and Plan Start: 03/07/24 18:38 Freq: Status: Active Protocol: Document 06/24/24 09:03 NM (Rec: 06/24/24 09:46 NM [id number]) Physical Therapy Assessment Goals Five Impairment Decreased L knee AROM Impairment L knee AROM (pre-op): sup is lacking 10-105 deg's; sitting ext is lacking 10 deg's. L knee AROM (post-op): sitting is 20-88 deg's R knee AROM: sup is lacking 12 -112 deg's 05/09/24: Short Term Goal (STG) Pt will improve L knee AROM to pre-surgical range (10-105 deg's) to improve sitting tolerance with L leg dependent w/o increased knee pain. 04/01/24: progressin-99 deg AROM, 103 /c strap assist after heel slide. 04/03/2024 AROM left knee lacking 8 to 104 deg post manual therapy and exercise. 04/08/2024 Patient ed to avoid sleeping with pillow under the knee due to AROM knee ext lacking 15 deg compared to previous session of lacking 10 and patient reports sleeping with pillow under LE when questioned. 04/25/24: 5 to 110 AROM STG Duration 6 wks-05/09/24 MET 04/25/24 Credit Specialist Goal (LTG) Pt will improve L knee AROM to minimal 3 - 120 deg's with pt able to ambulate stairs with use of 1 railing and step over step gait. 04/01/24: progressin-99 deg AROM, 103 /c strap assist after heel slide. 04/25/24: 5 to 110 AROM 05/09/24: 2-115 deg AROM L knee , passive L knee hand 4 deg, AAROM 118 deg flexion therapist assist. 05/13/24: 5 to 118 deg; 2 to 120 deg post manual tx 05/27/24: 118 deg flex and 122 deg post manual, lacking 4 deg ext and 2 deg lacking post manual 06/24/24: 115 deg flexion, lacking 2 deg of extension LTG Duration 12 wks-progressing/NOT MET 06/24 Four Impairment Decreased function per TUG score 13 Impairment TUG 13 (20<40% impaired, score 12-13) Retirement Goal (LTG) Improve stability of gait per improved TUG score of 11-12 or less. 04/03/2024 TUG with FWW, UE use for sit to and from stand 31. 86 sec. ( FWW use due to 1 sec single leg stance left LE without UE use and reports of some increase in pain with trial ) 04/25/24: 16 sec with FWW, 17 sec with spc 05/27/24: w/ spc: 13 sec and w/o spc: 11 sec; close SBA 06/24/24: 10 sec w/o AD, no LOB LTG Duration 12 wks-MET 06/24 Three Impairment Decreased L knee strength Impairment L knee (pre-op) flex 4/5, ext 5/5 L knee (post-op) flex 2+/5, ext 2+/5 R knee flex/ext is 5/5. Short Term Goal (STG) Improve L knee strength 1/2 grade with pt able to safely walk w/o walker. 04/25/24: 4-/5 MMT for both knee flex and ext STG Duration 6 wks-05/09/24 MET Retirement Goal (LTG) Improve L knee strength to 5/5 with pt able to return to walking trails 30-40 min/day. 05/27/24: 4/5 for all 06/24/24: 5/5 LTG Duration 12 wks-06/20/24 MET- 06/24 Two Impairment L knee pain and assist needed for transfers sit<>supine Credit Specialist Goal (LTG) Improve function with pt able to transfer sit<>supine w/on pain and independently. 04/08/2024 Patient transfers supine to and from sit without UE use in clinic this session 05/27/24: pt can transfer supine > sit w/o pain and IND LTG Duration 12 wks-06/20/24 MET One Impairment Pt lacks appropriate self care HEP. Impairment Pt will be educated in log roll transfers, proper body mechanics for ADLs, proper sitting/standing posture. LTG : Pt will be independent in an effective self care HEP for core/hip strengthening and mobility ex's. Short Term Goal (STG) Pt will be educated and be able to perform L knee post op TKA ex's independent 04/08/2024 1. Patient ed rationale of seated knee ext stretch one hour over course of day for functional outcome ( 10 min X 6 or 15 min X 4)2. Pt ed to avoid positioning a pillow under LE when sleeping. 3. LAQ and sit to stand with focus on equal weight shift, LE position prior to sit to stand and to stand with knee straight prior to sitting dowl slowly. STG Duration 2 wks-04/11/24 Retirement Goal (LTG) Pt will be independent in self care HEP of L knee ROM and strengthening ex's to promote functional use of the L knee and return her to trail walking. 05/27/24: pt compliant with HEP and planning to trial level trail walking with trek poles 06/24/24: pt back to ambulating trails with trekking poles. compliant with HEP daily. reports no limitations with mobility or ADLs. LTG Duration 12 wks-MET Progress Towards Goals Progress Towards Goals Progressing Toward Goals,Goals Met Progress Comments Only goals not met are knee flexion AROM goals, but progressing Assessment Summary Assessment Pt tolerated session well. Emphasis on HEP review and establishing maintenance program. PT and pt discussed discharge today as pt is outside POC and making good progress/reports no limitations. Demos improved form with all exercises; minimal cues for correct execution. Progressed resistance for STS and lowered depth of chair. Pt able to perform lunges following knee flexion mobilization with observable increased depth as well. Recommended stable surface at home for balance support for lunges, hip 3 way. Pt demonstrates good effort and understanding of all exercises. Continues to lack end range L knee ext and knee flexion past 115 deg today. Physical Therapy Plan Frequency and Duration Frequency of Treatment 2x/Week Duration of treatment (weeks) 12 Plan of Care Start Date 06/24/24 Plan of Care End Date 06/24/24 Therapeutic Interventions Therapeutic Interventions Balance Training,Gait Training ,Home Exercise Program,Joint Mobilizations,Manual Therapy, Neuromuscular Re-education, Self-Care/Home Management,Soft Tissue Mobilization, Therapeutic Activities, Therapeutic Exercises Modalities Cold Pack/Ice Massage,Hot Packs Discharge Physical Therapy Discharge Reasons Patient Request Discharge Comments Pt outside plan of care. Reports no limitations in ADLs . Demos improved hip and knee strength. Still has mild limitations in knee flexion AROM, but pt has functional ROM for gait and stairs Next Visit Focus/Plan Next Note Type Discharge Summary Next Visit Plan discharge from PT
--- NOTE | 2024-06-24 14:57 | PT.OPPOC ---
Physical, Occupational & Speech Therapy At [facility] Current Diagnoses Unilateral primary osteoarthritis, left knee (06/24/24) Pain in left knee (06/24/24) Muscle weakness (generalized) (06/24/24) Other abnormalities of gait and mobility (06/24/24) Encounter for other preprocedural examination (06/24/24) Visit Care Team Role Provider Type HAYDEE Beckford Family Provider Advanced Digestion Operator Primary Care Provider Specialty: Family Practice Address: [address] [place] [address], [id number] Email: [email or web address] DO Attending Provider Non-Staff Referring Provider Specialty: Orthopedics Address: [address] [place] [address], [id number] Email: Plan Of Care PT-OP-B Current Condition Start: 03/07/24 18:38 Freq: Status: Active Protocol: Document 03/25/24 09:54 LRN (Rec: 03/25/24 17:35 LRN [id number]) Current Condition History of Current Condition Onset Date 03/18/24 Current Complaints L knee pain, not able to walk on trails, using walker to walk History of Current Condition Pt returns after having an elective L medial knee arthroplasty 03/18/24. The pt has been home 1 wk and has been doing her HEP with her daughter, who is a PACU nurse at . Pt walks in with FWW. Transfer on/off plinth with a little help to her LLE, but is mostly independent. Pt reports she needs help getting her stockings and shoes on, which her daughter or helps her with. Prior Treatments and Tests Pre-op physical therapy visit 03/13/24. Treatment Goals Patient/Caregiver Goals Pt goal is: - to be able to walk w/o a walker, -to be able to return to walking [place] previously, 30-40 minutes, - to be able to ambulate stairs with a normal gait. Personal Factors Other Personal Factors That May Effect 3 steps to get in/out of Therapy/Recovery house. PT-OP-T Assessment and Plan Start: 03/07/24 18:38 Freq: Status: Active Protocol: Document 06/24/24 09:03 NM (Rec: 06/24/24 09:46 NM [id number]) Physical Therapy Assessment Goals Five Impairment Decreased L knee AROM Impairment L knee AROM (pre-op): sup is lacking 10-105 deg's; sitting ext is lacking 10 deg's. L knee AROM (post-op): sitting is 20-88 deg's R knee AROM: sup is lacking 12 -112 deg's 05/09/24: Short Term Goal (STG) Pt will improve L knee AROM to pre-surgical range (10-105 deg's) to improve sitting tolerance with L leg dependent w/o increased knee pain. 04/01/24: progressin-99 deg AROM, 103 /c strap assist after heel slide. 04/03/2024 AROM left knee lacking 8 to 104 deg post manual therapy and exercise. 04/08/2024 Patient ed to avoid sleeping with pillow under the knee due to AROM knee ext lacking 15 deg compared to previous session of lacking 10 and patient reports sleeping with pillow under LE when questioned. 04/25/24: 5 to 110 AROM STG Duration 6 wks-05/09/24 MET 04/25/24 Usp Goal (LTG) Pt will improve L knee AROM to minimal 3 - 120 deg's with pt able to ambulate stairs with use of 1 railing and step over step gait. 04/01/24: progressin-99 deg AROM, 103 /c strap assist after heel slide. 04/25/24: 5 to 110 AROM 05/09/24: 2-115 deg AROM L knee , passive L knee hand 4 deg, AAROM 118 deg flexion therapist assist. 05/13/24: 5 to 118 deg; 2 to 120 deg post manual tx 05/27/24: 118 deg flex and 122 deg post manual, lacking 4 deg ext and 2 deg lacking post manual 06/24/24: 115 deg flexion, lacking 2 deg of extension LTG Duration 12 wks-progressing/NOT MET 06/24 Four Impairment Decreased function per TUG score 13 Impairment TUG 13 (20<40% impaired, score 12-13) Usp Goal (LTG) Improve stability of gait per improved TUG score of 11-12 or less. 04/03/2024 TUG with FWW, UE use for sit to and from stand 31. 86 sec. ( FWW use due to 1 sec single leg stance left LE without UE use and reports of some increase in pain with trial ) 04/25/24: 16 sec with FWW, 17 sec with spc 05/27/24: w/ spc: 13 sec and w/o spc: 11 sec; close SBA 06/24/24: 10 sec w/o AD, no LOB LTG Duration 12 wks-MET 06/24 Three Impairment Decreased L knee strength Impairment L knee (pre-op) flex 4/5, ext 5/5 L knee (post-op) flex 2+/5, ext 2+/5 R knee flex/ext is 5/5. Short Term Goal (STG) Improve L knee strength 1/2 grade with pt able to safely walk w/o walker. 04/25/24: 4-/5 MMT for both knee flex and ext STG Duration 6 wks-05/09/24 MET Napkin Band Wrapper Goal (LTG) Improve L knee strength to 5/5 with pt able to return to walking trails 30-40 min/day. 05/27/24: 4/5 for all 06/24/24: 5/5 LTG Duration 12 wks-06/20/24 MET- 06/24 Two Impairment L knee pain and assist needed for transfers sit<>supine Napkin Band Wrapper Goal (LTG) Improve function with pt able to transfer sit<>supine w/on pain and independently. 04/08/2024 Patient transfers supine to and from sit without UE use in clinic this session 05/27/24: pt can transfer supine > sit w/o pain and IND LTG Duration 12 wks-06/20/24 MET One Impairment Pt lacks appropriate self care HEP. Impairment Pt will be educated in log roll transfers, proper body mechanics for ADLs, proper sitting/standing posture. LTG : Pt will be independent in an effective self care HEP for core/hip strengthening and mobility ex's. Short Term Goal (STG) Pt will be educated and be able to perform L knee post op TKA ex's independent 04/08/2024 1. Patient ed rationale of seated knee ext stretch one hour over course of day for functional outcome ( 10 min X 6 or 15 min X 4)2. Pt ed to avoid positioning a pillow under LE when sleeping. 3. LAQ and sit to stand with focus on equal weight shift, LE position prior to sit to stand and to stand with knee straight prior to sitting dowl slowly. STG Duration 2 wks-04/11/24 Usp Goal (LTG) Pt will be independent in self care HEP of L knee ROM and strengthening ex's to promote functional use of the L knee and return her to trail walking. 05/27/24: pt compliant with HEP and planning to trial level trail walking with trek poles 06/24/24: pt back to ambulating trails with trekking poles. compliant with HEP daily. reports no limitations with mobility or ADLs. LTG Duration 12 wks-MET Progress Towards Goals Progress Towards Goals Progressing Toward Goals,Goals Met Progress Comments Only goals not met are knee flexion AROM goals, but progressing Assessment Summary Assessment Pt has been seen x18 visits since re-evaluation s/p L partial knee arthroplasty in February 2024. Pt demonstrates improvements in overall L knee ROM; however, she continues to have mild limitations in knee extension and knee flexion. Knee flexion is limited to 115 deg; however, improved observably post knee flexion self mobilization. Pt' s L knee and hip strength is improved. Pt reports that she is back to her previous level of function; she has returned to ambulating for at least 30 minutes on trails with her trek poles. Pt reports no limitations in her mobility or ability to perform ADLs/IADLs . PT and pt discussed discharge today as pt is outside of her plan fo care and pt requesting discharge. PT and pt in agreement. PT educated pt on performing maintenance 3x/wk for at least 6 months; also educated pt to follow up with PCP or artificial intelligence specialist if symptoms return or worsen. Pt verbalizes understanding. Pt will be discharged to maintenance program to continue with strengthening and progressing toward last goal of improving L knee ROM. Physical Therapy Plan Frequency and Duration Frequency of Treatment 2x/Week Duration of treatment (weeks) 12 Plan of Care Start Date 06/24/24 Plan of Care End Date 06/24/24 Therapeutic Interventions Therapeutic Interventions Balance Training,Gait Training ,Home Exercise Program,Joint Mobilizations,Manual Therapy, Neuromuscular Re-education, Self-Care/Home Management,Soft Tissue Mobilization, Therapeutic Activities, Therapeutic Exercises Modalities Cold Pack/Ice Massage,Hot Packs Discharge Physical Therapy Discharge Reasons Patient Request Discharge Comments Pt outside plan of care. Reports no limitations in ADLs . Demos improved hip and knee strength. Still has mild limitations in knee flexion AROM, but pt has functional ROM for gait and stairs Next Visit Focus/Plan Next Note Type Discharge Summary Next Visit Plan discharge from PT Plan of Care Dates Plan of Care Start Date 06/24/24 Plan of Care End Date 06/24/24 Electronically Signed by: Gerda De La Fuente, PT 06/24/24 [id number] If you are in agreement with this Plan of Care, please return a signed and dated copy. I have reviewed this Plan of Care and certify that the skilled therapy services above are required to meet the patient?s needs. Physician Signature Date Printed Name and Credentials Clinical Instructor Signature Printed Name and Credentials
--- NOTE | 2024-06-24 14:58 | PT.OTN ---
Current Diagnoses Unilateral primary osteoarthritis, left knee (06/24/24) Pain in left knee (06/24/24) Muscle weakness (generalized) (06/24/24) Other abnormalities of gait and mobility (06/24/24) Encounter for other preprocedural examination (06/24/24) Physical Therapy Treatment Note PT-OP-A Visit Information Start: 03/07/24 18:38 Freq: Status: Active Protocol: Document 06/24/24 09:03 NM (Rec: 06/24/24 09:46 NM [id number]) Out-Patient Physical Therapy Visit Information Visit Information Visit Type Progress Note Visit Start Time 09:03 Visit Stop Time 09:43 Visit Number 19 Evaluation Information Evaluation Date 03/13/24 Precautions Precautions 03/18/24 s/p Partial L knee arthroplasty Hx: Back surgery (for ruptured disc) -30 yrs ago, hand surgery (carpal tunnel and trigger finger bilaterallly) 10 yrs ago. PT-OP-B Current Condition Start: 03/07/24 18:38 Freq: Status: Active Protocol: Document 03/25/24 09:54 LRN (Rec: 03/25/24 17:35 LRN [id number]) Current Condition History of Current Condition Onset Date 03/18/24 Current Complaints L knee pain, not able to walk on trails, using walker to walk History of Current Condition Pt returns after having an elective L medial knee arthroplasty 03/18/24. The pt has been home 1 wk and has been doing her HEP with her daughter, who is a PACU nurse at . Pt walks in with FWW. Transfer on/off plinth with a little help to her LLE, but is mostly independent. Pt reports she needs help getting her stockings and shoes on, which her daughter or helps her with. Prior Treatments and Tests Pre-op physical therapy visit 03/13/24. Treatment Goals Patient/Caregiver Goals Pt goal is: - to be able to walk w/o a walker, -to be able to return to walking [place] previously, 30-40 minutes, - to be able to ambulate stairs with a normal gait. Personal Factors Other Personal Factors That May Effect 3 steps to get in/out of Therapy/Recovery house. PT-OP-C Subjective Start: 03/07/24 18:38 Freq: Status: Active Protocol: Document 06/24/24 09:03 NM (Rec: 06/24/24 09:46 NM [id number]) OP-PT Subjective Patient Comments Patient Comments Pt reports no knee pain. Has not had pain for >1.5 weeks. She reports that back to trail walks 25-30 min, no discomofort; uses trek poles. Reports HEP is going well, performing daily without limitations. Pt reports that her L knee is a little stiffer but she reports that she has no limitations with ADLs, household ADLs, errands. She reports that she is wanting to be done wiht PT. PT-OP-E Functional Tests Start: 03/07/24 18:38 Freq: Status: Active Protocol: Document 03/13/24 08:16 LRN (Rec: 03/13/24 09:37 LRN [id number]) Functional Tests Timed Up and Go (TUG) Score 13 Comments Webbed chair, no use of hands TUG Impairment Rating 20 to <40% Impaired (Score 12- 13) PT-OP-G Mobility & Gait Start: 03/07/24 18:38 Freq: Status: Active Protocol: Document 03/25/24 09:54 LRN (Rec: 03/25/24 17:41 LRN [id number]) OP Mobility Evaluation Bed Mobility Supine to and from Sit Pt transfer by partially sidelying onto plinth. SBA transfer with a little help to LLE. Transfers Sit to Stand Independent. Daughter reports she sometimes needs help. OP Gait Assessment Gait Gait Assistance Required: Independent Distance (Feet) 70 Assistive Devices Assistive Device Front Wheeled Walker Gait Deviations General Gait Pattern Antalgic,Decreased Stride Length,Flexed Trunk,Narrow Based Gait Comments Gait Comments Pt mildly unsteady with intial start of gait; therefore not yet appropriate for single point cane. Stair Climbing Evaluation Evaluation Level of Assist On Stairs Standby Assistance Devices Stair Climbing Assistive Devices Straight Cane,Left Railing, Right Railing Technique/Endurance Stair Climbing Direction Ascend and Descend Stair Climbing Technique Step to Step Number of Steps Climbed 4 Stair Climbing Set # Repetitions (reps) 1 PT-OP-J Posture/Palpation/Skin Start: 03/07/24 18:38 Freq: Status: Active Protocol: Document 03/25/24 09:54 LRN (Rec: 03/25/24 17:46 LRN [id number]) Posture Evaluation Position Standing Head/C-Spine Posture Forward Head T-Spine Posture Increased Kyphosis L-Spine Posture Decreased Lordosis Arm Posture (L) Internally Rotated,(R) Internally Rotated Pelvis Posture Anteriorly Tilted Weight Distribution Weight Shifted Right Hip Posture (L) Flexed,(R) Flexed Knee Posture (L) Excess Flexion,(R) Excess Flexion Palpation Assessment Location L knee Palpation Location Pain at medial left knee Palpation Findings Tenderness Palpation Details Palpation over support hose. Bandage covering incision. PT-OP-K Range of Motion Start: 03/07/24 18:38 Freq: Status: Active Protocol: Document 06/24/24 09:03 NM (Rec: 06/24/24 09:46 NM [id number]) Knee Goniometric Range of Motion Knee Right Knee ROM WFL Yes Patient Position Sitting Flexion Active (degrees) 113 Extension Active (degrees) 3 Comments Sitting knee AROM: 3-113 Left Knee ROM WFL No Patient Position Supine Flexion Active (degrees) 115 Flexion Passive (degrees) 120 Extension Active (degrees) 2 Comments L knee AROM supine: Flexion: gained 1 deg, 116deg, gained 2 deg 120deg PROM Extension: loss by 6 deg, 8deg 06/24/24: 115 deg to lacking 2 deg of ext PT-OP-M Strength Start: 03/07/24 18:38 Freq: Status: Active Protocol: Document 06/24/24 09:03 NM (Rec: 06/24/24 09:46 NM [id number]) Knee Strength Knee Manual Muscle Testing Right Flexion (S2) 5 Normal Extension (L3) 5 Normal Left Flexion (S2) 5 Normal Extension (L3) 5 Normal Comments RE: 2+/5 for both; Quad lag of 20 deg's 04/25/24: 4-/5 05/27/24: 4/5 PT-OP-Q Treatments Start: 03/07/24 18:38 Freq: Status: Active Protocol: Document 06/24/24 09:03 NM (Rec: 06/24/24 09:46 NM [id number]) Therapeutic Exercises Supine Exercises Leg lengthener Supine Exercise Name HEP review /c HEP for hip flexor flexibility and TKE Side bilateral Reps/Minutes 10x5 hold Comments cued for correct execution Sitting Exercises STS Sitting Exercise Name buttock tap Resistance level 3 band at thighs Equipment Used 18 black table, no UE, feet parallel Reps/Minutes 20 Comments good controlled descent, no difficulty Knee ext Sitting Exercise Name LAQ Side bilateral Resistance level 2 band at ankles Reps/Minutes 15x5 hold Comments pain free Standing Exercises lunge Side bilateral Equipment Used 1 hand support Reps/Minutes 2x10 ea Comments good trunk posture hip and knee flexion stretch on step Standing Exercise Name hip& mobility AAROM: 1. sustained stretch, 2. gentle flex mobilization Side bilateral Equipment Used B rail support Reps/Minutes 1. 2x30, 2. 10x10 Comments for knee flexion and hip flexor stretch PT-OP-R Modalities Start: 03/07/24 18:38 Freq: Status: Active Protocol: Document 04/01/24 10:36 SP (Rec: 04/01/24 16:13 SP [id number]) Hot Pack/Cold Pack Treatment CP L knee Location L knee Patient Position Supine Patient Tolerance Good Comments ant/post knee PT-OP-T Assessment and Plan Start: 03/07/24 18:38 Freq: Status: Active Protocol: Document 06/24/24 09:03 NM (Rec: 06/24/24 09:46 NM [id number]) Physical Therapy Assessment Goals Five Impairment Decreased L knee AROM Impairment L knee AROM (pre-op): sup is lacking 10-105 deg's; sitting ext is lacking 10 deg's. L knee AROM (post-op): sitting is 20-88 deg's R knee AROM: sup is lacking 12 -112 deg's 05/09/24: Short Term Goal (STG) Pt will improve L knee AROM to pre-surgical range (10-105 deg's) to improve sitting tolerance with L leg dependent w/o increased knee pain. 04/01/24: progressin-99 deg AROM, 103 /c strap assist after heel slide. 04/03/2024 AROM left knee lacking 8 to 104 deg post manual therapy and exercise. 04/08/2024 Patient ed to avoid sleeping with pillow under the knee due to AROM knee ext lacking 15 deg compared to previous session of lacking 10 and patient reports sleeping with pillow under LE when questioned. 04/25/24: 5 to 110 AROM STG Duration 6 wks-05/09/24 MET 04/25/24 [employer] Goal (LTG) Pt will improve L knee AROM to minimal 3 - 120 deg's with pt able to ambulate stairs with use of 1 railing and step over step gait. 04/01/24: progressin-99 deg AROM, 103 /c strap assist after heel slide. 04/25/24: 5 to 110 AROM 05/09/24: 2-115 deg AROM L knee , passive L knee hand 4 deg, AAROM 118 deg flexion therapist assist. 05/13/24: 5 to 118 deg; 2 to 120 deg post manual tx 05/27/24: 118 deg flex and 122 deg post manual, lacking 4 deg ext and 2 deg lacking post manual 06/24/24: 115 deg flexion, lacking 2 deg of extension LTG Duration 12 wks-progressing/NOT MET 06/24 Four Impairment Decreased function per TUG score 13 Impairment TUG 13 (20<40% impaired, score 12-13) Intermediate Goal (LTG) Improve stability of gait per improved TUG score of 11-12 or less. 04/03/2024 TUG with FWW, UE use for sit to and from stand 31. 86 sec. ( FWW use due to 1 sec single leg stance left LE without UE use and reports of some increase in pain with trial ) 04/25/24: 16 sec with FWW, 17 sec with spc 05/27/24: w/ spc: 13 sec and w/o spc: 11 sec; close SBA 06/24/24: 10 sec w/o AD, no LOB LTG Duration 12 wks-MET 06/24 Three Impairment Decreased L knee strength Impairment L knee (pre-op) flex 4/5, ext 5/5 L knee (post-op) flex 2+/5, ext 2+/5 R knee flex/ext is 5/5. Short Term Goal (STG) Improve L knee strength 1/2 grade with pt able to safely walk w/o walker. 04/25/24: 4-/5 MMT for both knee flex and ext STG Duration 6 wks-05/09/24 MET Intermediate Goal (LTG) Improve L knee strength to 5/5 with pt able to return to walking trails 30-40 min/day. 05/27/24: 4/5 for all 06/24/24: 5/5 LTG Duration 12 wks-06/20/24 MET- 06/24 Two Impairment L knee pain and assist needed for transfers sit<>supine [employer] Goal (LTG) Improve function with pt able to transfer sit<>supine w/on pain and independently. 04/08/2024 Patient transfers supine to and from sit without UE use in clinic this session 05/27/24: pt can transfer supine > sit w/o pain and IND LTG Duration 12 wks-06/20/24 MET One Impairment Pt lacks appropriate self care HEP. Impairment Pt will be educated in log roll transfers, proper body mechanics for ADLs, proper sitting/standing posture. LTG : Pt will be independent in an effective self care HEP for core/hip strengthening and mobility ex's. Short Term Goal (STG) Pt will be educated and be able to perform L knee post op TKA ex's independent 04/08/2024 1. Patient ed rationale of seated knee ext stretch one hour over course of day for functional outcome ( 10 min X 6 or 15 min X 4)2. Pt ed to avoid positioning a pillow under LE when sleeping. 3. LAQ and sit to stand with focus on equal weight shift, LE position prior to sit to stand and to stand with knee straight prior to sitting dowl slowly. STG Duration 2 wks-04/11/24 Intermediate Goal (LTG) Pt will be independent in self care HEP of L knee ROM and strengthening ex's to promote functional use of the L knee and return her to trail walking. 05/27/24: pt compliant with HEP and planning to trial level trail walking with trek poles 06/24/24: pt back to ambulating trails with trekking poles. compliant with HEP daily. reports no limitations with mobility or ADLs. LTG Duration 12 wks-MET Progress Towards Goals Progress Towards Goals Progressing Toward Goals,Goals Met Progress Comments Only goals not met are knee flexion AROM goals, but progressing Assessment Summary Assessment Pt tolerated session well. Emphasis on HEP review and establishing maintenance program. PT and pt discussed discharge today as pt is outside POC and making good progress/reports no limitations. Demos improved form with all exercises; minimal cues for correct execution. Progressed resistance for STS and lowered depth of chair. Pt able to perform lunges following knee flexion mobilization with observable increased depth as well. Recommended stable surface at home for balance support for lunges, hip 3 way. Pt demonstrates good effort and understanding of all exercises. Continues to lack end range L knee ext and knee flexion past 115 deg today. Physical Therapy Plan Frequency and Duration Frequency of Treatment 1x/Week Duration of treatment (weeks) 2 Plan of Care Start Date 06/20/24 Plan of Care End Date 06/24/24 Therapeutic Interventions Therapeutic Interventions Balance Training,Gait Training ,Home Exercise Program,Joint Mobilizations,Manual Therapy, Neuromuscular Re-education, Self-Care/Home Management,Soft Tissue Mobilization, Therapeutic Activities, Therapeutic Exercises Modalities Cold Pack/Ice Massage,Hot Packs Discharge Physical Therapy Discharge Reasons Patient Request Discharge Comments Pt outside plan of care. Reports no limitations in ADLs . Demos improved hip and knee strength. Still has mild limitations in knee flexion AROM, but pt has functional ROM for gait and stairs Next Visit Focus/Plan Next Note Type Discharge Summary Next Visit Plan discharge from PT
--- NOTE | 2024-06-24 14:59 | PT.OPPOC ---
Physical, Occupational & Speech Therapy At [facility] Current Diagnoses Unilateral primary osteoarthritis, left knee (06/24/24) Pain in left knee (06/24/24) Muscle weakness (generalized) (06/24/24) Other abnormalities of gait and mobility (06/24/24) Encounter for other preprocedural examination (06/24/24) Visit Care Team Role Provider Type HAYDEE Beckford Family Provider Advanced Fight Manager Primary Care Provider Specialty: Family Practice Address: [address] [place] [address], [id number] Email: [email or web address] Castillo DO Attending Provider Non-Staff Referring Provider Specialty: Orthopedics Address: [address] [place] [address], [id number] Email: Plan Of Care PT-OP-B Current Condition Start: 03/07/24 18:38 Freq: Status: Active Protocol: Document 03/25/24 09:54 LRN (Rec: 03/25/24 17:35 LRN [id number]) Current Condition History of Current Condition Onset Date 03/18/24 Current Complaints L knee pain, not able to walk on trails, using walker to walk History of Current Condition Pt returns after having an elective L medial knee arthroplasty 03/18/24. The pt has been home 1 wk and has been doing her HEP with her daughter, who is a PACU nurse at . Pt walks in with FWW. Transfer on/off plinth with a little help to her LLE, but is mostly independent. Pt reports she needs help getting her stockings and shoes on, which her daughter or helps her with. Prior Treatments and Tests Pre-op physical therapy visit 03/13/24. Treatment Goals Patient/Caregiver Goals Pt goal is: - to be able to walk w/o a walker, -to be able to return to walking [place] previously, 30-40 minutes, - to be able to ambulate stairs with a normal gait. Personal Factors Other Personal Factors That May Effect 3 steps to get in/out of Therapy/Recovery house. PT-OP-T Assessment and Plan Start: 03/07/24 18:38 Freq: Status: Active Protocol: Document 06/24/24 09:03 NM (Rec: 06/24/24 09:46 NM [id number]) Physical Therapy Assessment Goals Five Impairment Decreased L knee AROM Impairment L knee AROM (pre-op): sup is lacking 10-105 deg's; sitting ext is lacking 10 deg's. L knee AROM (post-op): sitting is 20-88 deg's R knee AROM: sup is lacking 12 -112 deg's 05/09/24: Short Term Goal (STG) Pt will improve L knee AROM to pre-surgical range (10-105 deg's) to improve sitting tolerance with L leg dependent w/o increased knee pain. 04/01/24: progressin-99 deg AROM, 103 /c strap assist after heel slide. 04/03/2024 AROM left knee lacking 8 to 104 deg post manual therapy and exercise. 04/08/2024 Patient ed to avoid sleeping with pillow under the knee due to AROM knee ext lacking 15 deg compared to previous session of lacking 10 and patient reports sleeping with pillow under LE when questioned. 04/25/24: 5 to 110 AROM STG Duration 6 wks-05/09/24 MET 04/25/24 [facility] Goal (LTG) Pt will improve L knee AROM to minimal 3 - 120 deg's with pt able to ambulate stairs with use of 1 railing and step over step gait. 04/01/24: progressin-99 deg AROM, 103 /c strap assist after heel slide. 04/25/24: 5 to 110 AROM 05/09/24: 2-115 deg AROM L knee , passive L knee hand 4 deg, AAROM 118 deg flexion therapist assist. 05/13/24: 5 to 118 deg; 2 to 120 deg post manual tx 05/27/24: 118 deg flex and 122 deg post manual, lacking 4 deg ext and 2 deg lacking post manual 06/24/24: 115 deg flexion, lacking 2 deg of extension LTG Duration 12 wks-progressing/NOT MET 06/24 Four Impairment Decreased function per TUG score 13 Impairment TUG 13 (20<40% impaired, score 12-13) [facility] Goal (LTG) Improve stability of gait per improved TUG score of 11-12 or less. 04/03/2024 TUG with FWW, UE use for sit to and from stand 31. 86 sec. ( FWW use due to 1 sec single leg stance left LE without UE use and reports of some increase in pain with trial ) 04/25/24: 16 sec with FWW, 17 sec with spc 05/27/24: w/ spc: 13 sec and w/o spc: 11 sec; close SBA 06/24/24: 10 sec w/o AD, no LOB LTG Duration 12 wks-MET 06/24 Three Impairment Decreased L knee strength Impairment L knee (pre-op) flex 4/5, ext 5/5 L knee (post-op) flex 2+/5, ext 2+/5 R knee flex/ext is 5/5. Short Term Goal (STG) Improve L knee strength 1/2 grade with pt able to safely walk w/o walker. 04/25/24: 4-/5 MMT for both knee flex and ext STG Duration 6 wks-05/09/24 MET [employer] Goal (LTG) Improve L knee strength to 5/5 with pt able to return to walking trails 30-40 min/day. 05/27/24: 4/5 for all 06/24/24: 5/5 LTG Duration 12 wks-06/20/24 MET- 06/24 Two Impairment L knee pain and assist needed for transfers sit<>supine [employer] [facility] Goal (LTG) Improve function with pt able to transfer sit<>supine w/on pain and independently. 04/08/2024 Patient transfers supine to and from sit without UE use in clinic this session 05/27/24: pt can transfer supine > sit w/o pain and IND LTG Duration 12 wks-06/20/24 MET One Impairment Pt lacks appropriate self care HEP. Impairment Pt will be educated in log roll transfers, proper body mechanics for ADLs, proper sitting/standing posture. LTG : Pt will be independent in an effective self care HEP for core/hip strengthening and mobility ex's. Short Term Goal (STG) Pt will be educated and be able to perform L knee post op TKA ex's independent 04/08/2024 1. Patient ed rationale of seated knee ext stretch one hour over course of day for functional outcome ( 10 min X 6 or 15 min X 4)2. Pt ed to avoid positioning a pillow under LE when sleeping. 3. LAQ and sit to stand with focus on equal weight shift, LE position prior to sit to stand and to stand with knee straight prior to sitting dowl slowly. STG Duration 2 wks-04/11/24 [facility] Goal (LTG) Pt will be independent in self care HEP of L knee ROM and strengthening ex's to promote functional use of the L knee and return her to trail walking. 05/27/24: pt compliant with HEP and planning to trial level trail walking with trek poles 06/24/24: pt back to ambulating trails with trekking poles. compliant with HEP daily. reports no limitations with mobility or ADLs. LTG Duration 12 wks-MET Progress Towards Goals Progress Towards Goals Progressing Toward Goals,Goals Met Progress Comments Only goals not met are knee flexion AROM goals, but progressing Assessment Summary Assessment Pt has been seen x18 visits since re-evaluation s/p L partial knee arthroplasty in February 2024. Pt demonstrates improvements in overall L knee ROM; however, she continues to have mild limitations in knee extension and knee flexion. Knee flexion is limited to 115 deg; however, improved observably post knee flexion self mobilization. Pt' s L knee and hip strength is improved. Pt reports that she is back to her previous level of function; she has returned to ambulating for at least 30 minutes on trails with her trek poles. Pt reports no limitations in her mobility or ability to perform ADLs/IADLs . PT and pt discussed discharge today as pt is outside of her plan fo care and pt requesting discharge. PT and pt in agreement. PT educated pt on performing maintenance 3x/wk for at least 6 months; also educated pt to follow up with PCP or radiologic electronic specialist if symptoms return or worsen. Pt verbalizes understanding. Pt will be discharged to maintenance program to continue with strengthening and progressing toward last goal of improving L knee ROM. Physical Therapy Plan Frequency and Duration Frequency of Treatment 1x/Week Duration of treatment (weeks) 2 Plan of Care Start Date 06/20/24 Plan of Care End Date 06/24/24 Therapeutic Interventions Therapeutic Interventions Balance Training,Gait Training ,Home Exercise Program,Joint Mobilizations,Manual Therapy, Neuromuscular Re-education, Self-Care/Home Management,Soft Tissue Mobilization, Therapeutic Activities, Therapeutic Exercises Modalities Cold Pack/Ice Massage,Hot Packs Discharge Physical Therapy Discharge Reasons Patient Request Discharge Comments Pt outside plan of care. Reports no limitations in ADLs . Demos improved hip and knee strength. Still has mild limitations in knee flexion AROM, but pt has functional ROM for gait and stairs Next Visit Focus/Plan Next Note Type Discharge Summary Next Visit Plan discharge from PT Plan of Care Dates Plan of Care Start Date 06/20/24 Plan of Care End Date 06/24/24 Electronically Signed by: Gerda De La Fuente, PT 06/24/24 [id number] If you are in agreement with this Plan of Care, please return a signed and dated copy. I have reviewed this Plan of Care and certify that the skilled therapy services above are required to meet the patient?s needs. Physician Signature Date Printed Name and Credentials Clinical Instructor Signature Printed Name and Credentials
== END 2024-06-26 13:55 | disposition home or self-care (01) ==
LOC: PHYS 09:00
PROVIDERS: Family Provider Nurse Practitioner; PCP Nurse Practitioner; Referring Provider Orthopaedic Surgery; Visit Provider Orthopaedic Surgery
DX: Z01.818 Encounter for other preprocedural examination (principal); M17.12 Unilateral primary osteoarthritis, left knee; M62.81 Muscle weakness (generalized); R26.89 Other abnormalities of gait and mobility; M25.562 Pain in left knee
CPT/HCPCS: 97110; 97112; 97116; 97140; 97162; 97530

== ENCOUNTER → 2024-07-25 16:05 | Outpatient (CLI) | payer OTHER, SELFPAY ==
[2020-12-14 15:51] VITALS: BMI 24.3
--- NOTE | 2024-07-25 16:05 | DI.MG.S_ITS ---
BILATERAL DIGITAL SCREENING MAMMOGRAM 3D/2D WITH CAD: 07/25/2024 CLINICAL: Routine screening. Family history of breast cancer. Comparison is made to exams dated: 06/26/2023 mammogram, 06/20/2022 mammogram, and 06/17/2021 mammogram - [facility]. There are scattered areas of fibroglandular density (category b / 25%-50% glandular tissue). Current study was also evaluated with a Computer Aided Detection (CAD) system. No significant masses, calcifications, or other findings are seen in either breast. There has been no significant interval change. IMPRESSION: NEGATIVE There is no mammographic evidence of malignancy. A 1 year screening mammogram is recommended. Based on the Tyrer Cuzick model (a risk assessment model) the patient's lifetime risk is 0.5% and her 10 year risk is 0.0%. According to the ACR, ACS, and NCCN guidelines, an annual breast MRI exam along with mammogram is recommended if the patient's lifetime risk is 20% or greater. This exam was interpreted at Station ID: [id number]. NOTE: For mammograms, a report in lay terms will be sent to the patient. Approximately 15% of breast malignancies will not be visualized mammographically. In the management of a palpable breast mass, a negative mammogram must not discourage biopsy of a clinically suspicious lesion. Electronically Signed By: Gege Tyler M.D., Ph.D. sacha/[email or web address]:07/25/2024 17:01:04 letter sent: Normal Exam ACR BI-RADS Category 1: Negative
== END ==
PROVIDERS: Family Provider Nurse Practitioner; PCP Family Medicine; Referring Provider Family Medicine; Visit Provider Family Medicine
DX: Z12.31 Encounter for screening mammogram for malignant neoplasm of breast (principal); Z80.3 Family history of malignant neoplasm of breast
CPT/HCPCS: 77063; 77067

== ENCOUNTER → 2024-09-08 08:55 | Outpatient (CLI) | payer OTHER, SELFPAY ==
[2020-12-14 15:51] VITALS: BMI 24.3
[2024-09-08 10:48] LABS: Alanine Aminotransferase 20 IU/L (<35); Albumin 4.3 g/dL (3.5-5.0); Albumin Globulin Ratio 1.7 (1.0-2.8); Alkaline Phosphatase 66 U/L (38-126); Aspartate Aminotransferase 31 IU/L (14-36); BUN Creatinine Ratio 21.1 (6-22); Bilirubin Total 0.5 mg/dL (0.2-1.3); Blood Urea Nitrogen 16 mg/dL (7-17); Calcium 9.4 mg/dL (8.4-10.2); Carbon Dioxide 27 mmol/L (22-32); Chloride 103 mmol/L (98-107); Cholesterol 174 mg/dL (140-199); Estimated Glomerular Filt Rate > 60 mL/min (>60); Globulin 2.6 g/dL (1.7-4.1); Glucose 92 mg/dL (80-110); HDL Cholesterol 50 mg/dL (40-60); HEMOLYSIS < 15 (0-50); LDL Cholesterol Calculated 104 mg/dL (<100); Potassium 4.2 mmol/L (3.4-5.1); Sodium 138 mmol/L (137-145); Total Protein 6.9 g/dL (6.3-8.2); Triglycerides 101 mg/dL (35-150)
[2024-09-08 11:00] LABS: Free T3, Triiodothyronine Free 3.36 pg/mL (2.77-5.27); Free T4, Direct Thyroxine 0.88 ng/dL (0.78-2.19)
[2024-09-08 11:14] LABS: Thyroid Stimulating Hormone 2.83 uIU/mL (0.47-4.68)
== END ==
LOC: LAB 08:56
PROVIDERS: Family Provider Nurse Practitioner; PCP Family Medicine; Referring Provider Family Medicine; Visit Provider Family Medicine
DX: Z79.899 Other long term (current) drug therapy (principal); E78.5 Hyperlipidemia, unspecified; M85.80 Other specified disorders of bone density and structure, unspecified site
CPT/HCPCS: 36415; 80053; 80061; 84439; 84443; 84481